=== PATIENT | female | born 1945 | race Caucasian/White ===

== ENCOUNTER 2019-01-05 17:05 | Inpatient (IN) | payer MEDICARE, OTHER ==
--- NOTE | 2019-01-05 18:41 | PDOC ---
History of Present Illness - General Chief Complaint: Edema Stated Complaint: SOB,LEG PAIN Time Seen by Provider: 01/05/19 17:25 History Source: Patient Exam Limitations: No Limitations - History of Present Illness Initial Comments: 01/05/19 18:57 Pt is a 73yo F with PMH of Leukemia s/p chemotherapy 2y ago, CAD s/p stent, DM, HTN, HLD presenting to ED with complaints of rash and redness to lower extremities associated with swelling. Pt noticed the rash 3-4 days ago and states it has been getting progressively worse. She states that she feels pain in the legs all around and the rashes feel slightly itchy. Denies fevers, chills , recent illnesses, recent antibiotic use, recent travel, sick contacts, cough, congestion, weight loss, night sweats, chest pain, palpitations, sob, abdominal pain, n/v/d, bloody stools, hematuria, epistaxis, headache, changes in vision. PMD: Nikkie Perdue PMH: see hpi PSH: see hpi Meds: see med rec Allergies: nkda Past History - Past Medical History Allergies/Adverse Reactions: Allergies Allergy/AdvReac Type Severity Reaction Status Date / Time No Known Allergies Allergy Verified 01/05/19 17:15 Home Medications: Ambulatory Orders Nebivolol [Bystolic -] 5 mg PO DAILY 05/19/15 Ramipril [Altace] 5 mg PO DAILY 05/19/15 Aspirin [ASA -] 81 mg PO DAILY 07/04/15 Atorvastatin Ca [Lipitor -] 40 mg PO HS 07/04/15 Canagliflozin/Metformin HCl [Invokamet 150-500 mg Tablet] 1 each PO DAILY Clopidogrel Bisulfate [Plavix -] 75 mg PO DAILY 07/04/15 Cardiac Disorders: Yes (episodes of chest pain for a couple seconds) Diabetes: Yes HTN: Yes Hypercholesterolemia: Yes (stopped takeing her chol meds) - Surgical History Cardiac Surgery: Yes (card stents) - Suicide/Smoking/Psychosocial Hx Smoking History: Unknown if ever smoked Have you smoked in the past 12 months: Yes Number of Cigarettes Smoked Daily: 1 'Breaking Loose' booklet given: 05/19/15 Hx Alcohol Use: No Drug/Substance Use Hx: No Substance Use Type: None Hx Substance Use Treatment: No Review of Systems - Review of Systems Constitutional: Yes: Weight Stable. No: Chills, Fever, Malaise, Night Sweats, Weakness, Unintentional Wgt. Loss HEENTM: No: Eye Pain, Blurred Vision, Tearing, Nose Bleeding, Difficulty Swallowing Respiratory: No: Cough, Shortness of Breath, Hemoptysis Cardiac (ROS): No: Chest Pain, Lightheadedness, Palpitations, Syncope ABD/GI: No: Constipated, Diarrhea, Nausea, Rectal Bleeding, Vomiting, Abdominal cramping, Tarry Stools : No: Burning, Dysuria, Hematuria Musculoskeletal: No: Back Pain, Joint Pain, Neck Pain Integumentary: Yes: See HPI, Erythema, Lesions, Pruritus, Rash Neurological: No: Numbness, Paresthesia, Tingling, Tremors *Physical Exam - Vital Signs Last Vital Signs Temp Pulse Resp BP Pulse Ox 98 F 85 17 146/68 100 01/05/19 17:13 01/05/19 17:13 01/05/19 17:13 01/05/19 17:13 01/05/19 17:13 - Physical Exam General Appearance: Yes: Appropriately Dressed, Obese. No: Apparent Distress HEENT: positive: EOMI, RAINER, Lesions (petechiae on roof of mouth). negative: Thrush Neck: positive: Trachea midline, Supple. negative: Lymphadenopathy (R), Lymphadenopathy (L) Respiratory/Chest: positive: Lungs Clear, Normal Breath Sounds. negative: Crackles, Wheezing Cardiovascular: positive: Regular Rhythm, Regular Rate, S1, S2. negative: Edema , JVD, Murmur Vascular Pulses: Carotid (R): 2+, Carotid (L): 2+, Dorsalis-Pedis (R): 2+, Doralis-Pedis (L): 2+ Gastrointestinal/Abdominal: positive: Normal Bowel Sounds, Soft. negative: Tender Musculoskeletal: negative: CVA Tenderness, Vertebral Tenderness Extremity: positive: Normal Capillary Refill, Pedal Edema (bilaterally), Swelling (bilaterally) Integumentary: positive: Normal Color, Dry, Warm, Erythema, Petechiae (on lower extremities bilaterally), Rash (blanching area of erythma on RLE). negative: Mottled, Pale, Cold, Clammy, Diaphoresis Neurologic: positive: human resources officer II-XII NML intact, Fully Oriented, Alert, Normal Response, Motor Strength 5/5 ED Treatment Course - LABORATORY CBC & Chemistry Diagram: 01/05/19 18:20 01/05/19 18:20 - RADIOLOGY Radiology Studies Ordered: Category Date Time Status DUPLEX VASCUL US-2LEGS [US] Stat Ultrasound 01/05/19 17:57 Ordered Medical Decision Making - Medical Decision Making 01/05/19 19:10 Pt is a 73yo F with PMH of Leukemia s/p chemotherapy 2y ago, CAD s/p stent, DM, HTN, HLD presenting to ED with complaints of rash and redness to lower extremities associated with swelling. Pt noticed the rash 3-4 days ago and states it has been getting progressively worse. She states that she feels pain in the legs all around and the rashes feel slightly itchy. Denies fevers, chills , recent illnesses, recent antibiotic use, recent travel, sick contacts, cough, congestion, weight loss, night sweats, chest pain, palpitations, sob, abdominal pain, n/v/d, bloody stools, hematuria, epistaxis, headache, changes in vision. Vitals: wnl PE: petechiae over lower extremities bilaterally from the thigh down, petechie in hard/soft palate of mouth, bilateral edema below the knees, RLE erythema with blanching, slightly warm Ddx includes but not limited to TTP, ITP, cellulitis, impitigo, DVT, fluid overload (chf, renal failure) cellulitis, -labs, bcx, coags, lact -ekg, doppler study -vancomycin. labs pending. imaging pending. EKG: nsr, low voltage QRS. LAFB. no chris or depressions. Flat T in III, V2. due to comorbidities, pt will be admitted for cellulitis. Pt signed out to Dr. Ibrahim to follow up on labs and for admission. *DC/Admit/Observation/Transfer Diagnosis at time of Disposition: Petechiae Cellulitis Qualifiers: Site of cellulitis: extremity Site of cellulitis of extremity: lower extremity Laterality: right Qualified Code(s): L03.115 - Cellulitis of right lower limb - Discharge Dispostion Condition at time of disposition: Good Decision to Admit order: Yes - Referrals Referrals: Deng Perdue MD [Primary Care Provider] - - Patient Instructions - Post Discharge Activity
[2019-01-05 18:47] LABS: BASO % 0.6 % (0-2.0); EOS % 2.3 % (0-4.5); HEMATOCRIT 37.9 % (32.4-45.2); HEMOGLOBIN 12.4 GM/dL (10.7-15.3); LYMPH % 18.8 % (8-40); MCHC 32.7 g/dl (32.0-36.0); MEAN CELL VOLUME 82.5 fl (80-96); MEAN PLT VOLUME 8.2 fl (7.5-11.1); NEUT % 72.3 % (42.8-82.8); PLATELET COUNT 179 K/MM3 (134-434); RDW 15.7 % (11.6-15.6); WHITE BLOOD COUNT 5.5 K/mm3 (4.0-10.0)
[2019-01-05] MEDS ORDERED: VANCOMYCIN 1 GM in D5W (PRE-DOCKED) 1,000 MG/250 ML IVPB ONE (18:47)
--- NOTE | 2019-01-05 18:48 | PDOC ---
Documentation entered by Kristan Lopez SCRIBE, acting as scribe for Adilene Mark DO. Adilene Mark DO: This documentation has been prepared by the John white Daisy, SCRIBE, under my direction and personally reviewed by me in its entirety. I confirm that the documentation accurately reflects all work, treatment, procedures, and medical decision making performed by me. Attending Attestation - Resident Resident Name: Kayleen Carter - ED Attending Attestation I have performed the following: I have examined & evaluated the patient, The case was reviewed & discussed with the resident, I agree w/resident's findings & plan - HPI HPI: 01/05/19 18:23 The patient is a 73 YOF with a PMH of CAD, s/p stent, DM, HTN and acute lympoblastic leukemia s/p chemo who presents to the ER complaining of a rash to her bilateral lower extremity, which she noticed 3 days ago. Patient states she noticed these red patches along her skin, right worse than left leg, and began to apply an old cream she had at home for chemo blisters. Denies itchiness but states they are painful. Denies any new meds or antibiotics. Denies any bleeding from her gums or recent nose bleeds. Denies any trauma to the area. Allergies: NKDA PCP: Dr. Deng Perdue Oncologist: at [facility] - Physicial Exam PE: 01/05/19 18:28 ADULT PHYSICAL EXAM Constitutional: Awake, alert, oriented. No acute distress. Cardiovascular: Regular rate. Regular rhythm. S1, S2 regular. Distal pulses are 2+ and symmetric. Pulmonary/Chest: No evidence of respiratory distress. Clear to auscultation bilaterally No wheezing, rales or rhonchi. Abdominal: Soft and non-distended. There is no tenderness. No rebound, guarding or rigidity. No organomegaly. No palpable masses. Good bowel sounds. Musculoskeletal: No edema. Full range of motion in all extremities. No calf tenderness. Radial/pedal pulses are intact and 2+ bilaterally Skin: (+) petechiae on the soft palate and bilateral lower extremities. (+) anterior tibula cellulitis with warmth, tenderness, and some blistering that is confluent downwards. Neurological: Alert and oriented to person, place, and time. Cranial nerves II -XII are grossly intact. Psychiatric: Good eye contact. Normal interaction, affect and behavior. - Medical Decision Making 01/05/19 18:45 I, Dr. Adilene Mark, DO, attest that this document has been prepared under my direction and personally reviewed by me in its entirety. I further attest, that it accurately reflects all work, treatment, procedures and medical decision -making performed by me. 01/05/19 18:45 a/p: 73yo female with 4 days of worsening rash to LE -pt with petechial rash to b/l LE which worsen as it descends the legs and becomes more confluent -also with cellulitis to the RLE -hx of ALL, dm -no recent f/c, no recent illness or abx -will send labs, cultures, will need abx for cellulitis -will monitor and reassess 01/05/19 19:12 pt with petechiae and cellulitis will need admission plts stable Heart Score/ECG Review - ECG Intrepretation Comment:: 01/05/19 18:47 sinus at 80, low voltage, L-richardson axis, nl interval, poor r wave progression, abnl ekg
[2019-01-05 19:01] LABS: INR 0.97 (0.83-1.09); PROTHROMBIN TIME (PATIENT) 11.5 SEC (9.7-13.0)
[2019-01-05 19:03] LABS: ACTIVATED PTT 27.9 SECONDS (25.2-36.5)
[2019-01-05 19:14] LABS: ALBUMIN 3.6 g/dl (3.4-5.0); ALK PHOS 65 U/L (45-117); ANION GAP 8 MMOL/L (8-16); BILIRUBIN,TOTAL 0.5 mg/dL (0.2-1); BLOOD UREA NITROGEN 19 mg/dL (7-18); CALCIUM 9.2 mg/dL (8.5-10.1); CHLORIDE 106 mmol/L (98-107); CO2 25 mmol/L (21-32); CREATININE 1.1 mg/dL (0.55-1.3); GLUCOSE,RANDOM 138 mg/dL (74-106); POTASSIUM 4.3 mmol/L (3.5-5.1); SGOT/AST 19 U/L (15-37); SGPT/ALT 12 U/L (13-61); SODIUM 139 mmol/L (136-145); TOT PROT 7.6 g/dl (6.4-8.2)
[2019-01-05] MEDS ORDERED: VANCOMYCIN 1 GRAM (PRE-DOCKED) 1,000 MG/250 ML BAG IVPB ONE (19:32)
[2019-01-05] MEDS ORDERED: ACETAMINOPHEN 325 MG TABLET (FP) PO ONE (23:30)
[2019-01-05 23:31] VITALS: BMI 46.7
[2019-01-05] MEDS ORDERED: diphenhydrAMINE HCL 25 MG CAPSULE (FP) PO ONE (23:45)
[2019-01-06] MEDS ORDERED: ACETAMINOPHEN 325 MG TABLET (FP) PO PRN (03:02)
[2019-01-06] MEDS ORDERED: VANCOMYCIN 1,000 MG in DEXTROSE 5%-WATER - 250 ML IVPB ONE ×2 (05:15→08:00)
[2019-01-06] MEDS ORDERED: PT OWN MED DRAWER 7, Y5N ONE (05:17)
[2019-01-06] MEDS: metFORMIN HCL 500 MG TABLET (FP) PO SCH ×2 (06:37→16:11)
[2019-01-06] MEDS: INSULIN SLIDING SCALE (NOVOLOG) 1 VIAL SQ SCH ×4 (06:37→21:55)
[2019-01-06] MEDS ORDERED: INSULIN (NOVOLOG) ASPART 100 UNITS/ML 10ML VIAL ONE (06:41)
[2019-01-06 07:20] LABS: BASO % 0.7 % (0-2.0); EOS % 3.7 % (0-4.5); HEMATOCRIT 35.7 % (32.4-45.2); HEMOGLOBIN 11.6 GM/dL (10.7-15.3); LYMPH % 29.4 % (8-40); MCH 26.7 pg (25.7-33.7); MCHC 32.4 g/dl (32.0-36.0); MEAN CELL VOLUME 82.5 fl (80-96); MEAN PLT VOLUME 8.2 fl (7.5-11.1); MONO % 6.8 % (3.8-10.2); NEUT % 59.4 % (42.8-82.8); PLATELET COUNT 176 K/MM3 (134-434); RBC 4.32 M/mm3 (3.60-5.2); RDW 15.8 % (11.6-15.6); WHITE BLOOD COUNT 4.1 K/mm3 (4.0-10.0)
[2019-01-06 07:43] LABS: ALK PHOS 54 U/L (45-117); ANION GAP 6 MMOL/L (8-16); BILIRUBIN,TOTAL 0.4 mg/dL (0.2-1); BLOOD UREA NITROGEN 22 mg/dL (7-18); CALCIUM 8.5 mg/dL (8.5-10.1); CHLORIDE 108 mmol/L (98-107); CO2 27 mmol/L (21-32); CREATININE 0.9 mg/dL (0.55-1.3); GLUCOSE,RANDOM 129 mg/dL (74-106); POTASSIUM 4.1 mmol/L (3.5-5.1); SGOT/AST 12 U/L (15-37); SGPT/ALT 11 U/L (13-61); SODIUM 141 mmol/L (136-145); TOT PROT 6.5 g/dl (6.4-8.2)
[2019-01-06] MEDS ORDERED: DEXTROSE 5%-WATER - 50 ML IVPB ONE ×2 (08:36→16:37)
[2019-01-06] MEDS ORDERED: PIPERACILLIN/TAZOBACTAM 3.375 GM VIAL IVPB ONE ×2 (08:36→16:37)
[2019-01-06] MEDS: RAMIPRIL 5 MG CAPSULE (FP) PO SCH (09:09)
[2019-01-06] MEDS: HEPARIN NA (PORCINE) 5,000 UNITS/ML 1ML VIAL SQ SCH ×2 (09:09→21:47)
[2019-01-06] MEDS: CLOPIDOGREL BISULFATE 75 MG TABLET (FP) PO SCH (09:09)
[2019-01-06] MEDS: ASPIRIN 81 MG CHEWABLE TABLETS PO SCH (09:09)
[2019-01-06] MEDS: NEBIVOLOL 5 MG TABLET (FP) PO SCH (09:09)
--- NOTE | 2019-01-06 09:57 | EKG ---
Test Reason : Blood Pressure : / mmHG Vent. Rate : 080 BPM Atrial Rate : 080 BPM P-R Int : 182 ms QRS Dur : 090 ms QT Int : 394 ms P-R-T Axes : 055 -54 062 degrees QTc Int : 454 ms NORMAL SINUS RHYTHM LOW VOLTAGE QRS LEFT ANTERIOR FASCICULAR BLOCK CANNOT RULE OUT INFERIOR INFARCT (MASKED BY FASCICULAR BLOCK?) , AGE UNDETERMINED POSSIBLE ANTEROLATERAL INFARCT , AGE UNDETERMINED ABNORMAL ECG WHEN COMPARED WITH ECG OF 04-JUL-2015 09:43, T WAVE INVERSION NO LONGER EVIDENT IN ANTERIOR LEADS Confirmed by NEELAM ALEX MD ([id number]) on 01/06/2019 9:57:09 AM Referred By: Confirmed By:NEELAM ALEX MD
[2019-01-06] MEDS ORDERED: PIPERACILLIN/TAZOB 3.375 GM 3.375 GM in DEXTROSE 5%-WATER - 50 ML IVPB SCH (10:00)
--- NOTE | 2019-01-06 11:54 | CON.ID ---
Consult Consult Specialty:: infectious diseases Referred by:: Reason for Consultation:: b/l cellulitis of the leg - History of Present Illness Chief Complaint: swelling and erythema of the leg History of Present Illness: 73 YOF with a PMH of CAD, s/p stent, DM, HTN and acute lympoblastic leukemia s/ p chemo admitted with ca rash to her bilateral lower extremity, which she noticed 3 days ago. Patient states she noticed these red patches along her skin , right worse than left leg, and began to apply an old cream she had at home for chemo blisters. Denies itchiness but states they are painful. Denies any new meds or antibiotics. patient mentions that the leg started getting angrier and more red and specially painful on the right and the patient came to the hospital - History Source History Provided By: Patient Limitations to Obtaining History: No Limitations - Past Medical History Cardio/Vascular: Yes: CAD, HTN, Hyperlipdemia, [place] (s/p EES stent to LAD) Endocrine: Yes: Diabetes Mellitus - Past Surgical History Past Surgical History: Yes: Stent - Alcohol/Substance Use Hx Alcohol Use: No - Smoking History Smoking history: Unknown if ever smoked Have you smoked in the past 12 months: Yes Aproximately how many cigarettes per day: 1 - Social History Usual Living Arrangement: With Spouse ADL: Independent Occupation: retired dietary staff at [employer] History of Recent Travel: No Home Medications - Allergies Allergies/Adverse Reactions: Allergies Allergy/AdvReac Type Severity Reaction Status Date / Time No Known Allergies Allergy Verified 01/05/19 17:15 - Home Medications Home Medications: Ambulatory Orders Nebivolol [Bystolic -] 5 mg PO DAILY 05/19/15 Ramipril [Altace] 5 mg PO DAILY 05/19/15 Aspirin [ASA -] 81 mg PO DAILY 07/04/15 Atorvastatin Ca [Lipitor -] 40 mg PO HS 07/04/15 Canagliflozin/Metformin HCl [Invokamet 150-500 mg Tablet] 1 each PO DAILY Clopidogrel Bisulfate [Plavix -] 75 mg PO DAILY 07/04/15 Family Disease History - Family Disease History Family Disease History: Heart Disease: Mother, Brother Review of Systems - Review of Systems Constitutional: reports: No Symptoms Eyes: reports: No Symptoms HENT: reports: No Symptoms Neck: reports: No Symptoms Cardiovascular: reports: No Symptoms Respiratory: reports: No Symptoms Gastrointestinal: reports: No Symptoms Genitourinary: reports: No Symptoms Musculoskeletal: reports: No Symptoms Integumentary: reports: Change in Color, Erythema, Rash Neurological: reports: No Symptoms Endocrine: reports: No Symptoms Hematology/Lymphatic: reports: No Symptoms Psychiatric: reports: No Symptoms Physical Exam Vital Signs: Vital Signs Temperature 97.7 F 01/06/19 10:00 Pulse Rate 63 01/06/19 10:00 Respiratory Rate 20 01/06/19 10:00 Blood Pressure 141/66 01/06/19 10:00 O2 Sat by Pulse Oximetry (%) 94 L 01/06/19 09:00 Constitutional: Yes: Well Nourished, Calm, Mild Distress Cardiovascular: Yes: Regular Rate and Rhythm Respiratory: Yes: Regular, CTA Bilaterally Gastrointestinal: Yes: Normal Bowel Sounds, Soft Musculoskeletal: Yes: Other Extremities: Yes: Erythema, Other Integumentary: Yes: Erythema, Incision, Rash Neurological: Yes: Alert, Oriented Psychiatric: Yes: Alert, Oriented Labs: CBC, BMP 01/06/19 06:45 01/06/19 06:45 Imaging - Results Ultrasound: Report Reviewed, Image Reviewed Assessment/Plan Problem List - Problems (1) Cellulitis Code(s): L03.90 - CELLULITIS, UNSPECIFIED Qualifiers: Site of cellulitis: extremity Site of cellulitis of extremity: lower extremity Laterality: right Qualified Code(s): L03.115 - Cellulitis of right lower limb (2) Petechiae Code(s): R23.3 - SPONTANEOUS ECCHYMOSES (3) Diabetes Code(s): E11.9 - TYPE 2 DIABETES MELLITUS WITHOUT COMPLICATIONS Qualifiers: Diabetes mellitus type: type 2 (4) HTN (hypertension) Code(s): I10 - ESSENTIAL (PRIMARY) HYPERTENSION (5) Hyperlipidemia Code(s): E78.5 - HYPERLIPIDEMIA, UNSPECIFIED (6) CAD (coronary artery disease) Code(s): I25.10 - ATHSCL HEART DISEASE OF [place] CORONARY ARTERY W/O ANG PCTRS plan will start patient zosyn rest as per the team
--- NOTE | 2019-01-06 13:19 | HP ---
Admitting History and Physical - Admission History of Present Illness: Pt is a 73 y/o female with a PMH significant for CAD(s/p stent), DM, HTN and acute lympoblastic leukemia s/p chemo. Pt presents to the ER complaining of a rash to her bilateral lower extremity which she noticed 3 days ago. Patient states she noticed these red patches along her skin, right worse than left leg and began to apply an old cream she had at home for chemo blisters. Denies itchiness but states they are painful. Pt denies any fever/chills. - Past Medical History Cardiovascular: Yes: CAD, HTN, Hyperlipdemia, [place] (s/p EES stent to LAD) Heme/Onc: Yes: Other (Leukemia) Endocrine: Yes: Diabetes Mellitus - Past Surgical History Past Surgical History: Yes: Stent - Smoking History Smoking history: Unknown if ever smoked Have you smoked in the past 12 months: Yes Aproximately how many cigarettes per day: 1 - Alcohol/Substance Use Hx Alcohol Use: No - Social History ADL: Independent Occupation: retired dietary staff at [employer] History of Recent Travel: No Home Medications - Allergies Allergies/Adverse Reactions: Allergies Allergy/AdvReac Type Severity Reaction Status Date / Time No Known Allergies Allergy Verified 01/05/19 17:15 - Home Medications Home Medications: Ambulatory Orders Nebivolol [Bystolic -] 5 mg PO DAILY 05/19/15 Ramipril [Altace] 5 mg PO DAILY 05/19/15 Aspirin [ASA -] 81 mg PO DAILY 07/04/15 Atorvastatin Ca [Lipitor -] 40 mg PO HS 07/04/15 Canagliflozin/Metformin HCl [Invokamet 150-500 mg Tablet] 1 each PO DAILY Clopidogrel Bisulfate [Plavix -] 75 mg PO DAILY 07/04/15 Family Disease History - Family Disease History Family History: Unremarkable Family Disease History: Heart Disease: Mother, Brother Review of Systems - Review of Systems Constitutional: reports: No Symptoms HENT: reports: No Symptoms Neck: reports: No Symptoms Cardiovascular: reports: No Symptoms Respiratory: reports: No Symptoms Gastrointestinal: reports: No Symptoms Physical Examination Vital Signs: Vital Signs Temperature 97.7 F 01/06/19 10:00 Pulse Rate 63 01/06/19 10:00 Respiratory Rate 20 01/06/19 10:00 Blood Pressure 141/66 01/06/19 10:00 O2 Sat by Pulse Oximetry (%) 94 L 01/06/19 09:00 Constitutional: Yes: No Distress Eyes: Yes: WNL HENT: Yes: WNL Neck: Yes: WNL Cardiovascular: Yes: WNL, Regular Rate and Rhythm Respiratory: Yes: WNL, Regular, CTA Bilaterally Gastrointestinal: Yes: WNL, Normal Bowel Sounds, Soft Extremities: Yes: Other (RLE w/ erythema/chronic venousis stasis LLE w/ petechia ) Labs: CBC, BMP 01/06/19 06:45 01/06/19 06:45 Problem List - Problems (1) Cellulitis Assessment/Plan: Cont IV antibxs Follow cultures ID consult Code(s): L03.90 - CELLULITIS, UNSPECIFIED Qualifiers: Site of cellulitis: extremity Site of cellulitis of extremity: lower extremity Laterality: right Qualified Code(s): L03.115 - Cellulitis of right lower limb (2) Petechiae Code(s): R23.3 - SPONTANEOUS ECCHYMOSES (3) Diabetes Assessment/Plan: Cont sliding scale w/ coverage Cont metformin Code(s): E11.9 - TYPE 2 DIABETES MELLITUS WITHOUT COMPLICATIONS Qualifiers: Diabetes mellitus type: type 2 (4) HTN (hypertension) Assessment/Plan: BP stable Cont bystolic/ramipril Code(s): I10 - ESSENTIAL (PRIMARY) HYPERTENSION (5) Hyperlipidemia Assessment/Plan: Cont lipitor Code(s): E78.5 - HYPERLIPIDEMIA, UNSPECIFIED (6) CAD (coronary artery disease) Assessment/Plan: Cont plavix Code(s): I25.10 - ATHSCL HEART DISEASE OF [place] CORONARY ARTERY W/O ANG PCTRS
[2019-01-06] MEDS: PIPERACILLIN/TAZOB 3.375 GM 3.375 GM in DEXTROSE 5%-WATER - 50 ML IVPB SCH (17:12)
[2019-01-06] MEDS: ATORVASTATIN CA 40 MG TABLET (FP) PO SCH (21:55)
[2019-01-07] MEDS ORDERED: PIPERACILLIN/TAZOBACTAM 3.375 GM VIAL IVPB ONE ×3 (00:43→17:22)
[2019-01-07] MEDS ORDERED: DEXTROSE 5%-WATER - 50 ML IVPB ONE ×3 (00:43→17:23)
[2019-01-07] MEDS: PIPERACILLIN/TAZOB 3.375 GM 3.375 GM in DEXTROSE 5%-WATER - 50 ML IVPB SCH ×3 (01:41→17:25)
[2019-01-07] MEDS: INSULIN SLIDING SCALE (NOVOLOG) 1 VIAL SQ SCH ×4 (06:09→21:00)
[2019-01-07] MEDS: metFORMIN HCL 500 MG TABLET (FP) PO SCH ×2 (06:09→16:26)
[2019-01-07 07:56] LABS: BASO % 0.7 % (0-2.0); EOS % 3.7 % (0-4.5); HEMATOCRIT 34.9 % (32.4-45.2); HEMOGLOBIN 11.4 GM/dL (10.7-15.3); LYMPH % 25.4 % (8-40); MCH 26.9 pg (25.7-33.7); MCHC 32.8 g/dl (32.0-36.0); MEAN CELL VOLUME 82.1 fl (80-96); MEAN PLT VOLUME 8.4 fl (7.5-11.1); MONO % 8.4 % (3.8-10.2); NEUT % 61.8 % (42.8-82.8); PLATELET COUNT 163 K/MM3 (134-434); RBC 4.26 M/mm3 (3.60-5.2); RDW 16.1 % (11.6-15.6); WHITE BLOOD COUNT 3.9 K/mm3 (4.0-10.0)
[2019-01-07 08:18] LABS: ALK PHOS 52 U/L (45-117); ANION GAP 6 MMOL/L (8-16); BILIRUBIN,TOTAL 0.5 mg/dL (0.2-1); BLOOD UREA NITROGEN 19 mg/dL (7-18); CALCIUM 8.6 mg/dL (8.5-10.1); CHLORIDE 106 mmol/L (98-107); CO2 28 mmol/L (21-32); CREATININE 0.9 mg/dL (0.55-1.3); GLUCOSE,RANDOM 121 mg/dL (74-106); POTASSIUM 4.2 mmol/L (3.5-5.1); SGOT/AST 10 U/L (15-37); SGPT/ALT 11 U/L (13-61); SODIUM 140 mmol/L (136-145); TOT PROT 6.7 g/dl (6.4-8.2)
[2019-01-07] MEDS: NEBIVOLOL 5 MG TABLET (FP) PO SCH (09:21)
[2019-01-07] MEDS: ASPIRIN 81 MG CHEWABLE TABLETS PO SCH (09:21)
[2019-01-07] MEDS: CLOPIDOGREL BISULFATE 75 MG TABLET (FP) PO SCH (09:22)
[2019-01-07] MEDS: RAMIPRIL 5 MG CAPSULE (FP) PO SCH (09:22)
[2019-01-07] MEDS: HEPARIN NA (PORCINE) 5,000 UNITS/ML 1ML VIAL SQ SCH ×2 (09:22→20:59)
[2019-01-07] MEDS: ATORVASTATIN CA 40 MG TABLET (FP) PO SCH (20:59)
--- NOTE | 2019-01-07 22:10 | PN ---
Progress Note, Physician - Current Medication List Current Medications: Active Medications Acetaminophen (Tylenol -) 650 mg PO Q6H PRN PRN Reason: PAIN Aspirin (Asa -) 81 mg PO DAILY [facility] Last Admin: 01/07/19 09:21 Dose: 81 mg Atorvastatin Calcium (Lipitor -) 40 mg PO HS [facility] Last Admin: 01/07/19 20:59 Dose: 40 mg Clopidogrel Bisulfate (Plavix -) 75 mg PO DAILY [facility] Last Admin: 01/07/19 09:22 Dose: 75 mg Heparin Sodium (Porcine) (Heparin -) 5,000 unit SQ BID [facility] Last Admin: 01/07/19 20:59 Dose: Not Given Vancomycin HCl (Vancomycin 1 Gm Premix -) 1 gm in 200 mls @ 133.333 mls/hr IVPB Q12H [facility] Piperacillin Sod/Tazobactam (Sod 3.375 gm/ Dextrose) 50 mls @ 100 mls/hr IVPB Q8H-IV [facility]; Protocol Last Admin: 01/07/19 17:25 Dose: 100 mls/hr Insulin Aspart (Novolog Vial Sliding Scale -) 1 vial SQ ACHS [facility]; Protocol Last Admin: 01/07/19 21:00 Dose: Not Given Metformin HCl (Glucophage -) 500 mg PO BID@0700,1630 [facility] Last Admin: 01/07/19 16:26 Dose: 500 mg Nebivolol (Bystolic -) 5 mg PO DAILY [facility] Last Admin: 01/07/19 09:21 Dose: 5 mg Ramipril (Altace -) 5 mg PO DAILY [facility] Last Admin: 01/07/19 09:22 Dose: 5 mg - Objective Vital Signs: Vital Signs Temperature 98.8 F 01/07/19 18:00 Pulse Rate 63 01/07/19 18:00 Respiratory Rate 20 01/07/19 18:00 Blood Pressure 123/55 L 01/07/19 18:00 O2 Sat by Pulse Oximetry (%) 95 01/07/19 09:00 Labs: CBC, BMP 01/07/19 06:45 01/07/19 06:45 INR, PTT INR 0.97 (0.83-1.09) 01/05/19 18:20 Problem List - Problems (1) Cellulitis Assessment/Plan: Cont IV antibxs Follow cultures ID consult Code(s): L03.90 - CELLULITIS, UNSPECIFIED Qualifiers: Site of cellulitis: extremity Site of cellulitis of extremity: lower extremity Laterality: right Qualified Code(s): L03.115 - Cellulitis of right lower limb (2) Petechiae Code(s): R23.3 - SPONTANEOUS ECCHYMOSES (3) Diabetes Assessment/Plan: Cont sliding scale w/ coverage Cont metformin Code(s): E11.9 - TYPE 2 DIABETES MELLITUS WITHOUT COMPLICATIONS Qualifiers: Diabetes mellitus type: type 2 (4) HTN (hypertension) Assessment/Plan: BP stable Cont bystolic/ramipril Code(s): I10 - ESSENTIAL (PRIMARY) HYPERTENSION (5) Hyperlipidemia Assessment/Plan: Cont lipitor Code(s): E78.5 - HYPERLIPIDEMIA, UNSPECIFIED (6) CAD (coronary artery disease) Assessment/Plan: Cont plavix Code(s): I25.10 - ATHSCL HEART DISEASE OF [place] CORONARY ARTERY W/O ANG PCTRS
[2019-01-08] MEDS ORDERED: PIPERACILLIN/TAZOBACTAM 3.375 GM VIAL IVPB ONE ×3 (01:46→16:51)
[2019-01-08] MEDS ORDERED: DEXTROSE 5%-WATER - 50 ML IVPB ONE ×3 (01:46→16:51)
[2019-01-08] MEDS: PIPERACILLIN/TAZOB 3.375 GM 3.375 GM in DEXTROSE 5%-WATER - 50 ML IVPB SCH ×3 (02:57→17:10)
[2019-01-08] MEDS ORDERED: PT OWN MED DRAWER 7, Y5N ONE ×2 (06:02→08:45)
[2019-01-08] MEDS ORDERED: INSULIN (NOVOLOG) ASPART 100 UNITS/ML 10ML VIAL ONE ×2 (06:03→06:24)
[2019-01-08] MEDS: metFORMIN HCL 500 MG TABLET (FP) PO SCH ×3 (06:19→16:29)
[2019-01-08] MEDS: INSULIN SLIDING SCALE (NOVOLOG) 1 VIAL SQ SCH ×4 (06:19→21:48)
[2019-01-08] MEDS: CLOPIDOGREL BISULFATE 75 MG TABLET (FP) PO SCH (09:10)
[2019-01-08] MEDS: ASPIRIN 81 MG CHEWABLE TABLETS PO SCH (09:10)
[2019-01-08] MEDS: NEBIVOLOL 5 MG TABLET (FP) PO SCH (09:11)
[2019-01-08] MEDS: RAMIPRIL 5 MG CAPSULE (FP) PO SCH (09:11)
[2019-01-08] MEDS: HEPARIN NA (PORCINE) 5,000 UNITS/ML 1ML VIAL SQ SCH ×2 (09:11→21:41)
--- NOTE | 2019-01-08 09:40 | PN ---
Progress Note, Physician History of Present Illness: doing well leg improving patient feeling better - Current Medication List Current Medications: Active Medications Acetaminophen (Tylenol -) 650 mg PO Q6H PRN PRN Reason: PAIN Last Admin: 01/08/19 07:27 Dose: 650 mg Aspirin (Asa -) 81 mg PO DAILY [facility] Last Admin: 01/08/19 09:10 Dose: 81 mg Atorvastatin Calcium (Lipitor -) 40 mg PO HS [facility] Last Admin: 01/07/19 20:59 Dose: 40 mg Clopidogrel Bisulfate (Plavix -) 75 mg PO DAILY [facility] Last Admin: 01/08/19 09:10 Dose: 75 mg Heparin Sodium (Porcine) (Heparin -) 5,000 unit SQ BID [facility] Last Admin: 01/08/19 09:11 Dose: Not Given Vancomycin HCl (Vancomycin 1 Gm Premix -) 1 gm in 200 mls @ 133.333 mls/hr IVPB Q12H [facility] Piperacillin Sod/Tazobactam (Sod 3.375 gm/ Dextrose) 50 mls @ 100 mls/hr IVPB Q8H-IV [facility]; Protocol Last Admin: 01/08/19 09:10 Dose: 100 mls/hr Insulin Aspart (Novolog Vial Sliding Scale -) 1 vial SQ ACHS [facility]; Protocol Last Admin: 01/08/19 06:19 Dose: Not Given Metformin HCl (Glucophage -) 500 mg PO BID@0700,1630 [facility] Last Admin: 01/08/19 08:49 Dose: 500 mg Nebivolol (Bystolic -) 5 mg PO DAILY [facility] Last Admin: 01/08/19 09:11 Dose: 5 mg Ramipril (Altace -) 5 mg PO DAILY [facility] Last Admin: 01/08/19 09:11 Dose: 5 mg - Objective Vital Signs: Vital Signs Temperature 98.3 F 01/08/19 06:00 Pulse Rate 66 01/08/19 06:00 Respiratory Rate 18 01/08/19 06:00 Blood Pressure 138/73 01/08/19 06:00 O2 Sat by Pulse Oximetry (%) 96 01/07/19 21:00 Constitutional: Yes: No Distress, Calm Cardiovascular: Yes: S1, S2 Respiratory: Yes: Regular, CTA Bilaterally Gastrointestinal: Yes: Normal Bowel Sounds, Soft Musculoskeletal: Yes: WNL Extremities: Yes: Erythema (improving), Other Integumentary: Yes: Erythema (improved) Neurological: Yes: Alert, Oriented Labs: CBC, BMP 01/07/19 06:45 01/07/19 06:45 INR, PTT INR 0.97 (0.83-1.09) 01/05/19 18:20 Assessment/Plan Problem List - Problems (1) Cellulitis Code(s): L03.90 - CELLULITIS, UNSPECIFIED Qualifiers: Site of cellulitis: extremity Site of cellulitis of extremity: lower extremity Laterality: right Qualified Code(s): L03.115 - Cellulitis of right lower limb (2) Petechiae Code(s): R23.3 - SPONTANEOUS ECCHYMOSES (3) Diabetes Code(s): E11.9 - TYPE 2 DIABETES MELLITUS WITHOUT COMPLICATIONS Qualifiers: Diabetes mellitus type: type 2 (4) HTN (hypertension) Code(s): I10 - ESSENTIAL (PRIMARY) HYPERTENSION (5) Hyperlipidemia Code(s): E78.5 - HYPERLIPIDEMIA, UNSPECIFIED (6) CAD (coronary artery disease) Code(s): I25.10 - ATHSCL HEART DISEASE OF [place] CORONARY ARTERY W/O ANG PCTRS plan continue abx elevation of the leg rest as per the team
--- NOTE | 2019-01-08 09:41 | PN ---
Progress Note, Physician History of Present Illness: continues to improve no issues erythema resolving - Current Medication List Current Medications: Active Medications Acetaminophen (Tylenol -) 650 mg PO Q6H PRN PRN Reason: PAIN Last Admin: 01/08/19 07:27 Dose: 650 mg Aspirin (Asa -) 81 mg PO DAILY [facility] Last Admin: 01/08/19 09:10 Dose: 81 mg Atorvastatin Calcium (Lipitor -) 40 mg PO HS [facility] Last Admin: 01/07/19 20:59 Dose: 40 mg Clopidogrel Bisulfate (Plavix -) 75 mg PO DAILY [facility] Last Admin: 01/08/19 09:10 Dose: 75 mg Heparin Sodium (Porcine) (Heparin -) 5,000 unit SQ BID [facility] Last Admin: 01/08/19 09:11 Dose: Not Given Vancomycin HCl (Vancomycin 1 Gm Premix -) 1 gm in 200 mls @ 133.333 mls/hr IVPB Q12H [facility] Piperacillin Sod/Tazobactam (Sod 3.375 gm/ Dextrose) 50 mls @ 100 mls/hr IVPB Q8H-IV [facility]; Protocol Last Admin: 01/08/19 09:10 Dose: 100 mls/hr Insulin Aspart (Novolog Vial Sliding Scale -) 1 vial SQ ACHS [facility]; Protocol Last Admin: 01/08/19 06:19 Dose: Not Given Metformin HCl (Glucophage -) 500 mg PO BID@0700,1630 [facility] Last Admin: 01/08/19 08:49 Dose: 500 mg Nebivolol (Bystolic -) 5 mg PO DAILY [facility] Last Admin: 01/08/19 09:11 Dose: 5 mg Ramipril (Altace -) 5 mg PO DAILY [facility] Last Admin: 01/08/19 09:11 Dose: 5 mg - Objective Vital Signs: Vital Signs Temperature 98.3 F 01/08/19 06:00 Pulse Rate 66 01/08/19 06:00 Respiratory Rate 18 01/08/19 06:00 Blood Pressure 138/73 01/08/19 06:00 O2 Sat by Pulse Oximetry (%) 96 01/07/19 21:00 Constitutional: Yes: No Distress, Calm, Obese Cardiovascular: Yes: Regular Rate and Rhythm Respiratory: Yes: Regular, CTA Bilaterally Gastrointestinal: Yes: Normal Bowel Sounds, Soft Musculoskeletal: Yes: WNL Extremities: Yes: Other Neurological: Yes: Alert, Oriented Psychiatric: Yes: Alert, Oriented Labs: CBC, BMP 01/07/19 06:45 01/07/19 06:45 INR, PTT INR 0.97 (0.83-1.09) 01/05/19 18:20 Assessment/Plan Problem List - Problems (1) Cellulitis Code(s): L03.90 - CELLULITIS, UNSPECIFIED Qualifiers: Site of cellulitis: extremity Site of cellulitis of extremity: lower extremity Laterality: right Qualified Code(s): L03.115 - Cellulitis of right lower limb (2) Petechiae Code(s): R23.3 - SPONTANEOUS ECCHYMOSES (3) Diabetes Code(s): E11.9 - TYPE 2 DIABETES MELLITUS WITHOUT COMPLICATIONS Qualifiers: Diabetes mellitus type: type 2 (4) HTN (hypertension) Code(s): I10 - ESSENTIAL (PRIMARY) HYPERTENSION (5) Hyperlipidemia Code(s): E78.5 - HYPERLIPIDEMIA, UNSPECIFIED (6) CAD (coronary artery disease) Code(s): I25.10 - ATHSCL HEART DISEASE OF [place] CORONARY ARTERY W/O ANG PCTRS plan continue abx elevation of the leg rest as per the team will see how patient behaves with erythema tomorrow
--- NOTE | 2019-01-08 10:42 | CONSULT ---
- Consultation REQUESTING PROVIDER: CONSULT REQUEST: We have been asked to surgically evaluate this patient for leg cellulitis PCP:Natacha Cooney HISTORY OF PRESENT ILLNESS: 73yo F presented the hospital with worsening pain and redness of her legs bilaterally Lt>Rt, pt states that the changes started about 1 week ago. 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 Pt denies any history of vascular surgery or issues. Pt states that she is a former smoker quit 1 year ago, but only smoked about 1 cig/day. Pt history of DM on PO meds only. Pt admits to some non-compliance with her medications. PMHx: HTN, HLD, DM, ALL(in remission), diabetic neuropathy Home Medications Medication Instructions Recorded Nebivolol [Bystolic -] 5 mg PO DAILY 05/19/15 Ramipril [Altace] 5 mg PO DAILY 05/19/15 Aspirin [ASA -] 81 mg PO DAILY 07/04/15 Atorvastatin Ca [Lipitor -] 40 mg PO HS 07/04/15 Canagliflozin/Metformin HCl 1 each PO DAILY 07/04/15 [Invokamet 150-500 mg Tablet] Clopidogrel Bisulfate [Plavix -] 75 mg PO DAILY 07/04/15 Allergies Allergy/AdvReac Type Severity Reaction Status Date / Time No Known Allergies Allergy Verified 01/05/19 17:15 REVIEW OF SYSTEMS: CONSTITUTIONAL: Absent: fever, chills, diaphoresis, generalized weakness, malaise, loss of appetite, weight change PHYSICAL EXAM: GENERAL: Awake, alert, and fully oriented, in no acute distress. HEAD: Normal with no signs of trauma. EYES: PERRL, sclera anicteric, conjunctiva clear. NECK: Normal ROM MUSCULOSKELETAL: Normal ROM at all joints. No bony deformities or tenderness. No CVA tenderness. LOWER EXTREMITIES: warm, well-perfused. Extensive Rt leg erythema on anterior vega, +2 edema, mild tenderness with palpation of calf. LLE shows limited erythema on anterior vega +1 edema. NEUROLOGICAL: Normal speech, gait not observed. PSYCH: Cooperative. Good eye contact. Appropriate mood and affect. SKIN: Warm, dry, normal turgor, no rashes or lesions noted. Vital Signs Temperature 98.3 F 01/08/19 10:00 Pulse Rate 70 01/08/19 10:00 Respiratory Rate 20 01/08/19 10:00 Blood Pressure 139/60 01/08/19 10:00 O2 Sat by Pulse Oximetry (%) 97 01/08/19 09:00 Lab Results WBC 3.9 K/mm3 (4.0-10.0) L 01/07/19 06:45 RBC 4.26 M/mm3 (3.60-5.2) 01/07/19 06:45 Hgb 11.4 GM/dL (10.7-15.3) 01/07/19 06:45 Hct 34.9 % (32.4-45.2) 01/07/19 06:45 MCV 82.1 fl (80-96) 01/07/19 06:45 MCHC 32.8 g/dl (32.0-36.0) 01/07/19 06:45 RDW 16.1 % (11.6-15.6) H 01/07/19 06:45 Plt Count 163 K/MM3 (134-434) 01/07/19 06:45 Sodium 140 mmol/L (136-145) 01/07/19 06:45 Potassium 4.2 mmol/L (3.5-5.1) 01/07/19 06:45 Chloride 106 mmol/L (98-107) 01/07/19 06:45 Carbon Dioxide 28 mmol/L (21-32) 01/07/19 06:45 Anion Gap 6 MMOL/L (8-16) L 01/07/19 06:45 BUN 19 mg/dL (7-18) H 01/07/19 06:45 Creatinine 0.9 mg/dL (0.55-1.3) 01/07/19 06:45 Random Glucose 121 mg/dL (74-106) H 01/07/19 06:45 Calcium 8.6 mg/dL (8.5-10.1) 01/07/19 06:45 Blood Type AB POSITIVE 01/05/19 18:20 Antibody Screen Negative 01/05/19 18:20 INR 0.97 (0.83-1.09) 01/05/19 18:20 Problem List - Problems (1) Cellulitis Assessment/Plan: Plan -cellulitis appears to be improving with current treatment, no need for vascular intervention at this time. -advised pt to be compliant with medications, and importance of keeping blood sugars well controlled to prevent LE wounds. -recommend she see binding cutter, for routine foot checks which pt states that she does. Please contact vascular service if any changes. Code(s): L03.90 - CELLULITIS, UNSPECIFIED Qualifiers: Site of cellulitis: extremity Site of cellulitis of extremity: lower extremity Laterality: right Qualified Code(s): L03.115 - Cellulitis of right lower limb Visit type - Case Type Case Type: ED Admission - Emergency Emergency Visit: Yes ED Registration Date: 01/05/19 Care time: The patient presented to the Emergency Department on the above date and was hospitalized for further evaluation of their emergent condition. - New patient This patient is new to me today: Yes Date on this admission: 01/08/19 - Critical Care Critical Care patient: No
--- NOTE | 2019-01-08 11:18 | PN ---
Progress Note (short form) - Note Progress Note: covering for Dr Cooney 73yo F with PMH HTN, HLD, DM, ALL(in remission), diabetic neuropathy, presented to the hospital with worsening pain and redness of her legs bilaterally Lt>Rt, pt states that the changes started about 1 week ago. 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 Pt denies any history of vascular surgery or issues. Pt states that she is a former smoker quit 1 year ago, but only smoked about 1 cig/day. Pt history of DM on PO meds only. Pt admits to some non-compliance with her medications. patient seen and examined in Her room sitting in chair NAD Vital Signs Period Temp Pulse Resp BP Sys/Hernandez Pulse Ox Last 24 Hr 98 F-98.8 F 63-71 18-20 104-139/55-74 96-97 neck supple heart S1/S2 lungs clear bilat abd obese ext LE + edema bilat / chronic changes / hyperchromic areas / petechie CBC, BMP 01/07/19 06:45 01/07/19 06:45 Microbiology 01/05/19 20:20 Blood - Peripheral Venous Blood Culture - Preliminary NO GROWTH OBTAINED AFTER 48 HOURS, INCUBATION TO CONTINUE FOR 3 DAYS. 01/05/19 18:20 Blood - Peripheral Venous Blood Culture - Preliminary NO GROWTH OBTAINED AFTER 48 HOURS, INCUBATION TO CONTINUE FOR 3 DAYS. Active Medications Acetaminophen (Tylenol -) 650 mg PO Q6H PRN PRN Reason: PAIN Last Admin: 01/08/19 07:27 Dose: 650 mg Aspirin (Asa -) 81 mg PO DAILY [facility] Last Admin: 01/08/19 09:10 Dose: 81 mg Atorvastatin Calcium (Lipitor -) 40 mg PO HS [facility] Last Admin: 01/07/19 20:59 Dose: 40 mg Clopidogrel Bisulfate (Plavix -) 75 mg PO DAILY [facility] Last Admin: 01/08/19 09:10 Dose: 75 mg Heparin Sodium (Porcine) (Heparin -) 5,000 unit SQ BID [facility] Last Admin: 01/08/19 09:11 Dose: Not Given Vancomycin HCl (Vancomycin 1 Gm Premix -) 1 gm in 200 mls @ 133.333 mls/hr IVPB Q12H [facility] Piperacillin Sod/Tazobactam (Sod 3.375 gm/ Dextrose) 50 mls @ 100 mls/hr IVPB Q8H-IV [facility]; Protocol Last Admin: 01/08/19 09:10 Dose: 100 mls/hr Insulin Aspart (Novolog Vial Sliding Scale -) 1 vial SQ ACHS [facility]; Protocol Last Admin: 01/08/19 11:04 Dose: Not Given Metformin HCl (Glucophage -) 500 mg PO BID@0700,1630 [facility] Last Admin: 01/08/19 08:49 Dose: 500 mg Nebivolol (Bystolic -) 5 mg PO DAILY [facility] Last Admin: 01/08/19 09:11 Dose: 5 mg Ramipril (Altace -) 5 mg PO DAILY [facility] Last Admin: 01/08/19 09:11 Dose: 5 mg # cellulitis abx per ID \ clinically improved per patient # DM wit5h neuropathy A1c ada diet / improve control weight loss # HTN [facility] # PVD abstain from smoking vascular surgical opinion # ALL remission
[2019-01-08] MEDS: VANCOMYCIN 1 GM PREMIX - 1 GM/200 ML BAG IVPB SCH (15:07)
[2019-01-08] MEDS: ATORVASTATIN CA 40 MG TABLET (FP) PO SCH (21:41)
[2019-01-09] MEDS ORDERED: PIPERACILLIN/TAZOBACTAM 3.375 GM VIAL IVPB ONE ×2 (01:49→08:58)
[2019-01-09] MEDS ORDERED: DEXTROSE 5%-WATER - 50 ML IVPB ONE ×2 (01:50→08:58)
[2019-01-09] MEDS: PIPERACILLIN/TAZOB 3.375 GM 3.375 GM in DEXTROSE 5%-WATER - 50 ML IVPB SCH ×2 (02:34→09:23)
[2019-01-09] MEDS: INSULIN SLIDING SCALE (NOVOLOG) 1 VIAL SQ SCH ×2 (06:48→11:19)
[2019-01-09] MEDS: metFORMIN HCL 500 MG TABLET (FP) PO SCH ×2 (06:49→09:24)
[2019-01-09 07:14] LABS: BASO % 0.9 % (0-2.0); EOS % 3.1 % (0-4.5); HEMATOCRIT 35.2 % (32.4-45.2); HEMOGLOBIN 11.6 GM/dL (10.7-15.3); LYMPH % 25.3 % (8-40); MCH 27.2 pg (25.7-33.7); MEAN CELL VOLUME 82.2 fl (80-96); MEAN PLT VOLUME 8.6 fl (7.5-11.1); MONO % 6.6 % (3.8-10.2); NEUT % 64.1 % (42.8-82.8); PLATELET COUNT 176 K/MM3 (134-434); RBC 4.28 M/mm3 (3.60-5.2); RDW 15.9 % (11.6-15.6); WHITE BLOOD COUNT 4.6 K/mm3 (4.0-10.0)
[2019-01-09 07:46] LABS: ANION GAP 5 MMOL/L (8-16); BLOOD UREA NITROGEN 20 mg/dL (7-18); CALCIUM 9.4 mg/dL (8.5-10.1); CHLORIDE 107 mmol/L (98-107); CO2 28 mmol/L (21-32); GLUCOSE,RANDOM 122 mg/dL (74-106); POTASSIUM 4.6 mmol/L (3.5-5.1); SODIUM 140 mmol/L (136-145)
[2019-01-09] MEDS ORDERED: PT OWN MED DRAWER 7, Y5N ONE (08:58)
[2019-01-09] MEDS: CLOPIDOGREL BISULFATE 75 MG TABLET (FP) PO SCH (09:24)
[2019-01-09] MEDS: NEBIVOLOL 5 MG TABLET (FP) PO SCH (09:24)
[2019-01-09] MEDS: RAMIPRIL 5 MG CAPSULE (FP) PO SCH (09:24)
[2019-01-09] MEDS: HEPARIN NA (PORCINE) 5,000 UNITS/ML 1ML VIAL SQ SCH (09:24)
[2019-01-09] MEDS: ASPIRIN 81 MG CHEWABLE TABLETS PO SCH (09:27)
--- NOTE | 2019-01-09 10:06 | PN ---
Progress Note (short form) - Note Progress Note: covering for Dr Cooney 73yo F with PMH HTN, HLD, DM, ALL(in remission), diabetic neuropathy, presented to the hospital with worsening pain and redness of her legs bilaterally Lt>Rt, pt states that the changes started about 1 week ago. 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 Pt denies any history of vascular surgery or issues. Pt states that she is a former smoker quit 1 year ago, but only smoked about 1 cig/day. Pt history of DM on PO meds only. Pt admits to some non-compliance with her medications. patient seen and examined in Her room sitting in chair NAD evaluated by vascular -- appreciated ambulates wihtout assistance Vital Signs Period Temp Pulse Resp BP Sys/Hernandez Pulse Ox Last 24 Hr 98 F-98.8 F 63-71 18-20 104-139/55-74 96-97 neck supple heart S1/S2 lungs clear bilat abd obese ext decreased LE + edema bilat / chronic changes / hyperchromic areas / petechie CBC, BMP 01/09/19 06:30 01/09/19 06:30 CBC, BMP 01/07/19 06:45 01/07/19 06:45 Microbiology Microbiology 01/05/19 20:20 Blood - Peripheral Venous Blood Culture - Preliminary NO GROWTH OBTAINED AFTER 72 HOURS, INCUBATION TO CONTINUE FOR 2 DAYS. 01/05/19 18:20 Blood - Peripheral Venous Blood Culture - Preliminary NO GROWTH OBTAINED AFTER 72 HOURS, INCUBATION TO CONTINUE FOR 2 DAYS. Active Medications Acetaminophen (Tylenol -) 650 mg PO Q6H PRN PRN Reason: PAIN Last Admin: 01/08/19 07:27 Dose: 650 mg Aspirin (Asa -) 81 mg PO DAILY [facility] Last Admin: 01/09/19 09:27 Dose: 81 mg Atorvastatin Calcium (Lipitor -) 40 mg PO HS [facility] Last Admin: 01/08/19 21:41 Dose: 40 mg Clopidogrel Bisulfate (Plavix -) 75 mg PO DAILY [facility] Last Admin: 01/09/19 09:24 Dose: 75 mg Heparin Sodium (Porcine) (Heparin -) 5,000 unit SQ BID [facility] Last Admin: 01/09/19 09:24 Dose: 5,000 unit Piperacillin Sod/Tazobactam (Sod 3.375 gm/ Dextrose) 50 mls @ 100 mls/hr IVPB Q8H-IV [facility]; Protocol Last Admin: 01/09/19 09:23 Dose: 100 mls/hr Insulin Aspart (Novolog Vial Sliding Scale -) 1 vial SQ ACHS [facility]; Protocol Last Admin: 01/09/19 06:48 Dose: Not Given Metformin HCl (Glucophage -) 500 mg PO BID@0700,1630 [facility] Last Admin: 01/09/19 09:24 Dose: 500 mg Nebivolol (Bystolic -) 5 mg PO DAILY [facility] Last Admin: 01/09/19 09:24 Dose: 5 mg Ramipril (Altace -) 5 mg PO DAILY [facility] Last Admin: 01/09/19 09:24 Dose: 5 mg # cellulitis abx per ID -- changes to PO today clinically improved OK for d/c - with VNS at home # DM wit5h neuropathy A1c ada diet / improve control weight loss out patient follow up # HTN [facility] # PVD abstain from smoking # ALL remission
--- NOTE | 2019-01-09 10:30 | PN ---
Progress Note, Physician History of Present Illness: patient doing well legs still swollen erythema resolved - Current Medication List Current Medications: Active Medications Acetaminophen (Tylenol -) 650 mg PO Q6H PRN PRN Reason: PAIN Last Admin: 01/08/19 07:27 Dose: 650 mg Aspirin (Asa -) 81 mg PO DAILY [facility] Last Admin: 01/09/19 09:27 Dose: 81 mg Atorvastatin Calcium (Lipitor -) 40 mg PO HS [facility] Last Admin: 01/08/19 21:41 Dose: 40 mg Clopidogrel Bisulfate (Plavix -) 75 mg PO DAILY [facility] Last Admin: 01/09/19 09:24 Dose: 75 mg Heparin Sodium (Porcine) (Heparin -) 5,000 unit SQ BID [facility] Last Admin: 01/09/19 09:24 Dose: 5,000 unit Piperacillin Sod/Tazobactam (Sod 3.375 gm/ Dextrose) 50 mls @ 100 mls/hr IVPB Q8H-IV [facility]; Protocol Last Admin: 01/09/19 09:23 Dose: 100 mls/hr Insulin Aspart (Novolog Vial Sliding Scale -) 1 vial SQ ACHS [facility]; Protocol Last Admin: 01/09/19 06:48 Dose: Not Given Metformin HCl (Glucophage -) 500 mg PO BID@0700,1630 [facility] Last Admin: 01/09/19 09:24 Dose: 500 mg Nebivolol (Bystolic -) 5 mg PO DAILY [facility] Last Admin: 01/09/19 09:24 Dose: 5 mg Ramipril (Altace -) 5 mg PO DAILY [facility] Last Admin: 01/09/19 09:24 Dose: 5 mg - Objective Vital Signs: Vital Signs Temperature 97.8 F 01/09/19 06:29 Pulse Rate 59 L 01/09/19 06:29 Respiratory Rate 20 01/09/19 06:29 Blood Pressure 124/65 01/09/19 06:29 O2 Sat by Pulse Oximetry (%) 98 01/08/19 21:00 Constitutional: Yes: No Distress, Calm Cardiovascular: Yes: S1, S2 Respiratory: Yes: Regular, CTA Bilaterally Gastrointestinal: Yes: Normal Bowel Sounds, Soft Musculoskeletal: Yes: WNL Extremities: Yes: Other (swollen) Edema: LLE: 2+, RLE: 1+ Neurological: Yes: Alert, Oriented Psychiatric: Yes: Alert, Oriented Labs: CBC, BMP 01/09/19 06:30 01/09/19 06:30 INR, PTT INR 0.97 (0.83-1.09) 01/05/19 18:20 Assessment/Plan Problem List - Problems (1) Cellulitis Code(s): L03.90 - CELLULITIS, UNSPECIFIED Qualifiers: Site of cellulitis: extremity Site of cellulitis of extremity: lower extremity Laterality: right Qualified Code(s): L03.115 - Cellulitis of right lower limb (2) Petechiae Code(s): R23.3 - SPONTANEOUS ECCHYMOSES (3) Diabetes Code(s): E11.9 - TYPE 2 DIABETES MELLITUS WITHOUT COMPLICATIONS Qualifiers: Diabetes mellitus type: type 2 (4) HTN (hypertension) Code(s): I10 - ESSENTIAL (PRIMARY) HYPERTENSION (5) Hyperlipidemia Code(s): E78.5 - HYPERLIPIDEMIA, UNSPECIFIED (6) CAD (coronary artery disease) Code(s): I25.10 - ATHSCL HEART DISEASE OF [place] CORONARY ARTERY W/O ANG PCTRS plan continue abx elevation of the leg rest as per the team will switch to oral today oral abx for another 2-3 days
[2019-01-09 10:50] VITALS: BP 115/60; PULSE 78; TEMP 98.1
--- NOTE | 2019-01-09 11:13 | DS ---
Physical Examination Vital Signs: Vital Signs Temperature 98.1 F 01/09/19 10:00 Pulse Rate 78 01/09/19 10:00 Respiratory Rate 20 01/09/19 10:00 Blood Pressure 115/60 01/09/19 10:00 O2 Sat by Pulse Oximetry (%) 98 01/09/19 09:00 Findings/Remarks: 73yo F with PMH HTN, HLD, DM, ALL(in remission), diabetic neuropathy, presented to the hospital with worsening pain and redness of her legs bilaterally Lt>Rt, pt states that the changes started about 1 week ago. 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 Pt denies any history of vascular surgery or issues. Pt states that she is a former smoker quit 1 year ago, but only smoked about 1 cig/day. Pt history of DM on PO meds only. Pt admits to some non-compliance with her medications. patient seen and examined in Her room sitting in chair NAD evaluated by vascular -- appreciated ambulates without assistance 01/05/19 20:20 Blood - Peripheral Venous Blood Culture - Preliminary NO GROWTH OBTAINED AFTER 72 HOURS, INCUBATION TO CONTINUE FOR 2 DAYS. 01/05/19 18:20 Blood - Peripheral Venous Blood Culture - Preliminary NO GROWTH OBTAINED AFTER 72 HOURS, INCUBATION TO CONTINUE FOR 2 DAYS. # cellulitis abx per ID -- changes to PO today clinically improved OK for d/c - with VNS at home # DM wit5h neuropathy A1c ada diet / improve control weight loss out patient follow up # HTN continue home meds continue to [facility] # PVD abstain from smoking # ALL remission Constitutional: Yes: Well Nourished, No Distress, Calm, Obese Eyes: Yes: Conjunctiva Clear, EOM Intact HENT: Yes: Atraumatic, Normocephalic Neck: Yes: Supple, Trachea Midline Cardiovascular: Yes: Regular Rate and Rhythm Respiratory: Yes: Regular Gastrointestinal: Yes: Normal Bowel Sounds, Abdomen, Obese ...Rectal Exam: Yes: Deferred Renal/: Yes: WNL Breast(s): Yes: WNL Musculoskeletal: Yes: WNL, Muscle Weakness Extremities: Yes: WNL Edema: Yes Edema: LLE: Trace (chronic changes ), RLE: Trace (chronic changes ) Peripheral Pulses WNL: Yes Integumentary: Yes: Venous Stasis Changes (bilat LE) Neurological: Yes: Alert, Oriented, Unsteady Gait Psychiatric: Yes: Alert, Oriented Labs: CBC, BMP 01/09/19 06:30 01/09/19 06:30 Discharge Summary Reason For Visit: CELLULITIS PETECHIAE Current Active Problems Cellulitis (Acute) Petechiae (Acute) Condition: Improved - Instructions Diet, Activity, Other Instructions: call PCP office for follow up appoinmt VNS for home PT complete PO abx elevate LE when possible ABSTAIN FROM SMOKING Disposition: VNS/HOME HEALTH CARE - Home Medications Comprehensive Discharge Medication List: Ambulatory Orders Nebivolol [Bystolic -] 5 mg PO DAILY 05/19/15 Ramipril [Altace] 5 mg PO DAILY 05/19/15 Aspirin [ASA -] 81 mg PO DAILY 07/04/15 Atorvastatin Ca [Lipitor -] 40 mg PO HS 07/04/15 Canagliflozin/Metformin HCl [Invokamet 150-500 mg Tablet] 1 each PO DAILY Clopidogrel Bisulfate [Plavix -] 75 mg PO DAILY 07/04/15
[2019-01-09] MEDS ORDERED: AMOX TR/POT CLAV 875MG/125MG TABLETS (FP) PO SCH (17:30)
== END 2019-01-09 12:55 | disposition home health service (06) | DRG 603 ==
LOC: JER 17:05 → JERBED 19:06 → J7W 23:35
PROVIDERS: ADMIT Internal Medicine; ATTEND Internal Medicine
DX: L03.115 Cellulitis of right lower limb (principal); Z68.42 Body mass index [BMI] 45.0-49.9, adult; C91.01 Acute lymphoblastic leukemia, in remission; L03.116 Cellulitis of left lower limb; I25.10 Atherosclerotic heart disease of native coronary artery without angina pectoris; I10 Essential (primary) hypertension; R23.3 Spontaneous ecchymoses; E78.5 Hyperlipidemia, unspecified; I25.2 Old myocardial infarction; Z79.4 Long term (current) use of insulin; E66.9 Obesity, unspecified; E11.40 Type 2 diabetes mellitus with diabetic neuropathy, unspecified; Z91.14 Patient's other noncompliance with medication regimen; E11.51 Type 2 diabetes mellitus with diabetic peripheral angiopathy without gangrene
CPT/HCPCS: 36415; 80048; 80053; 82962; 83605; 84484; 85025; 85610; 85730; 86850; 86900; 86901; 87040; 93005; 93010; 93970-TC; 97116-GP; 97161-GP; 99283-25; J1644

== ENCOUNTER 2019-08-05 18:29 | Inpatient (IN) | payer OTHER ==
--- NOTE | 2019-08-05 18:37 | PDOC ---
Rapid Medical Evaluation Time Seen by Provider: 08/05/19 18:36 Medical Evaluation: Allergies Allergy/AdvReac Type Severity Reaction Status Date / Time No Known Allergies Allergy Verified 01/05/19 17:15 08/05/19 18:36 I have performed a brief in-person evaluation of this patient. The patient presents with a chief complaint of: general illness Pertinent physical exam findings:stable and in NAD, non-focal I have ordered the following:labs The patient will proceed to the ED for further evaluation.
[2019-08-05 19:22] LABS: VENOUS PC02 38.9 mmHg (38-52); VENOUS PH 7.39 (7.31-7.41)
[2019-08-05 19:23] LABS: VENOUS PO2 < 49 mmHg (28-48)
[2019-08-05 19:28] LABS: BASO % 0.4 % (0-2.0); EOS % 0.1 % (0-4.5); HEMATOCRIT 30.2 % (32.4-45.2); HEMOGLOBIN 9.5 GM/dL (10.7-15.3); LYMPH % 10.9 % (8-40); MCH 26.4 pg (25.7-33.7); MCHC 31.4 g/dl (32.0-36.0); MEAN CELL VOLUME 83.9 fl (80-96); MEAN PLT VOLUME 8.7 fl (7.5-11.1); MONO % 4.9 % (3.8-10.2); NEUT % 83.7 % (42.8-82.8); PLATELET COUNT 215 K/MM3 (134-434); RBC 3.59 M/mm3 (3.60-5.2); RDW 16.5 % (11.6-15.6)
[2019-08-05 19:43] LABS: INR 1.22 (0.83-1.09); PROTHROMBIN TIME (PATIENT) 14.4 SEC (9.7-13.0)
[2019-08-05 19:46] LABS: ACTIVATED PTT 30.4 SECONDS (25.2-36.5)
[2019-08-05 20:04] LABS: ALBUMIN 2.9 g/dl (3.4-5.0); BILIRUBIN,TOTAL 2.6 mg/dL (0.2-1); BLOOD UREA NITROGEN 23.5 mg/dL (7-18); CALCIUM 8.7 mg/dL (8.5-10.1); CREATININE 1.4 mg/dL (0.55-1.3); POTASSIUM 4.5 mmol/L (3.5-5.1); TOT PROT 6.7 g/dl (6.4-8.2)
--- NOTE | 2019-08-05 20:07 | PDOC ---
History of Present Illness - General Chief Complaint: Pain Stated Complaint: SENT BY DR MARSHA WISDOM Time Seen by Provider: 08/05/19 18:36 Past History - Past Medical History Allergies/Adverse Reactions: Allergies Allergy/AdvReac Type Severity Reaction Status Date / Time No Known Allergies Allergy Verified 08/05/19 18:39 Home Medications: Ambulatory Orders Nebivolol [Bystolic -] 5 mg PO DAILY 05/19/15 Ramipril [Altace] 5 mg PO DAILY 05/19/15 Atorvastatin Ca [Lipitor] 40 mg PO HS 07/04/15 Canagliflozin/Metformin HCl [Invokamet 150-500 mg Tablet] 1 each PO DAILY Acetaminophen [Tylenol .Regular Strength -] 650 mg PO Q6H PRN tablet 01/09/19 Fluocinonide 0.05% Cream [Lidex 0.05% Cream -] 1 applic TP DAILY #1 tube Anemia: Yes Asthma: No Cancer: Yes (Leukemia lymphoblastic) Cardiac Disorders: Yes (episodes of chest pain for a couple seconds) CVA: No COPD: No CHF: Yes Dementia: No Diabetes: Yes GI Disorders: No Disorders: No HTN: Yes Hypercholesterolemia: Yes (stopped takeing her chol meds) Liver Disease: No Seizures: No Thyroid Disease: No - Surgical History Abdominal Surgery: No Appendectomy: No Cardiac Surgery: Yes (card stents) Cholecystectomy: No Lung Surgery: No Orthopedic Surgery: No - Psycho Social/Smoking Cessation Hx Smoking History: Never smoked Have you smoked in the past 12 months: Yes Number of Cigarettes Smoked Daily: 1 If you are a former smoker, when did you quit?: 3 years ago 'Breaking Loose' booklet given: 05/19/15 Hx Alcohol Use: No Drug/Substance Use Hx: No Substance Use Type: None Hx Substance Use Treatment: No *Physical Exam - Vital Signs Last Vital Signs Temp Pulse Resp BP Pulse Ox 97.9 F 95 H 18 131/76 100 08/05/19 18:35 08/05/19 18:35 08/05/19 18:35 08/05/19 18:35 08/05/19 18:35 ED Treatment Course - LABORATORY CBC & Chemistry Diagram: 08/05/19 19:08 08/05/19 19:08 - ADDITIONAL ORDERS Additional order review: Laboratory Results 08/05/19 08/05/19 08/05/19 19:08 19:08 19:08 PT with INR INR PTT (Actin FS) VBG pH 7.39 POC VBG pCO2 38.9 POC VBG pO2 < 49 H VBG HCO3 22.8 L VBG O2 Sat (Rick) 47.6 L VBG Base Excess -1.5 Sodium 133 L Potassium 4.5 Chloride 101 Carbon Dioxide 24 Anion Gap 8 BUN 23.5 H Creatinine 1.4 H Est GFR (CKD-EPI)AfAm 42.79 Est GFR (CKD-EPI)NonAf 36.92 Random Glucose 248 H Lactic Acid 1.9 Calcium 8.7 Total Bilirubin 2.6 H AST 238 H ALT 117 H Alkaline Phosphatase 422 H Troponin I 0.08 H Total Protein 6.7 Albumin 2.9 L 08/05/19 19:08 PT with INR 14.40 H INR 1.22 H PTT (Actin FS) 30.4 VBG pH POC VBG pCO2 POC VBG pO2 VBG HCO3 VBG O2 Sat (Rick) VBG Base Excess Sodium Potassium Chloride Carbon Dioxide Anion Gap BUN Creatinine Est GFR (CKD-EPI)AfAm Est GFR (CKD-EPI)NonAf Random Glucose Lactic Acid Calcium Total Bilirubin AST ALT Alkaline Phosphatase Troponin I Total Protein Albumin 08/05/19 19:08 RBC 3.59 L MCV 83.9 MCHC 31.4 L RDW 16.5 H MPV 8.7 Neutrophils % 83.7 H D Lymphocytes % 10.9 D Monocytes % 4.9 Eosinophils % 0.1 D Basophils % 0.4 Medical Decision Making - Medical Decision Making 08/05/19 22:11 73yo F hx CAD (s/p stent), DM, HTN, CHF, obesity, acute lymphoblastic leukemia s /p chemo, and chronic venous stasis in BLEs told to come to hospital by PCP Dr Marsha Wisdom for uncontrollable pain, presenting with 1mo fatigue, 1wk increasing generalized weakness and anorexia, and 1 day of diaphoresis, chills, pale skin, and severe diffuse abdominal pain. Pt saw Dr. Wisdom yesterday and had CT chest and head done, but abdominal pain only started today, called Dr. Wisdom today. Hemodynamically stable, BP 106/90, afebrile, obese, mild diffuse abdominal TTP, non-acute abdomen, slight jaundice to skin, chronic venous stasis BLEs. Ddx: cholelithiasis/cystitis, pancreatitis, diverticulitis, colitis, GERD, ACS/ UT, arrythmia, CHF, pulmonary pathology (PNA) -CBC,CMP,Lipase,Coags,Trop,Mg,Phos,BNP,VBG,Lact,UA/UC,BCx,FOBT -Pain management: morphine 2 -EKG -CXR -IVF -Dr Valles spoke with Dr Cooney (admitting for Dr Wisdom) for admission -Dispo: admit 08/05/19 22:23 Labs reviewed. Concerning for EKG reviewed: Concerning for new Atrial Flutter. Rectal exam: no abnormalities. FOBT negative. 08/05/19 22:26 Pending lipase, Mg, Phos, BNP, repeat trop, repeat EKG, Dr Zuniga recs, heparin ?, RUQ US. Discharge - Follow up/Referral - Patient Discharge Instructions - Post Discharge Activity
[2019-08-05] MEDS ORDERED: SODIUM CHLORIDE 0.9% 500 ML INFUS.BAG IV ONE (20:28)
[2019-08-05] MEDS ORDERED: morphine CARPU-JECT 4 MG/1 ML DISP.SYRIN IVPUSH ONE (20:48)
[2019-08-05] MEDS ORDERED: MORPHINE SULFATE 2 MG/ML VIAL ONE (21:45)
[2019-08-05 22:57] LABS: MAGNESIUM 1.8 mg/dL (1.8-2.4); N-TERMINAL BNP 8231.4 pg/ml (5-125); PHOSPHOROUS 3.1 mg/dL (2.5-4.9)
--- NOTE | 2019-08-05 23:14 | PDOC ---
*Physical Exam - Vital Signs Last Vital Signs Temp Pulse Resp BP Pulse Ox 97.9 F 78 16 111/59 L 99 08/05/19 18:35 08/05/19 22:55 08/05/19 22:55 08/05/19 22:55 08/05/19 22:55 ED Treatment Course - LABORATORY CBC & Chemistry Diagram: 08/05/19 19:08 08/05/19 19:08 - ADDITIONAL ORDERS Additional order review: Laboratory Results 08/05/19 08/05/19 08/05/19 19:08 19:08 19:08 PT with INR INR PTT (Actin FS) VBG pH 7.39 POC VBG pCO2 38.9 POC VBG pO2 < 49 H VBG HCO3 22.8 L VBG O2 Sat (Rick) 47.6 L VBG Base Excess -1.5 Sodium 133 L Potassium 4.5 Chloride 101 Carbon Dioxide 24 Anion Gap 8 BUN 23.5 H Creatinine 1.4 H Est GFR (CKD-EPI)AfAm 42.79 Est GFR (CKD-EPI)NonAf 36.92 Random Glucose 248 H Lactic Acid 1.9 Calcium 8.7 Phosphorus 3.1 Magnesium 1.8 Total Bilirubin 2.6 H AST 238 H ALT 117 H Alkaline Phosphatase 422 H Troponin I 0.08 H B-Natriuretic Peptide 8231.4 H Total Protein 6.7 Albumin 2.9 L Lipase 255 08/05/19 19:08 PT with INR 14.40 H INR 1.22 H PTT (Actin FS) 30.4 VBG pH POC VBG pCO2 POC VBG pO2 VBG HCO3 VBG O2 Sat (Rick) VBG Base Excess Sodium Potassium Chloride Carbon Dioxide Anion Gap BUN Creatinine Est GFR (CKD-EPI)AfAm Est GFR (CKD-EPI)NonAf Random Glucose Lactic Acid Calcium Phosphorus Magnesium Total Bilirubin AST ALT Alkaline Phosphatase Troponin I B-Natriuretic Peptide Total Protein Albumin Lipase 08/05/19 19:08 RBC 3.59 L MCV 83.9 MCHC 31.4 L RDW 16.5 H MPV 8.7 Neutrophils % 83.7 H D Lymphocytes % 10.9 D Monocytes % 4.9 Eosinophils % 0.1 D Basophils % 0.4 - Medications Given in the ED: ED Medications Discontinued Medications Generic Name Dose Route Start Last Admin Trade Name Freq PRN Reason Stop Dose Admin Morphine Sulfate 2 mg 08/05/19 20:48 08/05/19 21:52 Morphine Injection - IVPUSH 08/05/19 20:49 2 mg ONCE ONE Administration Sodium Chloride 1,000 ml 08/05/19 20:28 08/05/19 21:51 Normal Saline - IV 08/05/19 20:29 1,000 ml ONCE ONE Administration Medical Decision Making - Medical Decision Making Pt signed out from Dr. Jesus Anemia, jaundice -- US found to have choledocholithiasis Elevated troponin, new onset A-flutter Stool guaic negative. Will obtain head CT and start heparin if no source of bleed. 08/05/19 23:12 CT head negative, starting heparin protocol. Pt admitted and stable. 08/06/19 00:14 Discharge - Discharge Information Problems reviewed: Yes Clinical Impression/Diagnosis: Choledocholithiasis Afib Qualifiers: Atrial fibrillation type: unspecified Qualified Code(s): I48.91 - Unspecified atrial fibrillation Condition: Stable - Admission Yes - Follow up/Referral - Patient Discharge Instructions - Post Discharge Activity
[2019-08-05] MEDS ORDERED: SODIUM CHLORIDE 1,000 ML IV SCH (23:15)
--- NOTE | 2019-08-05 23:18 | PDOC ---
Documentation entered by Elva Vergara SCRIBE, acting as scribe for Myriam Valles MD. Myriam Valles MD: This documentation has been prepared by the Jai white Sammi, SCRIBE, under my direction and personally reviewed by me in its entirety. I confirm that the documentation accurately reflects all work, treatment, procedures, and medical decision making performed by me. Attending Attestation - Resident Resident Name: Ann MarieNatacha - ED Attending Attestation I have performed the following: I have examined & evaluated the patient, The case was reviewed & discussed with the resident, I agree w/resident's findings & plan, Exceptions are as noted - HPI HPI: 08/05/19 21:02 The patient is a 73 year old female whith PMH Dm, HTN, CHF, moya cytopenia, pneumonia, presents with ~1 week of general malaise, increasing weakness, with onset of RUQ x1 day. She was evaluated by Dr. Deng Perdue and had CT scans done. - Physicial Exam PE: 08/05/19 21:12 GENERAL: Obese 73 year old female, mild discomfort HEENT: Normocephalic, atraumatic. PERRL, EOM intact. CARDIOVASCULAR: Normal S1, S2. Regular rate and rhythm. PULMONARY: Clear to auscultation bilaterally. No wheezing or crackles. ABDOMEN: +RUQ ttp Soft, non-distended. EXTREMITIES: +chronic venous stasis lower legs Normal ROM in all four extremities. No gross deformities. SKIN: Warm, dry. No rash NEUROLOGICAL: conversant, moving extremities No focal neurological deficits. - Medical Decision Making 08/05/19 23:18 Ultrasound shows a dilated common bile duct and evidence of acute cholecystitis Repeat EKG still shows A. fib/ a flutter rate controlled the patient will now get a head CT, if it is negative we will start heparin PT TO BE ADMITED TO TELE 08/06/19 00:[address] Zhang who works with Dr Bell and agrees with heparin gtt Stool Hemoccult was negative CAT scan of the head was negative for any acute intracranial pathology will start heparin
[2019-08-06] MEDS ORDERED: HEPARIN NA (PORCINE) 5,000 UNITS/ML 1ML VIAL IVPUSH PRN ×2 (00:11)
[2019-08-06] MEDS ORDERED: HEPARIN - 25,000 UNIT in SODIUM CHLORIDE 495 ML IV SCH (00:15)
[2019-08-06] MEDS ORDERED: HEPARIN NA (PORCINE) 5,000 UNITS/ML 1ML VIAL ONE (00:24)
[2019-08-06] MEDS ORDERED: HEPARIN INFUSION - 25,000 UNITS/500 ML INFUS.BAG IVPB ONE (00:25)
[2019-08-06] MEDS ORDERED: MORPHINE SULFATE 2 MG/ML VIAL IVPUSH PRN (00:51)
[2019-08-06] MEDS ORDERED: DEXTROSE 5%-0.45% SALINE 1,000 ML IV SCH (01:00)
[2019-08-06] MEDS ORDERED: MORPHINE SULFATE 2 MG/ML VIAL IVPUSH ONE ×2 (02:30→06:15)
[2019-08-06 02:50] VITALS: BMI 43.9
[2019-08-06 07:03] LABS: BASO % 0.2 % (0-2.0); HEMATOCRIT 29.2 % (32.4-45.2); HEMOGLOBIN 9.4 GM/dL (10.7-15.3); LYMPH % 7.5 % (8-40); MCH 26.8 pg (25.7-33.7); MCHC 32.1 g/dl (32.0-36.0); MEAN CELL VOLUME 83.4 fl (80-96); MEAN PLT VOLUME 9.3 fl (7.5-11.1); MONO % 2.5 % (3.8-10.2); NEUT % 89.8 % (42.8-82.8); PLATELET COUNT 167 K/MM3 (134-434); RDW 16.8 % (11.6-15.6); WHITE BLOOD COUNT 8.2 K/mm3 (4.0-10.0)
[2019-08-06 07:34] LABS: ALBUMIN 2.7 g/dl (3.4-5.0); BILIRUBIN,TOTAL 3.7 mg/dL (0.2-1); BLOOD UREA NITROGEN 26.3 mg/dL (7-18); CALCIUM 8.2 mg/dL (8.5-10.1); CREATININE 1.2 mg/dL (0.55-1.3); POTASSIUM 3.9 mmol/L (3.5-5.1); TOT PROT 6.5 g/dl (6.4-8.2)
--- NOTE | 2019-08-06 08:48 | CON.GI ---
Consult Consult Specialty:: GI Referred by:: Dr Natacha Cooney Reason for Consultation:: Abdominal pain - History of Present Illness History of Present Illness: Patient is a 73 y/o female with past medical history of CAD s/p stent, DM, HTN, CHF, Obesity, Acute Lymphoblastic Leukemia s/p chemo, and Chronic Venous Stasis. Patient states having sharp, non-radiating right sided abdominal pain with nausea which develop yesterday. She complains of weakness and poor appetite x 1 month, unknown if abnormal weight loss occurred during that time. She denies dysphagia, vomiting, rectal bleeding, melena, constipation. Abdominal US in ER showed no definite gallbladder calculus is seen allowing for partially obscurring inspissated bile/sludge, CBD dilatation with 1.2cm diameter , minimal to mild dilatation of main pancreatic duct, and diffuse hepatic steatosis. Labs show elevtaed LFTs with AST 132, ALT 120, and Alk Phos 420. Elevated Lipase 900 and amylase 91. - History Source History Provided By: Patient Limitations to Obtaining History: No Limitations - Past Medical History Cardio/Vascular: Yes: CAD, HTN, Hyperlipdemia, [place] (s/p EES stent to LAD) ...: No Endocrine: Yes: Diabetes Mellitus - Past Surgical History Past Surgical History: Yes: Stent - Alcohol/Substance Use Hx Alcohol Use: No - Smoking History Smoking history: Former smoker Have you smoked in the past 12 months: No Aproximately how many cigarettes per day: 1 If you are a former smoker, when did you quit?: 3 years ago - Social History Usual Living Arrangement: With Spouse ADL: Independent Occupation: retired dietary staff at [employer] History of Recent Travel: No Home Medications - Allergies Allergies/Adverse Reactions: Allergies Allergy/AdvReac Type Severity Reaction Status Date / Time No Known Allergies Allergy Verified 08/05/19 18:39 - Home Medications Home Medications: Ambulatory Orders Furosemide 40 mg PO ASDIR 08/05/19 Methotrexate Sodium [Methotrexate] 2.5 mg PO ASDIR 08/05/19 Metoprolol Tartrate 25 mg PO DAILY 08/05/19 Family Medical History Family Hx Cancer: Father (pancreatic) Review of Systems - Review of Systems Constitutional: reports: Loss of Appetite, Weakness Eyes: reports: No Symptoms HENT: reports: No Symptoms Neck: reports: No Symptoms Cardiovascular: reports: No Symptoms Respiratory: reports: No Symptoms Gastrointestinal: reports: Abdominal Pain, Nausea Genitourinary: reports: No Symptoms Breasts: reports: No Symptoms Reported Musculoskeletal: reports: No Symptoms Integumentary: reports: No Symptoms Neurological: reports: No Symptoms Endocrine: reports: No Symptoms Hematology/Lymphatic: reports: No Symptoms Psychiatric: reports: No Symptoms Physical Exam-GI Vital Signs: Vital Signs Temperature 99.4 F 08/06/19 05:44 Pulse Rate 77 08/06/19 05:44 Respiratory Rate 20 08/06/19 05:44 Blood Pressure 145/69 08/06/19 05:44 O2 Sat by Pulse Oximetry (%) 96 08/06/19 00:46 Constitutional: Yes: No Distress, Calm, Obese Eyes: Yes: Conjunctiva Clear HENT: Yes: Atraumatic Cardiovascular: Yes: Regular Rate and Rhythm Respiratory: Yes: Regular, CTA Bilaterally Gastrointestinal Inspection: Yes: WNL. No: Ascites, Distention, Hernia, Scars, Other ...Auscultate: Yes: Normoactive Bowel Sounds. No: Hyperactive Bowel Sounds, Hypoactive Bowel Sounds, No Bowel Sounds, Other ...Palpate: Yes: Soft, Tenderness (diffuse, greater at RUQ), Tenderness, Epigastium. No: Firm/Rigid, Guarding, Hepatomegaly, Mass, Pulsatile Mass, Splenomegaly, Tenderness, Rebound, Other ...Percussion: Yes: Other (high tympany). No: Dullness, Fluid Wave, Tympanitic Neurological: Yes: Alert, Oriented Psychiatric: Yes: Alert, Oriented Labs: CBC, BMP 08/06/19 06:23 08/06/19 06:23 INR, PTT INR 1.22 (0.83-1.09) H 08/05/19 19:08 Active Medications Generic Name Dose Route Start Last Admin Trade Name Freq PRN Reason Stop Dose Admin Furosemide 40 mg 08/06/19 10:00 Lasix Injection - IVPUSH DAILY GABY Heparin Sodium (Porcine) 1,000 unit 08/06/19 00:11 Heparin - IVPUSH PRN PRN Heparin Heparin Sodium (Porcine) 5,000 unit 08/06/19 00:11 08/06/19 00:37 Heparin - IVPUSH 5,000 unit PRN PRN Administration Heparin Sodium Chloride 1,000 mls @ 125 mls/hr 08/05/19 23:15 08/05/19 23:52 Normal Saline - IV 125 mls/hr ASDIR GABY Administration Heparin Sodium (Porcine) 25, 500 mls @ 20 mls/hr 08/06/19 00:15 08/06/19 00: 37 000 unit/ Sodium Chloride IV 1,000 unit/hr TITR GABY 20 mls/hr Administration Protocol 1,000 UNIT/HR Dextrose/Sodium Chloride 1,000 mls @ 75 mls/hr 08/06/19 01:00 08/06/19 02:50 D5-1/2ns - IV Not Given ASDIR GABY Metoprolol Tartrate 25 mg 08/06/19 10:00 Lopressor - PO DAILY GABY Morphine Sulfate 2 mg 08/06/19 00:51 Morphine Sulfate IVPUSH Q6H PRN pain Imaging - Results Ultrasound: Report Reviewed Problem List - Problems (1) Dilated cbd, acquired Assessment/Plan: >R/O bile duct stone >Actigal BID >Ceftriaxone, Flagyl Code(s): K83.8 - OTHER SPECIFIED DISEASES OF BILIARY TRACT (2) Biliary acute pancreatitis Assessment/Plan: >IV hydration >Ceftriaxone, Flagyl >monitor Lipase level Code(s): K85.10 - BILIARY ACUTE PANCREATITIS WITHOUT NECROSIS OR INFECTION (3) Poor appetite Assessment/Plan: >CA 125, CA 19-9, CEA Code(s): R63.0 - ANOREXIA
[2019-08-06] MEDS ORDERED: CEFTRIAXONE 1 GM in DEXTROSE 5%-WATER - 50 ML IVPB SCH (10:00)
[2019-08-06] MEDS ORDERED: URSODIOL 300 MG CAPSULE PO SCH (10:00)
[2019-08-06] MEDS ORDERED: FUROSEMIDE 40 MG/4 ML INJECTABLE VIAL IVPUSH SCH (10:00)
[2019-08-06] MEDS ORDERED: METOPROLOL TARTRATE 25 MG TABLET (FP) PO SCH (10:00)
--- NOTE | 2019-08-06 10:34 | EKG ---
Test Reason : Blood Pressure : / mmHG Vent. Rate : 081 BPM Atrial Rate : 085 BPM P-R Int : 000 ms QRS Dur : 088 ms QT Int : 388 ms P-R-T Axes : 000 -55 011 degrees QTc Int : 450 ms ATRIAL FIBRILLATION LOW VOLTAGE QRS LEFT ANTERIOR FASCICULAR BLOCK CANNOT RULE OUT INFERIOR INFARCT (MASKED BY FASCICULAR BLOCK?) , AGE UNDETERMINED CANNOT RULE OUT ANTERIOR INFARCT , AGE UNDETERMINED ABNORMAL ECG Confirmed by FELICE QURESHI, IVONNE ([id number]) on 08/06/2019 10:34:27 AM Referred By: Confirmed By:IVONEN VIVERSO MD
--- NOTE | 2019-08-06 10:35 | EKG ---
Test Reason : Blood Pressure : / mmHG Vent. Rate : 091 BPM Atrial Rate : 277 BPM P-R Int : 000 ms QRS Dur : 080 ms QT Int : 374 ms P-R-T Axes : 000 -61 007 degrees QTc Int : 460 ms POOR DATA QUALITY, INTERPRETATION MAY BE ADVERSELY AFFECTED ATRIAL FIBRILLATION LEFT AXIS DEVIATION ABNORMAL ECG WHEN COMPARED WITH ECG OF 05-JAN-2019 18:13, ATRIAL FIBRILLATION HAS REPLACED SINUS RHYTHM BORDERLINE CRITERIA FOR ANTERIOR INFARCT ARE NO LONGER PRESENT BORDERLINE CRITERIA FOR ANTEROLATERAL INFARCT ARE NO LONGER PRESENT NONSPECIFIC T WAVE ABNORMALITY NOW EVIDENT IN INFERIOR LEADS Confirmed by FELICE QURESHI, IVONNE ([id number]) on 08/06/2019 10:34:35 AM Referred By: Confirmed By:IVONNE VIVEROS MD
--- NOTE | 2019-08-06 11:59 | ECHO ---
Name: ERIN STACIE Exam:Adult Echocardiogram Study Date: 08/06/2019 09:19 AM Age: 73 yrs Height: 64 in Weight: 260 lb BSA: 2.2 m2 MMode/2D Measurements & Calculations IVSd: 1.2 cm Ao root diam: 3.2 cm LVIDd: 4.1 cm LA dimension: 3.1 cm LVIDs: 2.9 cm LVPWd: 1.5 cm LVPWs: 1.5 cm EDV(Teich): 75.0 ml ESV(Teich): 31.4 ml desc Ao Diam: 4.2 cm LVOT diam: 2.2 cm Doppler Measurements & Calculations MV V2 max: 177.8 cm/sec MV E max teo: 153.5 cm/sec MV max P.6 mmHg MV A max teo: 66.1 cm/sec MV V2 mean: 97.2 cm/sec MV E/A: 2.3 MV mean P.7 mmHg MV dec time: 0.17 sec MV V2 VTI: 31.8 cm Ao V2 max: 231.8 cm/sec LV V1 max P.1 mmHg Ao max P.5 mmHg LV V1 max: 113.0 cm/sec Ao V2 mean: 161.9 cm/sec Ao mean P.3 mmHg Ao V2 VTI: 38.8 cm IRENE(V,D): 1.8 cm2 TR max teo: 284.6 cm/sec PA V2 max: 124.2 cm/sec TR max P.7 mmHg PA max P.2 mmHg Med Peak E' Teo: 10.3 cm/sec Med E/e': 14.9 Lat Peak E' Teo: 9.4 cm/sec Lat E/e': 16.3 Procedure The study was technically difficult with many images being suboptimal in quality. Left Ventricle The left ventricle is not well visualized. The left ventricle is grossly normal size. The left ventri cular ejection fraction is grossly normal. Regional wall motion abnormalities cannot be excluded due to sanchez ited visualization. Right Ventricle The right ventricle is not well visualized. Atria Normal left and right atrial size and function. Mitral Valve The mitral valve is not well visualized. There is moderate mitral valve thickening. There is moderate mitral annular calcification. There is mild to moderate mitral stenosis. There is trace to mild mitral regur gitation. Tricuspid Valve The tricuspid valve is not well visualized. There is no tricuspid stenosis. There is mild tricuspid regurgitation. Right ventricular systolic pressure is normal. Aortic Valve The aortic valve is not well visualized. There is moderate aortic valve thickening. There is moderate aortic sclerosis.;. Mild valvular aortic stenosis. No aortic regurgitation is present. Pulmonic Valve The pulmonic valve is not well visualized. Great Vessels The aortic root is normal size. Pericardium/Pleura There is a moderate pericardial effusion. Interpretation Summary The study was technically difficult with many images being suboptimal in quality. The left ventricle is not well visualized. The left ventricle is grossly normal size. There is mild tricuspid regurgitation. Right ventricular systolic pressure is normal. The right ventricle is not well visualized. Regional wall motion abnormalities cannot be excluded due to limited visualization. The left ventricular ejection fraction is grossly normal. There is trace to mild mitral regurgitation. There is mild to moderate mitral stenosis. There is moderate mitral valve thickening. The aortic valve is not well visualized. There is moderate aortic valve thickening. There is moderate aortic sclerosis.; Mild valvular aortic stenosis. There is a moderate pericardial effusion. There is moderate mitral annular calcification. The mitral valve is not well visualized. MD Valdemar Sherman 08/06/2019 11:59 AM
--- NOTE | 2019-08-06 12:45 | CON.CARD ---
Consult Consult Specialty:: Cardiology Referred by:: ER/Dr. 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 She was also noted to have normal LV systolic function at that time with minimal valvular dysfunction and Evidence of Diastolic dysfunction, chronic diastolic CHF, chronic venous insufficiency, obesity, admitted with c/o abdominal pain, nausea and found to have acute cholecystitis, sepsis, KAUR. In ER EKG showed AFib with controlled HR. Also noted to have a minimally elevated troponin with a normal CK level. Troponin trended down to normal. pt was seen today. c/o continued abdominal pain, fever, chills. No chest pain or sob. no palpitations. - History Source History Provided By: Patient, Family Member Limitations to Obtaining History: No Limitations - Past Medical History Cardio/Vascular: Yes: CAD, CHF, HTN, Hyperlipdemia, [place] (s/p EES stent to LAD) ...: No Endocrine: Yes: Diabetes Mellitus - Past Surgical History Past Surgical History: Yes: Stent - Alcohol/Substance Use Hx Alcohol Use: No - Smoking History Smoking history: Former smoker Have you smoked in the past 12 months: No Aproximately how many cigarettes per day: 1 If you are a former smoker, when did you quit?: 3 years ago - Social History Usual Living Arrangement: With Spouse ADL: Independent Occupation: retired dietary staff at [employer] History of Recent Travel: No Home Medications - Allergies Allergies/Adverse Reactions: Allergies Allergy/AdvReac Type Severity Reaction Status Date / Time No Known Allergies Allergy Verified 08/05/19 18:39 - Home Medications Home Medications: Ambulatory Orders Furosemide 40 mg PO ASDIR 08/05/19 Methotrexate Sodium [Methotrexate] 2.5 mg PO ASDIR 08/05/19 Metoprolol Tartrate 25 mg PO DAILY 08/05/19 Review of Systems - Review of Systems Constitutional: reports: Chills, Diaphoresis, Fever, Loss of Appetite, Malaise. denies: No Symptoms, Lethargy, Night Sweats, Unintentional Wgt. Loss, Weakness , Other Eyes: denies: No Symptoms, Blind Spots, Blurred Vision, Double Vision, Eye Pain , Floaters, Photophobia, Recent Change in Vision, Other HENT: denies: No Symptoms, Difficult Swallowing, Ear Discharge, Ear Pain, Epistaxis, Gingival Bleeding, Hearing Loss, Mouth Swelling, Nasal Congestion, Ocular Prosthesis, Throat Pain, Toothache, Ringing in Ears, Other Neck: denies: No Symptoms, Decreased ROM, Lumps, Pain on Movement, Stiffness, Swollen Glands, Tenderness, Other Cardiovascular: denies: No Symptoms, Chest Pain, Edema, Palpitations, Shortness of Breath, Other Respiratory: denies: No Symptoms, Cough, Exercise Intolerance, Hemoptysis, Orthopnea, PND, Snoring, SOB, SOB on Exertion, Wheezing, Other Gastrointestinal: reports: Abdominal Pain, Nausea. denies: No Symptoms, Bloating, Constipation, Diarrhea, Dysphagia, Indigestion, Melena, Rectal Bleeding, Vomiting, Vomiting Blood, Other Genitourinary: denies: No Symptoms, Burning, Discharge, Dysuria, Flank Pain, Frequency, Hematuria, Incontinence, Lesions, Menses, Pain, Testicular Mass, Testicular Pain, Testicular Swelling, Urgency, Vaginal Bleeding, Other Breasts: denies: No Symptoms Reported, See HPI, Breast Implants, Discharge from Nipple, Lumps, Pain, Skin Changes, Other Musculoskeletal: denies: No Symptoms, Back Pain, Crepitus, Decreased ROM, Extremity Pain, Joint Pain, Joint Swelling, Muscle Pain, Muscle Cramps, Muscle Weakness, Other Integumentary: denies: No Symptoms, Blister, Bruising, Change in Color, Eczema, Erythema, Incision, Lesions, Lump, Pallor, Pruritis, Rash, Wound, Other Neurological: denies: No Symptoms, Change in LOC, Change in Speech, Confusion, Dizziness, Headache, Incoordination, Numbness, Parasthesia, Pre-Existing Deficit , Seizure, Syncope, Tremors, Unsteady Gait, Weakness, Other Endocrine: denies: No Symptoms, Excessive Sweating, Flushing, Increased Hunger, Increased Thirst, Intolerance to Cold, Intolerance to Heat, Unexplained Weight Gain, Unexplained Weight Loss, Other Hematology/Lymphatic: denies: No Symptoms, Easily Bruised, Excessive Bleeding, Swollen Glands, Other Psychiatric: denies: No Symptoms, Altered Sleep Pattern, Anxiety, Depression, Hallucinations, Panic, Paranoia, Suicidal, Other - Risk Factors Known Risk Factors: Yes: Hypercholesterolemia, Hypertension Vital Signs: Vital Signs Temperature 99.4 F 08/06/19 05:44 Pulse Rate 77 08/06/19 05:44 Respiratory Rate 20 08/06/19 05:44 Blood Pressure 145/69 08/06/19 05:44 O2 Sat by Pulse Oximetry (%) 96 08/06/19 00:46 Constitutional: Yes: No Distress, Calm Eyes: Yes: Conjunctiva Clear, EOM Intact HENT: Yes: Atraumatic, Normocephalic Neck: Yes: Supple, Trachea Midline Respiratory: Yes: Regular, Diminished. No: Rales, Rhonchi, SOB, Wheezes Gastrointestinal: Yes: Normal Bowel Sounds, Soft. No: Distention, Tenderness Cardiovascular: Yes: Pulse Irregular. No: Regular Rate and Rhythm, Bradycardia , Tachycardia, Gallop, Rub, Varicosities JVD: No Carotid Bruit: No PMI: Non-Displaced Heart Sounds: Yes: S1, S2. No: Split S2, S3, S4, Clicks, Gallop, Rub, Bruit Murmur: No: Systolic Murmur, Diastolic Murmur Musculoskeletal: Yes: Muscle Weakness Edema: Yes Edema: LLE: Trace, RLE: Trace Peripheral Pulses WNL: Yes Neurological: Yes: Alert, Oriented Psychiatric: Yes: Alert, Oriented - Other Data Labs, Other Data: CBC, BMP 08/06/19 06:23 08/06/19 06:23 INR, PTT INR 1.22 (0.83-1.09) H 08/05/19 19:08 Troponin, BNP 08/05/19 08/05/19 08/06/19 19:08 23:00 06:23 Troponin I 0.08 H 0.05 0.03 B-Natriuretic Peptide 8231.4 H Troponin, BNP 08/05/19 08/05/19 08/06/19 19:08 23:00 06:23 Troponin I 0.08 H 0.05 0.03 B-Natriuretic Peptide 8231.4 H ekg-AFib 84bpm. 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 She was also noted to have normal LV systolic function at that time with minimal valvular dysfunction and Evidence of Diastolic dysfunction, chronic diastolic CHF, chronic venous insufficiency, obesity, admitted with c/o abdominal pain, nausea and found to have acute cholecystitis, sepsis, KAUR. In ER EKG showed AFib with controlled HR. Also noted to have a minimally elevated troponin with a normal CK level. Troponin trended down to normal. c/o continued abdominal pain, fever, chills. No chest pain or sob. no palpitations. Afib-newly diagnosed in the setting of sepsis secondary to acute cholecystitis -HR is adequately controlled without additional AV del blockers -she was started on heparin gtt overnight -hold heparin gtt as may require surgical procedure. -cont metoprolol po, if npo can use IV lopressor as needed Elevated troponin -minimally elevated initial troponin in the setting of sepsis, KAUR -not c/w ACS -no ischemia or injury on ekg -h/o CAD with stent LAD 2014 -CK level normal, repeat troponin levels wnl -echo showed normal LV systolic function -no additional ischemic work up is indicated at this time. Pericardial effusion -moderate effusion seen on echo today -no tamponade physiology reported -BP has been stable -likely also secondary to sepsis Preop cardiovascular exam -pt with multiple risk factors -minimal troponin elevation is not c/w ACS, secondary to sepsis -newly diagnosed AFib but HR is adequately controlled -Given IV Lasix x 2 today -ECHO showed normal LVEF, no sig valvular abnl, mod pericardial effusion but no tamponade physiology -pt has an emergent/urgent indication for intervention for her cholecystitis and sepsis and thus would recommend to proceed without additional cardiac work up. This afternoon after initially being seen pt became acutely febrile, sob, hypoxic, tachycardic. Rapid response was called, she was started on bipap, given IV lasix and IV metoprolol and improved. repeat ekg shows Afib with 109bpm, no ischemic changes. Decision to be made regarding management with Surgery, GI, IR
[2019-08-06] MEDS ORDERED: cefTRIAXone SODIUM 1 GM VIAL ONE (13:07)
[2019-08-06] MEDS ORDERED: PT OWN MED DRAWER 7, Y5N ONE (13:07)
[2019-08-06] MEDS ORDERED: DEXTROSE 5%-WATER - 50 ML IVPB ONE ×2 (13:07→16:02)
[2019-08-06] MEDS ORDERED: FUROSEMIDE 40 MG/4 ML INJECTABLE VIAL IVPUSH ONE (13:40)
[2019-08-06] MEDS ORDERED: METOPROLOL TARTRATE 5 MG/5 ML VIAL IVPUSH ONE ×2 (13:40→13:52)
--- NOTE | 2019-08-06 13:44 | RAPID ---
Physical Examination Vital Signs: Rapid response was called overhead at 13:38. Rapid response team arrived at the scene to find a 73 y/o F, w/ pmh of cad, chf, admitted for acute cholecystitis, experiencing shortness of breath and desaturating at 75-80s. BiPaP was placed and pt's saturation returned to 100s and her symptoms improved. She was however febrile at 102.3F and zosyn was started and Dr. Mckeon/KIRSTY was consulted. ICU was consulted, they agreed to transfer. Temp: T102.3 BP 148/67 HR 104 SaO2 80s returned to 100 on BiPaP General: pt in acute distress- difficulty breathing Lungs: CTAB CV: tachy, but regular, no M/G/R Abd: NT, ND, BS+ A/P #SOB CXR stat EKG stat- Dr. Bell was on scene and read it- unremarkable Lasix 40 Lopressor 5mg Chaudhary cath IV tylenol Zosyn 3.375 given Labs: CBC, BMP 08/06/19 06:23 08/06/19 06:23
[2019-08-06] MEDS ORDERED: ACETAMINOPHEN 325 MG TABLET (FP) PO PRN (13:47)
[2019-08-06] MEDS ORDERED: PIPERACILLIN/TAZOB 3.375 GM 3.375 GM in DEXTROSE 5%-WATER - 50 ML IVPB ONE (13:53)
[2019-08-06] MEDS ORDERED: ACETAMINOPHEN 1000 MG/100 ML VIAL (NON FORMULARY) IVPB ONE (13:54)
--- NOTE | 2019-08-06 14:12 | CONSULT ---
Consult Consult Specialty:: Surgery Reason for Consultation:: abdominal pain - History of Present Illness Chief Complaint: abdominal pain History of Present Illness: 73 y.o. female with history of morbid obesity, HTN, CAD S/P PCI, DM, HLD referred for acute onset of RUQ pain and tenderness with US findings of acute cholecystitis and 1.2 cm dilated CBD. Patient was noted to have new onset Atrial fibrillation, elevated troponin level. While awaiting transfer to [facility], patient developed respiratory distress requiring NIPPV and diuresis with clinical improvement. Currently has mild RUQ pain. - History Source History Provided By: Patient, Family Member - Past Medical History Cardio/Vascular: Yes: CAD, HTN, Hyperlipdemia, [place] (s/p EES stent to LAD) ...: No Endocrine: Yes: Diabetes Mellitus - Past Surgical History Past Surgical History: Yes: Stent - Alcohol/Substance Use Hx Alcohol Use: No - Smoking History Smoking history: Former smoker Have you smoked in the past 12 months: No Aproximately how many cigarettes per day: 1 If you are a former smoker, when did you quit?: 3 years ago - Social History Usual Living Arrangement: With Spouse ADL: Independent Occupation: retired dietary staff at [employer] History of Recent Travel: No Home Medications - Allergies Allergies/Adverse Reactions: Allergies Allergy/AdvReac Type Severity Reaction Status Date / Time No Known Allergies Allergy Verified 08/05/19 18:39 - Home Medications Home Medications: Ambulatory Orders Furosemide 40 mg PO ASDIR 08/05/19 Methotrexate Sodium [Methotrexate] 2.5 mg PO ASDIR 08/05/19 Metoprolol Tartrate 25 mg PO DAILY 08/05/19 Physical Exam Vital Signs: Vital Signs Temperature 98.7 F 08/06/19 13:34 Pulse Rate 94 H 08/06/19 13:34 Respiratory Rate 22 H 08/06/19 13:34 Blood Pressure 133/71 08/06/19 13:34 O2 Sat by Pulse Oximetry (%) 96 08/06/19 09:00 Constitutional: Yes: Mild Distress, Obese Eyes: Yes: Sclera Icterus HENT: Yes: Normocephalic Neck: Yes: Supple Cardiovascular: Yes: Pulse Irregular Respiratory: Yes: On BiPap Gastrointestinal: Yes: Abdomen, Obese, Tenderness (MILD AT RUQ) ...Rectal Exam: Yes: Deferred Renal/: Yes: Chaudhary Present, Other (dark colored urine) Musculoskeletal: Yes: WNL, Back Pain, Joint Stiffness, Joint Swelling, Muscle Pain, Muscle Weakness, Other Labs: CBC, BMP 08/06/19 06:23 08/06/19 06:23 Imaging - Results Ultrasound: Report Reviewed, Image Reviewed Problem List - Problems (1) Acute cholecystitis Assessment/Plan: Dilated CB R/O choledocholithiasis with cholangitis, high risk for surgical intervention Patient is awaiting transfer to [facility] D/w IR for possible tube cholecystostomy, recommended CT a/p first to evaluate intrahepatic ducts prior to intervention with PTCD or cholecystostomy. Continue medical care, IVF, and ANTIBIOTICS Code(s): K81.0 - ACUTE CHOLECYSTITIS
--- NOTE | 2019-08-06 14:33 | CONSULT ---
Consultation: REQUESTING PROVIDER: CONSULT REQUEST: We have been asked to medically evaluate this patient for medical management in the ICU HISTORY OF PRESENT ILLNESS: 73 year old female with PMH significant for CAD, CHF, DM, HTN, Obesity, ALL (s/ p chemo), and chronic venous stasis. She presented to the ER on 08/05 with complaints of sharp, non-radiating right sided abdominal pain with nausea since 1 day, and weakness with poor appetite for the past 1 month, with no dysphagia, vomiting, rectal bleeding, melena, constipation. RUQ US in the ER showed GB inflammation, and she was admitted for management of acute cholecystitis. The ICU team was consulted after a rapid response was called at 1338 today. The patient had been experiencing SOB with O2 between 75-80, and was febrile with a temperature of 102.3. She was placed on BiPAPA and started on Zosyn. REVIEW OF SYSTEMS: CONSTITUTIONAL: Absent: fever, chills, diaphoresis, generalized weakness, malaise, loss of appetite, weight change HEENT: Absent: rhinorrhea, nasal congestion, throat pain, throat swelling, difficulty swallowing, mouth swelling, ear pain, eye pain, visual changes CARDIOVASCULAR: Absent: chest pain, syncope, palpitations, irregular heart rate, lightheadedness , peripheral edema RESPIRATORY: shortness of breath Absent: cough, dyspnea with exertion, orthopnea, wheezing, stridor, hemoptysis GASTROINTESTINAL: Absent: abdominal pain, abdominal distension, nausea, vomiting, diarrhea, constipation, melena, hematochezia GENITOURINARY: Absent: dysuria, frequency, urgency, hesitancy, hematuria, flank pain, genital pain MUSCULOSKELETAL: Absent: myalgia, arthralgia, joint swelling, back pain, neck pain SKIN: Absent: rash, itching, pallor HEMATOLOGIC/IMMUNOLOGIC: Absent: easy bleeding, easy bruising, lymphadenopathy, frequent infections ENDOCRINE: Absent: unexplained weight gain, unexplained weight loss, heat intolerance, cold intolerance NEUROLOGIC: Absent: headache, focal weakness or paresthesias, dizziness, unsteady gait, seizure, mental status changes, bladder or bowel incontinence PSYCHIATRIC: Absent: anxiety, depression, suicidal or homicidal ideation, hallucinations. PHYSICAL EXAMINATION Vital Signs - 24 hr Last Vital Signs Temp Pulse Resp BP Pulse Ox 98.7 F 94 H 22 H 133/71 100 08/06/19 13:34 08/06/19 13:34 08/06/19 13:34 08/06/19 13:34 08/06/19 14:20 GENERAL: AOx3 EYES: DENISA, EOMI LUNGS: On BiPAP, decreased breath sounds B/L, no crackles or wheezes HEART: Tachycardic, regular rate and rhythm ABDOMEN: Soft, nontender, not distended, normoactive bowel sounds, no guarding, no rebound, no masses. No hepatomegaly or splenomegaly. MUSCULOSKELETAL: limited range of motion due to body habitus LOWER EXTREMITIES: 2+ edema B/L NEUROLOGICAL: Motor 5/5, sensations intact PSYCHIATRIC: Cooperative, restless SKIN: Warm, dry, normal turgor, no rashes or lesions noted. CBC, BMP 08/06/19 06:23 08/06/19 06:23 ASSESSMENT/PLAN: 73 year old female with PMH significant for CAD, CHF, DM, HTN, Obesity, ALL (s/ p chemo), and chronic venous stasis. She was admitted for management of acute cholecystitis. 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, no mass or hemorrhage - AOx3 #Respiratory - Started on BiPAP after rapid response, saturation went up to 100%, may be brought down to NRB or Venti - CXR: More apical lordotic projection, no infiltrate, sharp angles - Lasix 40mg IV daily #ID - Temp 102.3, Tylenol IV administered - Ceftriaxone 1gm, Metronidazole 500mg Q8, given Zosyn after rapid response 1x - Blood, urine cx pending - ID consulted #CVS - EKG: no changes - AFib with RVR: Lopressor 5mg IVPUSH given for tachycardia - Hx of HTN: Continue home Lopressor 25mg PO #GI - RUQ US: Acute cholecystitis: distended GB with mild diffuse thickening, no calculus, CBD dilation 1.2cm, MRI/MRCP recommended, diffuse hepatic steatosis - AST/ALT downtrending 132/120, Lipase 900 - CT AP wo contrast ordered - MRI Abdomen wo contrast ordered - Will need ERCP vs Percutaneous Cholecystotomy - On Ursodiol 300mg PO BID for gallstone prevention #Heme/Onc - CEA, CA 125, 19-9 pending #Renal - Chaudhary inserted after rapid response #FEN - N/S @ 125 - D5 @ 75 - NPO #Dispo - Not an ICU candidate at this time, transfer to [facility] may be completed - Dispo: We will continue to follow the patient. Thank you for this consultative opportunity. ATTENDING PHYSICIAN STATEMENT I saw and evaluated the patient. I reviewed the resident's note and discussed the case with the resident. I agree with the resident's findings and plan as documented. SUBJECTIVE: OBJECTIVE: ASSESSMENT AND PLAN:
--- NOTE | 2019-08-06 15:04 | HP ---
Admitting History and Physical - Admission History of Present Illness: Pt is a 73 y/o female with a pmh of Leukemia, HTN, DM, HLD, smoking, CAD with NSTEMI 05/2015 found to have obstructive pLAD disease and underwent FABIAN placement. She was also noted to have normal LV systolic function at that time with minimal valvular dysfunction and Evidence of Diastolic dysfunction, chronic diastolic CHF, chronic venous insufficiency, obesity, admitted with c/o abdominal pain, nausea and found to have acute cholecystitis, sepsis, KAUR. In ER EKG showed AFib with controlled HR. Also noted to have a minimally elevated troponin with a normal CK level. Troponin trended down to normal. pt was seen today. c/o continued abdominal pain, fever, chills. No chest pain or sob. no palpitations. - Past Medical History Cardiovascular: Yes: CAD, CHF, HTN, Hyperlipdemia, [place] (s/p EES stent to LAD) ...: No Heme/Onc: Yes: Other (Leukemia) Endocrine: Yes: Diabetes Mellitus - Past Surgical History Past Surgical History: Yes: Stent - Smoking History Smoking history: Former smoker Have you smoked in the past 12 months: No Aproximately how many cigarettes per day: 1 If you are a former smoker, when did you quit?: 3 years ago - Alcohol/Substance Use Hx Alcohol Use: No - Social History ADL: Independent Occupation: retired dietary staff at [employer] History of Recent Travel: No Home Medications - Allergies Allergies/Adverse Reactions: Allergies Allergy/AdvReac Type Severity Reaction Status Date / Time No Known Allergies Allergy Verified 08/05/19 18:39 - Home Medications Home Medications: Ambulatory Orders Furosemide 40 mg PO ASDIR 08/05/19 Methotrexate Sodium [Methotrexate] 2.5 mg PO ASDIR 08/05/19 Metoprolol Tartrate 25 mg PO DAILY 08/05/19 Physical Examination Vital Signs: Vital Signs Temperature 98.7 F 08/06/19 13:34 Pulse Rate 94 H 08/06/19 13:34 Respiratory Rate 22 H 08/06/19 13:34 Blood Pressure 133/71 08/06/19 13:34 O2 Sat by Pulse Oximetry (%) 100 08/06/19 14:20 Labs: CBC, BMP 08/06/19 06:23 08/06/19 06:23
--- NOTE | 2019-08-06 15:19 | EKG ---
Test Reason : Blood Pressure : / mmHG Vent. Rate : 109 BPM Atrial Rate : 111 BPM P-R Int : 000 ms QRS Dur : 084 ms QT Int : 316 ms P-R-T Axes : 000 -65 064 degrees QTc Int : 425 ms POOR DATA QUALITY, INTERPRETATION MAY BE ADVERSELY AFFECTED ATRIAL FIBRILLATION WITH RAPID VENTRICULAR RESPONSE LEFT AXIS DEVIATION ABNORMAL ECG Confirmed by IVONNE VIVEROS MD ([id number]) on 08/06/2019 3:18:36 PM Referred By: Confirmed By:IVONNE VIVEROS MD
--- NOTE | 2019-08-06 15:19 | PN ---
Teaching Attending Note Name of Resident: Douglas Nunez ATTENDING PHYSICIAN STATEMENT I saw and evaluated the patient. I reviewed the resident's note and discussed the case with the resident. I agree with the resident's findings and plan as documented. SUBJECTIVE: Pt seen and examined. Rapid response called for hypoxia, tachypnea and rapid afib. Placed on BiPAP, given lasix with improvement. Now feeling better, saturating 92% on room air. Placed on nasal cannula 3L/min. Heart rates better controlled. OBJECTIVE: Vital Signs Period Temp Pulse Resp BP Sys/Hernandez Pulse Ox Last 24 Hr 97.9 F-99.4 F 77-95 16-22 94-148/42-90 96-100 Intake & Output 08/03/19 08/04/19 08/05/19 08/06/19 23:59 23:59 23:59 23:59 Intake Total 1015 Balance 1015 Weight 117.934 kg 116.12 kg Gen: mildly tachypneic Heart: RRR Lung: decreased breath sounds at the bases Abd: RUQ TTP, no rebound Ext: no edema CBC, BMP 08/06/19 06:23 08/06/19 06:23 Hepatic Panel Total Bilirubin 3.7 mg/dL (0.2-1) H 08/06/19 06:23 AST 132 U/L (15-37) H 08/06/19 06:23 ALT 120 U/L (13-61) H 08/06/19 06:23 Alkaline Phosphatase 420 U/L (45-117) H 08/06/19 06:23 Albumin 2.7 g/dl (3.4-5.0) L 08/06/19 06:23 Active Medications Chlorhexidine Gluconate (Hibiclens For Decolonization -) 1 applic TP HS GABY Furosemide (Lasix Injection -) 40 mg IVPUSH DAILY GABY Sodium Chloride (Normal Saline -) 1,000 mls @ 125 mls/hr IV ASDIR GABY Last Admin: 08/05/19 23:52 Dose: 125 mls/hr Dextrose/Sodium Chloride (D5-1/2ns -) 1,000 mls @ 75 mls/hr IV ASDIR GABY Last Admin: 08/06/19 02:50 Dose: Not Given Ceftriaxone Sodium 1 gm/ (Dextrose) 50 mls @ 100 mls/hr IVPB DAILY GABY; Protocol Last Admin: 08/06/19 13:12 Dose: 100 mls/hr Metronidazole (Flagyl 500mg Premixed Ivpb -) 500 mg in 100 mls @ 100 mls/hr IVPB Q8H-IV GABY Last Admin: 08/06/19 13:12 Dose: 100 mls/hr Metoprolol Tartrate (Lopressor -) 25 mg PO DAILY [facility] Last Admin: 08/06/19 13:12 Dose: 25 mg Morphine Sulfate (Morphine Sulfate) 2 mg IVPUSH Q6H PRN PRN Reason: pain Mupirocin (Bactroban Ointment (For Decolonization) -) 1 applic NS BID [facility] Stop: 08/11/19 21:59 Ursodiol (Actigal -) 300 mg PO BID [facility] Last Admin: 08/06/19 13:12 Dose: 300 mg ASSESSMENT AND PLAN: Acute Hypoxic Respiratory Failure improved Acute Cholecystitis Acute Pancreatitis Gram Negative Bacteremia Sepsis Atrial Fibrillation with RVR now improving CAD +Troponins likely Demand Ischemia Pericardial Effusion HTN DM Hyperlipidemia h/o Leukemia Anemia - will need ERCP vs cholecystostomy - continue antibiotics - f/u cultures - IVF - monitor urine output, creatinine - pt appears to have had a septic response which is now improved - pt saturating well on room air, heart rates better controlled and hemodynamically stable - can monitor on telemetry, please call if any change in clinical status
[2019-08-06] MEDS ORDERED: PIPERACILLIN/TAZOBACTAM 3.375 GM VIAL IVPB ONE (16:02)
[2019-08-06] MEDS ORDERED: DEXTROSE 5%-WATER 100 ML IVPB ONE (16:08)
[2019-08-06] MEDS ORDERED: PIPERACILLIN/TAZOBACTAM 4.5 GM VIAL IVPB ONE (16:08)
[2019-08-06] MEDS: PIPERACILLIN/TAZOB 4.5 GM 4.5 GM in DEXTROSE 5%-WATER 100 ML IVPB SCH ×2 (16:09→17:00)
--- NOTE | 2019-08-06 16:09 | PN ---
Progress Note (short form) - Note Progress Note: ID consult dictated biliary sepsis gram negative bacteremia cholycystitis r/o choledocholithiasis received rocephin and flagyl this am developed fever and SOB-tachypnea and hypoxia , tachycardia- rapid response called now stable respiratory status has improved abdominal pain has subsided d/w cardiology, PMD and GI transfer in progress for further interventions at a tertiary care center given her comorbidities switch to zosyn d/w family at bedside overall condition guarded Problem List - Problems (1) Biliary sepsis Code(s): K83.09 - OTHER CHOLANGITIS (2) Gram-negative bacteremia Code(s): R78.81 - BACTEREMIA (3) Acute cholecystitis Code(s): K81.0 - ACUTE CHOLECYSTITIS (4) Choledocholithiasis Code(s): K80.50 - CALCULUS OF BILE DUCT W/O CHOLANGITIS OR CHOLECYST W/O OBST
--- NOTE | 2019-08-06 18:06 | PN ---
Progress Note (short form) - Note Progress Note: Compared to this mornings clinical findings, the patient developed Fever, Acute respiratory failure, CHF which responded with Lasix and CPAP. This evening she is resting comfortably PE abd : ruq tenderness, no rebound A> acalculous cholecystitis suspect common bile ductstone R> spoke o their family at length. D/w Dr Camacho/Partha and Elaina . The patient will benefit with cholecystostomy since this will only entail local anesthesia. Because odf he comorbidities including CAD, mildly elevated troponins, new onset AFIB she is a poor candidate for general anesthesia. She was going to [facility] for further evaluation and management. Dr Azar aware of transfer. Problem List - Problems (1) Dilated cbd, acquired Code(s): K83.8 - OTHER SPECIFIED DISEASES OF BILIARY TRACT (2) Biliary acute pancreatitis Code(s): K85.10 - BILIARY ACUTE PANCREATITIS WITHOUT NECROSIS OR INFECTION (3) Poor appetite Code(s): R63.0 - ANOREXIA
--- NOTE | 2019-08-06 20:06 | CONS ---
INFECTIOUS DISEASE CONSULTATION DATE OF CONSULTATION: DATE OF DICTATION: 08/06/2019 REQUESTING PHYSICIAN: Natacha Cooney MD This is a 73-year-old woman, past medical history of leukemia, hypertension, hyperlipidemia, diabetes. She was admitted with abdominal pain, nausea, and found to have acute cholecystitis. She came in through the emergency room last night. This afternoon, she was noted to have acute onset of fever. She was short of breath with hypoxia. BiPAP was started. Her O2 saturation was returned to the 100s. Her symptoms removed. She apparently was in atrial fibrillation at the time. She was , and she improved. I am asked to see her for antibiotic recommendations. She received ceftriaxone and Flagyl earlier today. PAST MEDICAL HISTORY: Notable for coronary artery disease, CHF, hypertension, hyperlipidemia. She is status [facility]. She has a history of leukemia from 2014, that was treated at [facility]. She is in remission per her family. She has diabetes. SOCIAL HISTORY: She lives with her family. She stopped smoking 3 years ago. She retired dietary staff. No history of any recent travel. Last trip to [place] was 10 years ago. ALLERGIES: She has no known drug allergies. OUTPATIENT MEDICATIONS: Include metoprolol, methotrexate, and furosemide. REVIEW OF SYSTEMS: She has been feeling unwell for about a month. Her appetite has been poor. She has looked at food and really not wanted to eat it, but the abdominal pain really developed in the last 24-48 hours and is mainly right upper quadrant. Currently, she has no right upper quadrant pain. Her tachypnea has resolved as well, and her breathing is comfortable. She has no cough. She denies any chest pain at present. She has had venous stasis changes of her legs. Her last admission was to [facility] in December for cellulitis. She has no dysuria. PHYSICAL EXAMINATION: Vital Signs: Her T-max was 102.8. When I saw her, temperature was 101.7. Pulse of 107, blood pressure 143/67. Respiratory rate is 20. Saturating 94%. HEENT: She is normocephalic. Her eyes are anicteric. She is using oxygen via nasal cannula. She has no thrush. Lungs: Clear to auscultation. Heart: Regular rate and rhythm. Abdomen: Currently soft. It is nontender. She has no suprapubic or CVA tenderness. Extremities: She has venous stasis changes bilaterally. LABORATORY DATA: Her labs are notable for a white count of 8.2, hemoglobin 9.4, platelets are 167. INR is 1.2. BUN is 26 and creatinine 1.2 with a total bilirubin of 3.7, AST of 132, ALT of 120, alkaline phosphatase of 420. Her lipase is 200. Her blood cultures: One of four bottles has grown negative bacilli. She had an ultrasound of her liver, that was notable for findings suggestive of acute cholecystitis, no definite gallbladder calculus, and interval development of some common bile duct dilatation. In summary, this is a 73-year-old woman admitted with right upper quadrant pain, who has biliary sepsis, gram-negative bacteremia, cholecystitis, rule out choledocholithiasis. She has been seen by GI and Surgery, as well as Cardiology and the ICU team. She is currently resting comfortably on telemetry. She received Rocephin and Flagyl this morning, and would suggest we switch her to piperacillin/tazobactam at this time to cover her for biliary sepsis, gram-negative bacteremia. Case was discussed with Cardiology, the primary doctor, and with GI. PLANS: Transfer is already in progress for further interventions at a tertiary care center given her comorbidities. She is being transferred to [facility]. MARILU MAY M.D. [id number]
[2019-08-06] MEDS ORDERED: CHLORHEXIDINE GLUCONATE 4% CLEANSER FOR DECOLONIZATION TP SCH (22:00)
[2019-08-06] MEDS ORDERED: MUPIROCIN 2% TOPICAL OINTMENT FOR DECOLONIZATION NS SCH (22:00)
[2019-08-07 01:08] VITALS: BP 101/57; PULSE 66; TEMP 98.8
[2019-08-07 08:06] LABS: CARCINOEMBRYONIC ANTIGEN 1.2 ng/mL (0.0-4.7)
--- NOTE | 2019-08-08 13:26 | EKG ---
Test Reason : Blood Pressure : / mmHG Vent. Rate : 069 BPM Atrial Rate : 276 BPM P-R Int : 000 ms QRS Dur : 088 ms QT Int : 378 ms P-R-T Axes : 266 -45 004 degrees QTc Int : 405 ms ATRIAL FLUTTER LOW VOLTAGE QRS LEFT ANTERIOR FASCICULAR BLOCK CANNOT RULE OUT INFERIOR INFARCT (MASKED BY FASCICULAR BLOCK?) , AGE UNDETERMINED CANNOT RULE OUT ANTERIOR INFARCT , AGE UNDETERMINED ABNORMAL ECG WHEN COMPARED WITH ECG OF 05-AUG-2019 18:46, ATRIAL FLUTTER HAS REPLACED ATRIAL FIBRILLATION MINIMAL CRITERIA FOR ANTERIOR INFARCT ARE NOW PRESENT POOR DATA QUALITY, INTERPRETATION MAY BE ADVERSELY AFFECTED Confirmed by ROBERTO CARLOS CADENA MD ([id number]) on 08/08/2019 1:25:32 PM Referred By: Confirmed By:ROBERTO CARLOS CADENA MD
--- NOTE | 2019-08-08 23:35 | EKG ---
Test Reason : Blood Pressure : / mmHG Vent. Rate : 109 BPM Atrial Rate : 100 BPM P-R Int : 000 ms QRS Dur : 080 ms QT Int : 320 ms P-R-T Axes : 000 -51 036 degrees QTc Int : 430 ms POOR DATA QUALITY, INTERPRETATION MAY BE ADVERSELY AFFECTED ATRIAL FIBRILLATION PULMONARY DISEASE PATTERN LEFT ANTERIOR FASCICULAR BLOCK ABNORMAL ECG WHEN COMPARED WITH ECG OF 06-AUG-2019 13:54, CURRENT UNDETERMINED RHYTHM PRECLUDES RHYTHM COMPARISON, NEEDS REVIEW NONSPECIFIC T WAVE ABNORMALITY NO LONGER EVIDENT IN LATERAL LEADS Confirmed by MD Mckinley, Paul ([id number]) on 08/08/2019 11:35:01 PM Referred By: Savanna ORELLANA Confirmed By:Paul Sen MD
== END 2019-08-06 23:10 | disposition short-term general hospital (02) | DRG 871 ==
LOC: JER 18:29 → JERBED 20:50 → J4W 08-06 01:15
PROVIDERS: ADMIT Internal Medicine; ATTEND Internal Medicine
DX: A41.59 Other Gram-negative sepsis (principal); K85.10 Biliary acute pancreatitis without necrosis or infection; J96.01 Acute respiratory failure with hypoxia; R17 Unspecified jaundice; D61.818 Other pancytopenia; Z68.41 Body mass index [BMI] 40.0-44.9, adult; C91.01 Acute lymphoblastic leukemia, in remission; I31.3 Pericardial effusion (noninflammatory); I24.8 Other forms of acute ischemic heart disease; I50.32 Chronic diastolic (congestive) heart failure; R10.11 Right upper quadrant pain; R00.0 Tachycardia, unspecified; K80.50 Calculus of bile duct without cholangitis or cholecystitis without obstruction; K83.8 Other specified diseases of biliary tract; D64.9 Anemia, unspecified; R50.9 Fever, unspecified; I48.91 Unspecified atrial fibrillation; I25.10 Atherosclerotic heart disease of native coronary artery without angina pectoris; Z95.5 Presence of coronary angioplasty implant and graft; E66.01 Morbid (severe) obesity due to excess calories; E78.5 Hyperlipidemia, unspecified; I25.2 Old myocardial infarction; Z87.891 Personal history of nicotine dependence; R63.0 Anorexia; E11.9 Type 2 diabetes mellitus without complications; I11.0 Hypertensive heart disease with heart failure
CPT/HCPCS: 36415; 70450-TC; 71045-TC-FY; 74176-TC; 76705-TC; 80053; 82150; 82272; 82378; 82550; 82803; 82962; 83605; 83690; 83735; 83880; 84100; 84484; 85025; 85610; 85730; 86301; 86304; 87040; 87186; 93005; 93010; 93306-TC; 94660; 99285-25; J0131; J1644; J7030

== ENCOUNTER 2019-08-20 03:18 | Inpatient (IN) | payer OTHER ==
[2019-08-20] MEDS ORDERED: NITROGLYCERIN 2% OINTMENT - 1GM PACKET TD ONE ×2 (03:25→03:41)
[2019-08-20] MEDS ORDERED: FUROSEMIDE 40 MG/4 ML INJECTABLE VIAL ONE (03:33)
[2019-08-20] MEDS ORDERED: FUROSEMIDE 40 MG/4 ML INJECTABLE VIAL IVPUSH ONE (03:41)
[2019-08-20 03:55] LABS: ARTERIAL BLD GAS O2 SATURATION 99.5 % (95-98); ARTERIAL BLOOD GAS BASE EXCESS -7.9 meq/l (-2-2); ARTERIAL BLOOD GAS PCO2 34.6 mmHg (35-45); ARTERIAL BLOOD GAS PO2 260 mmHg (80-100); ARTERIAL BLOOD GAS pH 7.31 (7.35-7.45)
[2019-08-20 03:59] LABS: ALLENS TEST POSITIVE
[2019-08-20 04:12] LABS: INR 1.47 (0.83-1.09); PROTHROMBIN TIME (PATIENT) 17.4 SEC (9.7-13.0)
--- NOTE | 2019-08-20 04:14 | PDOC ---
History of Present Illness - General Chief Complaint: Respiratory Distress Stated Complaint: SOB Time Seen by Provider: 08/20/19 03:48 History Source: Patient Exam Limitations: Language Barrier - History of Present Illness Initial Comments: Nancy June is a 73yo F w a hx of CAD (s/p stent), NIDDM, HTN, Heart Failiure, obesity, acute lymphoblastic leukemia s/p chemo, and chronic venous stasis in BLEs who presents to the [facility] er BIBEMS in respiratory distress satting in the 70's on CPAP. The patient was originally somnolent when she presented to the ER and not responsive to much communication. In the ER she was immediately brought into room 10, hooked up to the monitor and had a bedside US performed which showed bilateral B-lines diffusely suggestive of significant fluid overload in her lungs with pulmonary edema. 12 lead EKG was performed and showed A-fib with rapid RVR, LAD, pulmonary disease pattern but no indications the patient was having a STEMI. She also had 3+ edema in both lower extremities. All this together most strongly supported that the patient was having a CHF exacerbation. We hastly put nitro paste on her chest, switched her to a Bi-Pap machine, obtained IV access via an US guided line bc she was a very hard stick - EMS was not able to obtain a line, administered 40 mg of lasix. Shortly after being given lasix and put on the Bi-Pap machine she started doing much better, was satting at 100%, and her tachycardia resolved. She is now lying comfortably in the bed satting at 100%. The family states that she has been becoming more and more short of breath over the past few days. They also believe she is having a kidney injury. Advanced Directives: Full Code PCP: Deng Perdue PSH: Stent Social Hx: Former smoker, denies current toxic habits, Independent in her ADL Allergies: NKA, NKDA Past History - Past Medical History Allergies/Adverse Reactions: Allergies Allergy/AdvReac Type Severity Reaction Status Date / Time No Known Allergies Allergy Verified 08/20/19 03:35 Home Medications: Ambulatory Orders Metoprolol Tartrate 25 mg PO DAILY 08/05/19 Apixaban [Eliquis -] 2.5 mg PO BID 08/20/19 Ciprofloxacin [Cipro (Restricted To Id)] 500 mg PO ASDIR 08/20/19 Metronidazole 500 mg PO ASDIR 08/20/19 Sodium Bicarbonate - 1,300 mg PO TID 08/20/19 Anemia: Yes Asthma: No Cancer: Yes (Leukemia lymphoblastic) Cardiac Disorders: Yes (episodes of chest pain for a couple seconds) CVA: No COPD: No CHF: Yes Dementia: No Diabetes: Yes GI Disorders: No Disorders: No HTN: Yes Hypercholesterolemia: Yes (stopped takeing her chol meds) Liver Disease: No Seizures: No Thyroid Disease: No - Surgical History Abdominal Surgery: No Appendectomy: No Cardiac Surgery: Yes (card stents) Cholecystectomy: No Lung Surgery: No Orthopedic Surgery: No - Psycho Social/Smoking Cessation Hx Smoking History: Never smoked Have you smoked in the past 12 months: No Number of Cigarettes Smoked Daily: 1 If you are a former smoker, when did you quit?: 3 years ago 'Breaking Loose' booklet given: 05/19/15 Hx Alcohol Use: No Drug/Substance Use Hx: No Substance Use Type: None Hx Substance Use Treatment: No Review of Systems - Review of Systems Able to Perform ROS?: No (Patient obtunded) *Physical Exam - Vital Signs Last Vital Signs Temp Pulse Resp BP Pulse Ox 128 H 35 H 117/71 100 08/20/19 03:18 08/20/19 03:18 08/20/19 03:18 08/20/19 03:55 - Physical Exam General Appearance: Yes: Nourished, Appropriately Dressed, Severe Distress, Obese HEENT: positive: Normal ENT Inspection Neck: positive: Trachea midline, Supple. negative: Decreased range of motion Respiratory/Chest: positive: Respiratory Distress, Accessory Muscle Use, Labored Respiration, Rapid RR, Decreased Breath Sounds, Crackles, Rales (b/l diffusely), Dullness. negative: Chest Tender, Lungs Clear, Normal Breath Sounds , Rhonchi, Stridor, Wheezing Cardiovascular: positive: JVD, Tachycardia, Diastolic Murmur, Systolic Murmur, Gallop/S4, Irregularly Irregular Vascular Pulses: Dorsalis-Pedis (R): 1+, Doralis-Pedis (L): 1+ Gastrointestinal/Abdominal: positive: Soft, Protuberent. negative: Tender Rectal Exam: positive: deferred Lymphatic: negative: Adenopathy Musculoskeletal: positive: Normal Inspection, Decreased Range of Motion. negative: CVA Tenderness, Vertebral Tenderness Extremity: positive: Normal Capillary Refill, Normal Inspection, Normal Range of Motion, Pedal Edema, Swelling. negative: Calf Tenderness Integumentary: positive: Normal Color, Dry, Mottled, Cold, Clammy Neurologic: positive: Respond to painful stimul, Responsive, Confused, Disoriented Procedures - Bedside Ultrasound Bedside Ultrasound: Lung Other: IV Remarks: Lung US: B-lines diffusely suggestive of pulmonary edema IV: access obtained in left AC with US guidance Heart Score/ECG Review - ECG Intrepretation Rhythm: Irregularly Irregular - Estancia Estancia: Left Estancia Deviation - P and MA Prominent R with upright T in V1 (true posterior LA): No - QRS Poor R Wave Progression: Yes Q Wave Present: Yes - ST and T Non Specific ST-T Wave changes: No ST Depression Suggest: Ischemia Flattened T Waves: Yes Prolonged Q-T Interval: No - ECG Impressions Normal ECG: No Non-specific ST Elevation: No Ischemic Changes: Yes Comment:: A-fib w RVR, LAD, Pulm disease patternm, septal infarct and inferior infarct of undetermined age Abnormal ECG ED Treatment Course - LABORATORY CBC & Chemistry Diagram: 08/20/19 03:30 08/20/19 03:39 - ADDITIONAL ORDERS Additional order review: Laboratory Results 08/20/19 08/20/19 08/20/19 03:45 03:30 03:30 PT with INR 17.40 H INR 1.47 H PTT (Actin FS) Anticoagulation Therapy No Result Required. Puncture Site Right radial ABG pH 7.31 L ABG pCO2 at Pt Temp 34.6 L ABG pO2 at Pt Temp 260 H ABG HCO3 17.0 L ABG O2 Sat (Measured) 99.5 H ABG O2 Content 14.4 ABG Base Excess -7.9 L Reid Test Positive Carboxyhemoglobin 1.0 Methemoglobin < 1.0 O2 Delivery Device Bipap Oxygen Flow Rate 100% Vent Mode S/t Vent Rate 12 Mechanical Rate No Result Required. PEEP 5.0 Pressure Support Vent 14 Creatine Kinase Troponin I B-Natriuretic Peptide 15636.0 H 08/20/19 08/20/19 03:30 03:30 PT with INR INR PTT (Actin FS) 30.9 Anticoagulation Therapy Puncture Site ABG pH ABG pCO2 at Pt Temp ABG pO2 at Pt Temp ABG HCO3 ABG O2 Sat (Measured) ABG O2 Content ABG Base Excess Reid Test Carboxyhemoglobin Methemoglobin O2 Delivery Device Oxygen Flow Rate Vent Mode Vent Rate Mechanical Rate PEEP Pressure Support Vent Creatine Kinase 18 L Troponin I 0.02 B-Natriuretic Peptide - Medications Given in the ED: ED Medications Discontinued Medications Generic Name Dose Route Start Last Admin Trade Name Shashiq PRN Reason Stop Dose Admin Furosemide 40 mg 08/20/19 03:41 08/20/19 03:49 Lasix Injection - IVPUSH 08/20/19 03:42 40 mg ONCE ONE Administration Nitroglycerin 1 inch 08/20/19 03:41 08/20/19 03:49 Nitro-Bid 2% Paste - TD 08/20/19 03:42 1 inch ONCE ONE Administration Medical Decision Making - Critical Care Time Total Critical Care Time (minutes): 60 Critical Care Statement: The care of this patient involved high complexity decision making to prevent further life threatening deterioration of the patient 's condition and/or to evaluate & treat vital organ system(s) failure or risk of failure. - Medical Decision Making Nancy June is a 73yo F w a hx of CAD (s/p stent), NIDDM, HTN, Heart Failiure, obesity, acute lymphoblastic leukemia s/p chemo, and chronic venous stasis in BLEs who presents to the [facility] er BIBEMS in respiratory distress satting in the 70's on CPAP. Vital Signs Temp Pulse Resp BP Pulse Ox 92 H 22 H 119/67 100 08/20/19 04:24 08/20/19 03:45 08/20/19 03:45 08/20/19 04:24 MDM: Patient presents in severe respiratory distress having an acute heart failure exacerbationm needing immediate Bi-Pap, Nitro and lasix. Unsure at this time exactly what set off her heart failure exacerbation. DDx IBNLT: Heart failure, renal failure, Pulmonary edema, ACS/LA, Arrythmia, Sepsis Plan: Labs, Urine, CXR, EKG, Bi-Pap, monitor respiratory status - Admit Telemetry vs ICU - Will obtain an ICU consult - ICU consult rejects admission to ICU Labs: Elevated BUN + renal failure, leukocytosis, metabolic acidosis. Re-assessment: Patient is doing much better and lying comfortably in bed with a Bi-pap. She is breathing more comfortably and her vital signs are now WNL. - Spoke with Dr. Cooney who accepts the patient for admission to the hospital Disposition: Telemetry Discharge - Discharge Information Problems reviewed: Yes Clinical Impression/Diagnosis: Severe congestive heart failure Respiratory failure Qualifiers: Chronicity: acute on chronic Respiratory failure complication: hypoxia Qualified Code(s): J96.21 - Acute and chronic respiratory failure with hypoxia Renal failure Qualifiers: Renal failure chronicity: unspecified chronicity Qualified Code(s): N19 - Unspecified kidney failure Condition: Guarded - Admission Yes - Follow up/Referral - Patient Discharge Instructions - Post Discharge Activity
[2019-08-20 04:16] LABS: ALBUMIN 2.5 g/dl (3.4-5.0); BILIRUBIN,TOTAL 0.9 mg/dL (0.2-1); BLOOD UREA NITROGEN 34.1 mg/dL (7-18); CALCIUM 8.5 mg/dL (8.5-10.1); CREATININE 3.2 mg/dL (0.55-1.3); POTASSIUM 3.8 mmol/L (3.5-5.1)
[2019-08-20 04:17] LABS: VENOUS PC02 57.4 mmHg (38-52)
[2019-08-20 04:18] LABS: VENOUS PO2 < 49 mmHg (28-48)
[2019-08-20 04:19] LABS: VENOUS PH 7.16 (7.31-7.41)
[2019-08-20 04:39] LABS: BASO % 0.5 % (0-2.0); EOS % 0.8 % (0-4.5); HEMATOCRIT 27.4 % (32.4-45.2); HEMOGLOBIN 8.6 GM/dL (10.7-15.3); LYMPH % 21.1 % (8-40); MCH 26.3 pg (25.7-33.7); MCHC 31.3 g/dl (32.0-36.0); MEAN PLT VOLUME 9.8 fl (7.5-11.1); MONO % 3.1 % (3.8-10.2); NEUT % 74.5 % (42.8-82.8); PLATELET COUNT 528 K/MM3 (134-434); RBC 3.26 M/mm3 (3.60-5.2); RDW 18.4 % (11.6-15.6); WHITE BLOOD COUNT 18.4 K/mm3 (4.0-10.0)
[2019-08-20 05:32] LABS: EPI CELLS 14.9 /HPF (0-5/HPF); HYALINE CASTS 55 /lpf (0-8); URINE APPEARANCE CLOUDY; URINE BACTERIA 4.3 /hpf (NEGATIVE); URINE BILIRUBIN NEGATIVE (NEGATIVE); URINE COLOR YELLOW; URINE GLUCOSE (UA) NEGATIVE (NEGATIVE); URINE KETONE NEGATIVE (NEGATIVE); URINE LEUK ESTERASE TRACE (NEGATIVE); URINE NITRITE NEGATIVE (NEGATIVE); URINE PROTEIN 1+ (NEGATIVE); URINE RBC 131 /hpf (0-4); URINE UROBILINOGEN 0.2 mg/dL (0.2-1.0); URINE WBC 9 /hpf (0-5)
--- NOTE | 2019-08-20 06:38 | CONSULT ---
Consultation: REQUESTING PROVIDER: CONSULT REQUEST: We have been asked to medically evaluate this patient for medical management in the ICU. HISTORY OF PRESENT ILLNESS: 73 year old female with PMH significant for CAD, CHF, Afib, DM, HTN, Obesity, ALL (s/p chemo), and chronic venous stasis. She presented to the ER on 08/20 with complaints of worsening SOB since recent discharge from [facility]. Patient endorses associated chest discomfort and poor renal function. States that she does not have a CPAP machine at home. Of note, went to [facility] for a cholecystectomy, they removed the stones but course was complicated by acute renal failure and cholecystectomy was differed until recovery of renal function. endorses diffuse abd pain, more-so on right side, significantly improving breathing with treatment. Patient currently denies dizziness, LH, numbness / tingling in extremities. ED course: arrived satting in 70s, stuporous. Placed on BiPAP, given 40 lasix, with significant clinical improvement. O2 Sat 96% off BiPAP at time of my interview. The ICU team was consulted for acute renal failure. REVIEW OF SYSTEMS: As above PHYSICAL EXAMINATION Vital Signs - 24 hr 08/20/19 08/20/19 08/20/19 03:18 03:45 03:55 Temperature 100.5 F H Pulse Rate 128 H Pulse Rate [ 92 H Apical] Respiratory 35 H 22 H Rate Blood Pressure 117/71 Blood Pressure 119/67 [Right Arm] O2 Sat by Pulse 84 L 100 100 Oximetry (%) 08/20/19 08/20/19 08/20/19 04:24 04:32 04:54 Temperature Pulse Rate 92 H Pulse Rate [ Apical] Respiratory Rate Blood Pressure Blood Pressure [Right Arm] O2 Sat by Pulse 100 100 100 Oximetry (%) 08/20/19 04:59 Temperature Pulse Rate Pulse Rate [ 88 Apical] Respiratory Rate Blood Pressure Blood Pressure 118/62 [Right Arm] O2 Sat by Pulse 100 Oximetry (%) A&Ox3, mild distress 2/2 pain Dry MM, normal morphologies, trachea midline Nl s1 s2, no murmurs appreciated Diffuse crackles, good air movement, no accessory muscle use, full sentences Obese, R-sided tenderness Chronic venous stasis changes Laboratory Results - last 24 hr 08/20/19 08/20/19 08/20/19 03:30 03:30 03:30 WBC 18.4 H RBC 3.26 L Hgb 8.6 L Hct 27.4 L MCV 84.0 MCH 26.3 MCHC 31.3 L RDW 18.4 H Plt Count 528 H D MPV 9.8 Absolute Neuts (auto) 13.7 H Neutrophils % 74.5 Lymphocytes % 21.1 D Monocytes % 3.1 L Eosinophils % 0.8 D Basophils % 0.5 Nucleated RBC % 0 PT with INR INR PTT (Actin FS) 30.9 Anticoagulation Therapy Puncture Site ABG pH ABG pCO2 at Pt Temp ABG pO2 at Pt Temp ABG HCO3 ABG O2 Sat (Measured) ABG O2 Content ABG Base Excess Reid Test VBG pH POC VBG pCO2 POC VBG pO2 VBG HCO3 VBG O2 Sat (Rick) VBG Base Excess Carboxyhemoglobin Methemoglobin O2 Delivery Device Oxygen Flow Rate Vent Mode Vent Rate Mechanical Rate PEEP Pressure Support Vent Sodium Potassium Chloride Carbon Dioxide Anion Gap BUN Creatinine Est GFR (CKD-EPI)AfAm Est GFR (CKD-EPI)NonAf Random Glucose Lactic Acid Calcium Total Bilirubin AST ALT Alkaline Phosphatase Creatine Kinase 18 L Troponin I 0.02 B-Natriuretic Peptide Total Protein Albumin Urine Color Urine Appearance Urine pH Ur Specific [place] Urine Protein Urine Glucose (UA) Urine Ketones Urine Blood Urine Nitrite Urine Bilirubin Urine Urobilinogen Ur Leukocyte Esterase Urine WBC (Auto) Urine RBC (Auto) Urine Casts (Auto) U Epithel Cells (Auto) Urine Bacteria (Auto) 08/20/19 08/20/19 08/20/19 03:30 03:30 03:39 WBC RBC Hgb Hct MCV MCH MCHC RDW Plt Count MPV Absolute Neuts (auto) Neutrophils % Lymphocytes % Monocytes % Eosinophils % Basophils % Nucleated RBC % PT with INR 17.40 H INR 1.47 H PTT (Actin FS) Anticoagulation Therapy Puncture Site ABG pH ABG pCO2 at Pt Temp ABG pO2 at Pt Temp ABG HCO3 ABG O2 Sat (Measured) ABG O2 Content ABG Base Excess Reid Test VBG pH POC VBG pCO2 POC VBG pO2 VBG HCO3 VBG O2 Sat (Rick) VBG Base Excess Carboxyhemoglobin Methemoglobin O2 Delivery Device Oxygen Flow Rate Vent Mode Vent Rate Mechanical Rate PEEP Pressure Support Vent Sodium 138 Potassium 3.8 Chloride 105 Carbon Dioxide 21 Anion Gap 12 BUN 34.1 H Creatinine 3.2 H Est GFR (CKD-EPI)AfAm 15.75 Est GFR (CKD-EPI)NonAf 13.59 Random Glucose 220 H Lactic Acid Calcium 8.5 Total Bilirubin 0.9 D AST 13 L ALT 13 Alkaline Phosphatase 139 H Creatine Kinase Troponin I B-Natriuretic Peptide 90754.0 H Total Protein 7.0 Albumin 2.5 L Urine Color Urine Appearance Urine pH Ur Specific [place] Urine Protein Urine Glucose (UA) Urine Ketones Urine Blood Urine Nitrite Urine Bilirubin Urine Urobilinogen Ur Leukocyte Esterase Urine WBC (Auto) Urine RBC (Auto) Urine Casts (Auto) U Epithel Cells (Auto) Urine Bacteria (Auto) 08/20/19 08/20/19 08/20/19 03:45 03:55 03:55 WBC RBC Hgb Hct MCV MCH MCHC RDW Plt Count MPV Absolute Neuts (auto) Neutrophils % Lymphocytes % Monocytes % Eosinophils % Basophils % Nucleated RBC % PT with INR INR PTT (Actin FS) Anticoagulation Therapy No Result Required. Puncture Site Right radial ABG pH 7.31 L ABG pCO2 at Pt Temp 34.6 L ABG pO2 at Pt Temp 260 H ABG HCO3 17.0 L ABG O2 Sat (Measured) 99.5 H ABG O2 Content 14.4 ABG Base Excess -7.9 L Reid Test Positive VBG pH 7.16 L* POC VBG pCO2 57.4 H POC VBG pO2 < 49 H VBG HCO3 19.6 L VBG O2 Sat (Rick) 50.2 L VBG Base Excess -8.5 L Carboxyhemoglobin 1.0 Methemoglobin < 1.0 O2 Delivery Device Bipap Oxygen Flow Rate 100% Vent Mode S/t Vent Rate 12 Mechanical Rate No Result Required. PEEP 5.0 Pressure Support Vent 14 Sodium Potassium Chloride Carbon Dioxide Anion Gap BUN Creatinine Est GFR (CKD-EPI)AfAm Est GFR (CKD-EPI)NonAf Random Glucose Lactic Acid 4.1 H* Calcium Total Bilirubin AST ALT Alkaline Phosphatase Creatine Kinase Troponin I B-Natriuretic Peptide Total Protein Albumin Urine Color Urine Appearance Urine pH Ur Specific [place] Urine Protein Urine Glucose (UA) Urine Ketones Urine Blood Urine Nitrite Urine Bilirubin Urine Urobilinogen Ur Leukocyte Esterase Urine WBC (Auto) Urine RBC (Auto) Urine Casts (Auto) U Epithel Cells (Auto) Urine Bacteria (Auto) 08/20/19 05:15 WBC RBC Hgb Hct MCV MCH MCHC RDW Plt Count MPV Absolute Neuts (auto) Neutrophils % Lymphocytes % Monocytes % Eosinophils % Basophils % Nucleated RBC % PT with INR INR PTT (Actin FS) Anticoagulation Therapy Puncture Site ABG pH ABG pCO2 at Pt Temp ABG pO2 at Pt Temp ABG HCO3 ABG O2 Sat (Measured) ABG O2 Content ABG Base Excess Reid Test VBG pH POC VBG pCO2 POC VBG pO2 VBG HCO3 VBG O2 Sat (Rick) VBG Base Excess Carboxyhemoglobin Methemoglobin O2 Delivery Device Oxygen Flow Rate Vent Mode Vent Rate Mechanical Rate PEEP Pressure Support Vent Sodium Potassium Chloride Carbon Dioxide Anion Gap BUN Creatinine Est GFR (CKD-EPI)AfAm Est GFR (CKD-EPI)NonAf Random Glucose Lactic Acid Calcium Total Bilirubin AST ALT Alkaline Phosphatase Creatine Kinase Troponin I B-Natriuretic Peptide Total Protein Albumin Urine Color Yellow Urine Appearance Cloudy Urine pH 5.0 Ur Specific [place] 1.006 L Urine Protein 1+ H Urine Glucose (UA) Negative Urine Ketones Negative Urine Blood 3+ H Urine Nitrite Negative Urine Bilirubin Negative Urine Urobilinogen 0.2 Ur Leukocyte Esterase Trace Urine WBC (Auto) 9 Urine RBC (Auto) 131 Urine Casts (Auto) 55 U Epithel Cells (Auto) 14.9 Urine Bacteria (Auto) 4.3 ASSESSMENT/PLAN: 73 year old female with PMH significant for CAD, CHF, Afib, DM, HTN, Obesity, ALL (s/p chemo), and chronic venous stasis. She presented to the ER on 08/20 with complaints of worsening SOB since recent discharge from [facility]. #CHF #Afib #CAD #DM #HTN #Obesity #ALL (s/p chemo) #Chronic venous stasis #Renal failure (?acute vs subacute) #Cholelithiasis #Pericardial effusion (noted 08/06 ECHO) -IV diuresis -Strict I&O, daily weights -Monitor renal output, Cr -UA with 3+ blood, consult nephrology -Consult cardiology -Consider ECHO vs JOSE (08/06) to re-evaluate effusion -Contintue rate control -Continue AC, eloquis BID -Continue empiric ABX -F/u BCx -F/u repeat lactic acid until under 2 -Supplemental O2 PRN -Maintain O2 >92% -Tele monitoring -Appreciate renal consult to evaluate for HD Dispo: Not a candidate for ICU admission at this time. Please re-consult if intubation or pressors required. Would suggest transfer to bariatric facility if advanced procedures become necessary. Thank you for this consultative opportunity. Visit type - Emergency Visit Emergency Visit: Yes ED Registration Date: 08/20/19 Care time: The patient presented to the Emergency Department on the above date and was hospitalized for further evaluation of their emergent condition. - New Patient This patient is new to me today: Yes Date on this admission: 08/20/19 - Critical Care Critical Care patient: Yes Total Critical Care Time (in minutes): 36 Critical Care Statement: The care of this patient involved high complexity decision making to prevent further life threatening deterioration of the patient 's condition and/or to evaluate & treat vital organ system(s) failure or risk of failure. ATTENDING PHYSICIAN STATEMENT I saw and evaluated the patient. I reviewed the resident's note and discussed the case with the resident. I agree with the resident's findings and plan as documented. SUBJECTIVE: OBJECTIVE: ASSESSMENT AND PLAN:
--- NOTE | 2019-08-20 09:44 | EKG ---
Test Reason : Blood Pressure : / mmHG Vent. Rate : 119 BPM Atrial Rate : 119 BPM P-R Int : 000 ms QRS Dur : 076 ms QT Int : 282 ms P-R-T Axes : 000 -48 021 degrees QTc Int : 396 ms ATRIAL FIBRILLATION WITH RAPID VENTRICULAR RESPONSE LEFT AXIS DEVIATION PULMONARY DISEASE PATTERN SEPTAL INFARCT , AGE UNDETERMINED INFERIOR INFARCT , AGE UNDETERMINED ABNORMAL ECG WHEN COMPARED WITH ECG OF 06-AUG-2019 14:32, INFERIOR INFARCT IS NOW PRESENT NONSPECIFIC T WAVE ABNORMALITY NOW EVIDENT IN LATERAL LEADS Confirmed by FELICE QURESHI, IVONNE ([id number]) on 08/20/2019 9:43:56 AM Referred By: Confirmed By:IVONNE VIVEROS MD
--- NOTE | 2019-08-20 11:52 | CONSULT ---
Consultation: REQUESTING PROVIDER: Dr. Cooney CONSULT SERVICE: Nephrology HISTORY OF PRESENT ILLNESS: Patient is a 73 year old female with history of ALL (s/p chemotherapy) coronary artery disease, NSTEMI (s/p drug eluting stent), congestive heart failure, Afib (on Eliquis), hypertension, diabetes mellitus, venous stasis presents with complaint of shortness of breath. Upon presentatin, patient was hypoxic to 70s, and initiated on BiLevel ventilation with Lasix 40mg IV administered. Patient was recently admitted with biliary sepsis, transferred to [facility] where she was treated conservatively with antibiotics. Patient admits that she was taking her Lasix, however unsure of the dose as she did not receive all of her discharge medications. In ED patient was found to be septic (WBC 18.4, febrile to 100.5F), Lactic acid 4.1, with urinalysis significant for 3+ blood, and ? concerning for UTI. Nephrology was consulted for acute kidney injury. REVIEW OF SYSTEMS: As per HPI PHYSICAL EXAMINATION Vital Signs - 24 hr 08/20/19 08/20/19 08/20/19 03:18 03:45 03:55 Temperature 100.5 F H Pulse Rate 128 H Pulse Rate [ 92 H Apical] Pulse Rate [ Right Radial] Respiratory 35 H 22 H Rate Blood Pressure 117/71 Blood Pressure 119/67 [Right Arm] O2 Sat by Pulse 84 L 100 100 Oximetry (%) 08/20/19 08/20/19 08/20/19 04:24 04:32 04:54 Temperature Pulse Rate 92 H Pulse Rate [ Apical] Pulse Rate [ Right Radial] Respiratory Rate Blood Pressure Blood Pressure [Right Arm] O2 Sat by Pulse 100 100 100 Oximetry (%) 08/20/19 08/20/19 08/20/19 04:59 06:49 07:12 Temperature Pulse Rate Pulse Rate [ 88 85 Apical] Pulse Rate [ 81 Right Radial] Respiratory 20 20 Rate Blood Pressure Blood Pressure 118/62 123/79 118/76 [Right Arm] O2 Sat by Pulse 100 96 99 Oximetry (%) 08/20/19 08/20/19 07:31 10:00 Temperature 98 F Pulse Rate 76 76 Pulse Rate [ Apical] Pulse Rate [ Right Radial] Respiratory 20 22 H Rate Blood Pressure 115/82 121/82 Blood Pressure [Right Arm] O2 Sat by Pulse 100 Oximetry (%) GENERAL: Patient is awake, alert, and fully oriented, in no acute distress. HEAD: NC/ AT. PERRL, EOMI. Moist mucous membranes. LUNGS: Good inspiratory effort, faint crackles auscultated bilaterally. No accessory muscle use. HEART: Regular rate and rhythm, normal S1 and S2 without murmur, rub or gallop. ABDOMEN: Obese abdomen. Soft, nontender, not distended. Normoactive bowel sounds. EXTREMITIES: 2+ pulses, warm, well-perfused. 2+ peripheral edema bilaterally. NEUROLOGICAL: Cranial nerves II-XII intact. Normal speech. No gross focal deficits. SKIN: Warm, dry. Venous stasis change noted left > right. Laboratory Results - last 24 hr 08/20/19 08/20/19 08/20/19 03:30 03:30 03:30 WBC 18.4 H RBC 3.26 L Hgb 8.6 L Hct 27.4 L MCV 84.0 MCH 26.3 MCHC 31.3 L RDW 18.4 H Plt Count 528 H D MPV 9.8 Absolute Neuts (auto) 13.7 H Neutrophils % 74.5 Lymphocytes % 21.1 D Monocytes % 3.1 L Eosinophils % 0.8 D Basophils % 0.5 Nucleated RBC % 0 PT with INR INR PTT (Actin FS) 30.9 Anticoagulation Therapy Puncture Site ABG pH ABG pCO2 at Pt Temp ABG pO2 at Pt Temp ABG HCO3 ABG O2 Sat (Measured) ABG O2 Content ABG Base Excess Reid Test VBG pH POC VBG pCO2 POC VBG pO2 VBG HCO3 VBG O2 Sat (Rick) VBG Base Excess Carboxyhemoglobin Methemoglobin O2 Delivery Device Oxygen Flow Rate Vent Mode Vent Rate Mechanical Rate PEEP Pressure Support Vent Sodium Potassium Chloride Carbon Dioxide Anion Gap BUN Creatinine Est GFR (CKD-EPI)AfAm Est GFR (CKD-EPI)NonAf Random Glucose Lactic Acid Calcium Total Bilirubin AST ALT Alkaline Phosphatase Creatine Kinase 18 L Troponin I 0.02 B-Natriuretic Peptide Total Protein Albumin Urine Color Urine Appearance Urine pH Ur Specific Page Urine Protein Urine Glucose (UA) Urine Ketones Urine Blood Urine Nitrite Urine Bilirubin Urine Urobilinogen Ur Leukocyte Esterase Urine WBC (Auto) Urine RBC (Auto) Urine Casts (Auto) U Pathogenic Cast Auto U Epithel Cells (Auto) U Sm Round Cell (Auto) Urine Bacteria (Auto) 1208/20/19 08/20/19 03:30 03:30 03:39 WBC RBC Hgb Hct MCV MCH MCHC RDW Plt Count MPV Absolute Neuts (auto) Neutrophils % Lymphocytes % Monocytes % Eosinophils % Basophils % Nucleated RBC % PT with INR 17.40 H INR 1.47 H PTT (Actin FS) Anticoagulation Therapy Puncture Site ABG pH ABG pCO2 at Pt Temp ABG pO2 at Pt Temp ABG HCO3 ABG O2 Sat (Measured) ABG O2 Content ABG Base Excess Reid Test VBG pH POC VBG pCO2 POC VBG pO2 VBG HCO3 VBG O2 Sat (Rick) VBG Base Excess Carboxyhemoglobin Methemoglobin O2 Delivery Device Oxygen Flow Rate Vent Mode Vent Rate Mechanical Rate PEEP Pressure Support Vent Sodium 138 Potassium 3.8 Chloride 105 Carbon Dioxide 21 Anion Gap 12 BUN 34.1 H Creatinine 3.2 H Est GFR (CKD-EPI)AfAm 15.75 Est GFR (CKD-EPI)NonAf 13.59 Random Glucose 220 H Lactic Acid Calcium 8.5 Total Bilirubin 0.9 D AST 13 L ALT 13 Alkaline Phosphatase 139 H Creatine Kinase Troponin I B-Natriuretic Peptide 89546.0 H Total Protein 7.0 Albumin 2.5 L Urine Color Urine Appearance Urine pH Ur Specific Page Urine Protein Urine Glucose (UA) Urine Ketones Urine Blood Urine Nitrite Urine Bilirubin Urine Urobilinogen Ur Leukocyte Esterase Urine WBC (Auto) Urine RBC (Auto) Urine Casts (Auto) U Pathogenic Cast Auto U Epithel Cells (Auto) U Sm Round Cell (Auto) Urine Bacteria (Auto) 08/20/19 08/20/19 08/20/19 03:45 03:55 03:55 WBC RBC Hgb Hct MCV MCH MCHC RDW Plt Count MPV Absolute Neuts (auto) Neutrophils % Lymphocytes % Monocytes % Eosinophils % Basophils % Nucleated RBC % PT with INR INR PTT (Actin FS) Anticoagulation Therapy No Result Required. Puncture Site Right radial ABG pH 7.31 L ABG pCO2 at Pt Temp 34.6 L ABG pO2 at Pt Temp 260 H ABG HCO3 17.0 L ABG O2 Sat (Measured) 99.5 H ABG O2 Content 14.4 ABG Base Excess -7.9 L Reid Test Positive VBG pH 7.16 L* POC VBG pCO2 57.4 H POC VBG pO2 < 49 H VBG HCO3 19.6 L VBG O2 Sat (Rick) 50.2 L VBG Base Excess -8.5 L Carboxyhemoglobin 1.0 Methemoglobin < 1.0 O2 Delivery Device Bipap Oxygen Flow Rate 100% Vent Mode S/t Vent Rate 12 Mechanical Rate No Result Required. PEEP 5.0 Pressure Support Vent 14 Sodium Potassium Chloride Carbon Dioxide Anion Gap BUN Creatinine Est GFR (CKD-EPI)AfAm Est GFR (CKD-EPI)NonAf Random Glucose Lactic Acid 4.1 H* Calcium Total Bilirubin AST ALT Alkaline Phosphatase Creatine Kinase Troponin I B-Natriuretic Peptide Total Protein Albumin Urine Color Urine Appearance Urine pH Ur Specific Page Urine Protein Urine Glucose (UA) Urine Ketones Urine Blood Urine Nitrite Urine Bilirubin Urine Urobilinogen Ur Leukocyte Esterase Urine WBC (Auto) Urine RBC (Auto) Urine Casts (Auto) U Pathogenic Cast Auto U Epithel Cells (Auto) U Sm Round Cell (Auto) Urine Bacteria (Auto) 08/20/19 08/20/19 05:15 09:15 WBC RBC Hgb Hct MCV MCH MCHC RDW Plt Count MPV Absolute Neuts (auto) Neutrophils % Lymphocytes % Monocytes % Eosinophils % Basophils % Nucleated RBC % PT with INR INR PTT (Actin FS) Anticoagulation Therapy Puncture Site ABG pH ABG pCO2 at Pt Temp ABG pO2 at Pt Temp ABG HCO3 ABG O2 Sat (Measured) ABG O2 Content ABG Base Excess Reid Test VBG pH POC VBG pCO2 POC VBG pO2 VBG HCO3 VBG O2 Sat (Rick) VBG Base Excess Carboxyhemoglobin Methemoglobin O2 Delivery Device Oxygen Flow Rate Vent Mode Vent Rate Mechanical Rate PEEP Pressure Support Vent Sodium Potassium Chloride Carbon Dioxide Anion Gap BUN Creatinine Est GFR (CKD-EPI)AfAm Est GFR (CKD-EPI)NonAf Random Glucose Lactic Acid 1.4 Calcium Total Bilirubin AST ALT Alkaline Phosphatase Creatine Kinase Troponin I B-Natriuretic Peptide Total Protein Albumin Urine Color Yellow Urine Appearance Cloudy Urine pH 5.0 Ur Specific Page 1.006 L Urine Protein 1+ H Urine Glucose (UA) Negative Urine Ketones Negative Urine Blood 3+ H Urine Nitrite Negative Urine Bilirubin Negative Urine Urobilinogen 0.2 Ur Leukocyte Esterase Trace Urine WBC (Auto) 9 Urine RBC (Auto) 131 Urine Casts (Auto) 55 U Pathogenic Cast Auto None seen U Epithel Cells (Auto) 14.9 U Sm Round Cell (Auto) None seen Urine Bacteria (Auto) 4.3 ASSESSMENT/PLAN: Patient is a 73 year old female with history of ALL (s/p chemotherapy) coronary artery disease, NSTEMI (s/p drug eluting stent), congestive heart failure, Afib (on Eliquis), hypertension, diabetes mellitus, venous stasis, presents with complaint of shortness of breath. Acute kidney injury -BUN 34.1/ Cr 3.2 (baseline Cr. approx 1.2) -KEL may be in setting of sepsis; currently on Levofloxacin, Flagyl. ID recommendations appreciated. -Obtain renal/ bladder ultrasound -Follow urine electrolytes, urine creatinine -Avoid nephrotoxic medications. CHF exacerbation -Shortness of breath likely secondary to CHF exacerbation. CXR with cognestive changes, and BNP elevated to 26,293. -Significant improvement with Lasix 40mg IV. Continue diuresis for now, monitor renal function, and intake/ outputs closely. Disposition: We will continue to follow the patient. Thank you for this consultative opportunity. Visit type - Emergency Visit Emergency Visit: Yes ED Registration Date: 08/20/19 Care time: The patient presented to the Emergency Department on the above date and was hospitalized for further evaluation of their emergent condition. - New Patient This patient is new to me today: Yes Date on this admission: 08/20/19 - Critical Care Critical Care patient: No ATTENDING PHYSICIAN STATEMENT I saw and evaluated the patient. I reviewed the resident's note and discussed the case with the resident. I agree with the resident's findings and plan as documented. SUBJECTIVE: OBJECTIVE: ASSESSMENT AND PLAN:
[2019-08-20] MEDS ORDERED: METOPROLOL TARTRATE 25 MG TABLET (FP) PO SCH (12:30)
--- NOTE | 2019-08-20 12:53 | PN ---
Teaching Attending Note Name of Resident: Dewayne Ibrahim (Nephrology) ATTENDING PHYSICIAN STATEMENT I saw and evaluated the patient. I reviewed the resident's note and discussed the case with the resident. I agree with the resident's findings and plan as documented. Renal Pt is a 73 year old female with pmhx of ALL, KEL, CAD, CHF a-fib, DM, HTN and venous stasis who presents to the ER with increased shortness of breath. She was found to be hypoxic. She was recently transferred to [facility] for biliary sepsis. She developed renal failure with a stumper feller of [place] 5 which had been improving. She says when she was discharged her meds were sent to [place]. She has not taken all of her medications. She was also found to have lactic acidosis. pmhx dm htn chf sepsis ALL a-fib nkda social hx negative fam hx non contrib ros dyspnea Current Medications Generic Name Dose Route Start Last Admin Trade Name Freq PRN Reason Stop Dose Admin Apixaban 2.5 mg 08/20/19 12:30 Eliquis - PO BID GABY Furosemide 40 mg 08/21/19 10:00 Lasix Injection - IVPUSH DAILY GABY Ciprofloxacin/Dextrose 400 mg in 200 mls @ 200 mls/hr 08/20/19 12:45 Cipro 400 Mg Premix Ivpb (Restricted To Id) IVPB BID GABY Metronidazole 500 mg in 100 mls @ 100 mls/hr 08/20/19 12:45 Flagyl 500mg Premixed Ivpb - IVPB Q8H-IV GABY Metoprolol Tartrate 25 mg 08/20/19 12:30 Lopressor - PO DAILY GABY Sodium Bicarbonate 1,300 mg 08/20/19 14:00 Sodium Bicarbonate - PO TID [facility] Last Vital Signs Temp Pulse Resp BP Pulse Ox 98 F 76 22 H 121/82 100 08/20/19 07:31 08/20/19 10:00 08/20/19 10:00 08/20/19 10:00 08/20/19 07:31 Laboratory Tests 08/20/19 08/20/19 08/20/19 03:30 03:30 03:39 WBC 18.4 H Hgb 8.6 L Plt Count 528 H D Sodium 138 Potassium 3.8 Chloride 105 Carbon Dioxide 21 Anion Gap 12 BUN 34.1 H Creatinine 3.2 H Lactic Acid B-Natriuretic Peptide 09617.0 H Urine Protein Urine Blood 08/20/19 08/20/19 08/20/19 03:55 05:15 09:15 WBC Hgb Plt Count Sodium Potassium Chloride Carbon Dioxide Anion Gap BUN Creatinine Lactic Acid 4.1 H* 1.4 B-Natriuretic Peptide Urine Protein 1+ H Urine Blood 3+ H cardio s1s2 pulm base crackles GI soft, obese ext plus 2 edema neuro awake and alert skin venous stasis Impression 1. KEL 2. CHF 3. hx sepsis from biliary source 4. cad 5. ALL 6. CAD 7. a-fib 8. lactic acidosis Plan - lactic acid is improved - renal failure presumed to be from atn and is improving - pt responded to lasix - cont to monitor renal function - repeat labs in am - renal ultrasound reviewed - called and discussed with daughter
[2019-08-20] MEDS ORDERED: METOPROLOL TARTRATE 25 MG TABLET (FP) ONE (13:03)
[2019-08-20] MEDS ORDERED: CIPROFLOXACIN 400 MG/D5W 400 MG/200 ML IVPB IVPB SCH (13:15)
[2019-08-20] MEDS: APIXABAN 2.5 MG TABLET PO SCH ×2 (13:30→21:59)
[2019-08-20] MEDS: SODIUM BICARBONATE 650 MG TABLET PO SCH ×2 (13:30→21:59)
--- NOTE | 2019-08-20 15:28 | CON.CARD ---
Consult Consult Specialty:: Cardiology Reason for Consultation:: Afib/CHF - History of Present Illness History of Present Illness: 73 F known to our practice. She has history of HfPEF, chronic Lext swelling, CAD with LAD PCI 2014. She was recently admitted with cholangitis and gram negative bacteremia complicated by KEL and new onset Afib. She was transferred to [facility] and had ERCP with sphyncterotomy and removal of GB stones. Her KEL improved and at time of DC 08/15 BUN/Cr was 47/4.4. Eitiology of KEL was felt to be due to ATN. NSR was restored spontaneously as well and she was discharged on Metoprolol 12.5mg BID and Eliquis in addition to NaHCo3 and Amlodipine. She developed sudden SOB last night. In ER initially, severe hypoxemia and rapid Afib was noted. she improved on BiPAP and after getting IV lasix resulting in about 400cc UO. Currently comfortable. On Telem HR 80s - History Source History Provided By: Patient, Family Member, Medical Record - Past Medical History Cardio/Vascular: Yes: CAD, CHF, HTN, Hyperlipdemia, [place] (s/p EES stent to LAD) Endocrine: Yes: Diabetes Mellitus - Past Surgical History Past Surgical History: Yes: Stent - Alcohol/Substance Use Hx Alcohol Use: No - Smoking History Smoking history: Never smoked Have you smoked in the past 12 months: No Aproximately how many cigarettes per day: 1 If you are a former smoker, when did you quit?: 3 years ago - Social History Usual Living Arrangement: With Spouse ADL: Independent Occupation: retired dietary staff at [employer] History of Recent Travel: No Home Medications - Allergies Allergies/Adverse Reactions: Allergies Allergy/AdvReac Type Severity Reaction Status Date / Time No Known Allergies Allergy Verified 08/20/19 03:35 - Home Medications Home Medications: Ambulatory Orders Metoprolol Tartrate 25 mg PO DAILY 08/05/19 Apixaban [Eliquis -] 2.5 mg PO BID 08/20/19 Ciprofloxacin [Cipro (Restricted To Id)] 500 mg PO ASDIR 08/20/19 Metronidazole 500 mg PO ASDIR 08/20/19 Sodium Bicarbonate - 1,300 mg PO TID 08/20/19 Review of Systems - Review of Systems Constitutional: denies: Chills, Diaphoresis, Fever, Lethargy, Night Sweats Eyes: reports: No Symptoms HENT: reports: No Symptoms Neck: reports: No Symptoms Cardiovascular: reports: Edema, Palpitations, Shortness of Breath. denies: Chest Pain Respiratory: reports: Exercise Intolerance, Orthopnea, SOB, SOB on Exertion. denies: Hemoptysis Gastrointestinal: reports: No Symptoms Genitourinary: reports: No Symptoms Vital Signs: Vital Signs Temperature 98.6 F 08/20/19 14:58 Pulse Rate 79 08/20/19 14:58 Respiratory Rate 24 H 08/20/19 14:58 Blood Pressure 104/87 08/20/19 14:58 O2 Sat by Pulse Oximetry (%) 99 08/20/19 14:58 Constitutional: Yes: Well Nourished, No Distress, Calm Eyes: Yes: Conjunctiva Clear, EOM Intact HENT: Yes: Atraumatic, Normocephalic Neck: Yes: Supple, Trachea Midline Respiratory: Yes: Regular, Rales Gastrointestinal: Yes: Normal Bowel Sounds, Soft Cardiovascular: Yes: Pulse Irregular JVD: Yes Carotid Bruit: No Heart Sounds: Yes: S1, S2 Murmur: No: Systolic Murmur, Diastolic Murmur Edema: Yes Edema: LLE: 2+, RLE: 2+ - Other Data Labs, Other Data: CBC, BMP 08/20/19 03:30 08/20/19 03:39 INR, PTT INR 1.47 (0.83-1.09) H 08/20/19 03:30 Troponin, BNP 08/20/19 08/20/19 03:30 03:30 Troponin I 0.02 B-Natriuretic Peptide 71025.0 H Troponin, BNP 08/20/19 08/20/19 03:30 03:30 Troponin I 0.02 B-Natriuretic Peptide 29000.0 H Imaging - Results Chest X-ray: Report Reviewed Problem List - Problems (1) Renal failure Code(s): N19 - UNSPECIFIED KIDNEY FAILURE Qualifiers: Renal failure chronicity: unspecified chronicity Qualified Code(s): N19 - Unspecified kidney failure (2) Respiratory failure Code(s): J96.90 - RESPIRATORY FAILURE, UNSP, UNSP W HYPOXIA OR HYPERCAPNIA Qualifiers: Chronicity: acute on chronic Respiratory failure complication: hypoxia Qualified Code(s): J96.21 - Acute and chronic respiratory failure with hypoxia (3) Severe congestive heart failure Code(s): I50.9 - HEART FAILURE, UNSPECIFIED (4) Afib Code(s): I48.91 - UNSPECIFIED ATRIAL FIBRILLATION Qualifiers: Atrial fibrillation type: unspecified Qualified Code(s): I48.91 - Unspecified atrial fibrillation Assessment/Plan HfPEF, chronic Lext swelling, CAD with LAD PCI 2014. She was recently admitted with cholangitis and gram negative bacteremia complicated by KEL and new onset Afib. She was transferred to [facility] and had ERCP with sphyncterotomy and removal of GB stones. Her KEL improved and at time of DC 08/15 BUN/Cr was 47/ 4.4. Eitiology of KEL was felt to be due to ATN. NSR was restored spontaneously as well and she was discharged on Metoprolol 12.5mg BID and Eliquis in addition to NaHCo3 and Amlodipine. She developed sudden SOB last night. In ER initially, severe hypoxemia and rapid Afib was noted. she improved on BiPAP and after getting IV lasix resulting in about 400cc UO. Currently comfortable. On Telem HR 80s Pt likely had recurrence of Afib with rapid heart rate causing her heart failure. 1. Afib: Rates are better controlled currently. Change Metoprolol 25mg BID. Continue with Eliquis. RO infection. Monitor on telemetry. 2. CHF: due to HfpEF. A recent echocaridogram showed normal biventricualr function. She responded well to diuretic therapy and BiPAP but still volume overloaded. Continue IV diuretics and keep net negative UO. Would keep ingram to measure I/O 3. CAD: Stable CAD without ischemic ECG changes during rapid Afib. TP level is negative so far. Had recent echo. No need to repeat.
--- NOTE | 2019-08-20 16:28 | PN ---
Progress Note (short form) - Note Progress Note: ID consult dictated imp/reccd 73 yo female recently transferred from [facility] to [facility] with cholycystitis and suspected choledocholithiasis she had enterobacter bacteremia family reports she had ercp there and stones were removed, no stent, she developed renal failure she was discharged home on cipro and flagyl on 08/15 which she has been taking daily no fevers, has some chronic RUQ discomfort she is supposed to see a surgeon next week no diarrhea, no vomiting at home she developed worsening SOB last night and was brought to ed-found to be in chf and in rapid afib noted to have elevated lactic acid and WBC treated for congestive heart failure with improvement of her symptoms leukocytosis- ?secondary to stress of chf, ?cholycystitis agree with cultures would switch to renal dose of zosyn at this time reimage gallbladder with sonogram kel- presumed atn- renal f/u f/u labs in am Problem List - Problems (1) Leukocytosis Code(s): D72.829 - ELEVATED WHITE BLOOD CELL COUNT, UNSPECIFIED (2) KEL (acute kidney injury) Code(s): N17.9 - ACUTE KIDNEY FAILURE, UNSPECIFIED (3) CHF (congestive heart failure) Code(s): I50.9 - HEART FAILURE, UNSPECIFIED Qualifiers: Qualified Code(s): I50.33 - Acute on chronic diastolic (congestive) heart failure
--- NOTE | 2019-08-20 16:58 | ECHO ---
Name: ERINSTACIE Exam:Adult Echocardiogram Study Date: 08/20/2019 12:54 PM Age: 73 yrs Reason For Study: CHF Height: 64 in Weight: 300 lb BSA: 2.3 m2 MMode/2D Measurements & Calculations IVSd: 1.0 cm Ao root diam: 2.7 cm LVIDd: 4.9 cm LA dimension: 3.6 cm LVIDs: 3.4 cm LVPWd: 1.0 cm EDV(Teich): 115.4 ml LVOT diam: 2.0 cm ESV(Teich): 47.9 ml LAV (MOD-bp): 83.0 ml Doppler Measurements & Calculations MV E max teo: 150.3 cm/sec Ao V2 max: 240.3 cm/sec MV A max teo: 84.5 cm/sec Ao max P.2 mmHg MV E/A: 1.8 Ao V2 mean: 140.5 cm/sec MV dec time: 0.26 sec Ao mean P.8 mmHg Ao V2 VTI: 37.1 cm IRENE(I,D): 1.0 cm2 AI P1/2t: 496.2 msec IRENE(V,D): 1.1 cm2 AI max teo: 416.7 cm/sec LV V1 max P.9 mmHg AI max P.5 mmHg LV V1 mean P.4 mmHg AI dec slope: 246.0 cm/sec2 LV V1 max: 84.4 cm/sec LV V1 mean: 53.2 cm/sec LV V1 VTI: 12.5 cm MR max teo: 451.0 cm/sec SV(LVOT): 37.6 ml MR max P.6 mmHg TR max teo: 310.8 cm/sec PA V2 max: 82.8 cm/sec TR max P.7 mmHg PA max P.7 mmHg PI end-d teo: 156.1 cm/sec Med Peak E' Teo: 4.6 cm/sec Med E/e': 32.6 Lat Peak E' Teo: 6.1 cm/sec Lat E/e': 24.5 Procedure A two-dimensional transthoracic echocardiogram with color flow and Doppler was performed. The study w as technically difficult with many images being suboptimal in quality. Left Ventricle The left ventricle is not well visualized. The left ventricle is grossly normal size. Left ventricula r systolic function is mild to moderately reduced. Regional wall motion abnormalities cannot be exclude d due to limited visualization. There is apical akinesis. There is apical anterior wall severe hypokinesis. Th ere is apical lateral wall severe hypokinesis. There is apical inferior wall hypokinesis. There is apical se ptal wall hypokinesis. The left ventricular apex is not well visualized. Right Ventricle The right ventricle is not well visualized. Atria Normal left and right atrial size and function. Mitral Valve There is moderate mitral valve thickening. There is moderate mitral annular calcification. There is n o mitral valve stenosis. There is mild mitral regurgitation. Tricuspid Valve The tricuspid valve is not well visualized. There is no tricuspid stenosis. There is mild tricuspid regurgitation. Right ventricular systolic pressure is elevated at 40-50mmHg. Aortic Valve The aortic valve is not well visualized. Hemodynamically significant valvular aortic stenosis cannot be excluded. Mild to moderate aortic regurgitation. Pulmonic Valve The pulmonic valve is not well visualized. There is no pulmonic valvular stenosis. Mild pulmonic valv ular regurgitation. Great Vessels The aortic root is normal size. Pericardium/Pleura There is no pericardial effusion. Interpretation Summary The left ventricle is not well visualized. The left ventricle is grossly normal size. The study was technically difficult with many images being suboptimal in quality. There is mild tricuspid regurgitation. Right ventricular systolic pressure is elevated at 40-50mmHg. Mild pulmonic valvular regurgitation. There is moderate mitral valve thickening. There is moderate mitral annular calcification. Mild to moderate aortic regurgitation. Hemodynamically significant valvular aortic stenosis cannot be excluded. Left ventricular systolic function is mild to moderately reduced. Regional wall motion abnormalities cannot be excluded due to limited visualization. There is apical akinesis. There is apical anterior wall severe hypokinesis. There is apical lateral wall severe hypokinesis. There is apical inferior wall hypokinesis. There is apical septal wall hypokinesis. The left ventricular apex is not well visualized. MD Valdemar Sherman 08/20/2019 04:58 PM
[2019-08-20] MEDS ORDERED: DEXTROSE 5%-WATER - 50 ML IVPB ONE (17:21)
[2019-08-20] MEDS ORDERED: PIPERACILLIN/TAZOBACTAM 2.25 GM VIAL IVPB ONE (17:21)
--- NOTE | 2019-08-20 18:08 | CONS ---
DATE OF CONSULTATION: 08/20/2019 HISTORY OF PRESENT ILLNESS: The patient is a 73-year-old woman I saw on August 06 when she was admitted with right upper quadrant pain. She had cholangitis and abnormal LFTs. She had rapid atrial fibrillation and was transferred to [facility] for further care. She had an enterobacter bacteremia with a relatively sensitive enterobacter. The rest of her history is from her daughter and from the cardiology consult. After her admission to [facility], she apparently underwent an ERCP with sphincterotomy and removal of stones. She developed an acute kidney injury. At the time of discharge, her BUN and creatinine were 47 and 4.4. She was discharged home the day after Thanksgiving on Cipro and Flagyl. The etiology of her KEL, per the cardiology consult, was felt to be ATN. The family is not aware. She was discharged on Cipro and Flagyl, which she states she has taken since then until her admission here this morning. She has been extremely fatigued at home. She has had a poor appetite. She reports that she has chronic right upper quadrant discomfort. She developed acute shortness of breath last night and was noted in the ER to be severely hypoxemic. She was also noted to be in rapid atrial fibrillation. She was treated with IV Lasix as well as BiPAP with improvement in her symptoms. She is currently comfortable on a nasal cannula and is alert and conversant. PAST MEDICAL HISTORY: Notable for coronary artery disease, CHF, hypertension, hyperlipidemia. She is status post AK. She has a stent to her LAD. She has diabetes. She has a history of leukemia. In 2014, she had ALL. SOCIAL HISTORY: She lives with her family. She stopped smoking three years ago. She used to work on the [employer] staff. No history of recent travel. Her last trip to [place] was ten years ago. ALLERGIES: No known drug allergies. HOME MEDICATIONS: Her current antibiotics as an outpatient have been Cipro and Flagyl, which she has been taking since August 15. REVIEW OF SYSTEMS: She denies diarrhea, vomiting or cough. She reports her breathing has improved. PHYSICAL EXAMINATION: General: She is resting comfortably. She is awake and alert. Vital Signs: Temperature 98.6, pulse 79, blood pressure 104/87, respiratory rate 24, saturating 99% on 2.5 liters. HEENT: Normocephalic. Her eyes are anicteric. She has no thrush. Neck: Supple. Lungs: There are crackles at the bases. Heart: Regular rate and rhythm. Abdomen: Soft. She has some mild right upper quadrant discomfort to deep palpation. She has no suprapubic pain. Extremities: Without edema. STUDIES: Her renal ultrasound shows no evidence of hydronephrosis. A chest x-ray is consistent with congestion. LABORATORY DATA: Notable for a white count of 18,000, hemoglobin 8.6, platelets of 528. On her chemistries, BUN is 34, creatinine is 3.2. Lactic acid was 4.1 on admission; on repeat, it is 1.4. Blood cultures have been sent. SUMMARY: In summary, this is a 73-year-old woman who presented with acute heart failure. She has improved with treatment. She has leukocytosis which may well be secondary to the stress of her CHF or possibly to the cholecystitis. 1. Would agree with cultures. Would switch to renal dose of Zosyn at this time. 2. Re-image her gallbladder with a sonogram. 3. Acute kidney injury, apparently presumed acute tubular necrosis. The renal sonogram is negative and nephrology is following. 4. History of atrial fibrillation. Coronary artery disease management per cardiology. 5. Further recommendations to follow. I spoke with her daughter at the bedside. MARILU MAY M.D. [id number]
[2019-08-20] MEDS: PIPERACILLIN/TAZOB 2.25 GM 2.25 GM in DEXTROSE 5%-WATER - 50 ML IVPB SCH (18:14)
--- NOTE | 2019-08-20 19:17 | HP ---
Admitting History and Physical - Past Medical History Cardiovascular: Yes: CAD, CHF, HTN, Hyperlipdemia, [place] (s/p EES stent to LAD) Heme/Onc: Yes: Other (Leukemia) Endocrine: Yes: Diabetes Mellitus - Past Surgical History Past Surgical History: Yes: Stent - Smoking History Smoking history: Never smoked Have you smoked in the past 12 months: No Aproximately how many cigarettes per day: 1 If you are a former smoker, when did you quit?: 3 years ago - Alcohol/Substance Use Hx Alcohol Use: No - Social History ADL: Independent Occupation: retired dietary staff at [employer] History of Recent Travel: No Home Medications - Allergies Allergies/Adverse Reactions: Allergies Allergy/AdvReac Type Severity Reaction Status Date / Time No Known Allergies Allergy Verified 08/20/19 03:35 - Home Medications Home Medications: Ambulatory Orders Metoprolol Tartrate 25 mg PO DAILY 08/05/19 Apixaban [Eliquis -] 2.5 mg PO BID 08/20/19 Ciprofloxacin [Cipro (Restricted To Id)] 500 mg PO ASDIR 08/20/19 Metronidazole 500 mg PO ASDIR 08/20/19 Sodium Bicarbonate - 1,300 mg PO TID 08/20/19 Physical Examination Vital Signs: Vital Signs Temperature 98.6 F 08/20/19 14:58 Pulse Rate 79 08/20/19 14:58 Respiratory Rate 24 H 08/20/19 14:58 Blood Pressure 104/87 08/20/19 14:58 O2 Sat by Pulse Oximetry (%) 99 08/20/19 14:58 Labs: CBC, BMP 08/20/19 03:30 08/20/19 03:39
[2019-08-20] MEDS: METOPROLOL TARTRATE 25 MG TABLET (FP) PO SCH (21:59)
[2019-08-21] MEDS ORDERED: PIPERACILLIN/TAZOBACTAM 2.25 GM VIAL IVPB ONE ×3 (01:31→18:21)
[2019-08-21] MEDS ORDERED: DEXTROSE 5%-WATER - 50 ML IVPB ONE ×3 (01:32→18:21)
[2019-08-21] MEDS: PIPERACILLIN/TAZOB 2.25 GM 2.25 GM in DEXTROSE 5%-WATER - 50 ML IVPB SCH ×3 (02:25→18:26)
[2019-08-21] MEDS ORDERED: ACETAMINOPHEN 325 MG TABLET (FP) PO PRN (03:58)
[2019-08-21] MEDS ORDERED: FUROSEMIDE 40 MG/4 ML INJECTABLE VIAL ONE (05:44)
[2019-08-21] MEDS ORDERED: FUROSEMIDE 40 MG/4 ML INJECTABLE VIAL IVPUSH ONE (05:45)
--- NOTE | 2019-08-21 06:06 | RAPID ---
Physical Examination Vital Signs: Vital Signs Temperature 97.6 F 08/21/19 02:00 Pulse Rate 82 08/21/19 02:00 Respiratory Rate 20 08/21/19 02:00 Blood Pressure 124/81 08/21/19 02:00 O2 Sat by Pulse Oximetry (%) 94 L 08/20/19 20:00 Labs: CBC, BMP 08/20/19 03:30 08/20/19 03:39 Rapid Response - Rapid Response Assessment: Rapid response called at 05:06 Pt found sitting up in bed in acute respiratory distress, pale, diaphoretic on 4 L NC. Initial VS: 170/105, 126, SaO2 unobtainable, 30 (RR) PE: Cardio: RRR, Nl S1, s2, tachycardic Pulmonary- decreased BS b/l, Diffuse crackles b/l worse at bases Extremities: 2+ pitting edema Orders: Lasix 80 mg IV, BIPAP at 14/6 40% flow rate, abg cbc/cmp cxr, ekg, cardiac profile, lactic acid Pt stable after treatment, no longer SOB. Primary team made aware.
[2019-08-21 06:13] LABS: BASO % 1.4 % (0-2.0); EOS % 0.3 % (0-4.5); HEMATOCRIT 26.1 % (32.4-45.2); HEMOGLOBIN 8.2 GM/dL (10.7-15.3); LYMPH % 19.2 % (8-40); MCH 25.8 pg (25.7-33.7); MCHC 31.4 g/dl (32.0-36.0); MEAN CELL VOLUME 82.1 fl (80-96); MEAN PLT VOLUME 9.5 fl (7.5-11.1); MONO % 4.3 % (3.8-10.2); NEUT % 74.8 % (42.8-82.8); PLATELET COUNT 444 K/MM3 (134-434); RBC 3.18 M/mm3 (3.60-5.2); RDW 18.6 % (11.6-15.6); WHITE BLOOD COUNT 15.1 K/mm3 (4.0-10.0)
[2019-08-21 06:23] LABS: ARTERIAL BLOOD GAS pH 7.38 (7.35-7.45)
[2019-08-21 06:24] LABS: ALLENS TEST POSITIVE; ARTERIAL BLD GAS O2 SATURATION 97.2 % (95-98); ARTERIAL BLOOD GAS BASE EXCESS -7.7 meq/l (-2-2); ARTERIAL BLOOD GAS PCO2 27.6 mmHg (35-45); ARTERIAL BLOOD GAS PO2 105 mmHg (80-100)
[2019-08-21 06:45] LABS: ALBUMIN 2.4 g/dl (3.4-5.0); BILIRUBIN,TOTAL 1.1 mg/dL (0.2-1); BLOOD UREA NITROGEN 37.5 mg/dL (7-18); CALCIUM 8.3 mg/dL (8.5-10.1); CREATININE 3.3 mg/dL (0.55-1.3); POTASSIUM 4.4 mmol/L (3.5-5.1); TOT PROT 6.8 g/dl (6.4-8.2)
[2019-08-21] MEDS: SODIUM BICARBONATE 650 MG TABLET PO SCH ×3 (07:01→22:38)
--- NOTE | 2019-08-21 07:53 | PN ---
Progress Note (short form) - Note Progress Note: "Rapid response called at 05:06 Pt found sitting up in bed in acute respiratory distress, pale, diaphoretic on 4 L NC. Initial VS: 170/105, 126, SaO2 unobtainable, 30 (RR) PE: Cardio: RRR, Nl S1, s2, tachycardic Pulmonary- decreased BS b/l, Diffuse crackles b/l worse at bases Extremities: 2+ pitting edema Orders: Lasix 80 mg IV, BIPAP at 14/6 40% flow rate, abg cbc/cmp cxr, ekg, cardiac profile, lactic acid Pt stable after treatment, no longer SOB. Primary team made aware. " Above Rapid response noted. ICU called to reassess Pt. for possible sepsis and shortness of breath. Pt. states that the shortness of breath that she felt this morning was the same that brought her into the hospital. She states that she now feels better on the BiPAP. Pt. states that she did not use BiPAP last night nor does she use it at home. Pt. states the the pain in her legs is chronic. Pt. endorses that her abdominal pain is not worse than yesterday. PE: Pt. in no acute distress on BiPAP 40% FIO2 Irregular rate and rhythm, S1 and S2 appreciated, difficult to assess given body habitus Decreased breath sounds, mild crackles in the bases of lungs RUQ abdominal tenderness, stable as compared to yesterday 3+ lower extremity edema, calf tenderness to palpation A/P: CXR Appreciated Echo noted: severely reduced LV function with multiple area of akinesis of the LV Troponins down-trending ABG on BiPaP: pH-7.38; pCO2:27.6; pO2:105 would suggest BiPAP at night for this Pt. Shortness of breath is likely from component of ENOC that is exacerbated by decreased cardiac function. Pt.'s prompt response to BiPaP first on 08/20/19 and then on 08/21/19 suggests that she would benefit from a Pulmonology consult and evaluation. Would recommend Pulmonology consult on discharge Will place Pt. on etCO2 Pt. accepted to the unit per Dr. Godwin.
[2019-08-21] MEDS ORDERED: FUROSEMIDE 40 MG/4 ML INJECTABLE VIAL IVPUSH SCH (10:00)
--- NOTE | 2019-08-21 10:44 | EKG ---
Test Reason : Blood Pressure : / mmHG Vent. Rate : 085 BPM Atrial Rate : 087 BPM P-R Int : 000 ms QRS Dur : 076 ms QT Int : 416 ms P-R-T Axes : 000 -19 177 degrees QTc Int : 495 ms POOR DATA QUALITY, INTERPRETATION MAY BE ADVERSELY AFFECTED ATRIAL FIBRILLATION LOW VOLTAGE QRS SEPTAL INFARCT (CITED ON OR BEFORE 20-AUG-2019) POSSIBLE LATERAL INFARCT , AGE UNDETERMINED T WAVE ABNORMALITY, CONSIDER INFERIOR ISCHEMIA T WAVE ABNORMALITY, CONSIDER ANTERIOR ISCHEMIA ABNORMAL ECG WHEN COMPARED WITH ECG OF 20-AUG-2019 03:22, BORDERLINE CRITERIA FOR LATERAL INFARCT ARE NOW PRESENT SERIAL CHANGES OF EVOLVING SEPTAL INFARCT PRESENT Confirmed by DANIEL MICHELE MD ([id number]) on 08/21/2019 10:44:00 AM Referred By: Confirmed By:DANIEL MICHELE MD
[2019-08-21] MEDS: METOPROLOL TARTRATE 25 MG TABLET (FP) PO SCH ×2 (10:57→22:38)
--- NOTE | 2019-08-21 11:27 | PN ---
Teaching Attending Note Name of Resident: Luis Mckeon ATTENDING PHYSICIAN STATEMENT I saw and evaluated the patient. I reviewed the resident's note and discussed the case with the resident. I agree with the resident's findings and plan as documented. SUBJECTIVE: Patient seen and examined in the ICU. Events noted. Rapid response called for severe respiratory distress and AMS requiring NIPPV support. Now seen in the ICU. Family at the bedside. More awake and responsive. CXR: Bilateral Pulmonary Vascular congestion Intake & Output 08/18/19 08/19/19 08/20/19 08/21/19 23:59 23:59 23:59 23:59 Intake Total 470 Output Total 760 1100 Balance -290 -1100 Weight 300 lb 264 lb 12.403 oz Last Vital Signs Temp Pulse Resp BP Pulse Ox 98.1 F 73 25 H 146/80 100 08/21/19 10:00 08/21/19 10:00 08/21/19 10:00 08/21/19 10:00 08/21/19 10:00 Active Medications Acetaminophen (Tylenol -) 650 mg PO Q6H PRN PRN Reason: PAIN LEVEL 1-5 Apixaban (Eliquis -) 2.5 mg PO BID [facility] Last Admin: 08/20/19 21:59 Dose: 2.5 mg Furosemide (Lasix Injection -) 40 mg IVPUSH DAILY [facility] Last Admin: 08/21/19 10:56 Dose: Not Given Piperacillin Sod/Tazobactam (Sod 2.25 gm/ Dextrose) 50 mls @ 100 mls/hr IVPB Q8H-IV GABY; Protocol Last Admin: 08/21/19 10:56 Dose: 100 mls/hr Metoprolol Tartrate (Lopressor -) 25 mg PO BID [facility] Last Admin: 08/21/19 10:57 Dose: 25 mg Sodium Bicarbonate (Sodium Bicarbonate -) 1,300 mg PO TID [facility] Last Admin: 08/21/19 07:01 Dose: Not Given Constitutional: Yes: Tachypenic on NIPPV support, Lethargic but arousable Eyes: Yes: Conjunctiva Clear, EOM Intact HENT: Yes: Atraumatic, Normocephalic Neck: Yes: Supple, Trachea Midline Respiratory: Yes: NIPPV, Bilateral Rales & Rhonchi Gastrointestinal: Yes: Normal Bowel Sounds, Soft Cardiovascular: Yes: Pulse Irregular JVD: Yes Carotid Bruit: No Heart Sounds: Yes: S1, S2 Murmur: No: Systolic Murmur, Diastolic Murmur Edema: Yes: LLE: 2+, RLE: 2+ Laboratory Results - last 24 hr 08/20/19 08/20/19 08/20/19 03:30 03:30 03:30 WBC 18.4 H RBC 3.26 L Hgb 8.6 L Hct 27.4 L MCV 84.0 MCH 26.3 MCHC 31.3 L RDW 18.4 H Plt Count 528 H D MPV 9.8 Absolute Neuts (auto) 13.7 H Neutrophils % 74.5 Lymphocytes % 21.1 D Monocytes % 3.1 L Eosinophils % 0.8 D Basophils % 0.5 Nucleated RBC % 0 PT with INR INR PTT (Actin FS) 30.9 Anticoagulation Therapy Puncture Site ABG pH ABG pCO2 at Pt Temp ABG pO2 at Pt Temp ABG HCO3 ABG O2 Sat (Measured) ABG O2 Content ABG Base Excess Reid Test VBG pH POC VBG pCO2 POC VBG pO2 VBG HCO3 VBG O2 Sat (Rick) VBG Base Excess Carboxyhemoglobin Methemoglobin O2 Delivery Device Oxygen Flow Rate Vent Mode Vent Rate Mechanical Rate PEEP Pressure Support Vent Sodium Potassium Chloride Carbon Dioxide Anion Gap BUN Creatinine Est GFR (CKD-EPI)AfAm Est GFR (CKD-EPI)NonAf Random Glucose Lactic Acid Calcium Total Bilirubin AST ALT Alkaline Phosphatase Creatine Kinase 18 L Troponin I 0.02 B-Natriuretic Peptide Total Protein Albumin Urine Color Urine Appearance Urine pH Ur Specific [place] Urine Protein Urine Glucose (UA) Urine Ketones Urine Blood Urine Nitrite Urine Bilirubin Urine Urobilinogen Ur Leukocyte Esterase Urine WBC (Auto) Urine RBC (Auto) Urine Casts (Auto) U Epithel Cells (Auto) Urine Bacteria (Auto) 08/20/19 08/20/19 08/20/19 03:30 03:30 03:39 WBC RBC Hgb Hct MCV MCH MCHC RDW Plt Count MPV Absolute Neuts (auto) Neutrophils % Lymphocytes % Monocytes % Eosinophils % Basophils % Nucleated RBC % PT with INR 17.40 H INR 1.47 H PTT (Actin FS) Anticoagulation Therapy Puncture Site ABG pH ABG pCO2 at Pt Temp ABG pO2 at Pt Temp ABG HCO3 ABG O2 Sat (Measured) ABG O2 Content ABG Base Excess Reid Test VBG pH POC VBG pCO2 POC VBG pO2 VBG HCO3 VBG O2 Sat (Rick) VBG Base Excess Carboxyhemoglobin Methemoglobin O2 Delivery Device Oxygen Flow Rate Vent Mode Vent Rate Mechanical Rate PEEP Pressure Support Vent Sodium 138 Potassium 3.8 Chloride 105 Carbon Dioxide 21 Anion Gap 12 BUN 34.1 H Creatinine 3.2 H Est GFR (CKD-EPI)AfAm 15.75 Est GFR (CKD-EPI)NonAf 13.59 Random Glucose 220 H Lactic Acid Calcium 8.5 Total Bilirubin 0.9 D AST 13 L ALT 13 Alkaline Phosphatase 139 H Creatine Kinase Troponin I B-Natriuretic Peptide 88424.0 H Total Protein 7.0 Albumin 2.5 L Urine Color Urine Appearance Urine pH Ur Specific [place] Urine Protein Urine Glucose (UA) Urine Ketones Urine Blood Urine Nitrite Urine Bilirubin Urine Urobilinogen Ur Leukocyte Esterase Urine WBC (Auto) Urine RBC (Auto) Urine Casts (Auto) U Epithel Cells (Auto) Urine Bacteria (Auto) 08/20/19 08/20/19 08/20/19 03:45 03:55 03:55 WBC RBC Hgb Hct MCV MCH MCHC RDW Plt Count MPV Absolute Neuts (auto) Neutrophils % Lymphocytes % Monocytes % Eosinophils % Basophils % Nucleated RBC % PT with INR INR PTT (Actin FS) Anticoagulation Therapy No Result Required. Puncture Site Right radial ABG pH 7.31 L ABG pCO2 at Pt Temp 34.6 L ABG pO2 at Pt Temp 260 H ABG HCO3 17.0 L ABG O2 Sat (Measured) 99.5 H ABG O2 Content 14.4 ABG Base Excess -7.9 L Reid Test Positive VBG pH 7.16 L* POC VBG pCO2 57.4 H POC VBG pO2 < 49 H VBG HCO3 19.6 L VBG O2 Sat (Rick) 50.2 L VBG Base Excess -8.5 L Carboxyhemoglobin 1.0 Methemoglobin < 1.0 O2 Delivery Device Bipap Oxygen Flow Rate 100% Vent Mode S/t Vent Rate 12 Mechanical Rate No Result Required. PEEP 5.0 Pressure Support Vent 14 Sodium Potassium Chloride Carbon Dioxide Anion Gap BUN Creatinine Est GFR (CKD-EPI)AfAm Est GFR (CKD-EPI)NonAf Random Glucose Lactic Acid 4.1 H* Calcium Total Bilirubin AST ALT Alkaline Phosphatase Creatine Kinase Troponin I B-Natriuretic Peptide Total Protein Albumin Urine Color Urine Appearance Urine pH Ur Specific [place] Urine Protein Urine Glucose (UA) Urine Ketones Urine Blood Urine Nitrite Urine Bilirubin Urine Urobilinogen Ur Leukocyte Esterase Urine WBC (Auto) Urine RBC (Auto) Urine Casts (Auto) U Epithel Cells (Auto) Urine Bacteria (Auto) 08/20/19 05:15 WBC RBC Hgb Hct MCV MCH MCHC RDW Plt Count MPV Absolute Neuts (auto) Neutrophils % Lymphocytes % Monocytes % Eosinophils % Basophils % Nucleated RBC % PT with INR INR PTT (Actin FS) Anticoagulation Therapy Puncture Site ABG pH ABG pCO2 at Pt Temp ABG pO2 at Pt Temp ABG HCO3 ABG O2 Sat (Measured) ABG O2 Content ABG Base Excess Reid Test VBG pH POC VBG pCO2 POC VBG pO2 VBG HCO3 VBG O2 Sat (Rick) VBG Base Excess Carboxyhemoglobin Methemoglobin O2 Delivery Device Oxygen Flow Rate Vent Mode Vent Rate Mechanical Rate PEEP Pressure Support Vent Sodium Potassium Chloride Carbon Dioxide Anion Gap BUN Creatinine Est GFR (CKD-EPI)AfAm Est GFR (CKD-EPI)NonAf Random Glucose Lactic Acid Calcium Total Bilirubin AST ALT Alkaline Phosphatase Creatine Kinase Troponin I B-Natriuretic Peptide Total Protein Albumin Urine Color Yellow Urine Appearance Cloudy Urine pH 5.0 Ur Specific [place] 1.006 L Urine Protein 1+ H Urine Glucose (UA) Negative Urine Ketones Negative Urine Blood 3+ H Urine Nitrite Negative Urine Bilirubin Negative Urine Urobilinogen 0.2 Ur Leukocyte Esterase Trace Urine WBC (Auto) 9 Urine RBC (Auto) 131 Urine Casts (Auto) 55 U Epithel Cells (Auto) 14.9 Urine Bacteria (Auto) 4.3 ASSESSMENT/PLAN: Acute Hypercapneic and Hypoxic Respiratory Failure, Currently responding to NIPPV support CHF Afib CAD DM HTN Obesity ALL (s/p chemo) Chronic venous stasis Renal failure (?acute vs subacute) Cholelithiasis R/O Sepsis Lactic Acidosis (?) Due to increased WOB Pericardial effusion (noted 08/06 ECHO) OSAS / RO OHS IV diuresis NIPPV support, D/W family: willing for Endotracheal intubation if required Strict I&O, daily weights Monitor renal output, Cr Rate control Continue AC, Eliquis BID ABX per ID Follow up cultures Check RUQ US Follow Lactic Acid -F/u repeat lactic acid until under 2 Requires continued ICU monitoring for tenuous respiratory status Dr Godwin Critical care time spent in reviewing chart, evaluating patient and formulating plan - 36 minutes.
[2019-08-21] MEDS: APIXABAN 2.5 MG TABLET PO SCH ×2 (11:40→22:38)
--- NOTE | 2019-08-21 14:00 | PN ---
Progress Note, Physician Chief Complaint: Cardiology FU Events noted. dyspnea and tachycardia earlier. Improved after treatment. Received Lasix 80mg qith reasonable diuretic effect. Less SOB now. HR 80s. History of Present Illness: 73 F known to our practice. She has history of HfPEF, chronic Lext swelling, CAD with LAD PCI 2014. She was recently admitted with cholangitis and gram negative bacteremia complicated by KEL and new onset Afib. She was transferred to [facility] and had ERCP with sphyncterotomy and removal of GB stones. Her KEL improved and at time of DC 08/15 BUN/Cr was 47/4.4. Eitiology of KEL was felt to be due to ATN. NSR was restored spontaneously as well and she was discharged on Metoprolol 12.5mg BID and Eliquis in addition to NaHCo3 and Amlodipine. She developed sudden SOB last night. In ER initially, severe hypoxemia and rapid Afib was noted. she improved on BiPAP - Current Medication List Current Medications: Active Medications Acetaminophen (Tylenol -) 650 mg PO Q6H PRN PRN Reason: PAIN LEVEL 1-5 Furosemide (Lasix Injection -) 80 mg IVPUSH BIDLASIX GABY Piperacillin Sod/Tazobactam (Sod 2.25 gm/ Dextrose) 50 mls @ 100 mls/hr IVPB Q8H-IV G[facility]; Protocol Last Admin: 08/21/19 10:56 Dose: 100 mls/hr Metoprolol Tartrate (Lopressor -) 25 mg PO BID [facility] Last Admin: 08/21/19 10:57 Dose: 25 mg Sodium Bicarbonate (Sodium Bicarbonate -) 1,300 mg PO TID [facility] Last Admin: 08/21/19 07:01 Dose: Not Given - Objective Vital Signs: Vital Signs Temperature 98.1 F 08/21/19 10:00 Pulse Rate 74 08/21/19 12:00 Respiratory Rate 18 08/21/19 12:00 Blood Pressure 124/80 08/21/19 12:00 O2 Sat by Pulse Oximetry (%) 100 08/21/19 10:00 Constitutional: Yes: Well Nourished, Mild Distress Eyes: Yes: Conjunctiva Clear, EOM Intact HENT: Yes: Atraumatic, Normocephalic Neck: Yes: Supple, Trachea Midline Cardiovascular: Yes: Pulse Irregular, JVD, S1, S2 Respiratory: Yes: Rales, SOB Gastrointestinal: Yes: Normal Bowel Sounds Edema: Yes Edema: LLE: 1+, RLE: 1+ Labs: CBC, BMP 08/21/19 05:50 08/21/19 05:50 INR, PTT INR 1.47 (0.83-1.09) H 08/20/19 03:30 - ....Imaging Chest X-ray: Report Reviewed Cat Scan: Report Reviewed EKG: Image Reviewed (Afib no st t changes.) Problem List - Problems (1) Renal failure Code(s): N19 - UNSPECIFIED KIDNEY FAILURE Qualifiers: Renal failure chronicity: unspecified chronicity Qualified Code(s): N19 - Unspecified kidney failure (2) Respiratory failure Code(s): J96.90 - RESPIRATORY FAILURE, UNSP, UNSP W HYPOXIA OR HYPERCAPNIA Qualifiers: Chronicity: acute on chronic Respiratory failure complication: hypoxia Qualified Code(s): J96.21 - Acute and chronic respiratory failure with hypoxia (3) Severe congestive heart failure Code(s): I50.9 - HEART FAILURE, UNSPECIFIED (4) Afib Code(s): I48.91 - UNSPECIFIED ATRIAL FIBRILLATION Qualifiers: Atrial fibrillation type: unspecified Qualified Code(s): I48.91 - Unspecified atrial fibrillation Assessment/Plan HfPEF, chronic Lext swelling, CAD with LAD PCI 2014. She was recently admitted with cholangitis and gram negative bacteremia complicated by KEL and new onset Afib. She was transferred to [facility] and had ERCP with sphyncterotomy and removal of GB stones. Her KEL improved and at time of DC 08/15 BUN/Cr was 47/ 4.4. Eitiology of KEL was felt to be due to ATN. NSR was restored spontaneously as well and she was discharged on Metoprolol 12.5mg BID and Eliquis in addition to NaHCo3 and Amlodipine. She is admitted with SOB, hypoxemia and rapid Afib. Currently comfortable. On Telem HR 80s 1. Afib: Metoprolol 25mg BID. Continue with Eliquis. RO infection. Monitor on telemetry. 2. CHF: Raise lasix 80mg IV bid. due to HfpEF. A recent echocaridogram showed normal biventricualr function. small pericardial effusion on CT scan. keep net negative UO. Would keep ingram to measure I/O 3. CAD: Stable CAD without ischemic ECG changes during rapid Afib. TP level marginally elevated in setting of respiratory distress and demand ischemia. Had recent echo.
--- NOTE | 2019-08-21 14:08 | CON.GI ---
Consult Consult Specialty:: GI - History of Present Illness History of Present Illness: Petient seen in the ICU. Discussed with her son CHARI and Dr Amauri 73 y/o F with PMH of CHF was admitted with SOB and ruq pain. Her lactic acid was elevataed. This morning her abdominal pain improved. CT with no contest to r /o complicated acute cholecystitis was negative. [id number] ate 50 percent of her lunch She under went ERCp with removal of stones in [facility] 2 weeks ago. She could undergo cholecystectomy because of CHF and renal inefficiency. - Past Medical History Cardio/Vascular: Yes: CAD, CHF, HTN, Hyperlipdemia, [place] (s/p EES stent to LAD) ...: No Endocrine: Yes: Diabetes Mellitus - Past Surgical History Past Surgical History: Yes: Stent - Alcohol/Substance Use Hx Alcohol Use: No - Smoking History Smoking history: Never smoked Have you smoked in the past 12 months: No Aproximately how many cigarettes per day: 1 If you are a former smoker, when did you quit?: 3 years ago - Social History Usual Living Arrangement: With Spouse ADL: Independent Occupation: retired dietary staff at [employer] History of Recent Travel: No Home Medications - Allergies Allergies/Adverse Reactions: Allergies Allergy/AdvReac Type Severity Reaction Status Date / Time No Known Allergies Allergy Verified 08/20/19 03:35 - Home Medications Home Medications: Ambulatory Orders Metoprolol Tartrate 25 mg PO DAILY 08/05/19 Apixaban [Eliquis -] 2.5 mg PO BID 08/20/19 Ciprofloxacin [Cipro (Restricted To Id)] 500 mg PO ASDIR 08/20/19 Metronidazole 500 mg PO ASDIR 08/20/19 Sodium Bicarbonate - 1,300 mg PO TID 08/20/19 Physical Exam-GI Vital Signs: Vital Signs Temperature 98.1 F 08/21/19 10:00 Pulse Rate 74 08/21/19 12:00 Respiratory Rate 18 08/21/19 12:00 Blood Pressure 124/80 08/21/19 12:00 O2 Sat by Pulse Oximetry (%) 100 08/21/19 10:00 Constitutional: Yes: Obese Eyes: Yes: Conjunctiva Clear HENT: Yes: Atraumatic Neck: Yes: Supple Cardiovascular: Yes: Regular Rate and Rhythm Respiratory: Yes: CTA Bilaterally ...Palpate: Yes: Pulsatile Mass, Soft, Tenderness (--ruq mild). No: Firm/Rigid , Guarding, Hepatomegaly, Mass, Splenomegaly Labs: CBC, BMP 08/21/19 05:50 08/21/19 05:50 INR, PTT INR 1.47 (0.83-1.09) H 08/20/19 03:30 Hepatic Panel Total Bilirubin 1.1 mg/dL (0.2-1) H 08/21/19 05:50 AST 422 U/L (15-37) H 08/21/19 05:50 ALT 95 U/L (13-61) H 08/21/19 05:50 Alkaline Phosphatase 132 U/L (45-117) H 08/21/19 05:50 Albumin 2.4 g/dl (3.4-5.0) L 08/21/19 05:50 Problem List - Problems (1) Biliary colic Assessment/Plan: no ctascan evidencof of cholecystitis abdomijal pain could be secondary to biliary colic and intestinal agina R> keep well hydrated,suspent renal function and abdominal pain improves once heart failure improves Code(s): K80.50 - CALCULUS OF BILE DUCT W/O CHOLANGITIS OR CHOLECYST W/O OBST
--- NOTE | 2019-08-21 14:14 | PN ---
Progress Note, Physician History of Present Illness: Pt seen and examined at bedside. She became short of breath and was transferred to ICU. - Current Medication List Current Medications: Active Medications Acetaminophen (Tylenol -) 650 mg PO Q6H PRN PRN Reason: PAIN LEVEL 1-5 Apixaban (Eliquis -) 2.5 mg PO BID GABY Furosemide (Lasix Injection -) 80 mg IVPUSH BIDLASIX GABY Piperacillin Sod/Tazobactam (Sod 2.25 gm/ Dextrose) 50 mls @ 100 mls/hr IVPB Q8H-IV GABY; Protocol Last Admin: 08/21/19 10:56 Dose: 100 mls/hr Metoprolol Tartrate (Lopressor -) 25 mg PO BID GABY Last Admin: 08/21/19 10:57 Dose: 25 mg Sodium Bicarbonate (Sodium Bicarbonate -) 1,300 mg PO TID GABY Last Admin: 08/21/19 07:01 Dose: Not Given - Objective Vital Signs: Vital Signs Temperature 98.1 F 08/21/19 10:00 Pulse Rate 74 08/21/19 12:00 Respiratory Rate 18 08/21/19 12:00 Blood Pressure 124/80 08/21/19 12:00 O2 Sat by Pulse Oximetry (%) 100 08/21/19 10:00 Constitutional: Yes: Calm Eyes: Yes: Conjunctiva Clear HENT: Yes: Atraumatic Neck: Yes: Supple Cardiovascular: Yes: S1, S2 Respiratory: Yes: On Nasal O2 Gastrointestinal: Yes: Soft, Abdomen, Obese Genitourinary: Yes: Chaudhary Present Musculoskeletal: Yes: WNL Edema: Yes Edema: LLE: 3+, RLE: 3+ Neurological: Yes: Oriented Psychiatric: Yes: Oriented Labs: CBC, BMP 08/21/19 05:50 08/21/19 05:50 INR, PTT INR 1.47 (0.83-1.09) H 08/20/19 03:30 - ....Imaging Chest X-ray: Report Reviewed Assessment/Plan Current Medications Generic Name Dose Route Start Last Admin Trade Name Freq PRN Reason Stop Dose Admin Acetaminophen 650 mg 08/21/19 03:58 Tylenol - PO Q6H PRN PAIN LEVEL 1-5 Apixaban 2.5 mg 08/21/19 22:00 Eliquis - PO BID GABY Furosemide 80 mg 08/21/19 14:00 Lasix Injection - IVPUSH BIDLASIX GABY Piperacillin Sod/Tazobactam 50 mls @ 100 mls/hr 08/20/19 18:00 08/21/19 10:56 Sod 2.25 gm/ Dextrose IVPB 100 mls/hr Q8H-IV GABY Administration Protocol Metoprolol Tartrate 25 mg 08/20/19 22:00 08/21/19 10:57 Lopressor - PO 25 mg BID GABY Administration Sodium Bicarbonate 1,300 mg 08/20/19 14:00 08/21/19 07:01 Sodium Bicarbonate - PO Not Given TID GABY Impression 1. KEL 2. CHF 3. hx sepsis from biliary source 4. cad 5. ALL 6. CAD 7. a-fib 8. lactic acidosis Plan - increase lasix to 80 mg bid - monitor renal function - monitor in ICU - cont high flow and monitor pulse ox - keep net negative - discussed with ICU team - discussed with family
[2019-08-21] MEDS: FUROSEMIDE 40 MG/4 ML INJECTABLE VIAL IVPUSH SCH (14:34)
--- NOTE | 2019-08-21 18:30 | PN ---
Progress Note (short form) - Note Progress Note: developed worsening sob again requiring transfer to ICU recieived diuresis with improvement ct scan shows chest congestion with less gallbladder distention she is afebrile and alert Vital Signs Period Temp Pulse Resp BP Sys/Hernandez Pulse Ox Last 24 Hr 97.6 F-99.3 F 73-88 18-25 124-146/72-81 94-100 cor-rrr lungs decreased bs at the bases abd soft, mile ruq discomfort ext venous stasis with edema CBC, BMP 08/21/19 05:50 08/21/19 05:50 Microbiology 08/20/19 03:55 Blood - Peripheral Venous Blood Culture - Preliminary NO GROWTH OBTAINED AFTER 24 HOURS, INCUBATION TO CONTINUE FOR 4 DAYS. 08/20/19 03:55 Blood - Peripheral Venous Blood Culture - Preliminary NO GROWTH OBTAINED AFTER 24 HOURS, INCUBATION TO CONTINUE FOR 4 DAYS. a/p recurrent chf doug leukocytosis continue zosyn abnl lfts- d/w dr morrison- felt to be due to acute chf ct scan with chest congestion, less gallbladder distention recent biliary stent for choledocholithiasis continue antiibotics trend lfts treat CHF gi/cardiology/renal f/u ongoing
--- NOTE | 2019-08-21 18:57 | CONSULT ---
Consult Consult Specialty:: Surgery Reason for Consultation:: sepsis - History of Present Illness Chief Complaint: SOB History of Present Illness: Pt is a 73 year old female with pmhx of ALL, KEL, CAD, CHF a-fib, DM, HTN and venous stasis who presents to the ER with increased shortness of breath. She was found to be hypoxic. She was recently transferred to [facility] for biliary sepsis. Underwent ERCP at [facility] for choledocholithiasis with cholangitis. Cholecystectomy deferred due to CHF and adrenal insufficiency. 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 She was also found to have lactic acidosis. pmhx dm htn chf sepsis ALL a-fib - History Source History Provided By: Patient, Family Member - Past Medical History Cardio/Vascular: Yes: CAD, CHF, HTN, Hyperlipdemia, OR (s/p EES stent to LAD) Hepatobiliary: Yes: Cholelithiasis, Cholecystitis, Choledocholithiasis Renal/: Yes: Renal Inusuff ...: No Endocrine: Yes: Diabetes Mellitus - Past Surgical History Past Surgical History: Yes: Stent Additional Surgical History: ERCP - Alcohol/Substance Use Hx Alcohol Use: No - Smoking History Smoking history: Never smoked Have you smoked in the past 12 months: No Aproximately how many cigarettes per day: 1 If you are a former smoker, when did you quit?: 3 years ago - Social History Usual Living Arrangement: With Spouse ADL: Independent Occupation: retired dietary staff at [employer] History of Recent Travel: No Home Medications - Allergies Allergies/Adverse Reactions: Allergies Allergy/AdvReac Type Severity Reaction Status Date / Time No Known Allergies Allergy Verified 08/20/19 03:35 - Home Medications Home Medications: Ambulatory Orders Metoprolol Tartrate 25 mg PO DAILY 08/05/19 Apixaban [Eliquis -] 2.5 mg PO BID 08/20/19 Ciprofloxacin [Cipro (Restricted To Id)] 500 mg PO ASDIR 08/20/19 Metronidazole 500 mg PO ASDIR 08/20/19 Sodium Bicarbonate - 1,300 mg PO TID 08/20/19 Review of Systems - Review of Systems Cardiovascular: reports: Shortness of Breath Respiratory: reports: SOB Gastrointestinal: reports: Abdominal Pain Genitourinary: reports: No Symptoms Physical Exam Vital Signs: Vital Signs Temperature 98.0 F 08/21/19 14:00 Pulse Rate 75 08/21/19 14:00 Respiratory Rate 18 08/21/19 14:00 Blood Pressure 132/72 08/21/19 14:00 O2 Sat by Pulse Oximetry (%) 100 08/21/19 10:00 Constitutional: Yes: Mild Distress, Obese Eyes: Yes: Conjunctiva Clear HENT: Yes: Normocephalic Gastrointestinal: Yes: Abdomen, Obese, Tenderness (mild at RUQ) Labs: CBC, BMP 08/21/19 05:50 08/21/19 05:50 Imaging - Results Cat Scan: Report Reviewed, Image Reviewed Problem List - Problems (1) Biliary colic Assessment/Plan: Resolving cholecystitis confirmed by CT scan Defer cholecystostomy tube placement at this time continue IV abx Code(s): K80.50 - CALCULUS OF BILE DUCT W/O CHOLANGITIS OR CHOLECYST W/O OBST
--- NOTE | 2019-08-21 23:24 | PN ---
Progress Note, Physician - Current Medication List Current Medications: Active Medications Acetaminophen (Tylenol -) 650 mg PO Q6H PRN PRN Reason: PAIN LEVEL 1-5 Last Admin: 08/21/19 22:39 Dose: 650 mg Apixaban (Eliquis -) 2.5 mg PO BID [facility] Last Admin: 08/21/19 22:38 Dose: 2.5 mg Furosemide (Lasix Injection -) 80 mg IVPUSH BIDLASIX [facility] Last Admin: 08/21/19 14:34 Dose: 80 mg Piperacillin Sod/Tazobactam (Sod 2.25 gm/ Dextrose) 50 mls @ 100 mls/hr IVPB Q8H-IV GABY; Protocol Last Admin: 08/21/19 18:26 Dose: 100 mls/hr Metoprolol Tartrate (Lopressor -) 25 mg PO BID [facility] Last Admin: 08/21/19 22:38 Dose: 25 mg Sodium Bicarbonate (Sodium Bicarbonate -) 1,300 mg PO TID [facility] Last Admin: 08/21/19 22:38 Dose: 1,300 mg - Objective Vital Signs: Vital Signs Temperature 98.2 F 08/21/19 18:00 Pulse Rate 76 08/21/19 20:18 Respiratory Rate 18 08/21/19 20:17 Blood Pressure 131/86 08/21/19 20:18 O2 Sat by Pulse Oximetry (%) 100 08/21/19 10:00 Labs: CBC, BMP 08/21/19 05:50 08/21/19 05:50 INR, PTT INR 1.47 (0.83-1.09) H 08/20/19 03:30
[2019-08-22] MEDS ORDERED: PIPERACILLIN/TAZOBACTAM 2.25 GM VIAL IVPB ONE ×3 (00:55→19:30)
[2019-08-22] MEDS ORDERED: DEXTROSE 5%-WATER - 50 ML IVPB ONE ×3 (00:55→19:30)
[2019-08-22] MEDS: PIPERACILLIN/TAZOB 2.25 GM 2.25 GM in DEXTROSE 5%-WATER - 50 ML IVPB SCH ×3 (01:46→19:34)
[2019-08-22] MEDS: FUROSEMIDE 40 MG/4 ML INJECTABLE VIAL IVPUSH SCH ×4 (06:53→22:23)
[2019-08-22] MEDS: SODIUM BICARBONATE 650 MG TABLET PO SCH (06:54)
[2019-08-22 07:02] LABS: BASO % 0.7 % (0-2.0); EOS % 1.1 % (0-4.5); HEMATOCRIT 27.1 % (32.4-45.2); HEMOGLOBIN 8.7 GM/dL (10.7-15.3); LYMPH % 9.2 % (8-40); MCH 26.4 pg (25.7-33.7); MCHC 32.1 g/dl (32.0-36.0); MEAN CELL VOLUME 82.3 fl (80-96); MEAN PLT VOLUME 9.4 fl (7.5-11.1); MONO % 4.4 % (3.8-10.2); NEUT % 84.6 % (42.8-82.8); PLATELET COUNT 312 K/MM3 (134-434); RBC 3.29 M/mm3 (3.60-5.2); RDW 18.8 % (11.6-15.6); WHITE BLOOD COUNT 8.4 K/mm3 (4.0-10.0)
[2019-08-22 07:28] LABS: ALBUMIN 2.2 g/dl (3.4-5.0); BLOOD UREA NITROGEN 42.7 mg/dL (7-18); CALCIUM 8.6 mg/dL (8.5-10.1); CREATININE 3.4 mg/dL (0.55-1.3); MAGNESIUM 1.8 mg/dL (1.8-2.4); PHOSPHOROUS 4.6 mg/dL (2.5-4.9); POTASSIUM 3.9 mmol/L (3.5-5.1); TOT PROT 6.4 g/dl (6.4-8.2)
[2019-08-22] MEDS: METOPROLOL TARTRATE 25 MG TABLET (FP) PO SCH ×2 (09:20→21:43)
[2019-08-22] MEDS: APIXABAN 2.5 MG TABLET PO SCH ×2 (09:20→21:43)
--- NOTE | 2019-08-22 10:25 | PN ---
Teaching Attending Note Name of Resident: Luis Mckeon ATTENDING PHYSICIAN STATEMENT I saw and evaluated the patient. I reviewed the resident's note and discussed the case with the resident. I agree with the resident's findings and plan as documented. SUBJECTIVE: Patient seen and examined in the ICU. Increasing WOB. HFOT increased to 50L. Reports worsening SOB but no CP. CXR: Worsening bilateral Pulmonary Vascular congestion Intake & Output 08/19/19 08/20/19 08/21/19 08/22/19 23:59 23:59 23:59 23:59 Intake Total 470 740 290 Output Total 760 2000 1800 Balance -290 -1260 -1510 Weight 300 lb 264 lb 12.403 oz Last Vital Signs Temp Pulse Resp BP Pulse Ox 98.4 F 78 24 H 141/75 100 08/22/19 04:00 08/22/19 08:00 08/22/19 08:00 08/22/19 08:00 08/21/19 10:00 Active Medications Acetaminophen (Tylenol -) 650 mg PO Q6H PRN PRN Reason: PAIN LEVEL 1-5 Last Admin: 08/21/19 22:39 Dose: 650 mg Apixaban (Eliquis -) 2.5 mg PO BID GABY Last Admin: 08/22/19 09:20 Dose: 2.5 mg Furosemide (Lasix Injection -) 80 mg IVPUSH BIDLASIX GABY Last Admin: 08/22/19 06:53 Dose: 80 mg Piperacillin Sod/Tazobactam (Sod 2.25 gm/ Dextrose) 50 mls @ 100 mls/hr IVPB Q8H-IV GABY; Protocol Last Admin: 08/22/19 09:20 Dose: 100 mls/hr Metoprolol Tartrate (Lopressor -) 25 mg PO BID GABY Last Admin: 08/22/19 09:20 Dose: 25 mg Constitutional: Yes: Tachypenic on HFOT support, awake and alert Eyes: Yes: Conjunctiva Clear, EOM Intact HENT: Yes: Atraumatic, Normocephalic Neck: Yes: Supple, Trachea Midline Respiratory: Yes: HFOT, Bilateral Rales & Rhonchi Gastrointestinal: Yes: Normal Bowel Sounds, Soft Cardiovascular: Yes: Pulse Irregular JVD: Yes Carotid Bruit: No Heart Sounds: Yes: S1, S2 Murmur: No: Systolic Murmur, Diastolic Murmur Edema: Yes: LLE: 2+, RLE: 2+ Laboratory Results - last 24 hr 08/21/19 08/21/19 08/21/19 11:52 15:14 17:16 WBC RBC Hgb Hct MCV MCH MCHC RDW Plt Count MPV Absolute Neuts (auto) Neutrophils % Lymphocytes % Monocytes % Eosinophils % Basophils % Nucleated RBC % Sodium Potassium Chloride Carbon Dioxide Anion Gap BUN Creatinine Est GFR (CKD-EPI)AfAm Est GFR (CKD-EPI)NonAf POC Glucometer 175 Random Glucose Lactic Acid 2.8 H* Calcium Phosphorus Magnesium Total Bilirubin AST ALT Alkaline Phosphatase Creatine Kinase 48 Troponin I 0.10 H Total Protein Albumin 08/21/19 08/22/19 08/22/19 22:49 05:50 06:20 WBC 8.4 RBC 3.29 L Hgb 8.7 L Hct 27.1 L MCV 82.3 MCH 26.4 MCHC 32.1 RDW 18.8 H Plt Count 312 D MPV 9.4 Absolute Neuts (auto) 7.1 Neutrophils % 84.6 H Lymphocytes % 9.2 D Monocytes % 4.4 Eosinophils % 1.1 D Basophils % 0.7 Nucleated RBC % 0 Sodium Potassium Chloride Carbon Dioxide Anion Gap BUN Creatinine Est GFR (CKD-EPI)AfAm Est GFR (CKD-EPI)NonAf POC Glucometer 150 165 Random Glucose Lactic Acid Calcium Phosphorus Magnesium Total Bilirubin AST ALT Alkaline Phosphatase Creatine Kinase Troponin I Total Protein Albumin 08/22/19 06:20 WBC RBC Hgb Hct MCV MCH MCHC RDW Plt Count MPV Absolute Neuts (auto) Neutrophils % Lymphocytes % Monocytes % Eosinophils % Basophils % Nucleated RBC % Sodium 141 Potassium 3.9 Chloride 106 Carbon Dioxide 24 Anion Gap 11 BUN 42.7 H Creatinine 3.4 H Est GFR (CKD-EPI)AfAm 14.64 Est GFR (CKD-EPI)NonAf 12.63 POC Glucometer Random Glucose 183 H Lactic Acid Calcium 8.6 Phosphorus 4.6 Magnesium 1.8 Total Bilirubin 1.0 AST 194 H ALT 95 H Alkaline Phosphatase 120 H Creatine Kinase Troponin I Total Protein 6.4 Albumin 2.2 L ASSESSMENT/PLAN: Acute Hypercapneic and Hypoxic Respiratory Failure CHF Afib CAD DM HTN Obesity ALL (s/p chemo) Chronic venous stasis Renal failure (?acute vs subacute) Cholelithiasis R/O Sepsis Lactic Acidosis (?) Due to increased WOB Pericardial effusion (noted 08/06 ECHO) OSAS / RO OHS IV diuresis HFOT (support increased) with NIPPV support as needed, D/W family: willing for Endotracheal intubation if required Strict I&O, daily weights Monitor renal output, Cr Rate control Continue AC, Eliquis BID ABX per ID Follow up cultures Check RUQ US Follow Lactic Acid -F/u repeat lactic acid until under 2 Requires continued ICU monitoring for tenuous respiratory status Dr Godwin Critical care time spent in reviewing chart, evaluating patient and formulating plan - 36 minutes.
--- NOTE | 2019-08-22 11:42 | PN ---
Physical Exam: SUBJECTIVE: Patient seen and examined this AM. No acute overnight events. Patient reports unchanged SOB. Denies CP, nausea, vomiting, fevers, chills. Continues RUQ pain. On Zosyn, High-Flow NC (increased to 50L Flow), 80MG Lasix BID. Reports moderately improved appetite. OBJECTIVE: Vital Signs Period Temp Pulse Resp BP Sys/Hernandez Pulse Ox Last 24 Hr 98.0 F-98.4 F 69-79 18-28 119-141/70-86 GENERAL: The patient is awake, alert, and fully oriented, in no acute distress, on High-Flow 50%. HEENT: Normal with no signs of trauma, extraocular movements intact, no ptosis, nares patent, moist mucous membranes trachea midline. LUNGS: Breath sounds equal, diminished bilaterally, no wheezes or crackles appreciated, no accessory muscle use. HEART: Irregular rhythm, nl S1/S2 without murmur, rub or gallop. ABDOMEN: Soft, nontender - including RUQ, nondistended, normoactive bowel sounds , no guarding, no rebound. EXTREMITIES: 2+ pulses, warm, well-perfused, 3+ pitting edema, edematous shins tender to palpation. NEUROLOGICAL: Cranial nerves II through XII grossly intact. Normal speech, gait not observed. PSYCH: Normal mood, normal affect. SKIN: Warm, dry, normal turgor, no rashes or lesions noted Laboratory Results - last 24 hr 08/21/19 08/21/19 08/21/19 11:52 15:14 17:16 WBC RBC Hgb Hct MCV MCH MCHC RDW Plt Count MPV Absolute Neuts (auto) Neutrophils % Lymphocytes % Monocytes % Eosinophils % Basophils % Nucleated RBC % Sodium Potassium Chloride Carbon Dioxide Anion Gap BUN Creatinine Est GFR (CKD-EPI)AfAm Est GFR (CKD-EPI)NonAf POC Glucometer 175 Random Glucose Lactic Acid 2.8 H* Calcium Phosphorus Magnesium Total Bilirubin AST ALT Alkaline Phosphatase Creatine Kinase 48 Troponin I 0.10 H Total Protein Albumin 08/21/19 08/22/19 08/22/19 22:49 05:50 06:20 WBC 8.4 RBC 3.29 L Hgb 8.7 L Hct 27.1 L MCV 82.3 MCH 26.4 MCHC 32.1 RDW 18.8 H Plt Count 312 D MPV 9.4 Absolute Neuts (auto) 7.1 Neutrophils % 84.6 H Lymphocytes % 9.2 D Monocytes % 4.4 Eosinophils % 1.1 D Basophils % 0.7 Nucleated RBC % 0 Sodium Potassium Chloride Carbon Dioxide Anion Gap BUN Creatinine Est GFR (CKD-EPI)AfAm Est GFR (CKD-EPI)NonAf POC Glucometer 150 165 Random Glucose Lactic Acid Calcium Phosphorus Magnesium Total Bilirubin AST ALT Alkaline Phosphatase Creatine Kinase Troponin I Total Protein Albumin 08/22/19 06:20 WBC RBC Hgb Hct MCV MCH MCHC RDW Plt Count MPV Absolute Neuts (auto) Neutrophils % Lymphocytes % Monocytes % Eosinophils % Basophils % Nucleated RBC % Sodium 141 Potassium 3.9 Chloride 106 Carbon Dioxide 24 Anion Gap 11 BUN 42.7 H Creatinine 3.4 H Est GFR (CKD-EPI)AfAm 14.64 Est GFR (CKD-EPI)NonAf 12.63 POC Glucometer Random Glucose 183 H Lactic Acid Calcium 8.6 Phosphorus 4.6 Magnesium 1.8 Total Bilirubin 1.0 AST 194 H ALT 95 H Alkaline Phosphatase 120 H Creatine Kinase Troponin I Total Protein 6.4 Albumin 2.2 L Active Medications Generic Name Dose Route Start Last Admin Trade Name Freq PRN Reason Stop Dose Admin Acetaminophen 650 mg 08/21/19 03:58 08/21/19 22:39 Tylenol - PO 650 mg Q6H PRN Administration PAIN LEVEL 1-5 Apixaban 2.5 mg 08/21/19 22:00 08/22/19 09:20 Eliquis - PO 2.5 mg BID GABY Administration Furosemide 80 mg 08/21/19 14:00 08/22/19 06:53 Lasix Injection - IVPUSH 80 mg BIDLASIX GABY Administration Piperacillin Sod/Tazobactam 50 mls @ 100 mls/hr 08/20/19 18:00 08/22/19 09:20 Sod 2.25 gm/ Dextrose IVPB 100 mls/hr Q8H-IV GABY Administration Protocol Metoprolol Tartrate 25 mg 08/20/19 22:00 08/22/19 09:20 Lopressor - PO 25 mg BID GABY Administration ASSESSMENT/PLAN: 73 year old female with PMH significant for CAD, CHF, Afib, DM, HTN, Obesity, ALL (s/p chemo), and chronic venous stasis. She presented to the ER on 08/20 with complaints of worsening SOB since recent discharge from [facility]. S/p rapid on 08/21, transfer to ICU for tenuous respiratory status. Continuing aggressive diuresis. #Neuro - Pain control PRN #CV - Monitor vitals - Continue 80mg Lasix BID diuresis - Continued rate control, metoprolol - Appreciate cardiology recs - Consider ECHO vs JOSE (08/06) to re-evaluate prior effusion - Continue AC, eloquis BID #Pulm - Continue high flow, increased to 50L Flow this AM - Maintain SPO2 >92% #Renal - Monitor I&Os, UOP, Cr - Daily weights - Trend lytes, replete as necessary - UA with 3+ blood - Appreciate nephrology recs #ID - ABX per ID - Continue Zosyn - Monitor vitals, fever, leukocytosis - F/u BCx #GI - Advance diet as tolerated #PPX - OOB as tolerated - PT consulted - Home AC #Dispo: - Continued ICU monitoring #Code: Family willing for Endotracheal intubation if required Visit type - Emergency Visit Emergency Visit: Yes ED Registration Date: 08/20/19 Care time: The patient presented to the Emergency Department on the above date and was hospitalized for further evaluation of their emergent condition. - New Patient This patient is new to me today: No - Critical Care Critical Care patient: Yes Total Critical Care Time (in minutes): 36 Critical Care Statement: The care of this patient involved high complexity decision making to prevent further life threatening deterioration of the patient 's condition and/or to evaluate & treat vital organ system(s) failure or risk of failure. ATTENDING PHYSICIAN STATEMENT I saw and evaluated the patient. I reviewed the resident's note and discussed the case with the resident. I agree with the resident's findings and plan as documented. SUBJECTIVE: OBJECTIVE: ASSESSMENT AND PLAN:
--- NOTE | 2019-08-22 12:26 | PN ---
Progress Note (short form) - Note Progress Note: c/o body aches, wants to sit in chair diuresing well no fevers overnight Vital Signs Period Temp Pulse Resp BP Sys/Hernandez Pulse Ox Last 24 Hr 98.0 F-98.4 F 69-79 18-28 119-141/70-86 cor-rrr lungs decreased bs at bases abd soft,mild ruq discomfort to palpation ext venous stasis with edema CBC, BMP 08/22/19 06:20 08/22/19 06:20 Microbiology 08/20/19 03:55 Blood - Peripheral Venous Blood Culture - Preliminary NO GROWTH OBTAINED AFTER 48 HOURS, INCUBATION TO CONTINUE FOR 3 DAYS. 08/20/19 03:55 Blood - Peripheral Venous Blood Culture - Preliminary NO GROWTH OBTAINED AFTER 48 HOURS, INCUBATION TO CONTINUE FOR 3 DAYS. a/p recurrent chf-improving with diuresis doug leukocytosis improved-resolving cholycystitis abnl lfts- improving recent biliary stent for choledocholithiasis continue zosyn Laboratory Tests 08/20/19 08/21/19 08/22/19 03:39 05:50 06:20 Total Bilirubin 0.9 D 1.1 H 1.0 AST 13 L 422 H 194 H ALT 13 95 H 95 H Alkaline Phosphatase 139 H 132 H 120 H
[2019-08-22] MEDS ORDERED: METOLAZONE 2.5 MG TABLET (FP) PO ONE ×2 (14:20→21:30)
--- NOTE | 2019-08-22 14:20 | PN ---
Progress Note, Physician History of Present Illness: Pt seen and examined at bedside. She still complains of shortness of breath. She remains in the ICU on high flow oxygen. - Current Medication List Current Medications: Active Medications Acetaminophen (Tylenol -) 650 mg PO Q6H PRN PRN Reason: PAIN LEVEL 1-5 Last Admin: 08/21/19 22:39 Dose: 650 mg Apixaban (Eliquis -) 2.5 mg PO BID [facility] Last Admin: 08/22/19 09:20 Dose: 2.5 mg Furosemide (Lasix Injection -) 80 mg IVPUSH BIDLASIX [facility] Last Admin: 08/22/19 06:53 Dose: 80 mg Piperacillin Sod/Tazobactam (Sod 2.25 gm/ Dextrose) 50 mls @ 100 mls/hr IVPB Q8H-IV GABY; Protocol Last Admin: 08/22/19 09:20 Dose: 100 mls/hr Metoprolol Tartrate (Lopressor -) 25 mg PO BID [facility] Last Admin: 08/22/19 09:20 Dose: 25 mg - Objective Vital Signs: Vital Signs Temperature 98.4 F 08/22/19 04:00 Pulse Rate 78 08/22/19 08:00 Respiratory Rate 24 H 08/22/19 08:00 Blood Pressure 141/75 08/22/19 08:00 O2 Sat by Pulse Oximetry (%) 100 08/21/19 10:00 Constitutional: Yes: Calm Eyes: Yes: Conjunctiva Clear HENT: Yes: Atraumatic Neck: Yes: Supple Cardiovascular: Yes: S1, S2 Respiratory: Yes: On Nasal O2 Gastrointestinal: Yes: Soft, Abdomen, Obese Genitourinary: Yes: Chaudhary Present Musculoskeletal: Yes: Muscle Weakness Edema: Yes Edema: LLE: 3+, RLE: 3+ Neurological: Yes: Oriented Psychiatric: Yes: Oriented Labs: CBC, BMP 08/22/19 06:20 08/22/19 06:20 INR, PTT INR 1.47 (0.83-1.09) H 08/20/19 03:30 - ....Imaging Chest X-ray: Report Reviewed Assessment/Plan Current Medications Generic Name Dose Route Start Last Admin Trade Name Freq PRN Reason Stop Dose Admin Acetaminophen 650 mg 08/21/19 03:58 08/21/19 22:39 Tylenol - PO 650 mg Q6H PRN Administration PAIN LEVEL 1-5 Apixaban 2.5 mg 08/21/19 22:00 08/22/19 09:20 Eliquis - PO 2.5 mg BID GABY Administration Furosemide 80 mg 08/21/19 14:00 08/22/19 06:53 Lasix Injection - IVPUSH 80 mg BIDLASIX [facility] Administration Piperacillin Sod/Tazobactam 50 mls @ 100 mls/hr 08/20/19 18:00 08/22/19 09:20 Sod 2.25 gm/ Dextrose IVPB 100 mls/hr Q8H-IV GABY Administration Protocol Metoprolol Tartrate 25 mg 08/20/19 22:00 08/22/19 09:20 Lopressor - PO 25 mg BID GABY Administration Impression 1. KEL 2. CHF 3. hx sepsis from biliary source 4. cad 5. ALL 6. CAD 7. a-fib 8. lactic acidosis Plan - chest x-ray is worse - discussed with ICU - increase diuretics - repeat labs in am - monitor lytes - add metolazone - keep net negative - discussed with family
[2019-08-22] MEDS ORDERED: PT OWN MED DRAWER 7, Y5N ONE ×3 (15:19→21:39)
--- NOTE | 2019-08-22 15:27 | PN ---
Progress Note, Physician Chief Complaint: Cardiology FU On high flow O2 but comfortable. Telem Afib HR 70s UO 2L History of Present Illness: 73 F known to our practice. She has history of HfPEF, chronic Lext swelling, CAD with LAD PCI 2014. She was recently admitted with cholangitis and gram negative bacteremia complicated by KEL and new onset Afib. She was transferred to [facility] and had ERCP with sphyncterotomy and removal of GB stones. Her KEL improved and at time of DC 08/15 BUN/Cr was 47/4.4. Eitiology of KEL was felt to be due to ATN. NSR was restored spontaneously as well and she was discharged on Metoprolol 12.5mg BID and Eliquis in addition to NaHCo3 and Amlodipine. She developed sudden SOB last night. In ER initially, severe hypoxemia and rapid Afib was noted. she improved on BiPAP - Current Medication List Current Medications: Active Medications Acetaminophen (Tylenol -) 650 mg PO Q6H PRN PRN Reason: PAIN LEVEL 1-5 Last Admin: 08/21/19 22:39 Dose: 650 mg Apixaban (Eliquis -) 2.5 mg PO BID [facility] Last Admin: 08/22/19 09:20 Dose: 2.5 mg Furosemide (Lasix Injection -) 80 mg IVPUSH TID [facility] Piperacillin Sod/Tazobactam (Sod 2.25 gm/ Dextrose) 50 mls @ 100 mls/hr IVPB Q8H-IV GABY; Protocol Last Admin: 08/22/19 09:20 Dose: 100 mls/hr Metoprolol Tartrate (Lopressor -) 25 mg PO BID [facility] Last Admin: 08/22/19 09:20 Dose: 25 mg - Objective Vital Signs: Vital Signs Temperature 98.4 F 08/22/19 04:00 Pulse Rate 78 08/22/19 08:00 Respiratory Rate 24 H 08/22/19 08:00 Blood Pressure 141/75 08/22/19 08:00 O2 Sat by Pulse Oximetry (%) 100 08/21/19 10:00 Constitutional: Yes: Well Nourished, No Distress Eyes: Yes: Conjunctiva Clear HENT: Yes: Atraumatic, Normocephalic Neck: Yes: Supple, Trachea Midline Cardiovascular: Yes: Pulse Irregular Respiratory: Yes: Regular, Rales Gastrointestinal: Yes: Normal Bowel Sounds, Soft Edema: Yes Edema: LLE: 1+, RLE: 1+ Labs: CBC, BMP 08/22/19 06:20 08/22/19 06:20 INR, PTT INR 1.47 (0.83-1.09) H 08/20/19 03:30 Problem List - Problems (1) Renal failure Code(s): N19 - UNSPECIFIED KIDNEY FAILURE Qualifiers: Renal failure chronicity: unspecified chronicity Qualified Code(s): N19 - Unspecified kidney failure (2) Respiratory failure Code(s): J96.90 - RESPIRATORY FAILURE, UNSP, UNSP W HYPOXIA OR HYPERCAPNIA Qualifiers: Chronicity: acute on chronic Respiratory failure complication: hypoxia Qualified Code(s): J96.21 - Acute and chronic respiratory failure with hypoxia (3) Severe congestive heart failure Code(s): I50.9 - HEART FAILURE, UNSPECIFIED (4) Afib Code(s): I48.91 - UNSPECIFIED ATRIAL FIBRILLATION Qualifiers: Atrial fibrillation type: unspecified Qualified Code(s): I48.91 - Unspecified atrial fibrillation Assessment/Plan HfPEF, chronic Lext swelling, CAD with LAD PCI 2014. She was recently admitted with cholangitis and gram negative bacteremia complicated by KEL and new onset Afib. She was transferred to [facility] and had ERCP with sphyncterotomy and removal of GB stones. Her KEL improved and at time of DC 08/15 BUN/Cr was 47/ 4.4. Eitiology of KEL was felt to be due to ATN. NSR was restored spontaneously as well and she was discharged on Metoprolol 12.5mg BID and Eliquis in addition to NaHCo3 and Amlodipine. She is admitted with SOB, hypoxemia and rapid Afib. 1. Afib: Metoprolol 25mg BID. Continue with Eliquis. HR controlled. 2. CHF: 2 L UO with improved congestive findings on Exam. lasix 80mg IV bid. Add Metolazone due to HfpEF. A recent echocaridogram showed normal biventricualr function. small pericardial effusion on CT scan. keep net negative UO. Would keep ingram to measure I/O 3. CAD: Stable CAD without ischemic ECG changes during rapid Afib. TP level marginally elevated in setting of respiratory distress and demand ischemia. Had recent echo.
[2019-08-22] MEDS ORDERED: FUROSEMIDE 40 MG/4 ML INJECTABLE VIAL IVPUSH SCH (22:00)
--- NOTE | 2019-08-22 22:22 | PN ---
Progress Note, Physician - Current Medication List Current Medications: Active Medications Acetaminophen (Tylenol -) 650 mg PO Q6H PRN PRN Reason: PAIN LEVEL 1-5 Last Admin: 08/21/19 22:39 Dose: 650 mg Apixaban (Eliquis -) 2.5 mg PO BID [facility] Last Admin: 08/22/19 21:43 Dose: 2.5 mg Furosemide (Lasix Injection -) 80 mg IVPUSH TID [facility] Last Admin: 08/22/19 17:33 Dose: Not Given Piperacillin Sod/Tazobactam (Sod 2.25 gm/ Dextrose) 50 mls @ 100 mls/hr IVPB Q8H-IV GABY; Protocol Last Admin: 08/22/19 19:34 Dose: 100 mls/hr Metoprolol Tartrate (Lopressor -) 25 mg PO BID [facility] Last Admin: 08/22/19 21:43 Dose: 25 mg - Objective Vital Signs: Vital Signs Temperature 98.6 F 08/22/19 10:00 Pulse Rate 76 08/22/19 16:00 Respiratory Rate 24 H 08/22/19 16:00 Blood Pressure 107/71 08/22/19 16:00 O2 Sat by Pulse Oximetry (%) 100 08/21/19 10:00 Labs: CBC, BMP 08/22/19 06:20 08/22/19 06:20 INR, PTT INR 1.47 (0.83-1.09) H 08/20/19 03:30
[2019-08-23] MEDS ORDERED: PIPERACILLIN/TAZOBACTAM 2.25 GM VIAL IVPB ONE ×3 (02:23→18:07)
[2019-08-23] MEDS ORDERED: DEXTROSE 5%-WATER - 50 ML IVPB ONE ×2 (02:23→09:57)
[2019-08-23] MEDS: PIPERACILLIN/TAZOB 2.25 GM 2.25 GM in DEXTROSE 5%-WATER - 50 ML IVPB SCH ×3 (02:31→18:26)
[2019-08-23] MEDS: FUROSEMIDE 40 MG/4 ML INJECTABLE VIAL IVPUSH SCH ×3 (06:14→21:12)
[2019-08-23 07:36] LABS: BASO % 0.9 % (0-2.0); EOS % 1.3 % (0-4.5); LYMPH % 11.7 % (8-40); MCH 26.3 pg (25.7-33.7); MCHC 32.2 g/dl (32.0-36.0); MEAN CELL VOLUME 81.6 fl (80-96); MEAN PLT VOLUME 9.2 fl (7.5-11.1); MONO % 4.5 % (3.8-10.2); NEUT % 81.6 % (42.8-82.8); PLATELET COUNT 294 K/MM3 (134-434); RBC 3.43 M/mm3 (3.60-5.2); RDW 18.6 % (11.6-15.6); WHITE BLOOD COUNT 7.7 K/mm3 (4.0-10.0)
--- NOTE | 2019-08-23 08:16 | PN ---
Physical Exam: SUBJECTIVE: Patient seen and examined. No acute events overnight. Offers no complaints. Says she is feeling overall better than before. Says she is breathing more comfortably. Started on metolazone with good urine output. doing well on HF: 50L, 35% OBJECTIVE: Vital Signs Period Temp Pulse Resp BP Sys/Hernandez Pulse Ox Last 24 Hr 97.3 F-98.6 F 72-81 19-36 97-157/58-91 100 GENERAL: a/o x 3, sleeping comfortably HEENT: oropharynx clear LUNGS: rales b/l. decreased breath sounds HEART: Irregular rhythm, nl S1/S2 without murmur, rub or gallop. ABDOMEN: obese, soft, nt, nd EXTREMITIES: 2+ pulses, 3+ pitting edema NEUROLOGICAL: Cranial nerves II through XII grossly intact Laboratory Results - last 24 hr 08/22/19 08/23/19 08/23/19 14:45 06:44 06:44 WBC 7.7 RBC 3.43 L Hgb 9.0 L Hct 28.0 L MCV 81.6 MCH 26.3 MCHC 32.2 RDW 18.6 H Plt Count 294 MPV 9.2 Absolute Neuts (auto) 6.3 Neutrophils % 81.6 Lymphocytes % 11.7 D Monocytes % 4.5 Eosinophils % 1.3 Basophils % 0.9 Nucleated RBC % 0 Lactic Acid 1.0 Creatine Kinase 32 Troponin I 0.03 Active Medications Generic Name Dose Route Start Last Admin Trade Name Freq PRN Reason Stop Dose Admin Acetaminophen 650 mg 08/21/19 03:58 08/21/19 22:39 Tylenol - PO 650 mg Q6H PRN Administration PAIN LEVEL 1-5 Apixaban 2.5 mg 08/21/19 22:00 08/22/19 21:43 Eliquis - PO 2.5 mg BID GABY Administration Furosemide 80 mg 08/22/19 15:30 08/23/19 06:14 Lasix Injection - IVPUSH 80 mg TID G[facility]Y Administration Piperacillin Sod/Tazobactam 50 mls @ 100 mls/hr 08/20/19 18:00 08/23/19 02:31 Sod 2.25 gm/ Dextrose IVPB 100 mls/hr Q8H-IV GABY Administration Protocol Metoprolol Tartrate 25 mg 08/20/19 22:00 08/22/19 21:43 Lopressor - PO 25 mg BID G[facility]Y Administration ASSESSMENT/PLAN: #Acute Hypercapneic and Hypoxic Respiratory Failure #CHF exacerbation #Afib #CAD #DM #HTN #Obesity #ALL (s/p chemo) #Chronic venous stasis #Renal failure #Cholelithiasis #R/O Sepsis #Lactic Acidosis #Pericardial effusion (noted 08/06 ECHO) #OSAS / RO OHS -Given metolazone yesterday. -Give another dose today. -replete K -follow urine output. -cxr this am unchanged from yesterday -on HFNC: Change to 40L, 35% -Strict I&O, daily weights -monitor cr -rate control -AC with eliquis -Iv abx per ID -bcx negative after 72 hours -trend lactic acid -RUQ US pending. Visit type - Emergency Visit Emergency Visit: Yes ED Registration Date: 08/20/19 Care time: The patient presented to the Emergency Department on the above date and was hospitalized for further evaluation of their emergent condition. - New Patient This patient is new to me today: Yes Date on this admission: 08/23/19 - Critical Care Critical Care patient: Yes Total Critical Care Time (in minutes): 40 Critical Care Statement: The care of this patient involved high complexity decision making to prevent further life threatening deterioration of the patient 's condition and/or to evaluate & treat vital organ system(s) failure or risk of failure. ATTENDING PHYSICIAN STATEMENT I saw and evaluated the patient. I reviewed the resident's note and discussed the case with the resident. I agree with the resident's findings and plan as documented. SUBJECTIVE: OBJECTIVE: ASSESSMENT AND PLAN:
[2019-08-23 08:34] LABS: ALBUMIN 2.3 g/dl (3.4-5.0); BILIRUBIN,TOTAL 0.9 mg/dL (0.2-1); CALCIUM 8.2 mg/dL (8.5-10.1); CREATININE 3.5 mg/dL (0.55-1.3); MAGNESIUM 1.7 mg/dL (1.8-2.4); PHOSPHOROUS 4.5 mg/dL (2.5-4.9); POTASSIUM 3.3 mmol/L (3.5-5.1); TOT PROT 6.5 g/dl (6.4-8.2)
--- NOTE | 2019-08-23 09:13 | PN ---
Progress Note (short form) - Note Progress Note: RENAL Pt is awake and alert denies complaints Last Vital Signs Temp Pulse Resp BP Pulse Ox 98.2 F 76 24 H 145/90 100 08/23/19 04:00 08/23/19 06:00 08/23/19 06:00 08/23/19 06:00 08/23/19 04:08 lungs clear cvs s1s2 rr abd soft, not tender ext +3 edema neuro a+ox3 CBC, BMP 08/23/19 06:44 08/23/19 06:44 Current Medications Generic Name Dose Route Start Last Admin Trade Name Freq PRN Reason Stop Dose Admin Acetaminophen 650 mg 08/21/19 03:58 08/21/19 22:39 Tylenol - PO 650 mg Q6H PRN Administration PAIN LEVEL 1-5 Apixaban 2.5 mg 08/21/19 22:00 08/22/19 21:43 Eliquis - PO 2.5 mg BID GABY Administration Furosemide 80 mg 08/22/19 15:30 08/23/19 06:14 Lasix Injection - IVPUSH 80 mg TID [facility]Y Administration Piperacillin Sod/Tazobactam 50 mls @ 100 mls/hr 08/20/19 18:00 08/23/19 02:31 Sod 2.25 gm/ Dextrose IVPB 100 mls/hr Q8H-IV GABY Administration Protocol Metoprolol Tartrate 25 mg 08/20/19 22:00 08/22/19 21:43 Lopressor - PO 25 mg BID G[facility]Y Administration Impression 1. KEL 2. CHF 3. hx sepsis from biliary source 4. cad 5. ALL 6. CAD 7. a-fib 8. lactic acidosis Plan -continue diuretics -give prn metolazone daily if not in negative balance may need hd if not responding MV
--- NOTE | 2019-08-23 09:20 | PN ---
Teaching Attending Note Name of Resident: Malvin Ryder ATTENDING PHYSICIAN STATEMENT I saw and evaluated the patient. I reviewed the resident's note and discussed the case with the resident. I agree with the resident's findings and plan as documented. SUBJECTIVE: Patient seen and examined in the ICU. Breathing appears slightly better today. Reports less SOB. No CP. No acute events overnight. CXR: no gross change in bilateral Pulmonary Vascular congestion Intake & Output 08/20/19 08/21/19 08/22/19 08/23/19 23:59 23:59 23:59 23:59 Intake Total 470 740 290 150 Output Total 760 2000 3100 1200 Balance -290 -1260 -2810 -1050 Weight 300 lb 264 lb 12.403 oz Last Vital Signs Temp Pulse Resp BP Pulse Ox 98.2 F 76 24 H 145/90 100 08/23/19 04:00 08/23/19 06:00 08/23/19 06:00 08/23/19 06:00 08/23/19 04:08 Active Medications Acetaminophen (Tylenol -) 650 mg PO Q6H PRN PRN Reason: PAIN LEVEL 1-5 Last Admin: 08/21/19 22:39 Dose: 650 mg Apixaban (Eliquis -) 2.5 mg PO BID [facility] Last Admin: 08/22/19 21:43 Dose: 2.5 mg Furosemide (Lasix Injection -) 80 mg IVPUSH TID [facility] Last Admin: 08/23/19 06:14 Dose: 80 mg Piperacillin Sod/Tazobactam (Sod 2.25 gm/ Dextrose) 50 mls @ 100 mls/hr IVPB Q8H-IV GABY; Protocol Last Admin: 08/23/19 02:31 Dose: 100 mls/hr Metoprolol Tartrate (Lopressor -) 25 mg PO BID [facility] Last Admin: 08/22/19 21:43 Dose: 25 mg Constitutional: Yes: Less tachypenic on HFOT support, awake and alert Eyes: Yes: Conjunctiva Clear, EOM Intact HENT: Yes: Atraumatic, Normocephalic Neck: Yes: Supple, Trachea Midline Respiratory: Yes: HFOT, Bilateral Rales & Rhonchi Gastrointestinal: Yes: Normal Bowel Sounds, Soft Cardiovascular: Yes: Pulse Irregular JVD: Yes Carotid Bruit: No Heart Sounds: Yes: S1, S2 Murmur: No: Systolic Murmur, Diastolic Murmur Edema: Yes: LLE: 2+, RLE: 2+ Laboratory Results - last 24 hr 08/22/19 08/23/19 08/23/19 14:45 06:44 06:44 WBC 7.7 RBC 3.43 L Hgb 9.0 L Hct 28.0 L MCV 81.6 MCH 26.3 MCHC 32.2 RDW 18.6 H Plt Count 294 MPV 9.2 Absolute Neuts (auto) 6.3 Neutrophils % 81.6 Lymphocytes % 11.7 D Monocytes % 4.5 Eosinophils % 1.3 Basophils % 0.9 Nucleated RBC % 0 Sodium 138 Potassium 3.3 L Chloride 102 Carbon Dioxide 24 Anion Gap 12 BUN 48.0 H Creatinine 3.5 H Est GFR (CKD-EPI)AfAm 14.13 Est GFR (CKD-EPI)NonAf 12.19 Random Glucose 179 H Lactic Acid Calcium 8.2 L Phosphorus 4.5 Magnesium 1.7 L Total Bilirubin 0.9 AST 99 H ALT 71 H Alkaline Phosphatase 107 Creatine Kinase 32 Troponin I 0.03 Total Protein 6.5 Albumin 2.3 L 08/23/19 06:44 WBC RBC Hgb Hct MCV MCH MCHC RDW Plt Count MPV Absolute Neuts (auto) Neutrophils % Lymphocytes % Monocytes % Eosinophils % Basophils % Nucleated RBC % Sodium Potassium Chloride Carbon Dioxide Anion Gap BUN Creatinine Est GFR (CKD-EPI)AfAm Est GFR (CKD-EPI)NonAf Random Glucose Lactic Acid 1.0 Calcium Phosphorus Magnesium Total Bilirubin AST ALT Alkaline Phosphatase Creatine Kinase Troponin I Total Protein Albumin ASSESSMENT/PLAN: Acute Hypercapneic and Hypoxic Respiratory Failure CHF Afib CAD DM HTN Obesity ALL (s/p chemo) Chronic venous stasis Renal failure (?acute vs subacute) Cholelithiasis R/O Sepsis Lactic Acidosis (?) Due to increased WOB Pericardial effusion (noted 08/06 ECHO) OSAS / RO OHS IV diuresis Decrease HFOT, D/W family: willing for Endotracheal intubation if required Strict I&O, daily weights Monitor urine output Rate control Continue AC, Eliquis BID ABX per ID Follow up cultures Continued ICU monitoring for tenuous respiratory status Dr Godwin
[2019-08-23] MEDS ORDERED: METOLAZONE 5 MG TABLET PO ONE (09:55)
[2019-08-23] MEDS ORDERED: POTASSIUM CHLORIDE TABS 20 MEQ TABLET.ER (FP) PO ONE (09:56)
[2019-08-23] MEDS: APIXABAN 2.5 MG TABLET PO SCH ×2 (09:59→21:12)
[2019-08-23] MEDS: METOPROLOL TARTRATE 25 MG TABLET (FP) PO SCH ×2 (09:59→21:12)
[2019-08-23] MEDS ORDERED: PT OWN MED DRAWER 7, Y5N ONE (10:01)
--- NOTE | 2019-08-23 11:01 | PN ---
Progress Note, Physician History of Present Illness: AWAKE, ALERT OOB IN CHAIR TOLERATED SOLID DIET AFEBRILE WBC IMPROVED WNL BC (-) IMAGING NOTED - Current Medication List Current Medications: Active Medications Acetaminophen (Tylenol -) 650 mg PO Q6H PRN PRN Reason: PAIN LEVEL 1-5 Last Admin: 08/21/19 22:39 Dose: 650 mg Apixaban (Eliquis -) 2.5 mg PO BID [facility] Last Admin: 08/23/19 09:59 Dose: 2.5 mg Furosemide (Lasix Injection -) 80 mg IVPUSH TID [facility] Last Admin: 08/23/19 06:14 Dose: 80 mg Piperacillin Sod/Tazobactam (Sod 2.25 gm/ Dextrose) 50 mls @ 100 mls/hr IVPB Q8H-IV GABY; Protocol Last Admin: 08/23/19 09:59 Dose: 100 mls/hr Metoprolol Tartrate (Lopressor -) 25 mg PO BID [facility] Last Admin: 08/23/19 09:59 Dose: 25 mg - Objective Vital Signs: Vital Signs Temperature 98.2 F 08/23/19 04:00 Pulse Rate 76 08/23/19 06:00 Respiratory Rate 24 H 08/23/19 06:00 Blood Pressure 145/90 08/23/19 06:00 O2 Sat by Pulse Oximetry (%) 98 08/23/19 09:00 Constitutional: Yes: No Distress, Obese Cardiovascular: Yes: Regular Rate and Rhythm, S1, S2 Respiratory: Yes: CTA Bilaterally Gastrointestinal: Yes: Normal Bowel Sounds, Soft, Abdomen, Obese. No: Tenderness Edema: Yes Labs: CBC, BMP 08/23/19 06:44 08/23/19 06:44 INR, PTT INR 1.47 (0.83-1.09) H 08/20/19 03:30 Assessment/Plan FEVER/ LEUKOCYTOSIS IMPROVED BILIARY TRACT DISEASE CHF CKD CONTINUE EMPIRIC ZOSYN, ADJUSTED FOR CKD
--- NOTE | 2019-08-23 16:00 | PN ---
Progress Note, Physician Chief Complaint: Clinically Improving History of Present Illness: This is a 73 F known to our practice. She has history of HfPEF, chronic Lext swelling, CAD with LAD PCI 2014. She was recently admitted with cholangitis and gram negative bacteremia complicated by KEL and new onset Afib. She was transferred to [facility] and had ERCP with sphyncterotomy and removal of GB stones. Her KEL improved and at time of DC 08/15 BUN/Cr was 47/4.4. Eitiology of KEL was felt to be due to ATN. NSR was restored spontaneously as well and she was discharged on Metoprolol 12.5mg BID and Eliquis in addition to NaHCo3 and Amlodipine. She developed sudden SOB last night. In ER initially, severe hypoxemia and rapid Afib was noted. she improved on BiPAP - Current Medication List Current Medications: Active Medications Acetaminophen (Tylenol -) 650 mg PO Q6H PRN PRN Reason: PAIN LEVEL 1-5 Last Admin: 08/21/19 22:39 Dose: 650 mg Apixaban (Eliquis -) 2.5 mg PO BID [facility] Last Admin: 08/23/19 09:59 Dose: 2.5 mg Furosemide (Lasix Injection -) 80 mg IVPUSH TID [facility] Last Admin: 08/23/19 14:30 Dose: 80 mg Piperacillin Sod/Tazobactam (Sod 2.25 gm/ Dextrose) 50 mls @ 100 mls/hr IVPB Q8H-IV G[facility]Y; Protocol Last Admin: 08/23/19 09:59 Dose: 100 mls/hr Metoprolol Tartrate (Lopressor -) 25 mg PO BID [facility] Last Admin: 08/23/19 09:59 Dose: 25 mg - Objective Vital Signs: Vital Signs Temperature 97.8 F 08/23/19 10:00 Pulse Rate 106 H 08/23/19 12:00 Respiratory Rate 20 08/23/19 12:00 Blood Pressure 117/61 08/23/19 12:00 O2 Sat by Pulse Oximetry (%) 98 08/23/19 09:00 Constitutional: Yes: No Distress HENT: Yes: WNL Neck: Yes: WNL Cardiovascular: Yes: Pulse Irregular (S1S2,) Respiratory: Yes: Dullness (Bibasilar) Edema: Yes Edema: LLE: 1+, RLE: 1+ Neurological: Yes: Alert, Oriented Labs: CBC, BMP 08/23/19 06:44 08/23/19 06:44 INR, PTT INR 1.47 (0.83-1.09) H 08/20/19 03:30 Assessment/Plan 73 F known to our practice. She has history of HfPEF, chronic Lext swelling, CAD with LAD PCI 2014. She was recently admitted with cholangitis and gram negative bacteremia complicated by KEL and new onset Afib. She was transferred to [facility] and had ERCP with sphyncterotomy and removal of GB stones. Her KEL improved and at time of DC 08/15 BUN/Cr was 47/4.4. Eitiology of KEL was felt to be due to ATN. NSR was restored spontaneously as well and she was discharged on Metoprolol 12.5mg BID and Eliquis in addition to NaHCo3 and Amlodipine. She developed sudden SOB last night. In ER initially, severe hypoxemia and rapid Afib was noted. she improved on BiPAP She is admitted with SOB, hypoxemia and rapid Afib. CHF Acute on chronic combined CHF Continue Lasix 80 mg IVSS TID Follow I's/O's/Wt's/Lytes AFIB Contiue AC with apixaban 2.5 mg PO BID Rate control with Metoprolol Tartrate (Lopressor -) 25 mg PO BID CAD TP level marginally elevated in setting of respiratory distress and demand ischemia.
[2019-08-23] MEDS ORDERED: DEXTROSE 5%-WATER - 100 ML IVPB ONE (18:07)
--- NOTE | 2019-08-23 20:48 | PN ---
Progress Note, Physician - Current Medication List Current Medications: Active Medications Acetaminophen (Tylenol -) 650 mg PO Q6H PRN PRN Reason: PAIN LEVEL 1-5 Last Admin: 08/21/19 22:39 Dose: 650 mg Apixaban (Eliquis -) 2.5 mg PO BID [facility] Last Admin: 08/23/19 09:59 Dose: 2.5 mg Furosemide (Lasix Injection -) 80 mg IVPUSH TID [facility] Last Admin: 08/23/19 14:30 Dose: 80 mg Piperacillin Sod/Tazobactam (Sod 2.25 gm/ Dextrose) 50 mls @ 100 mls/hr IVPB Q8H-IV G[facility]Y; Protocol Last Admin: 08/23/19 18:26 Dose: 100 mls/hr Metoprolol Tartrate (Lopressor -) 25 mg PO BID [facility] Last Admin: 08/23/19 09:59 Dose: 25 mg - Objective Vital Signs: Vital Signs Temperature 97.8 F 08/23/19 10:00 Pulse Rate 78 08/23/19 16:00 Respiratory Rate 21 H 08/23/19 16:00 Blood Pressure 124/111 H 08/23/19 16:00 O2 Sat by Pulse Oximetry (%) 95 08/23/19 20:12 Labs: CBC, BMP 08/23/19 06:44 08/23/19 06:44 INR, PTT INR 1.47 (0.83-1.09) H 08/20/19 03:30
[2019-08-24] MEDS: PIPERACILLIN/TAZOB 2.25 GM 2.25 GM in DEXTROSE 5%-WATER - 50 ML IVPB SCH ×3 (02:30→17:44)
[2019-08-24] MEDS ORDERED: DEXTROSE 5%-WATER - 50 ML IVPB ONE ×2 (06:03→15:49)
[2019-08-24] MEDS ORDERED: PIPERACILLIN/TAZOBACTAM 2.25 GM VIAL IVPB ONE ×2 (06:03→15:49)
[2019-08-24] MEDS: FUROSEMIDE 40 MG/4 ML INJECTABLE VIAL IVPUSH SCH ×3 (06:08→21:42)
[2019-08-24 07:19] LABS: BASO % 1.2 % (0-2.0); HEMATOCRIT 26.9 % (32.4-45.2); HEMOGLOBIN 8.7 GM/dL (10.7-15.3); LYMPH % 25.7 % (8-40); MCH 26.4 pg (25.7-33.7); MCHC 32.5 g/dl (32.0-36.0); MEAN CELL VOLUME 81.2 fl (80-96); MEAN PLT VOLUME 9.2 fl (7.5-11.1); MONO % 5.6 % (3.8-10.2); NEUT % 62.5 % (42.8-82.8); PLATELET COUNT 283 K/MM3 (134-434); RBC 3.31 M/mm3 (3.60-5.2); RDW 18.5 % (11.6-15.6); WHITE BLOOD COUNT 5.1 K/mm3 (4.0-10.0)
[2019-08-24 07:48] LABS: ALBUMIN 2.2 g/dl (3.4-5.0); BILIRUBIN,TOTAL 0.8 mg/dL (0.2-1); BLOOD UREA NITROGEN 50.3 mg/dL (7-18); CALCIUM 8.4 mg/dL (8.5-10.1); CREATININE 3.5 mg/dL (0.55-1.3); MAGNESIUM 1.6 mg/dL (1.8-2.4); PHOSPHOROUS 5.2 mg/dL (2.5-4.9); POTASSIUM 3.8 mmol/L (3.5-5.1); TOT PROT 6.3 g/dl (6.4-8.2)
--- NOTE | 2019-08-24 08:10 | PN ---
Physical Exam: SUBJECTIVE: Patient seen and examined - no acute events overnight; patient reports she continues to feel better and is breathing more comfortably. OBJECTIVE: Metolazone continues to produce urine. HF: 40L, 38%. Vital Signs Period Temp Pulse Resp BP Sys/Hernandez Pulse Ox Last 24 Hr 97.6 F-97.8 F 68-106 17-24 105-133/60-111 95-98 GENERAL: The patient is awake, alert, and fully oriented, in no acute distress. HEAD: Normal with no signs of trauma. EYES: PERRL, extraocular movements intact, sclera anicteric, conjunctiva clear. No ptosis. ENT: Ears normal, nares patent, oropharynx clear without exudates, moist mucous membranes. NECK: Trachea midline, full range of motion, supple. LUNGS: Breath sounds equal, clear to auscultation bilaterally, no wheezes, no crackles, no accessory muscle use. HEART: Regular rate and rhythm, S1, S2 without murmur, rub or gallop. ABDOMEN: Soft, nontender, nondistended, normoactive bowel sounds, no guarding, no rebound, no hepatosplenomegaly, no masses. EXTREMITIES: 2+ pulses, warm, well-perfused, no edema. NEUROLOGICAL: Cranial nerves II through XII grossly intact. Normal speech, gait not observed. PSYCH: Normal mood, normal affect. SKIN: Warm, dry, normal turgor, no rashes or lesions noted Laboratory Results - last 24 hr 08/23/19 08/23/19 08/24/19 06:44 17:17 06:28 Sodium 138 138 Potassium 3.3 L 3.8 Chloride 102 100 Carbon Dioxide 24 29 Anion Gap 12 9 BUN 48.0 H 50.3 H Creatinine 3.5 H 3.5 H Est GFR (CKD-EPI)AfAm 14.13 14.13 Est GFR (CKD-EPI)NonAf 12.19 12.19 POC Glucometer 186 Random Glucose 179 H 177 H Calcium 8.2 L 8.4 L Phosphorus 4.5 5.2 H Magnesium 1.7 L 1.6 L Total Bilirubin 0.9 0.8 AST 99 H 66 H ALT 71 H 58 Alkaline Phosphatase 107 99 Total Protein 6.5 6.3 L Albumin 2.3 L 2.2 L Active Medications Generic Name Dose Route Start Last Admin Trade Name Freq PRN Reason Stop Dose Admin Acetaminophen 650 mg 08/21/19 03:58 08/21/19 22:39 Tylenol - PO 650 mg Q6H PRN Administration PAIN LEVEL 1-5 Apixaban 2.5 mg 08/21/19 22:00 08/23/19 21:12 Eliquis - PO 2.5 mg BID [facility] Administration Furosemide 80 mg 08/22/19 15:30 08/24/19 06:08 Lasix Injection - IVPUSH 80 mg TID [facility] Administration Piperacillin Sod/Tazobactam 50 mls @ 100 mls/hr 08/20/19 18:00 08/24/19 02:30 Sod 2.25 gm/ Dextrose IVPB 100 mls/hr Q8H-IV [facility]Y Administration Protocol Metoprolol Tartrate 25 mg 08/20/19 22:00 08/23/19 21:12 Lopressor - PO 25 mg BID [facility] Administration ASSESSMENT/PLAN: #Acute Hypercapneic and Hypoxic Respiratory Failure #CHF exacerbation #Afib #CAD #DM #HTN #Obesity #ALL (s/p chemo) #Chronic venous stasis #Renal failure #Cholelithiasis #R/O Sepsis #Lactic Acidosis #Pericardial effusion (noted 08/06 ECHO) #OSAS / RO OHS -Metolazone x2 days; will continue -follow urine output. -on HFNC: continue to wean -Strict I&O, daily weights -monitor cr -rate control -AC with eliquis -Iv abx per ID -trend lactic acid -RUQ US negative for acute cholecystitis Visit type - Emergency Visit Emergency Visit: Yes ED Registration Date: 08/20/19 Care time: The patient presented to the Emergency Department on the above date and was hospitalized for further evaluation of their emergent condition. - New Patient This patient is new to me today: No - Critical Care Critical Care patient: Yes Total Critical Care Time (in minutes): 38 Critical Care Statement: The care of this patient involved high complexity decision making to prevent further life threatening deterioration of the patient 's condition and/or to evaluate & treat vital organ system(s) failure or risk of failure. ATTENDING PHYSICIAN STATEMENT I saw and evaluated the patient. I reviewed the resident's note and discussed the case with the resident. I agree with the resident's findings and plan as documented. SUBJECTIVE: OBJECTIVE: ASSESSMENT AND PLAN:
[2019-08-24] MEDS: METOPROLOL TARTRATE 25 MG TABLET (FP) PO SCH ×2 (09:11→21:42)
[2019-08-24] MEDS: APIXABAN 2.5 MG TABLET PO SCH ×2 (09:11→21:42)
--- NOTE | 2019-08-24 09:28 | PN ---
Teaching Attending Note Name of Resident: Aristides Clark ATTENDING PHYSICIAN STATEMENT I saw and evaluated the patient. I reviewed the resident's note and discussed the case with the resident. I agree with the resident's findings and plan as documented. SUBJECTIVE: Patient seen and examined in the ICU. Breathing is much improved. Reports less SOB. No CP. Currently off HFOT. No acute events overnight. Intake & Output 08/21/19 08/22/19 08/23/19 08/24/19 23:59 23:59 23:59 23:59 Intake Total 740 290 360 50 Output Total 2000 3100 2500 3000 Balance -2181 -8540 -2140 -2950 Weight 264 lb 12.403 oz 264 lb 255 lb 1.6 oz Last Vital Signs Temp Pulse Resp BP Pulse Ox 97.6 F 82 22 H 127/83 92 L 08/23/19 22:00 08/24/19 08:57 08/24/19 04:00 08/24/19 04:00 08/24/19 08:57 Active Medications Acetaminophen (Tylenol -) 650 mg PO Q6H PRN PRN Reason: PAIN LEVEL 1-5 Last Admin: 08/21/19 22:39 Dose: 650 mg Apixaban (Eliquis -) 2.5 mg PO BID [facility] Last Admin: 08/24/19 09:11 Dose: 2.5 mg Furosemide (Lasix Injection -) 80 mg IVPUSH TID [facility] Last Admin: 08/24/19 06:08 Dose: 80 mg Piperacillin Sod/Tazobactam (Sod 2.25 gm/ Dextrose) 50 mls @ 100 mls/hr IVPB Q8H-IV GABY; Protocol Last Admin: 08/24/19 09:17 Dose: 100 mls/hr Metoprolol Tartrate (Lopressor -) 25 mg PO BID [facility] Last Admin: 08/24/19 09:11 Dose: 25 mg Constitutional: Yes: Awake and alert, NAD Eyes: Yes: Conjunctiva Clear, EOM Intact HENT: Yes: Atraumatic, Normocephalic Neck: Yes: Supple, Trachea Midline Respiratory: Yes: Decreasing bilateral Rales & Rhonchi Gastrointestinal: Yes: Normal Bowel Sounds, Soft Cardiovascular: Yes: Pulse Irregular JVD: Yes Carotid Bruit: No Heart Sounds: Yes: S1, S2 Murmur: No: Systolic Murmur, Diastolic Murmur Edema: Yes: LLE: 2+, RLE: 2+ Laboratory Results - last 24 hr 08/23/19 08/24/19 08/24/19 17:17 06:28 06:28 WBC 5.1 RBC 3.31 L Hgb 8.7 L Hct 26.9 L MCV 81.2 MCH 26.4 MCHC 32.5 RDW 18.5 H Plt Count 283 MPV 9.2 Absolute Neuts (auto) 3.2 Neutrophils % 62.5 D Lymphocytes % 25.7 D Monocytes % 5.6 Eosinophils % 5.0 H D Basophils % 1.2 Nucleated RBC % 0 Sodium 138 Potassium 3.8 Chloride 100 Carbon Dioxide 29 Anion Gap 9 BUN 50.3 H Creatinine 3.5 H Est GFR (CKD-EPI)AfAm 14.13 Est GFR (CKD-EPI)NonAf 12.19 POC Glucometer 186 Random Glucose 177 H Calcium 8.4 L Phosphorus 5.2 H Magnesium 1.6 L Total Bilirubin 0.8 AST 66 H ALT 58 Alkaline Phosphatase 99 Total Protein 6.3 L Albumin 2.2 L ASSESSMENT/PLAN: Acute Hypercapneic and Hypoxic Respiratory Failure CHF Afib CAD DM HTN Obesity ALL (s/p chemo) Chronic venous stasis Renal failure (?acute vs subacute) Cholelithiasis R/O Sepsis Lactic Acidosis (?) Due to increased WOB Pericardial effusion (noted 08/06 ECHO) OSAS / RO OHS Continue IV diuresis Wean HFOT to NC O2 Strict I&O, daily weights Monitor urine output Rate control Continue AC, Eliquis BID ABX per ID Cardiac Telemetry monitoring Dr Godwin
--- NOTE | 2019-08-24 09:46 | PN ---
Progress Note (short form) - Note Progress Note: RENAL Pt is awake and alert denies complaints Last Vital Signs Temp Pulse Resp BP Pulse Ox 97.6 F 82 22 H 127/83 92 L 08/23/19 22:00 08/24/19 08:57 08/24/19 04:00 08/24/19 04:00 08/24/19 08:57 sat in my presence was 98 % lungs clear cvs s1s2 rr abd soft, not tender ext +3 edema neuro a+ox3 CBC, BMP 08/24/19 06:28 08/24/19 06:28 Current Medications Generic Name Dose Route Start Last Admin Trade Name Freq PRN Reason Stop Dose Admin Acetaminophen 650 mg 08/21/19 03:58 08/21/19 22:39 Tylenol - PO 650 mg Q6H PRN Administration PAIN LEVEL 1-5 Apixaban 2.5 mg 08/21/19 22:00 08/24/19 09:11 Eliquis - PO 2.5 mg BID GABY Administration Furosemide 80 mg 08/22/19 15:30 08/24/19 06:08 Lasix Injection - IVPUSH 80 mg TID GABY Administration Piperacillin Sod/Tazobactam 50 mls @ 100 mls/hr 08/20/19 18:00 08/24/19 09:17 Sod 2.25 gm/ Dextrose IVPB 100 mls/hr Q8H-IV GABY Administration Protocol Metoprolol Tartrate 25 mg 08/20/19 22:00 08/24/19 09:11 Lopressor - PO 25 mg BID GABY Administration Impression 1. KEL- renal function has stabilized 2. CHF 3. hx sepsis from biliary source 4. cad 5. ALL 6. CAD 7. a-fib 8. lactic acidosis 9. pt previously had a positive nina- speckled and nucleolar Plan -continue diuretics -give prn metolazone daily if not in negative balance -may need hd if not responding -rheum eval -obtain urine protein and creat -complements given high nina, anti ds dna MV
[2019-08-24] MEDS ORDERED: MAGNESIUM SULF 50% (8.12 MEQ/2 ML-1 GM VIAL) IVPB ONE (10:27)
--- NOTE | 2019-08-24 11:23 | PN ---
Progress Note, Physician History of Present Illness: AWAKE, ALERT OOB IN CHAIR TOLERATED SOLID DIET AFEBRILE WBC IMPROVED WNL BC (-) IMAGING NOTED - Current Medication List Current Medications: Active Medications Acetaminophen (Tylenol -) 650 mg PO Q6H PRN PRN Reason: PAIN LEVEL 1-5 Last Admin: 08/21/19 22:39 Dose: 650 mg Apixaban (Eliquis -) 2.5 mg PO BID [facility] Last Admin: 08/24/19 09:11 Dose: 2.5 mg Furosemide (Lasix Injection -) 80 mg IVPUSH TID [facility] Last Admin: 08/24/19 06:08 Dose: 80 mg Piperacillin Sod/Tazobactam (Sod 2.25 gm/ Dextrose) 50 mls @ 100 mls/hr IVPB Q8H-IV GABY; Protocol Last Admin: 08/24/19 09:17 Dose: 100 mls/hr Lidocaine (Lidoderm Patch -) 1 patch TP DAILY [facility] Metoprolol Tartrate (Lopressor -) 25 mg PO BID [facility] Last Admin: 08/24/19 09:11 Dose: 25 mg Miscellaneous (Lidoderm Patch Removal) 1 each MC DAILY@2200 [facility] - Objective Vital Signs: Vital Signs Temperature 97.6 F 08/23/19 22:00 Pulse Rate 83 08/24/19 10:00 Respiratory Rate 26 H 08/24/19 10:00 Blood Pressure 136/54 L 08/24/19 10:00 O2 Sat by Pulse Oximetry (%) 92 L 08/24/19 09:00 Constitutional: Yes: No Distress, Obese Eyes: Yes: Conjunctiva Clear Cardiovascular: Yes: Regular Rate and Rhythm, S1, S2 Respiratory: Yes: CTA Bilaterally Gastrointestinal: Yes: Normal Bowel Sounds, Soft, Abdomen, Obese. No: Tenderness Edema: Yes Labs: CBC, BMP 08/24/19 06:28 08/24/19 06:28 INR, PTT INR 1.47 (0.83-1.09) H 08/20/19 03:30 Assessment/Plan FEVER/ LEUKOCYTOSIS IMPROVED BILIARY TRACT DISEASE CHF CKD CONTINUE EMPIRIC ZOSYN, ADJUSTED FOR CKD DISCUSSED WITH FAMILY AT BEDSIDE
[2019-08-24] MEDS: LIDOCAINE 5% TOPICAL PATCH TP SCH (11:25)
--- NOTE | 2019-08-24 15:26 | PN ---
Progress Note, Physician Chief Complaint: Clinically Improving History of Present Illness: This is a 73 F known to our practice. She has history of HfPEF, chronic Lext swelling, CAD with LAD PCI 2014. She was recently admitted with cholangitis and gram negative bacteremia complicated by KEL and new onset Afib. She was transferred to [facility] and had ERCP with sphyncterotomy and removal of GB stones. Her KEL improved and at time of DC 08/15 BUN/Cr was 47/4.4. Eitiology of KEL was felt to be due to ATN. NSR was restored spontaneously as well and she was discharged on Metoprolol 12.5mg BID and Eliquis in addition to NaHCo3 and Amlodipine. She developed sudden SOB last night. In ER initially, severe hypoxemia and rapid Afib was noted. she improved on BiPAP 08/24/19 Successfully diuressing - Current Medication List Current Medications: Active Medications Acetaminophen (Tylenol -) 650 mg PO Q6H PRN PRN Reason: PAIN LEVEL 1-5 Last Admin: 08/21/19 22:39 Dose: 650 mg Apixaban (Eliquis -) 2.5 mg PO BID [facility] Last Admin: 08/24/19 09:11 Dose: 2.5 mg Furosemide (Lasix Injection -) 80 mg IVPUSH TID [facility] Last Admin: 08/24/19 06:08 Dose: 80 mg Piperacillin Sod/Tazobactam (Sod 2.25 gm/ Dextrose) 50 mls @ 100 mls/hr IVPB Q8H-IV GABY; Protocol Last Admin: 08/24/19 09:17 Dose: 100 mls/hr Lidocaine (Lidoderm Patch -) 1 patch TP DAILY [facility] Last Admin: 08/24/19 11:25 Dose: 1 patch Metoprolol Tartrate (Lopressor -) 25 mg PO BID [facility] Last Admin: 08/24/19 09:11 Dose: 25 mg Miscellaneous (Lidoderm Patch Removal) 1 each MC DAILY@2200 [facility] - Objective Vital Signs: Vital Signs Temperature 98.0 F 08/24/19 10:00 Pulse Rate 70 08/24/19 12:00 Respiratory Rate 13 08/24/19 12:00 Blood Pressure 111/53 L 08/24/19 12:00 O2 Sat by Pulse Oximetry (%) 92 L 08/24/19 09:00 Constitutional: Yes: No Distress Eyes: Yes: WNL HENT: Yes: WNL Neck: Yes: WNL Cardiovascular: Yes: Regular Rate and Rhythm Respiratory: Yes: Dullness (Bibasilar) Gastrointestinal: Yes: Soft Edema: LLE: 1+, RLE: 1+ Neurological: Yes: Alert, Oriented Labs: CBC, BMP 08/24/19 06:28 08/24/19 06:28 INR, PTT INR 1.47 (0.83-1.09) H 08/20/19 03:30 Assessment/Plan 73 F known to our practice. She has history of HfPEF, chronic Lext swelling, CAD with LAD PCI 2014. She was recently admitted with cholangitis and gram negative bacteremia complicated by KEL and new onset Afib. She was transferred to [facility] and had ERCP with sphyncterotomy and removal of GB stones. Her KEL improved and at time of DC 08/15 BUN/Cr was 47/4.4. Eitiology of KEL was felt to be due to ATN. NSR was restored spontaneously as well and she was discharged on Metoprolol 12.5mg BID and Eliquis in addition to NaHCo3 and Amlodipine. She developed sudden SOB last night. In ER initially, severe hypoxemia and rapid Afib was noted. she improved on BiPAP She is admitted with SOB, hypoxemia and rapid Afib. CHF Acute on chronic combined CHF Continue Lasix 80 mg IVSS TID Follow I's/O's/Wt's/Lytes AFIB Contiue AC with apixaban 2.5 mg PO BID Rate control with Metoprolol Tartrate (Lopressor -) 25 mg PO BID CAD TP level marginally elevated in setting of respiratory distress and demand ischemia. HCT 28% -> 26.9% Continue to monitor, l would check stool guaiac.
--- NOTE | 2019-08-24 18:38 | PN ---
Progress Note, Physician History of Present Illness: This was entered in error - Current Medication List Current Medications: Active Medications Acetaminophen (Tylenol -) 650 mg PO Q6H PRN PRN Reason: PAIN LEVEL 1-5 Last Admin: 08/21/19 22:39 Dose: 650 mg Apixaban (Eliquis -) 2.5 mg PO BID [facility] Last Admin: 08/24/19 09:11 Dose: 2.5 mg Furosemide (Lasix Injection -) 80 mg IVPUSH TID [facility] Last Admin: 08/24/19 15:57 Dose: 80 mg Piperacillin Sod/Tazobactam (Sod 2.25 gm/ Dextrose) 50 mls @ 100 mls/hr IVPB Q8H-IV GABY; Protocol Last Admin: 08/24/19 17:44 Dose: 100 mls/hr Lidocaine (Lidoderm Patch -) 1 patch TP DAILY [facility] Last Admin: 08/24/19 11:25 Dose: 1 patch Metoprolol Tartrate (Lopressor -) 25 mg PO BID [facility] Last Admin: 08/24/19 09:11 Dose: 25 mg Miscellaneous (Lidoderm Patch Removal) 1 each MC DAILY@2200 [facility] - Objective Vital Signs: Vital Signs Temperature 98.0 F 08/24/19 10:00 Pulse Rate 73 08/24/19 16:00 Respiratory Rate 16 08/24/19 16:00 Blood Pressure 102/83 08/24/19 16:00 O2 Sat by Pulse Oximetry (%) 92 L 08/24/19 09:00 Labs: CBC, BMP 08/24/19 06:28 08/24/19 06:28 INR, PTT INR 1.47 (0.83-1.09) H 08/20/19 03:30
--- NOTE | 2019-08-24 19:07 | CONSULT ---
Consult - text type - Consultation Consultation Note: 73 F with history of HfPEF, chronic Lext swelling, CAD with LAD PCI 2014. She was recently admitted with cholangitis and gram negative bacteremia complicated by KEL and new onset Afib. She was transferred to [facility] and had ERCP with sphincterotomy and removal of GB stones. Her KEL improved and at time of DC BUN/Cr was 47/4.4. - History Source History Provided By: Patient, Family Member, Medical Record - Past Medical History Cardio/Vascular: Yes: CAD, CHF, HTN, Hyperlipdemia, CA (s/p EES stent to LAD) Endocrine: Yes: Diabetes Mellitus - Past Surgical History Past Surgical History: Yes: Stent - Smoking History Smoking history: Never smoked - Social History Usual Living Arrangement: With Spouse ADL: Independent Occupation: retired dietary staff at [employer] - Allergies Allergies/Adverse Reactions: Allergies Allergy/AdvReac Type Severity Reaction Status Date / Time No Known Allergies Allergy Verified 08/20/19 03:35 - Home Medications Home Medications: Ambulatory Orders Metoprolol Tartrate 25 mg PO DAILY 08/05/19 Apixaban [Eliquis -] 2.5 mg PO BID 08/20/19 Ciprofloxacin [Cipro (Restricted To Id)] 500 mg PO ASDIR 08/20/19 Metronidazole 500 mg PO ASDIR 08/20/19 Sodium Bicarbonate - 1,300 mg PO TID 08/20/19 Current Medications Generic Name Dose Route Start Last Admin Trade Name Freq PRN Reason Stop Dose Admin Acetaminophen 650 mg 08/21/19 03:58 08/21/19 22:39 Tylenol - PO 650 mg Q6H PRN Administration PAIN LEVEL 1-5 Apixaban 2.5 mg 08/21/19 22:00 08/24/19 09:11 Eliquis - PO 2.5 mg BID GABY Administration Furosemide 80 mg 08/22/19 15:30 08/24/19 15:57 Lasix Injection - IVPUSH 80 mg TID GABY Administration Piperacillin Sod/Tazobactam 50 mls @ 100 mls/hr 08/20/19 18:00 08/24/19 17:44 Sod 2.25 gm/ Dextrose IVPB 100 mls/hr Q8H-IV GABY Administration Protocol Lidocaine 1 patch 08/24/19 10:30 08/24/19 11:25 Lidoderm Patch - TP 1 patch DAILY GABY Administration Metoprolol Tartrate 25 mg 08/20/19 22:00 08/24/19 09:11 Lopressor - PO 25 mg BID GABY Administration Miscellaneous 1 each 08/24/19 22:00 Lidoderm Patch Removal MC DAILY@2200 GABY Vital Signs: Last Vital Signs Temp Pulse Resp BP Pulse Ox 98.5 F 79 24 H 110/44 L 92 L 08/24/19 18:00 08/24/19 18:00 08/24/19 18:00 08/24/19 18:00 08/24/19 09:00 Cor: RSR, No murmurs, No gallops Lungs: Clear to P&A Abd: Soft, Normal bowel sounds, No organomegaly Ext:No significant edema Skin: No rashes, Integument intact A/P is a 73 y/o female with PMHx of CAD, CHF,HTN, HLD, DM2and APL 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 She follows-up with Dr. Nevin Neil at [facility] and is in clinical surveillance. More recently, she had complained of joint pains, increased swelling and rash in her LE. Labs performed at an outside facility had shown polyclonal gammopaty , elevated KAREN and RF. 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 She was recently admitted to [facility] with cholangitis and is s/p ERCP with stone/ sludge removal on 08/08/19. she is currently being treated for afib/CHF/KEL Cr 3.5 today On eliquis/lasix Anemia of chronic disease WBC/platelets are normal Reconsulting Dr. Mccoy regarding leukocytoclastic vasculitis noted on recent skin biopsy f/u rheumatology recommendations
[2019-08-24] MEDS: LIDOCAINE PATCH REMOVAL MC SCH (21:42)
--- NOTE | 2019-08-24 23:22 | PN ---
Progress Note, Physician History of Present Illness: Pt sitting up in chair Pt states her appetite is better - Current Medication List Current Medications: Active Medications Acetaminophen (Tylenol -) 650 mg PO Q6H PRN PRN Reason: PAIN LEVEL 1-5 Last Admin: 08/21/19 22:39 Dose: 650 mg Apixaban (Eliquis -) 2.5 mg PO BID [facility] Last Admin: 08/24/19 21:42 Dose: 2.5 mg Furosemide (Lasix Injection -) 80 mg IVPUSH TID [facility] Last Admin: 08/24/19 21:42 Dose: 80 mg Piperacillin Sod/Tazobactam (Sod 2.25 gm/ Dextrose) 50 mls @ 100 mls/hr IVPB Q8H-IV GABY; Protocol Last Admin: 08/24/19 17:44 Dose: 100 mls/hr Lidocaine (Lidoderm Patch -) 1 patch TP DAILY [facility] Last Admin: 08/24/19 11:25 Dose: 1 patch Metoprolol Tartrate (Lopressor -) 25 mg PO BID [facility] Last Admin: 08/24/19 21:42 Dose: 25 mg Miscellaneous (Lidoderm Patch Removal) 1 each MC DAILY@2200 [facility] Last Admin: 08/24/19 21:42 Dose: 1 each - Objective Vital Signs: Vital Signs Temperature 98.5 F 08/24/19 18:00 Pulse Rate 79 08/24/19 18:00 Respiratory Rate 24 H 08/24/19 21:00 Blood Pressure 110/44 L 08/24/19 18:00 O2 Sat by Pulse Oximetry (%) 98 08/24/19 21:00 Constitutional: Yes: Well Nourished Neck: Yes: WNL, Supple Cardiovascular: Yes: Tachycardia Respiratory: Yes: Diminished Gastrointestinal: Yes: WNL, Normal Bowel Sounds, Soft, Abdomen, Obese Edema: LLE: 1+, RLE: 1+ Labs: CBC, BMP 08/24/19 06:28 08/24/19 06:28 INR, PTT INR 1.47 (0.83-1.09) H 08/20/19 03:30 Problem List - Problems (1) Leukocytosis Assessment/Plan: Lactic acidosis Cont IV zosyn BC remain negative WBC now normal As per ID Code(s): D72.829 - ELEVATED WHITE BLOOD CELL COUNT, UNSPECIFIED (2) Acute on chronic combined systolic (congestive) and diastolic (congestive) heart failure Assessment/Plan: Cont IV lasix TID Metolazone prn Monitor electrolytes/renal function Code(s): I50.43 - ACUTE ON CHRONIC COMBINED SYSTOLIC AND DIASTOLIC HRT FAIL (3) Renal failure Assessment/Plan: Acute on chronic renal failure As per renal Slight increase in creatinine Code(s): N19 - UNSPECIFIED KIDNEY FAILURE Qualifiers: Renal failure chronicity: unspecified chronicity Qualified Code(s): N19 - Unspecified kidney failure (4) Respiratory failure Assessment/Plan: Improving Due to acute CHF Code(s): J96.90 - RESPIRATORY FAILURE, UNSP, UNSP W HYPOXIA OR HYPERCAPNIA Qualifiers: Chronicity: acute on chronic Respiratory failure complication: hypoxia Qualified Code(s): J96.21 - Acute and chronic respiratory failure with hypoxia (5) Afib Assessment/Plan: Heart rate controlled Cont eliquis Code(s): I48.91 - UNSPECIFIED ATRIAL FIBRILLATION Qualifiers: Atrial fibrillation type: unspecified Qualified Code(s): I48.91 - Unspecified atrial fibrillation (6) CAD (coronary artery disease) Code(s): I25.10 - ATHSCL HEART DISEASE OF [place] CORONARY ARTERY W/O ANG PCTRS (7) Diabetes Assessment/Plan: Check HgA1c Code(s): E11.9 - TYPE 2 DIABETES MELLITUS WITHOUT COMPLICATIONS Qualifiers: Diabetes mellitus type: type 2 (8) HTN (hypertension) Assessment/Plan: BP stable Code(s): I10 - ESSENTIAL (PRIMARY) HYPERTENSION (9) Hyperlipidemia Code(s): E78.5 - HYPERLIPIDEMIA, UNSPECIFIED (10) Anemia Assessment/Plan: Multifactorial Code(s): D64.9 - ANEMIA, UNSPECIFIED (11) APL (acute promyelocytic leukemia) Assessment/Plan: Onco consult noted Pt being evaluated by rheum also (H/O recent skin bx wc showed leukocytoclastic vasculitis
--- NOTE | 2019-08-24 23:33 | CONSULT ---
Consult Consult Specialty:: Rheumatology - History of Present Illness History of Present Illness: 73 year old female with history of acute promyelocytic leukemia (s/p chemotherapy) coronary artery disease, NSTEMI (s/p drug eluting stent), congestive heart failure, Afib (on Eliquis), hypertension, diabetes mellitus, venous stasis admitted with shortness of breath. Rule out cryoglobulinemia. The patient was recently admitted (08/05/19) with cholangitis and gram negative bacteremia complicated by KEL and new onset Afib. She was transferred to [facility] and had ERCP with sphincterotomy and removal of gallbladder stones.. On Admission she had probable sepsis (leukocytosis and lactic acid 4.1). Creatinine on 07/17/19: 0.96, on 08/05/19: 1.4, on 08/20/19: 3.2 and on 08/24/19: 3.5. Urinalysis with blood 3+ and protein 1+. I saw the patient in my office once on 07/17/19. She had a 6-month history of non pruritic erythematous papules in thighs and legs distal to the knees. On the patient had a skin biopsy by Dr. Byrd that was reported with leukocytoclastic vasculitis. 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 She had a 3 month history of acrocyanosis with no triphasic Raynaud's phenomenon, She denied oral ulcers, dry eyes, dry mouth , shortness of breath, chest pain or fever. Work-up from 02/19/19 revealed negative serology for hepatitis A, B and C. Laboratory work-up from 07/17/19 revealed a creatinine of 0.96, urinalysis with no blood or protein. KAREN was 1:640 with nucleolar pattern. Rheumatoid factor was 465. CCP, anti-DNAds, ANCA, myeloperoxidase, and proteinase-3 were all negative. Complement was decreased (C3: 81 and C4: <3). A faint IgG kappa band was present against a dense polyclonal background. A developing plasma cell disease could not be excluded. Free kappa was 82.5 (N<19.4) and free lambda 31.2 (N<26.3). [place]/Lambda ratio 2.86. I spoke with the patient oncologist on 08/01/19 suggesting probable relapse of the leukemia, however she ruled out this possibility based on PCR for leukemia detection done every 3 months. - History Source History Provided By: Patient, Medical Record - Past Medical History Cardio/Vascular: Yes: CAD, CHF, HTN, Hyperlipdemia, [place] (s/p EES stent to LAD) Hepatobiliary: Yes: Cholelithiasis, Cholecystitis, Choledocholithiasis Renal/: Yes: Renal Inusuff ...: No Endocrine: Yes: Diabetes Mellitus - Past Surgical History Past Surgical History: Yes: Stent Additional Surgical History: ERCP - Alcohol/Substance Use Hx Alcohol Use: No - Smoking History Smoking history: Never smoked Have you smoked in the past 12 months: No Aproximately how many cigarettes per day: 1 If you are a former smoker, when did you quit?: 3 years ago - Social History Usual Living Arrangement: With Spouse ADL: Independent Occupation: retired dietary staff at [employer] History of Recent Travel: No Home Medications - Allergies Allergies/Adverse Reactions: Allergies Allergy/AdvReac Type Severity Reaction Status Date / Time No Known Allergies Allergy Verified 08/20/19 03:35 - Home Medications Home Medications: Ambulatory Orders Metoprolol Tartrate 25 mg PO DAILY 08/05/19 Apixaban [Eliquis -] 2.5 mg PO BID 08/20/19 Ciprofloxacin [Cipro (Restricted To Id)] 500 mg PO ASDIR 08/20/19 Metronidazole 500 mg PO ASDIR 08/20/19 Sodium Bicarbonate - 1,300 mg PO TID 08/20/19 Review of Systems - Review of Systems Constitutional: reports: Malaise Eyes: reports: No Symptoms HENT: reports: No Symptoms Neck: reports: No Symptoms Cardiovascular: reports: Shortness of Breath Respiratory: reports: SOB Gastrointestinal: reports: No Symptoms Musculoskeletal: reports: Other (No active joints) Physical Exam Vital Signs: Vital Signs Temperature 98.5 F 08/24/19 18:00 Pulse Rate 79 08/24/19 18:00 Respiratory Rate 24 H 08/24/19 21:00 Blood Pressure 110/44 L 08/24/19 18:00 O2 Sat by Pulse Oximetry (%) 98 08/24/19 21:00 Constitutional: Yes: Mild Distress Eyes: Yes: WNL HENT: Yes: WNL Neck: Yes: WNL Cardiovascular: Yes: WNL Respiratory: Yes: WNL Musculoskeletal: Yes: Other (No active joints) Integumentary: Yes: Other (Skin rash related to leukocytoclastic vasculitis resolved.) Labs: CBC, BMP 08/24/19 06:28 08/24/19 06:28 Problem List - Problems (1) Leukocytoclastic vasculitis Assessment/Plan: Recent history of leukocytoclastic vasculitis, now resolved. 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 This problem is not related to the medical problems on this admission, sepsis and shortness of breath and probably it is also not related to progression in kidney disease. Plan: I will request complement and M spike. Continue same medications. Code(s): M31.0 - HYPERSENSITIVITY ANGIITIS
[2019-08-25] MEDS ORDERED: PIPERACILLIN/TAZOBACTAM 2.25 GM VIAL IVPB ONE ×3 (03:12→16:03)
[2019-08-25] MEDS ORDERED: DEXTROSE 5%-WATER - 50 ML IVPB ONE ×3 (03:13→16:03)
[2019-08-25] MEDS: PIPERACILLIN/TAZOB 2.25 GM 2.25 GM in DEXTROSE 5%-WATER - 50 ML IVPB SCH ×3 (03:21→17:04)
[2019-08-25] MEDS: FUROSEMIDE 40 MG/4 ML INJECTABLE VIAL IVPUSH SCH ×2 (06:37→13:48)
[2019-08-25] MEDS ORDERED: METOLAZONE 2.5 MG TABLET (FP) PO ONE ×2 (09:13→13:30)
[2019-08-25 10:14] LABS: BASO % 0.4 % (0-2.0); HEMOGLOBIN 9.7 GM/dL (10.7-15.3); LYMPH % 15.8 % (8-40); MCH 26.4 pg (25.7-33.7); MCHC 32.3 g/dl (32.0-36.0); MEAN CELL VOLUME 81.9 fl (80-96); MEAN PLT VOLUME 9.3 fl (7.5-11.1); NEUT % 77.8 % (42.8-82.8); PLATELET COUNT 290 K/MM3 (134-434); RBC 3.66 M/mm3 (3.60-5.2); RDW 18.9 % (11.6-15.6); WHITE BLOOD COUNT 6.4 K/mm3 (4.0-10.0)
[2019-08-25] MEDS ORDERED: PT OWN MED DRAWER 7, Y5N ONE (10:21)
[2019-08-25] MEDS: APIXABAN 2.5 MG TABLET PO SCH ×2 (10:23→21:17)
[2019-08-25] MEDS: METOPROLOL TARTRATE 25 MG TABLET (FP) PO SCH ×2 (10:23→21:17)
[2019-08-25] MEDS: LIDOCAINE 5% TOPICAL PATCH TP SCH (10:24)
[2019-08-25 10:43] LABS: ALBUMIN 2.5 g/dl (3.4-5.0); CALCIUM 8.9 mg/dL (8.5-10.1); CREATININE 3.3 mg/dL (0.55-1.3); MAGNESIUM 1.9 mg/dL (1.8-2.4); PHOSPHOROUS 5.2 mg/dL (2.5-4.9); POTASSIUM 3.5 mmol/L (3.5-5.1); TOT PROT 7.1 g/dl (6.4-8.2)
--- NOTE | 2019-08-25 11:41 | PN ---
Teaching Attending Note Name of Resident: Nancy Wetzel ATTENDING PHYSICIAN STATEMENT I saw and evaluated the patient. I reviewed the resident's note and discussed the case with the resident. I agree with the resident's findings and plan as documented. SUBJECTIVE: Pt seen and examined in the ICU. Breathing improving. No chest pain. No fevers or chills. OBJECTIVE: Vital Signs Period Temp Pulse Resp BP Sys/Hernandez Pulse Ox Last 24 Hr 98.0 F-98.7 F 68-92 13-25 102-137/44-83 96-98 Intake & Output 08/22/19 08/23/19 08/24/19 08/25/19 23:59 23:59 23:59 23:59 Intake Total 290 360 530 50 Output Total 3100 2690 6100 2500 Balance -8018 -2141 -5507 -4950 Weight 119.748 kg 115.711 kg 113.58 kg Gen: NAD at rest Heart: RRR Lung: decreased breath sounds at the bases Abd: soft, nontender Ext: + edema CBC, BMP 08/25/19 09:44 08/25/19 09:44 Active Medications Acetaminophen (Tylenol -) 650 mg PO Q6H PRN PRN Reason: PAIN LEVEL 1-5 Last Admin: 08/21/19 22:39 Dose: 650 mg Apixaban (Eliquis -) 2.5 mg PO BID [facility] Last Admin: 08/25/19 10:23 Dose: 2.5 mg Furosemide (Lasix Injection -) 80 mg IVPUSH TID [facility] Last Admin: 08/25/19 06:37 Dose: 80 mg Piperacillin Sod/Tazobactam (Sod 2.25 gm/ Dextrose) 50 mls @ 100 mls/hr IVPB Q8H-IV GABY; Protocol Last Admin: 08/25/19 10:24 Dose: 100 mls/hr Lidocaine (Lidoderm Patch -) 1 patch TP DAILY [facility] Last Admin: 08/25/19 10:24 Dose: 1 patch Metolazone (Zaroxolyn -) 2.5 mg PO ONCE ONE Stop: 08/25/19 13:31 Metoprolol Tartrate (Lopressor -) 25 mg PO BID [facility] Last Admin: 08/25/19 10:23 Dose: 25 mg Miscellaneous (Lidoderm Patch Removal) 1 each MC DAILY@2200 [facility] Last Admin: 08/24/19 21:42 Dose: 1 each ASSESSMENT AND PLAN: Acute Hypercapneic and Hypoxic Respiratory Failure Acute on Chronic Diastolic Heart Failure Acute Kidney Injury Lactic Acidosis Atrial Fibrillation CAD Pericardial Effusion HTN DM ALL Cholelithiasis Anemia ENOC - continue lasix, zaroxolyn - monitor urine output, creatinine - O2 to keep SpO2 >90% - daily weights - rate control - continue anticoagulation - antibiotics per ID
--- NOTE | 2019-08-25 11:49 | PN ---
Physical Exam: SUBJECTIVE: Patient seen and examined. States her breathing feels better. Denies chest pain. Complains of mild RUQ abd pain. Reviewed imaging done during this admission of abd, gallbladder seen without stones, only mild diffuse gallbladder wall thickening without signs of dilation of biliary ducts. No acute events overnight. Sitting in chair because she feels that she breaths better when sitting down in the chair vs. lying in bed. OBJECTIVE: Vital Signs Period Temp Pulse Resp BP Sys/Hernandez Pulse Ox Last 24 Hr 98.0 F-98.7 F 68-92 13-25 102-137/44-83 96-98 GENERAL: The patient is awake, alert, and fully oriented, in no acute distress. HEAD: Normal with no signs of trauma. EYES: EOMI, no scleral icterus ENT: moist mucous membranes NECK: Trachea midline, full range of motion, supple. LUNGS: Breath sounds equal, clear to auscultation bilaterally, no wheezes, no crackles, no accessory muscle use. HEART: Regular rate and rhythm, S1, S2 without murmur, rub or gallop. ABDOMEN: Soft, nondistended, normoactive bowel sounds. Mild tenderness to palpation over RUQ. Negative murphys sign EXTREMITIES: 2+ pulses, warm, well-perfused. 2+ non pitting edema of bilateral lower extremities. NEUROLOGICAL: Normal speech, gait not observed. PSYCH: appropriate mood and affect SKIN: Warm, dry Laboratory Results - last 24 hr 08/24/19 08/24/19 08/24/19 11:00 17:12 21:42 WBC RBC Hgb Hct MCV MCH MCHC RDW Plt Count MPV Absolute Neuts (auto) Neutrophils % Lymphocytes % Monocytes % Eosinophils % Basophils % Nucleated RBC % Sodium Potassium Chloride Carbon Dioxide Anion Gap BUN Creatinine Est GFR (CKD-EPI)AfAm Est GFR (CKD-EPI)NonAf POC Glucometer 169 197 Random Glucose Hemoglobin A1c % Calcium Phosphorus Magnesium Total Bilirubin AST ALT Alkaline Phosphatase Total Protein Albumin U Random Total Protein 19.4 H Urine Creatinine 32.0 Protein/Creatinin Ratio 0.6 08/25/19 08/25/19 08/25/19 09:44 09:44 09:44 WBC 6.4 RBC 3.66 Hgb 9.7 L Hct 30.0 L MCV 81.9 MCH 26.4 MCHC 32.3 RDW 18.9 H Plt Count 290 MPV 9.3 Absolute Neuts (auto) 5.0 Neutrophils % 77.8 D Lymphocytes % 15.8 D Monocytes % 3.0 L Eosinophils % 3.0 Basophils % 0.4 Nucleated RBC % 0 Sodium 138 Potassium 3.5 Chloride 95 L Carbon Dioxide 32 Anion Gap 11 BUN 60.0 H Creatinine 3.3 H Est GFR (CKD-EPI)AfAm 15.18 Est GFR (CKD-EPI)NonAf 13.09 POC Glucometer Random Glucose 176 H Hemoglobin A1c % 6.4 H Calcium 8.9 Phosphorus 5.2 H Magnesium 1.9 Total Bilirubin 1.0 AST 47 H ALT 47 Alkaline Phosphatase 102 Total Protein 7.1 Albumin 2.5 L U Random Total Protein Urine Creatinine Protein/Creatinin Ratio Active Medications Generic Name Dose Route Start Last Admin Trade Name Freq PRN Reason Stop Dose Admin Acetaminophen 650 mg 08/21/19 03:58 08/21/19 22:39 Tylenol - PO 650 mg Q6H PRN Administration PAIN LEVEL 1-5 Apixaban 2.5 mg 08/21/19 22:00 08/25/19 10:23 Eliquis - PO 2.5 mg BID GABY Administration Furosemide 80 mg 08/22/19 15:30 08/25/19 06:37 Lasix Injection - IVPUSH 80 mg TID GABY Administration Piperacillin Sod/Tazobactam 50 mls @ 100 mls/hr 08/20/19 18:00 08/25/19 10:24 Sod 2.25 gm/ Dextrose IVPB 100 mls/hr Q8H-IV GABY Administration Protocol Lidocaine 1 patch 08/24/19 10:30 08/25/19 10:24 Lidoderm Patch - TP 1 patch DAILY GABY Administration Metolazone 2.5 mg 08/25/19 13:30 Zaroxolyn - PO 08/25/19 13:31 ONCE ONE Metoprolol Tartrate 25 mg 08/20/19 22:00 08/25/19 10:23 Lopressor - PO 25 mg BID GABY Administration Miscellaneous 1 each 08/24/19 22:00 08/24/19 21:42 Lidoderm Patch Removal MC 1 each DAILY@2200 GABY Administration ASSESSMENT/PLAN: 73 year old female with PMH significant for CAD, CHF, Afib, DM, HTN, Obesity, ALL (s/p chemo), and chronic venous stasis. She presented to the ER on 08/20 with complaints of worsening SOB since recent discharge from [facility]. S/p rapid on 08/21, transfer to ICU for tenuous respiratory status. Continuing aggressive diuresis. #Neuro - Pain control PRN #CV - Monitor vitals - Continue 80mg Lasix TID diuresis - Continued rate control, metoprolol - Appreciate cardiology recs - Consider ECHO vs JOSE (08/06) to re-evaluate prior effusion - Continue AC, Eliquis BID #Pulm - Weaned off of high flow oxygen therapy, now satting 100% on nasal canula - Maintain SPO2 >92% #Renal - Monitor I&Os, UOP, Cr. Keep net negative - Daily weights - Trend lytes, replete as necessary - Appreciate nephrology recs - Metalozone given for diuresis in conjunction with Lasix #HemeOnc - Per Dr. Mccoy, pt was seen 07/17/2019 and had KAREN of 1:640 with nucleolar pattern, RF465. CCP, anti-DNAds, ANCA, myeloperoxidase, and proteinase-3 were all negative. Complement was decreased. [place]:Lambda ratio of 2.68 with [place] IgG spike on polyclonal background. There was concern for relapse of Leukemia. However, pt had APL in 2014, which was treated and is in remission with confirmatory PCR q 3 months with out pt oncologist Dr. Neil. - Out pt oncologist performs PCR q 3 months. #ID - ABX per ID - Continue Zosyn day 5 - Monitor vitals, fever, leukocytosis - Blood cultures without growth #GI - Renal diet #PPX - OOB as tolerated - PT consulted - Eliquis #Dispo - Continued ICU monitoring - Family willing for Endotracheal intubation if required Visit type - Emergency Visit Emergency Visit: Yes ED Registration Date: 08/20/19 Care time: The patient presented to the Emergency Department on the above date and was hospitalized for further evaluation of their emergent condition. - New Patient This patient is new to me today: Yes Date on this admission: 08/25/19 - Critical Care Critical Care patient: Yes Total Critical Care Time (in minutes): 36 Critical Care Statement: The care of this patient involved high complexity decision making to prevent further life threatening deterioration of the patient 's condition and/or to evaluate & treat vital organ system(s) failure or risk of failure. ATTENDING PHYSICIAN STATEMENT I saw and evaluated the patient. I reviewed the resident's note and discussed the case with the resident. I agree with the resident's findings and plan as documented. SUBJECTIVE: OBJECTIVE: ASSESSMENT AND PLAN:
--- NOTE | 2019-08-25 11:57 | PN ---
Progress Note (short form) - Note Progress Note: no sob still some intermittent RUQ discomfort oob in chair Vital Signs Period Temp Pulse Resp BP Sys/Hernandez Pulse Ox Last 24 Hr 98.0 F-98.7 F 68-92 13-25 102-137/44-83 96-98 cor-rrr lungs decrased bs at bases abd soft,mld ruq discomfort to palpation ext +edema CBC, BMP 08/25/19 09:44 08/25/19 09:44 Microbiology 08/20/19 03:55 Blood - Peripheral Venous Blood Culture - Final NO GROWTH AFTER 5 DAYS INCUBATION 08/20/19 03:55 Blood - Peripheral Venous Blood Culture - Final NO GROWTH AFTER 5 DAYS INCUBATION a/p recurrent chf-improving with diuresis- per renal doug-improving with diuresis leukocytosis improved-resolving cholycystitis- day #5 zosyn- will d/w surgery duration of antiibotics abnl lfts- improving recent biliary stent for choledocholithiasis continue zosyn day #5
[2019-08-25] MEDS ORDERED: POTASSIUM CHLORIDE TABS 20 MEQ TABLET.ER (FP) PO ONE (13:25)
--- NOTE | 2019-08-25 13:25 | PN ---
Progress Note, Physician History of Present Illness: Pt seen and examined at bedside. She is awake and alert. She feels that her breathing is improved. She is on room air. - Current Medication List Current Medications: Active Medications Acetaminophen (Tylenol -) 650 mg PO Q6H PRN PRN Reason: PAIN LEVEL 1-5 Last Admin: 08/21/19 22:39 Dose: 650 mg Apixaban (Eliquis -) 2.5 mg PO BID [facility] Last Admin: 08/25/19 10:23 Dose: 2.5 mg Furosemide (Lasix Injection -) 80 mg IVPUSH TID [facility] Last Admin: 08/25/19 06:37 Dose: 80 mg Piperacillin Sod/Tazobactam (Sod 2.25 gm/ Dextrose) 50 mls @ 100 mls/hr IVPB Q8H-IV GABY; Protocol Last Admin: 08/25/19 10:24 Dose: 100 mls/hr Lidocaine (Lidoderm Patch -) 1 patch TP DAILY [facility] Last Admin: 08/25/19 10:24 Dose: 1 patch Metolazone (Zaroxolyn -) 2.5 mg PO ONCE ONE Stop: 08/25/19 13:31 Last Admin: 08/25/19 13:15 Dose: 2.5 mg Metoprolol Tartrate (Lopressor -) 25 mg PO BID [facility] Last Admin: 08/25/19 10:23 Dose: 25 mg Miscellaneous (Lidoderm Patch Removal) 1 each MC DAILY@2200 [facility] Last Admin: 08/24/19 21:42 Dose: 1 each - Objective Vital Signs: Vital Signs Temperature 98.0 F 08/25/19 10:00 Pulse Rate 72 08/25/19 12:00 Respiratory Rate 22 H 08/25/19 12:00 Blood Pressure 111/62 08/25/19 12:00 O2 Sat by Pulse Oximetry (%) 98 08/25/19 11:22 Constitutional: Yes: Calm Eyes: Yes: Conjunctiva Clear HENT: Yes: Atraumatic Neck: Yes: Supple Cardiovascular: Yes: S1, S2 Respiratory: Yes: CTA Bilaterally Gastrointestinal: Yes: Soft, Abdomen, Obese Genitourinary: Yes: WNL Musculoskeletal: Yes: WNL Edema: Yes Edema: LLE: 2+, RLE: 2+ Neurological: Yes: Oriented Psychiatric: Yes: Oriented Labs: CBC, BMP 08/25/19 09:44 08/25/19 09:44 INR, PTT INR 1.47 (0.83-1.09) H 08/20/19 03:30 Assessment/Plan Current Medications Generic Name Dose Route Start Last Admin Trade Name Freq PRN Reason Stop Dose Admin Acetaminophen 650 mg 08/21/19 03:58 08/21/19 22:39 Tylenol - PO 650 mg Q6H PRN Administration PAIN LEVEL 1-5 Apixaban 2.5 mg 08/21/19 22:00 08/25/19 10:23 Eliquis - PO 2.5 mg BID GABY Administration Furosemide 80 mg 08/22/19 15:30 08/25/19 06:37 Lasix Injection - IVPUSH 80 mg TID GABY Administration Piperacillin Sod/Tazobactam 50 mls @ 100 mls/hr 08/20/19 18:00 08/25/19 10:24 Sod 2.25 gm/ Dextrose IVPB 100 mls/hr Q8H-IV GABY Administration Protocol Lidocaine 1 patch 08/24/19 10:30 08/25/19 10:24 Lidoderm Patch - TP 1 patch DAILY GABY Administration Metolazone 2.5 mg 08/25/19 13:30 08/25/19 13:15 Zaroxolyn - PO 08/25/19 13:31 2.5 mg ONCE ONE Administration Metoprolol Tartrate 25 mg 08/20/19 22:00 08/25/19 10:23 Lopressor - PO 25 mg BID GABY Administration Miscellaneous 1 each 08/24/19 22:00 08/24/19 21:42 Lidoderm Patch Removal MC 1 each DAILY@2200 GABY Administration Impression 1. KEL 2. CHF 3. hx sepsis from biliary source 4. cad 5. ALL 6. CAD 7. a-fib 8. lactic acidosis 9. hx of leukocytoclastic vasculitis Plan - renal function improving - replace potassium - cont lasix - follow up rhuem - follow repeat serologies - keep net negative - discussed fluid intake with pt and family - follow up chest xray
--- NOTE | 2019-08-25 14:00 | PN ---
Physical Exam: SUBJECTIVE: Patient seen and examined at bedside. No complaints at this time. OBJECTIVE: Vital Signs Period Temp Pulse Resp BP Sys/Hernandez Pulse Ox Last 24 Hr 98.0 F-98.7 F 68-92 16-25 102-137/44-83 96-98 Gen: AAOx3, NAD HEENT: NCAT, EOMI Neck: supple, trachea central, no thyromegally noted Cardio: extrasystoles, normal s1s2, no mrg noted Pulm: bibasilar rales Breast: refused Abd: normal bs, soft, nontender, nondistended Ext: gross edema b/l, stasis changes Laboratory Results - last 24 hr 08/24/19 08/24/19 08/24/19 10:44 17:12 21:42 WBC RBC Hgb Hct MCV MCH MCHC RDW Plt Count MPV Absolute Neuts (auto) Neutrophils % Lymphocytes % Monocytes % Eosinophils % Basophils % Nucleated RBC % Sodium Potassium Chloride Carbon Dioxide Anion Gap BUN Creatinine Est GFR (CKD-EPI)AfAm Est GFR (CKD-EPI)NonAf POC Glucometer 169 197 Random Glucose Hemoglobin A1c % Calcium Phosphorus Magnesium Total Bilirubin AST ALT Alkaline Phosphatase Total Protein Albumin Hep C Ab Diagnostic <0.1 08/25/19 08/25/19 08/25/19 09:44 09:44 09:44 WBC 6.4 RBC 3.66 Hgb 9.7 L Hct 30.0 L MCV 81.9 MCH 26.4 MCHC 32.3 RDW 18.9 H Plt Count 290 MPV 9.3 Absolute Neuts (auto) 5.0 Neutrophils % 77.8 D Lymphocytes % 15.8 D Monocytes % 3.0 L Eosinophils % 3.0 Basophils % 0.4 Nucleated RBC % 0 Sodium 138 Potassium 3.5 Chloride 95 L Carbon Dioxide 32 Anion Gap 11 BUN 60.0 H Creatinine 3.3 H Est GFR (CKD-EPI)AfAm 15.18 Est GFR (CKD-EPI)NonAf 13.09 POC Glucometer Random Glucose 176 H Hemoglobin A1c % 6.4 H Calcium 8.9 Phosphorus 5.2 H Magnesium 1.9 Total Bilirubin 1.0 AST 47 H ALT 47 Alkaline Phosphatase 102 Total Protein 7.1 Albumin 2.5 L Hep C Ab Diagnostic Active Medications Generic Name Dose Route Start Last Admin Trade Name Freq PRN Reason Stop Dose Admin Acetaminophen 650 mg 08/21/19 03:58 08/21/19 22:39 Tylenol - PO 650 mg Q6H PRN Administration PAIN LEVEL 1-5 Apixaban 2.5 mg 08/21/19 22:00 08/25/19 10:23 Eliquis - PO 2.5 mg BID GABY Administration Furosemide 80 mg 08/22/19 15:30 08/25/19 06:37 Lasix Injection - IVPUSH 80 mg TID GABY Administration Piperacillin Sod/Tazobactam 50 mls @ 100 mls/hr 08/20/19 18:00 08/25/19 10:24 Sod 2.25 gm/ Dextrose IVPB 100 mls/hr Q8H-IV GABY Administration Protocol Lidocaine 1 patch 08/24/19 10:30 08/25/19 10:24 Lidoderm Patch - TP 1 patch DAILY G[facility]Y Administration Metoprolol Tartrate 25 mg 08/20/19 22:00 08/25/19 10:23 Lopressor - PO 25 mg BID GABY Administration Miscellaneous 1 each 08/24/19 22:00 08/24/19 21:42 Lidoderm Patch Removal MC 1 each DAILY@2200 G[facility]Y Administration ASSESSMENT/PLAN: Pt is a 73 y/o F with PMH HFpEF, LE swelling, CAD s/p PCI in 2014, APL in 2014 ( treated and in remission with confirmatory PCR q 3 months with out pt oncologist Dr. Neil), HTN, DM 2 who presented to hospital with respiratory distress. She was admitted for CHF exacerbation. Heme/Onc was called because of RA/KAREN+ WITH CRF/ARF. Of note, pt was recently admitted to this facility (08/05/2019) with cholangitis and gram neg bacteremia complicated by new Afib and KEL. She was transferred to [facility] at that time and had sphincterotomy and gall stone removal. 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 Byrd, 02/04/2019) -Pos RF and KAREN -pt follows with Rheumatology, Dr. Mccoy -per Dr. Mccoy, pt was seen 07/17/2019 and had KAREN of 1:640 with nucleolar pattern, RF465. CCP, anti-DNAds, ANCA, myeloperoxidase, and proteinase-3 were all negative. Complement was decreased. [place]:Lambda ratio of 2.68 with [place] IgG spike on polyclonal background. There was concern for relapse of Leukemia. However, pt had APL in 2014, which was treated and is in remission with confirmatory PCR q 3 months with out pt oncologist Dr. Neil. APL -pt in remission -out pt oncologist performs PCR q 3 months. Anemia -normocytic normochromic -likely chronic disease/inflammation Visit type - Emergency Visit Emergency Visit: No - New Patient This patient is new to me today: Yes Date on this admission: 08/25/19 - Critical Care Critical Care patient: Yes Total Critical Care Time (in minutes): 30 Critical Care Statement: The care of this patient involved high complexity decision making to prevent further life threatening deterioration of the patient 's condition and/or to evaluate & treat vital organ system(s) failure or risk of failure. ATTENDING PHYSICIAN STATEMENT I saw and evaluated the patient. I reviewed the resident's note and discussed the case with the resident. I agree with the resident's findings and plan as documented. SUBJECTIVE: OBJECTIVE: ASSESSMENT AND PLAN:
--- NOTE | 2019-08-25 14:31 | PN ---
Progress Note, Physician Chief Complaint: Breathing improved Tele: afib with VR's 70s History of Present Illness: 73 F known to our practice. She has history of HfPEF, chronic Lext swelling, CAD with LAD PCI 2014. She was recently admitted with cholangitis and gram negative bacteremia complicated by KEL and new onset Afib. She was transferred to [facility] and had ERCP with sphyncterotomy and removal of GB stones. Her KEL improved and at time of DC 08/15 BUN/Cr was 47/4.4. Eitiology of KEL was felt to be due to ATN. NSR was restored spontaneously as well and she was discharged on Metoprolol 12.5mg BID and Eliquis in addition to NaHCo3 and Amlodipine. She developed sudden SOB last night. In ER initially, severe hypoxemia and rapid Afib was noted. she improved on BiPAP She is admitted with SOB, hypoxemia and rapid Afib. - Current Medication List Current Medications: Active Medications Acetaminophen (Tylenol -) 650 mg PO Q6H PRN PRN Reason: PAIN LEVEL 1-5 Last Admin: 08/21/19 22:39 Dose: 650 mg Apixaban (Eliquis -) 2.5 mg PO BID [facility] Last Admin: 08/25/19 10:23 Dose: 2.5 mg Furosemide (Lasix Injection -) 80 mg IVPUSH TID [facility] Last Admin: 08/25/19 13:48 Dose: 80 mg Piperacillin Sod/Tazobactam (Sod 2.25 gm/ Dextrose) 50 mls @ 100 mls/hr IVPB Q8H-IV GABY; Protocol Last Admin: 08/25/19 10:24 Dose: 100 mls/hr Lidocaine (Lidoderm Patch -) 1 patch TP DAILY [facility] Last Admin: 08/25/19 10:24 Dose: 1 patch Metoprolol Tartrate (Lopressor -) 25 mg PO BID [facility] Last Admin: 08/25/19 10:23 Dose: 25 mg Miscellaneous (Lidoderm Patch Removal) 1 each MC DAILY@2200 [facility] Last Admin: 08/24/19 21:42 Dose: 1 each - Objective Vital Signs: Vital Signs Temperature 98.2 F 08/25/19 14:00 Pulse Rate 72 08/25/19 14:00 Respiratory Rate 23 H 08/25/19 14:00 Blood Pressure 89/55 L 08/25/19 14:00 O2 Sat by Pulse Oximetry (%) 98 08/25/19 11:22 Constitutional: Yes: No Distress Neck: Yes: Supple Cardiovascular: Yes: Pulse Irregular, S1, S2 Respiratory: Yes: Diminished (bibasilar rales) Gastrointestinal: Yes: Soft Edema: LLE: 2+, RLE: 2+ Labs: CBC, BMP 08/25/19 09:44 08/25/19 09:44 INR, PTT INR 1.47 (0.83-1.09) H 08/20/19 03:30 Assessment/Plan 73 F known to our practice. She has history of HfPEF, chronic Lext swelling, CAD with LAD PCI 2014. She was recently admitted with cholangitis and gram negative bacteremia complicated by KEL and new onset Afib. She was transferred to [facility] and had ERCP with sphyncterotomy and removal of GB stones. Her KEL improved and at time of DC 08/15 BUN/Cr was 47/4.4. Eitiology of KEL was felt to be due to ATN. NSR was restored spontaneously as well and she was discharged on Metoprolol 12.5mg BID and Eliquis in addition to NaHCo3 and Amlodipine. She developed sudden SOB last night. In ER initially, severe hypoxemia and rapid Afib was noted. she improved on BiPAP She is admitted with SOB, hypoxemia and rapid Afib. CHF Acute on chronic combined CHF Continue Lasix 80 mg IV but would change to BID dosing. Follow I's/O's/Wt's/Lytes AFIB Contiue AC with apixaban 2.5 mg PO BID Rate control with Metoprolol Tartrate 25 mg PO BID CAD TP level marginally elevated in setting of respiratory distress and demand ischemia.
--- NOTE | 2019-08-25 17:12 | CONSULT ---
Consult Consult Specialty:: Podiatry Reason for Consultation:: Mycotic left big toe. Xerosis b/l feet. PVD - Past Medical History Cardio/Vascular: Yes: CAD, CHF, HTN, Hyperlipdemia, DC (s/p EES stent to LAD) Hepatobiliary: Yes: Cholelithiasis, Cholecystitis, Choledocholithiasis Renal/: Yes: Renal Inusuff ...: No Endocrine: Yes: Diabetes Mellitus - Past Surgical History Past Surgical History: Yes: Stent Additional Surgical History: ERCP - Alcohol/Substance Use Hx Alcohol Use: No - Smoking History Smoking history: Never smoked Have you smoked in the past 12 months: No Aproximately how many cigarettes per day: 1 If you are a former smoker, when did you quit?: 3 years ago - Social History Usual Living Arrangement: With Spouse ADL: Independent Occupation: retired dietary staff at [employer] History of Recent Travel: No Home Medications - Allergies Allergies/Adverse Reactions: Allergies Allergy/AdvReac Type Severity Reaction Status Date / Time No Known Allergies Allergy Verified 08/20/19 03:35 - Home Medications Home Medications: Ambulatory Orders Metoprolol Tartrate 25 mg PO DAILY 08/05/19 Apixaban [Eliquis -] 2.5 mg PO BID 08/20/19 Ciprofloxacin [Cipro (Restricted To Id)] 500 mg PO ASDIR 08/20/19 Metronidazole 500 mg PO ASDIR 08/20/19 Sodium Bicarbonate - 1,300 mg PO TID 08/20/19 Physical Exam Vital Signs: Vital Signs Temperature 97.3 F L 08/25/19 16:38 Pulse Rate 69 08/25/19 16:00 Respiratory Rate 18 08/25/19 16:00 Blood Pressure 109/52 L 08/25/19 16:00 O2 Sat by Pulse Oximetry (%) 98 08/25/19 11:22 Extremities: Yes: Other (+weakly palpable pulses b/l, +onychomycosis left hallux , +xerosis b/l feet) Labs: CBC, BMP 08/25/19 09:44 08/25/19 09:44 Assessment/Plan pvd dm onychomycosis xerosis Vascular consult. Ammonium lactate b/l feet. Foot care q 8 weeks. Recommend diabetic shoes. daughter present throughout. Will debride nails.
[2019-08-25] MEDS: LIDOCAINE PATCH REMOVAL MC SCH (21:17)
--- NOTE | 2019-08-25 22:07 | PN ---
Progress Note, Physician History of Present Illness: No new complaints - Current Medication List Current Medications: Active Medications Acetaminophen (Tylenol -) 650 mg PO Q6H PRN PRN Reason: PAIN LEVEL 1-5 Last Admin: 08/21/19 22:39 Dose: 650 mg Apixaban (Eliquis -) 2.5 mg PO BID REPLACED BY [facility] Last Admin: 08/25/19 21:17 Dose: 2.5 mg Furosemide (Lasix Injection -) 80 mg IVPUSH BID@0600,1400 REPLACED BY [facility] Piperacillin Sod/Tazobactam (Sod 2.25 gm/ Dextrose) 50 mls @ 100 mls/hr IVPB Q8H-IV GABY; Protocol Last Admin: 08/25/19 17:04 Dose: 100 mls/hr Lidocaine (Lidoderm Patch -) 1 patch TP DAILY REPLACED BY [facility] Last Admin: 08/25/19 10:24 Dose: 1 patch Metoprolol Tartrate (Lopressor -) 25 mg PO BID REPLACED BY [facility] Last Admin: 08/25/19 21:17 Dose: 25 mg Miscellaneous (Lidoderm Patch Removal) 1 each MC DAILY@2200 REPLACED BY [facility] Last Admin: 08/25/19 21:17 Dose: 1 each - Objective Vital Signs: Vital Signs Temperature 97.3 F L 08/25/19 16:38 Pulse Rate 74 08/25/19 20:00 Respiratory Rate 18 08/25/19 20:16 Blood Pressure 101/65 08/25/19 20:00 O2 Sat by Pulse Oximetry (%) 98 08/25/19 20:16 Neck: Yes: WNL, Supple Cardiovascular: Yes: WNL, Regular Rate and Rhythm Respiratory: Yes: Rales Gastrointestinal: Yes: WNL, Normal Bowel Sounds, Soft, Abdomen, Obese Extremities: Yes: Other (chronic venous stasis b/l) Edema: LLE: 1+, RLE: 1+ Labs: CBC, BMP 08/25/19 09:44 08/25/19 09:44 INR, PTT INR 1.47 (0.83-1.09) H 08/20/19 03:30 Problem List - Problems (1) Acute on chronic combined systolic (congestive) and diastolic (congestive) heart failure Assessment/Plan: Cont IV lasix TID Metolazone prn Monitor electrolytes/renal function Code(s): I50.43 - ACUTE ON CHRONIC COMBINED SYSTOLIC AND DIASTOLIC HRT FAIL (2) APL (acute promyelocytic leukemia) Assessment/Plan: Onco consult noted Pt being evaluated by rheum also (H/O recent skin bx wc showed leukocytoclastic vasculitis (3) Anemia Assessment/Plan: Multifactorial Code(s): D64.9 - ANEMIA, UNSPECIFIED (4) Leukocytosis Assessment/Plan: Lactic acidosis Cont IV zosyn BC remain negative WBC now normal As per ID Code(s): D72.829 - ELEVATED WHITE BLOOD CELL COUNT, UNSPECIFIED (5) Renal failure Assessment/Plan: Acute on chronic renal failure As per renal Slight increase in creatinine Code(s): N19 - UNSPECIFIED KIDNEY FAILURE Qualifiers: Renal failure chronicity: unspecified chronicity Qualified Code(s): N19 - Unspecified kidney failure (6) Afib Assessment/Plan: Heart rate controlled Cont eliquis Code(s): I48.91 - UNSPECIFIED ATRIAL FIBRILLATION Qualifiers: Atrial fibrillation type: unspecified Qualified Code(s): I48.91 - Unspecified atrial fibrillation (7) HTN (hypertension) Assessment/Plan: BP stable Code(s): I10 - ESSENTIAL (PRIMARY) HYPERTENSION (8) Hyperlipidemia Code(s): E78.5 - HYPERLIPIDEMIA, UNSPECIFIED (9) Respiratory failure Assessment/Plan: Improving Due to acute CHF Code(s): J96.90 - RESPIRATORY FAILURE, UNSP, UNSP W HYPOXIA OR HYPERCAPNIA Qualifiers: Chronicity: acute on chronic Respiratory failure complication: hypoxia Qualified Code(s): J96.21 - Acute and chronic respiratory failure with hypoxia (10) Diabetes Assessment/Plan: HgA1c is 6.4 Code(s): E11.9 - TYPE 2 DIABETES MELLITUS WITHOUT COMPLICATIONS Qualifiers: Diabetes mellitus type: type 2
[2019-08-26] MEDS ORDERED: DEXTROSE 5%-WATER - 50 ML IVPB ONE ×3 (01:00→16:45)
[2019-08-26] MEDS ORDERED: PIPERACILLIN/TAZOBACTAM 2.25 GM VIAL IVPB ONE ×3 (01:00→16:45)
[2019-08-26] MEDS: PIPERACILLIN/TAZOB 2.25 GM 2.25 GM in DEXTROSE 5%-WATER - 50 ML IVPB SCH ×3 (01:06→17:00)
[2019-08-26] MEDS: FUROSEMIDE 40 MG/4 ML INJECTABLE VIAL IVPUSH SCH ×2 (05:54→13:40)
[2019-08-26 06:31] LABS: HEMATOCRIT 29.3 % (32.4-45.2); HEMOGLOBIN 9.3 GM/dL (10.7-15.3); MCH 25.9 pg (25.7-33.7); MCHC 31.8 g/dl (32.0-36.0); MEAN CELL VOLUME 81.3 fl (80-96); MEAN PLT VOLUME 9.1 fl (7.5-11.1); PLATELET COUNT 247 K/MM3 (134-434); RDW 18.8 % (11.6-15.6); WHITE BLOOD COUNT 5.5 K/mm3 (4.0-10.0)
[2019-08-26 06:44] LABS: ALBUMIN 2.4 g/dl (3.4-5.0); BILIRUBIN,TOTAL 0.9 mg/dL (0.2-1); BLOOD UREA NITROGEN 62.8 mg/dL (7-18); CALCIUM 8.7 mg/dL (8.5-10.1); CREATININE 3.3 mg/dL (0.55-1.3); MAGNESIUM 1.8 mg/dL (1.8-2.4); POTASSIUM 3.8 mmol/L (3.5-5.1); TOT PROT 6.8 g/dl (6.4-8.2)
--- NOTE | 2019-08-26 07:14 | PN ---
Physical Exam: SUBJECTIVE: Patient seen and examined. Lying comfortably in bed. States her breathing feels better today compared to yesterday. Cleared by Dr. Mckee, PCP for transfer to [facility]. No acute events overnight. OBJECTIVE: Vital Signs Period Temp Pulse Resp BP Sys/Hernandez Pulse Ox Last 24 Hr 97.3 F-98.7 F 68-92 16-24 89-134/52-80 97-98 GENERAL: The patient is awake, alert, and fully oriented, in no acute distress. HEAD: Normal with no signs of trauma. EYES: EOMI, no ptosis ENT: MMM NECK: Trachea midline, supple LUNGS: diminished breath sounds bilaterally, clear to auscultation bilaterally, no wheezes, no crackles, no accessory muscle use HEART: RRR, no murmur noted ABDOMEN: mild RUQ tenderness to palpation, soft, non distended EXTREMITIES: 2+ pulses, warm, well-perfused. Improving edema of bilaterally legs , still with 2+ non pitting edema NEUROLOGICAL: Normal speech, gait not observed. PSYCH: appropriate mood and affect SKIN: Warm, dry Laboratory Results - last 24 hr 08/24/19 08/25/19 08/25/19 10:44 09:44 09:44 WBC 6.4 RBC 3.66 Hgb 9.7 L Hct 30.0 L MCV 81.9 MCH 26.4 MCHC 32.3 RDW 18.9 H Plt Count 290 MPV 9.3 Absolute Neuts (auto) 5.0 Neutrophils % 77.8 D Lymphocytes % 15.8 D Monocytes % 3.0 L Eosinophils % 3.0 Basophils % 0.4 Nucleated RBC % 0 Sodium 138 Potassium 3.5 Chloride 95 L Carbon Dioxide 32 Anion Gap 11 BUN 60.0 H Creatinine 3.3 H Est GFR (CKD-EPI)AfAm 15.18 Est GFR (CKD-EPI)NonAf 13.09 POC Glucometer Random Glucose 176 H Hemoglobin A1c % Calcium 8.9 Phosphorus 5.2 H Magnesium 1.9 Total Bilirubin 1.0 AST 47 H ALT 47 Alkaline Phosphatase 102 Total Protein 7.1 Albumin 2.5 L Hep C Ab Diagnostic <0.1 08/25/19 08/25/19 08/26/19 09:44 21:16 05:45 WBC 5.5 RBC 3.60 Hgb 9.3 L Hct 29.3 L MCV 81.3 MCH 25.9 MCHC 31.8 L RDW 18.8 H Plt Count 247 MPV 9.1 Absolute Neuts (auto) Neutrophils % Lymphocytes % Monocytes % Eosinophils % Basophils % Nucleated RBC % Sodium Potassium Chloride Carbon Dioxide Anion Gap BUN Creatinine Est GFR (CKD-EPI)AfAm Est GFR (CKD-EPI)NonAf POC Glucometer 210 Random Glucose Hemoglobin A1c % 6.4 H Calcium Phosphorus Magnesium Total Bilirubin AST ALT Alkaline Phosphatase Total Protein Albumin Hep C Ab Diagnostic 08/26/19 05:45 WBC RBC Hgb Hct MCV MCH MCHC RDW Plt Count MPV Absolute Neuts (auto) Neutrophils % Lymphocytes % Monocytes % Eosinophils % Basophils % Nucleated RBC % Sodium 138 Potassium 3.8 Chloride 96 L Carbon Dioxide 33 H Anion Gap 10 BUN 62.8 H Creatinine 3.3 H Est GFR (CKD-EPI)AfAm 15.18 Est GFR (CKD-EPI)NonAf 13.09 POC Glucometer Random Glucose 169 H Hemoglobin A1c % Calcium 8.7 Phosphorus 5.0 H Magnesium 1.8 Total Bilirubin 0.9 AST 33 ALT 37 Alkaline Phosphatase 99 Total Protein 6.8 Albumin 2.4 L Hep C Ab Diagnostic Active Medications Generic Name Dose Route Start Last Admin Trade Name Freq PRN Reason Stop Dose Admin Acetaminophen 650 mg 08/21/19 03:58 08/21/19 22:39 Tylenol - PO 650 mg Q6H PRN Administration PAIN LEVEL 1-5 Apixaban 2.5 mg 08/21/19 22:00 08/25/19 21:17 Eliquis - PO 2.5 mg BID GABY Administration Furosemide 80 mg 08/26/19 06:00 08/26/19 05:54 Lasix Injection - IVPUSH 80 mg BID@0600,1400 GABY Administration Piperacillin Sod/Tazobactam 50 mls @ 100 mls/hr 08/20/19 18:00 08/26/19 01:06 Sod 2.25 gm/ Dextrose IVPB 100 mls/hr Q8H-IV GABY Administration Protocol Lidocaine 1 patch 08/24/19 10:30 08/25/19 10:24 Lidoderm Patch - TP 1 patch DAILY GABY Administration Metoprolol Tartrate 25 mg 08/20/19 22:00 08/25/19 21:17 Lopressor - PO 25 mg BID GABY Administration Miscellaneous 1 each 08/24/19 22:00 08/25/19 21:17 Lidoderm Patch Removal MC 1 each DAILY@2200 GABY Administration ASSESSMENT/PLAN: 73 year old female with PMH significant for CAD, CHF, Afib, DM, HTN, Obesity, ALL (s/p chemo), and chronic venous stasis. She presented to the ER on 08/20 with complaints of worsening SOB since recent discharge from [facility]. S/p rapid on 08/21, transfer to ICU for tenuous respiratory status. Continuing aggressive diuresis. #Neuro - Pain control PRN #CV - Monitor vitals - Continue 80mg Lasix TID diuresis - Continued rate control, metoprolol - Appreciate cardiology recs - Consider ECHO vs JOSE (08/06) to re-evaluate prior effusion - Continue AC, Eliquis BID #Pulm - Weaned off of high flow oxygen therapy, maintaining high O2 saturation on nasal canula - Maintain SPO2 >92% #Renal - Monitor I&Os, UOP, Cr. Keep net negative - Daily weights - Trend lytes, replete as necessary - Appreciate nephrology recs - Metalozone given for diuresis in conjunction with Lasix #HemeOnc - Per Dr. Mccoy, pt was seen 07/17/2019 and had KAREN of 1:640 with nucleolar pattern, RF465. CCP, anti-DNAds, ANCA, myeloperoxidase, and proteinase-3 were all negative. Complement was decreased. [place]:Lambda ratio of 2.68 with [place] IgG spike on polyclonal background. There was concern for relapse of Leukemia. However, pt had APL in 2014, which was treated and is in remission with confirmatory PCR q 3 months with out pt oncologist Dr. Neil. - Outpatient oncologist performs PCR q3 months. #ID - ABX per ID - Continue Zosyn day 6 - Monitor vitals, fever, leukocytosis - Blood cultures without growth #GI - Renal diet #PPX - OOB as tolerated - PT consulted - Eliquis #Dispo - Stable for transfer to tele - Family willing for Endotracheal intubation if required Visit type - Emergency Visit Emergency Visit: Yes ED Registration Date: 08/20/19 Care time: The patient presented to the Emergency Department on the above date and was hospitalized for further evaluation of their emergent condition. - New Patient This patient is new to me today: No - Critical Care Critical Care patient: Yes Total Critical Care Time (in minutes): 36 Critical Care Statement: The care of this patient involved high complexity decision making to prevent further life threatening deterioration of the patient 's condition and/or to evaluate & treat vital organ system(s) failure or risk of failure. ATTENDING PHYSICIAN STATEMENT I saw and evaluated the patient. I reviewed the resident's note and discussed the case with the resident. I agree with the resident's findings and plan as documented. SUBJECTIVE: OBJECTIVE: ASSESSMENT AND PLAN:
[2019-08-26] MEDS: METOPROLOL TARTRATE 25 MG TABLET (FP) PO SCH ×2 (09:31→21:19)
[2019-08-26] MEDS: LIDOCAINE 5% TOPICAL PATCH TP SCH (09:31)
[2019-08-26] MEDS: APIXABAN 2.5 MG TABLET PO SCH ×2 (09:31→21:19)
--- NOTE | 2019-08-26 10:16 | PN ---
Progress Note, Physician History of Present Illness: pt seen and examined today in nad. sitting in chair. states she is feeling much better. sob improving. states she slept well last night. - Current Medication List Current Medications: Active Medications Acetaminophen (Tylenol -) 650 mg PO Q6H PRN PRN Reason: PAIN LEVEL 1-5 Last Admin: 08/21/19 22:39 Dose: 650 mg Apixaban (Eliquis -) 2.5 mg PO BID [facility] Last Admin: 08/26/19 09:31 Dose: 2.5 mg Furosemide (Lasix Injection -) 80 mg IVPUSH BID@0600,1400 [facility] Last Admin: 08/26/19 05:54 Dose: 80 mg Piperacillin Sod/Tazobactam (Sod 2.25 gm/ Dextrose) 50 mls @ 100 mls/hr IVPB Q8H-IV GABY; Protocol Last Admin: 08/26/19 09:31 Dose: 100 mls/hr Lidocaine (Lidoderm Patch -) 1 patch TP DAILY [facility] Last Admin: 08/26/19 09:31 Dose: 1 patch Metoprolol Tartrate (Lopressor -) 25 mg PO BID [facility] Last Admin: 08/26/19 09:31 Dose: 25 mg Miscellaneous (Lidoderm Patch Removal) 1 each MC DAILY@2200 [facility] Last Admin: 08/25/19 21:17 Dose: 1 each - Objective Vital Signs: Vital Signs Temperature 98.4 F 08/26/19 06:00 Pulse Rate 75 08/26/19 08:00 Respiratory Rate 18 08/26/19 08:00 Blood Pressure 114/60 08/26/19 08:00 O2 Sat by Pulse Oximetry (%) 96 08/26/19 08:02 Constitutional: Yes: No Distress, Calm Eyes: Yes: Conjunctiva Clear, EOM Intact HENT: Yes: Atraumatic, Normocephalic Neck: Yes: Supple, Trachea Midline Cardiovascular: Yes: Regular Rate and Rhythm, S1, S2. No: Bradycardia, Tachycardia, Pulse Irregular, Bruit, JVD, Gallop, Murmur, Rub, S3, S4, Varicosities Respiratory: Yes: Regular, On Nasal O2, Rales. No: Rhonchi, SOB, Wheezes Gastrointestinal: Yes: Normal Bowel Sounds, Soft. No: Distention, Tenderness ...Rectal Exam: Yes: WNL Genitourinary: Yes: WNL Breast(s): Yes: WNL Musculoskeletal: Yes: WNL Edema: Yes Edema: LLE: 1+, RLE: 1+ Peripheral Pulses WNL: Yes Neurological: Yes: Alert, Oriented Psychiatric: Yes: Alert, Oriented Labs: CBC, BMP 08/26/19 05:45 08/26/19 05:45 INR, PTT INR 1.47 (0.83-1.09) H 08/20/19 03:30 - ....Imaging Chest X-ray: Report Reviewed, Image Reviewed EKG: Report Reviewed, Image Reviewed Other: Report Reviewed, Image Reviewed (tele-pafib, HR adequately controlled) Assessment/Plan 73 F known to our practice. She has history of HfPEF, chronic Lext swelling, CAD with LAD PCI 2014. She was recently admitted with cholangitis and gram negative bacteremia complicated by KEL and new onset Afib. She was transferred to [facility] and had ERCP with sphyncterotomy and removal of GB stones. Her KEL improved and at time of DC 08/15 BUN/Cr was 47/4.4. Eitiology of KEL was felt to be due to ATN. NSR was restored spontaneously as well and she was discharged on Metoprolol 12.5mg BID and Eliquis in addition to NaHCo3 and Amlodipine. She developed sudden SOB last night. In ER initially, severe hypoxemia and rapid Afib was noted. she improved on BiPAP She is admitted with SOB, hypoxemia and rapid Afib. CHF-Acute on chronic combined CHF -Volume status improving each day. -I/Os net neg and weight down -Continue Lasix 80 mg IV BID -Cont to follow I's/O's/Wt's/Lytes -replete K to 4 and Mg to 2 AFIB-pafib, HR adequately controlled -Contiue AC with apixaban 2.5 mg PO BID -cont Rate control with Metoprolol Tartrate 25 mg PO BID CAD -TP level minimally elevated with normal CK level in setting of respiratory distress c/w demand ischemia not ACS. -cont medical management
--- NOTE | 2019-08-26 10:58 | PN ---
Teaching Attending Note Name of Resident: Nancy Wetzel ATTENDING PHYSICIAN STATEMENT I saw and evaluated the patient. I reviewed the resident's note and discussed the case with the resident. I agree with the resident's findings and plan as documented. SUBJECTIVE: Pt seen and examined in the ICU. Breathing continues to improve. No chest pain. No fevers or chills. OBJECTIVE: Vital Signs Period Temp Pulse Resp BP Sys/Hernandez Pulse Ox Last 24 Hr 97.3 F-98.7 F 68-102 16-24 89-129/52-77 96-98 Intake & Output 08/23/19 08/24/19 08/25/19 08/26/19 23:59 23:59 23:59 23:59 Intake Total 360 530 900 74 Output Total 2500 6100 5200 1400 Balance -9155 -1439 -4304 -1326 Weight 119.748 kg 115.711 kg 113.58 kg 113.398 kg Gen: NAD at rest Heart: RRR Lung: decreased breath sounds at the bases Abd: soft, nontender Ext: + edema CBC, BMP 08/26/19 05:45 08/26/19 05:45 Active Medications Acetaminophen (Tylenol -) 650 mg PO Q6H PRN PRN Reason: PAIN LEVEL 1-5 Last Admin: 08/21/19 22:39 Dose: 650 mg Apixaban (Eliquis -) 2.5 mg PO BID [facility] Last Admin: 08/26/19 09:31 Dose: 2.5 mg Furosemide (Lasix Injection -) 80 mg IVPUSH BID@0600,1400 [facility] Last Admin: 08/26/19 05:54 Dose: 80 mg Piperacillin Sod/Tazobactam (Sod 2.25 gm/ Dextrose) 50 mls @ 100 mls/hr IVPB Q8H-IV GABY; Protocol Last Admin: 08/26/19 09:31 Dose: 100 mls/hr Lidocaine (Lidoderm Patch -) 1 patch TP DAILY [facility] Last Admin: 08/26/19 09:31 Dose: 1 patch Metolazone (Zaroxolyn -) 2.5 mg PO ONCE ONE Stop: 08/26/19 13:31 Metoprolol Tartrate (Lopressor -) 25 mg PO BID [facility] Last Admin: 08/26/19 09:31 Dose: 25 mg Miscellaneous (Lidoderm Patch Removal) 1 each MC DAILY@2200 [facility] Last Admin: 08/25/19 21:17 Dose: 1 each ASSESSMENT AND PLAN: Acute Hypercapneic and Hypoxic Respiratory Failure improving Acute on Chronic Diastolic Heart Failure Acute Kidney Injury Lactic Acidosis Atrial Fibrillation CAD Pericardial Effusion HTN DM ALL Cholelithiasis Anemia ENOC - continue lasix, zaroxolyn - monitor urine output, creatinine - O2 to keep SpO2 >90% - daily weights - rate control - continue anticoagulation - antibiotics per ID - can monitor on telemetry
[2019-08-26] MEDS ORDERED: PT OWN MED DRAWER 7, Y5N ONE ×2 (12:08→13:14)
[2019-08-26] MEDS ORDERED: AMMONIUM LACTATE 12% LOTION 225 GM BOTTLE TP PRN (12:32)
[2019-08-26] MEDS ORDERED: METOLAZONE 2.5 MG TABLET (FP) PO ONE (13:30)
--- NOTE | 2019-08-26 15:28 | PN ---
Progress Note, Physician History of Present Illness: Pt seen and examined at bedside. She is awake and alert. She is out of bed to chair. She feels that her breathing is improved. - Current Medication List Current Medications: Active Medications Acetaminophen (Tylenol -) 650 mg PO Q6H PRN PRN Reason: PAIN LEVEL 1-5 Last Admin: 08/21/19 22:39 Dose: 650 mg Apixaban (Eliquis -) 2.5 mg PO BID [facility] Last Admin: 08/26/19 09:31 Dose: 2.5 mg Furosemide (Lasix Injection -) 80 mg IVPUSH BID@0600,1400 [facility] Last Admin: 08/26/19 13:40 Dose: 80 mg Piperacillin Sod/Tazobactam (Sod 2.25 gm/ Dextrose) 50 mls @ 100 mls/hr IVPB Q8H-IV GABY; Protocol Last Admin: 08/26/19 09:31 Dose: 100 mls/hr Lactic Acid (Lac-Hydrin 12) 1 applic TP DAILY PRN PRN Reason: xerosis Lidocaine (Lidoderm Patch -) 1 patch TP DAILY [facility] Last Admin: 08/26/19 09:31 Dose: 1 patch Metoprolol Tartrate (Lopressor -) 25 mg PO BID [facility] Last Admin: 08/26/19 09:31 Dose: 25 mg Miscellaneous (Lidoderm Patch Removal) 1 each MC DAILY@2200 [facility] Last Admin: 08/25/19 21:17 Dose: 1 each - Objective Vital Signs: Vital Signs Temperature 97.9 F 08/26/19 14:18 Pulse Rate 76 08/26/19 14:05 Respiratory Rate 18 08/26/19 14:05 Blood Pressure 96/61 08/26/19 14:05 O2 Sat by Pulse Oximetry (%) 96 08/26/19 08:02 Constitutional: Yes: Calm Eyes: Yes: Conjunctiva Clear HENT: Yes: Atraumatic Cardiovascular: Yes: S1, S2 Respiratory: Yes: CTA Bilaterally, On Nasal O2 Gastrointestinal: Yes: Soft Genitourinary: Yes: WNL Musculoskeletal: Yes: WNL Edema: Yes Edema: LLE: 2+, RLE: 2+ Neurological: Yes: Oriented Psychiatric: Yes: Oriented Labs: CBC, BMP 08/26/19 05:45 08/26/19 05:45 INR, PTT INR 1.47 (0.83-1.09) H 08/20/19 03:30 - ....Imaging Chest X-ray: Image Reviewed Assessment/Plan Current Medications Generic Name Dose Route Start Last Admin Trade Name Charisma PRN Reason Stop Dose Admin Acetaminophen 650 mg 08/21/19 03:58 08/21/19 22:39 Tylenol - PO 650 mg Q6H PRN Administration PAIN LEVEL 1-5 Apixaban 2.5 mg 08/21/19 22:00 08/26/19 09:31 Eliquis - PO 2.5 mg BID GABY Administration Furosemide 80 mg 08/26/19 06:00 08/26/19 13:40 Lasix Injection - IVPUSH 80 mg BID@0600,1400 G[facility]Y Administration Piperacillin Sod/Tazobactam 50 mls @ 100 mls/hr 08/20/19 18:00 08/26/19 09:31 Sod 2.25 gm/ Dextrose IVPB 100 mls/hr Q8H-IV GABY Administration Protocol Lactic Acid 1 applic 08/26/19 12:32 Lac-Hydrin 12 TP DAILY PRN xerosis Lidocaine 1 patch 08/24/19 10:30 08/26/19 09:31 Lidoderm Patch - TP 1 patch DAILY G[facility]Y Administration Metoprolol Tartrate 25 mg 08/20/19 22:00 08/26/19 09:31 Lopressor - PO 25 mg BID GABY Administration Miscellaneous 1 each 08/24/19 22:00 08/25/19 21:17 Lidoderm Patch Removal MC 1 each DAILY@2200 GABY Administration Impression 1. KEL 2. CHF 3. hx sepsis from biliary source 4. cad 5. ALL 6. CAD 7. a-fib 8. lactic acidosis 9. hx of leukocytoclastic vasculitis Plan - cont lasix, discussed with cardio, agree with lasix 80 iv bid - repeat labs in am - follow serologies - am cxr - she remains overloaded - restrict fluid and ice intake
[2019-08-26 19:07] LABS: HEP B CORE AB, TOT Negative (Negative)
[2019-08-26] MEDS: LIDOCAINE PATCH REMOVAL MC SCH (21:15)
--- NOTE | 2019-08-26 23:41 | PN ---
Progress Note, Physician History of Present Illness: Pt is off BIPAP - Current Medication List Current Medications: Active Medications Acetaminophen (Tylenol -) 650 mg PO Q6H PRN PRN Reason: PAIN LEVEL 1-5 Last Admin: 08/21/19 22:39 Dose: 650 mg Apixaban (Eliquis -) 2.5 mg PO BID [facility] Last Admin: 08/26/19 21:19 Dose: 2.5 mg Furosemide (Lasix Injection -) 80 mg IVPUSH BID@0600,1400 [facility] Last Admin: 08/26/19 13:40 Dose: 80 mg Piperacillin Sod/Tazobactam (Sod 2.25 gm/ Dextrose) 50 mls @ 100 mls/hr IVPB Q8H-IV GABY; Protocol Last Admin: 08/26/19 17:00 Dose: 100 mls/hr Insulin Aspart (Novolog Vial Sliding Scale -) 1 vial SQ BIDAC [facility]; Protocol Lactic Acid (Lac-Hydrin 12) 1 applic TP DAILY PRN PRN Reason: xerosis Last Admin: 08/26/19 20:03 Dose: 1 applic Lidocaine (Lidoderm Patch -) 1 patch TP DAILY [facility] Last Admin: 08/26/19 09:31 Dose: 1 patch Metoprolol Tartrate (Lopressor -) 25 mg PO BID [facility] Last Admin: 08/26/19 21:19 Dose: 25 mg Miscellaneous (Lidoderm Patch Removal) 1 each MC DAILY@2200 [facility] Last Admin: 08/26/19 21:15 Dose: 1 each - Objective Vital Signs: Vital Signs Temperature 97.9 F 08/26/19 14:18 Pulse Rate 82 08/26/19 16:00 Respiratory Rate 18 08/26/19 16:00 Blood Pressure 109/52 L 08/26/19 16:00 O2 Sat by Pulse Oximetry (%) 96 08/26/19 21:00 Constitutional: Yes: Obese Neck: Yes: WNL, Supple Cardiovascular: Yes: Pulse Irregular Respiratory: Yes: Diminished Gastrointestinal: Yes: WNL, Normal Bowel Sounds, Soft, Abdomen, Obese Edema: LLE: 1+, RLE: 1+ Labs: CBC, BMP 08/26/19 05:45 08/26/19 05:45 INR, PTT INR 1.47 (0.83-1.09) H 08/20/19 03:30 Problem List - Problems (1) Acute on chronic combined systolic (congestive) and diastolic (congestive) heart failure Assessment/Plan: Pt to be transferred to tele Probable change to po lasix as per cardio Cont IV lasix TID Metolazone prn Monitor electrolytes/renal function Code(s): I50.43 - ACUTE ON CHRONIC COMBINED SYSTOLIC AND DIASTOLIC HRT FAIL (2) APL (acute promyelocytic leukemia) Assessment/Plan: As per onco (H/O recent skin bx wc showed leukocytoclastic vasculitis (3) Anemia Assessment/Plan: Multifactorial Code(s): D64.9 - ANEMIA, UNSPECIFIED (4) Leukocytosis Assessment/Plan: Lactic acidosis resolved Cont IV zosyn BC remain negative Code(s): D72.829 - ELEVATED WHITE BLOOD CELL COUNT, UNSPECIFIED (5) Renal failure Assessment/Plan: Acute on chronic renal failure As per renal Code(s): N19 - UNSPECIFIED KIDNEY FAILURE Qualifiers: Renal failure chronicity: unspecified chronicity Qualified Code(s): N19 - Unspecified kidney failure (6) Afib Assessment/Plan: Heart rate controlled Cont eliquis Code(s): I48.91 - UNSPECIFIED ATRIAL FIBRILLATION Qualifiers: Atrial fibrillation type: unspecified Qualified Code(s): I48.91 - Unspecified atrial fibrillation (7) HTN (hypertension) Assessment/Plan: BP stable Code(s): I10 - ESSENTIAL (PRIMARY) HYPERTENSION (8) Hyperlipidemia Code(s): E78.5 - HYPERLIPIDEMIA, UNSPECIFIED (9) Respiratory failure Assessment/Plan: Resolved Code(s): J96.90 - RESPIRATORY FAILURE, UNSP, UNSP W HYPOXIA OR HYPERCAPNIA Qualifiers: Chronicity: acute on chronic Respiratory failure complication: hypoxia Qualified Code(s): J96.21 - Acute and chronic respiratory failure with hypoxia (10) Diabetes Assessment/Plan: HgA1c is 6.4 Code(s): E11.9 - TYPE 2 DIABETES MELLITUS WITHOUT COMPLICATIONS Qualifiers: Diabetes mellitus type: type 2
[2019-08-26] MEDS ORDERED: INSULIN (NOVOLOG) ASPART 100 UNITS/ML 10ML VIAL SQ ONE (23:42)
[2019-08-27] MEDS ORDERED: PIPERACILLIN/TAZOBACTAM 2.25 GM VIAL IVPB ONE ×2 (01:04→08:49)
[2019-08-27] MEDS ORDERED: DEXTROSE 5%-WATER - 50 ML IVPB ONE ×2 (01:05→08:49)
[2019-08-27] MEDS: PIPERACILLIN/TAZOB 2.25 GM 2.25 GM in DEXTROSE 5%-WATER - 50 ML IVPB SCH ×2 (01:27→09:11)
[2019-08-27] MEDS: FUROSEMIDE 40 MG/4 ML INJECTABLE VIAL IVPUSH SCH ×2 (05:30→17:07)
[2019-08-27] MEDS: INSULIN SLIDING SCALE (NOVOLOG) 1 VIAL SQ SCH ×2 (06:59→16:28)
[2019-08-27 07:44] LABS: HEMOGLOBIN 9.9 GM/dL (10.7-15.3); MCH 26.5 pg (25.7-33.7); MCHC 32.9 g/dl (32.0-36.0); MEAN CELL VOLUME 80.5 fl (80-96); PLATELET COUNT 226 K/MM3 (134-434); RBC 3.73 M/mm3 (3.60-5.2); RDW 18.5 % (11.6-15.6); WHITE BLOOD COUNT 6.7 K/mm3 (4.0-10.0)
[2019-08-27 08:19] LABS: ALBUMIN 2.6 g/dl (3.4-5.0); BILIRUBIN,TOTAL 0.9 mg/dL (0.2-1); BLOOD UREA NITROGEN 69.4 mg/dL (7-18); CALCIUM 8.5 mg/dL (8.5-10.1); CREATININE 3.2 mg/dL (0.55-1.3); MAGNESIUM 1.6 mg/dL (1.8-2.4); PHOSPHOROUS 5.2 mg/dL (2.5-4.9); POTASSIUM 3.3 mmol/L (3.5-5.1)
[2019-08-27] MEDS ORDERED: POTASSIUM CHLORIDE TABS 20 MEQ TABLET.ER (FP) PO ONE (08:22)
[2019-08-27] MEDS: APIXABAN 2.5 MG TABLET PO SCH ×2 (09:10→21:13)
[2019-08-27] MEDS: LIDOCAINE 5% TOPICAL PATCH TP SCH (09:10)
[2019-08-27] MEDS: METOPROLOL TARTRATE 25 MG TABLET (FP) PO SCH ×2 (09:10→21:13)
--- NOTE | 2019-08-27 09:15 | PN ---
Progress Note (short form) - Note Progress Note: OOB in chair no sob still some intermittent RUQ discomfort eating breakfast Vital Signs Period Temp Pulse Resp BP Sys/Hernandez Pulse Ox Last 24 Hr 97.8 F-98.0 F 71-102 18-23 96-124/51-77 96-96 cor-rrr lungs decreased bs at bases abd soft,nt ext +edema CBC, BMP 08/27/19 07:01 08/27/19 07:01 Microbiology 08/20/19 03:55 Blood - Peripheral Venous Blood Culture - Final NO GROWTH AFTER 5 DAYS INCUBATION 08/20/19 03:55 Blood - Peripheral Venous Blood Culture - Final NO GROWTH AFTER 5 DAYS INCUBATION a/p recurrent chf-improving with diuresis- l doug-improving with diuresis leukocytosis resolved- day #7 zosyn- abnl lfts- resolved recent biliary stent for choledocholithiasis has been on 7 days iv zosyn, was on cipro/flagyl at home after d/c from [facility] would be reasonable to d/c antibiotics at this time and observe d/w Dr Camacho he is agreeable to this plan will d/c Dr Grimm as well-he is agreeable to d/c antibiotics as well Please call back if needed
--- NOTE | 2019-08-27 11:13 | CONSULT ---
- Consultation REQUESTING PROVIDER: Vascular Surgery - Brandin Crouch CONSULT REQUEST: We have been asked to evaluate this patients LE vascular status PCP: Natacha Cooney HPI: Called to rosi 73 yo female with PMHx as noted below. Admitted to ICU with multiple medical problems. Recently admitted to [facility] 08/05/19 with cholangitis, G- bacteremia. Patient was transferred to [facility] where she had an ERCP w/ sphincterotomy and Gallstone extraction. Dr. Camacho (General Surgery) consult from 08/21/19 reviewed. Patient has h/o venous stasis (bilat LE). This morning, found patient sitting in chair at bedside. Resting comfortably without complaint. States her LE have looked like this for quite sometime. However, her now c/o cold toes. During her last hospital visit (mentioned above) diagnosed with new onset afib w/ RVR. Denies n/v/f/c, CP, SOB or DEMPSEY. PMHx: Acute Promyelotic Leukemia (s/p Chemo) CAD NSTEMI CHF HTN HLD DC (s/p EES stent to LAD) Cholelithiasis/Cholecystitis/Choledocholithiasis Renal Inusuff Diabetes Mellitus (w/ neuropathy) Venous Stasis Afib KEL PSHx: ERCP/stent Drug Eluting Stent Home Meds Metoprolol Tartrate 25 mg PO DAILY 08/05/19 Apixaban [Eliquis -] 2.5 mg PO BID 08/20/19 Ciprofloxacin [Cipro (Restricted To Id)] 500 mg PO ASDIR 08/20/19 Metronidazole 500 mg PO ASDIR 08/20/19 Sodium Bicarbonate - 1,300 mg PO TID 08/20/19 Allergies: NKDA ROS: CONSTITUTIONAL: Absent: diaphoresis, generalized weakness, malaise, loss of appetite, weight change CARDIOVASCULAR: Absent: syncope, irregular heart rate, lightheadedness, peripheral edema RESPIRATORY: Absent: cough, wheezing, stridor, hemoptysis GASTROINTESTINAL:Absent: abdominal pain, abdominal distension, constipation, melena, hematochezia GENITOURINARY: Absent: frequency, urgency, hesitancy, hematuria, flank pain MUSCULOSKELETAL: Absent: myalgia, arthralgia, joint swelling, back pain, neck pain SKIN: Absent: rash, itching, pallor HEMATOLOGIC/IMMUNOLOGIC: Absent: easy bleeding, easy bruising, lymphadenopathy NEUROLOGIC: Absent: headache, focal weakness, paresthesias, dizziness, unsteady gait, seizure, mental status changes, PSYCHIATRIC: Absent: anxiety, depression, suicidal or homicidal ideation, hallucinations. PE: GENERAL: Awake, alert, and fully oriented, in no acute distress. HEAD: Normal with no signs of trauma. EYES: PERRL, sclera anicteric, conjunctiva clear. NECK: Normal ROM, supple without lymphadenopathy, JVD, or masses. LUNGS: HEART: afib rate controlled ABDOMEN: Soft, nontender, not distended, normoactive bowel sounds, no guarding, no rebound, no masses. No organomegaly. MUSCULOSKELETAL: Normal ROM at all joints. No bony deformities or tenderness. No CVA tenderness. UE: 2+ pulses, warm, well-perfused. No cyanosis. Cap refill <2 seconds. No peripheral edema. LE: 1+ Peripheral edema bilat. Chronic venous stasis changes. Forefoot --> toes cyanotic bilat. Cool to touch. No palpable pulses however only able to doppler DPs bilat. NEUROLOGICAL: Normal speech, gait not observed. PSYCH: Cooperative. Good eye contact. Appropriate mood and affect. Last Vital Signs Temp Pulse Resp BP Pulse Ox 97.9 F 75 22 H 105/67 96 08/27/19 04:00 08/27/19 06:00 08/27/19 06:00 08/27/19 06:00 08/27/19 04:12 CBC, BMP 08/27/19 07:01 08/27/19 07:01 INR, PTT INR 1.47 (0.83-1.09) H 08/20/19 03:30 Problem List - Problems (1) Venous stasis of lower extremity Assessment/Plan: Patient admitted with multiple medical problems. Has LE +1 edema, Cyantoic forefoot --> toes. Ischemic rest pain vs. peripheral neuropathy Unable to perform CTA w/ LE runoff as her BUN/Cr elevated (chronic). f/u LE Arterial Duplex (URGENT) DVT PPX Will cont to follow. Above discussed with Dr. Crouch and agrees. Code(s): I87.8 - OTHER SPECIFIED DISORDERS OF VEINS (2) Afib Code(s): I48.91 - UNSPECIFIED ATRIAL FIBRILLATION Qualifiers: Atrial fibrillation type: unspecified Qualified Code(s): I48.91 - Unspecified atrial fibrillation (3) Renal failure Code(s): N19 - UNSPECIFIED KIDNEY FAILURE Qualifiers: Renal failure chronicity: unspecified chronicity Qualified Code(s): N19 - Unspecified kidney failure (4) CAD (coronary artery disease) Code(s): I25.10 - ATHSCL HEART DISEASE OF [place] CORONARY ARTERY W/O ANG PCTRS (5) CHF (congestive heart failure) Code(s): I50.9 - HEART FAILURE, UNSPECIFIED Qualifiers: Qualified Code(s): I50.33 - Acute on chronic diastolic (congestive) heart failure (6) Diabetes Code(s): E11.9 - TYPE 2 DIABETES MELLITUS WITHOUT COMPLICATIONS Qualifiers: Diabetes mellitus type: type 2 (7) HTN (hypertension) Code(s): I10 - ESSENTIAL (PRIMARY) HYPERTENSION (8) Hyperlipidemia Code(s): E78.5 - HYPERLIPIDEMIA, UNSPECIFIED Visit type - Case Type Case Type: ED Admission - Emergency Emergency Visit: Yes ED Registration Date: 08/20/19 Care time: The patient presented to the Emergency Department on the above date and was hospitalized for further evaluation of their emergent condition. - New patient This patient is new to me today: Yes Date on this admission: 08/27/19
--- NOTE | 2019-08-27 11:36 | PN ---
Teaching Attending Note Name of Resident: Gilbert Nguyen ATTENDING PHYSICIAN STATEMENT I saw and evaluated the patient. I reviewed the resident's note and discussed the case with the resident. I agree with the resident's findings and plan as documented. SUBJECTIVE: Pt seen and examined in the ICU. Breathing continues to improve. Diuresing well. Borderline hypotensive this AM. OBJECTIVE: Vital Signs Period Temp Pulse Resp BP Sys/Hernandez Pulse Ox Last 24 Hr 97.8 F-97.9 F 71-82 18-23 96-115/51-77 96-96 Intake & Output 08/24/19 08/25/19 08/26/19 08/27/19 23:59 23:59 23:59 23:59 Intake Total 530 900 574 150 Output Total 6100 5200 4000 800 Balance -5570 -4300 -3426 -650 Weight 115.711 kg 113.58 kg 113.398 kg 113.4 kg Gen: NAD in chair Heart: RRR Lung: decreased bretah sounds at the bases Abd: soft, nontender Ext: + edema CBC, BMP 08/27/19 07:01 08/27/19 07:01 Active Medications Acetaminophen (Tylenol -) 650 mg PO Q6H PRN PRN Reason: PAIN LEVEL 1-5 Last Admin: 08/21/19 22:39 Dose: 650 mg Apixaban (Eliquis -) 2.5 mg PO BID [facility] Last Admin: 08/27/19 09:10 Dose: 2.5 mg Furosemide (Lasix Injection -) 80 mg IVPUSH BID@0600,1400 [facility] Last Admin: 08/27/19 05:30 Dose: 80 mg Insulin Aspart (Novolog Vial Sliding Scale -) 1 vial SQ BIDAC [facility]; Protocol Last Admin: 08/27/19 06:59 Dose: Not Given Lactic Acid (Lac-Hydrin 12) 1 applic TP DAILY PRN PRN Reason: xerosis Last Admin: 08/26/19 20:03 Dose: 1 applic Lidocaine (Lidoderm Patch -) 1 patch TP DAILY [facility] Last Admin: 08/27/19 09:10 Dose: 1 patch Metoprolol Tartrate (Lopressor -) 25 mg PO BID [facility] Last Admin: 08/27/19 09:10 Dose: 25 mg Miscellaneous (Lidoderm Patch Removal) 1 each MC DAILY@2200 [facility] Last Admin: 08/26/19 21:15 Dose: 1 each ASSESSMENT AND PLAN: Acute Hypercapneic and Hypoxic Respiratory Failure improving Acute on Chronic Diastolic Heart Failure Acute Kidney Injury Lactic Acidosis resolved Atrial Fibrillation CAD Pericardial Effusion HTN DM ALL Cholelithiasis Anemia ENOC - continue lasix, zaroxolyn if BP tolerates - monitor urine output, creatinine - O2 to keep SpO2 >90% - daily weights - rate control - continue anticoagulation - completed antibiotics - can monitor on telemetry
--- NOTE | 2019-08-27 13:55 | PN ---
Physical Exam: SUBJECTIVE: Patient seen and examined on AM rounds. No acute overnight events. Patient reports continued improvement in her breathing. No complaints at the present time. Now on 2L NC. Completed ABX series. OBJECTIVE: Vital Signs Period Temp Pulse Resp BP Sys/Hernandez Pulse Ox Last 24 Hr 97.8 F-97.9 F 71-82 18-23 96-115/51-77 96-96 GENERAL: The patient is awake, alert, and fully oriented, in no acute distress. HEAD: Normal with no signs of trauma. EYES: EOMI, no ptosis ENT: MMM NECK: Trachea midline, supple LUNGS: diminished breath sounds bilaterally, clear to auscultation bilaterally, no wheezes, no crackles, no accessory muscle use HEART: RRR, no murmur noted ABDOMEN: mild RUQ tenderness to palpation, soft, non distended EXTREMITIES: 2+ pulses, warm, well-perfused. Improving edema of bilaterally legs , still with 2+ non pitting edema NEUROLOGICAL: Normal speech, gait not observed. PSYCH: appropriate mood and affect SKIN: Warm, dry Laboratory Results - last 24 hr 08/25/19 08/25/19 08/26/19 09:44 09:44 20:30 WBC RBC Hgb Hct MCV MCH MCHC RDW Plt Count MPV Sodium Potassium Chloride Carbon Dioxide Anion Gap BUN Creatinine Est GFR (CKD-EPI)AfAm Est GFR (CKD-EPI)NonAf POC Glucometer 256 Random Glucose Calcium Phosphorus Magnesium Total Bilirubin AST ALT Alkaline Phosphatase Total Protein Albumin KAREN Screen Positive H KAREN Homogeneous Pattern TNP KAREN Nucleolar Pattern TNP KAREN Spindle Adriano Pattern TNP KAREN Midbody Pattern TNP KAREN Centriole Pattern TNP KAREN Nuclear Dot Pattern TNP KAREN PCNA Pattern TNP KAREN Nuclear Membr Pat TNP KAREN Speckled Pattern 1:1280 H KAREN Centromere Pattern TNP Hep Bs Antigen Negative Hep Bs Antibody Non reactive Hep B Core Total Ab Negative Hep B Core IgM Ab Negative Hepatitis Be Antibody Negative Hepatitis Be Antigen Negative 08/26/19 08/27/19 08/27/19 23:18 06:55 07:01 WBC 6.7 RBC 3.73 Hgb 9.9 L Hct 30.0 L MCV 80.5 MCH 26.5 MCHC 32.9 RDW 18.5 H Plt Count 226 MPV 9.0 Sodium Potassium Chloride Carbon Dioxide Anion Gap BUN Creatinine Est GFR (CKD-EPI)AfAm Est GFR (CKD-EPI)NonAf POC Glucometer 241 152 Random Glucose Calcium Phosphorus Magnesium Total Bilirubin AST ALT Alkaline Phosphatase Total Protein Albumin KAREN Screen KAREN Homogeneous Pattern KAREN Nucleolar Pattern KAREN Spindle Adriano Pattern KAREN Midbody Pattern KAREN Centriole Pattern KAREN Nuclear Dot Pattern KAREN PCNA Pattern KAREN Nuclear Membr Pat KAREN Speckled Pattern KAREN Centromere Pattern Hep Bs Antigen Hep Bs Antibody Hep B Core Total Ab Hep B Core IgM Ab Hepatitis Be Antibody Hepatitis Be Antigen 08/27/19 07:01 WBC RBC Hgb Hct MCV MCH MCHC RDW Plt Count MPV Sodium 136 Potassium 3.3 L Chloride 93 L Carbon Dioxide 33 H Anion Gap 9 BUN 69.4 H Creatinine 3.2 H Est GFR (CKD-EPI)AfAm 15.75 Est GFR (CKD-EPI)NonAf 13.59 POC Glucometer Random Glucose 158 H Calcium 8.5 Phosphorus 5.2 H Magnesium 1.6 L Total Bilirubin 0.9 AST 23 ALT 29 Alkaline Phosphatase 101 Total Protein 7.0 Albumin 2.6 L KAREN Screen KAREN Homogeneous Pattern KAREN Nucleolar Pattern KAREN Spindle Adriano Pattern KAREN Midbody Pattern KAREN Centriole Pattern KAREN Nuclear Dot Pattern KAREN PCNA Pattern KAREN Nuclear Membr Pat KAREN Speckled Pattern KAREN Centromere Pattern Hep Bs Antigen Hep Bs Antibody Hep B Core Total Ab Hep B Core IgM Ab Hepatitis Be Antibody Hepatitis Be Antigen Active Medications Generic Name Dose Route Start Last Admin Trade Name Freq PRN Reason Stop Dose Admin Acetaminophen 650 mg 08/21/19 03:58 08/21/19 22:39 Tylenol - PO 650 mg Q6H PRN Administration PAIN LEVEL 1-5 Apixaban 2.5 mg 08/21/19 22:00 08/27/19 09:10 Eliquis - PO 2.5 mg BID GABY Administration Furosemide 80 mg 08/26/19 06:00 08/27/19 05:30 Lasix Injection - IVPUSH 80 mg BID@0600,1400 G[facility] Administration Insulin Aspart 1 vial 08/27/19 07:00 08/27/19 06:59 Novolog Vial Sliding Scale - SQ Not Given BIDAC [facility] Protocol Lactic Acid 1 applic 08/26/19 12:32 08/26/19 20:03 Lac-Hydrin 12 TP 1 applic DAILY PRN Administration xerosis Lidocaine 1 patch 08/24/19 10:30 08/27/19 09:10 Lidoderm Patch - TP 1 patch DAILY [facility] Administration Metoprolol Tartrate 25 mg 08/20/19 22:00 08/27/19 09:10 Lopressor - PO 25 mg BID [facility] Administration Miscellaneous 1 each 08/24/19 22:00 08/26/19 21:15 Lidoderm Patch Removal MC 1 each DAILY@2200 GABY Administration ASSESSMENT/PLAN: 73 year old female with PMH significant for CAD, CHF, Afib, DM, HTN, Obesity, ALL (s/p chemo), and chronic venous stasis. She presented to the ER on 08/20 with complaints of worsening SOB since recent discharge from [facility]. S/p rapid on 08/21, transfer to ICU for tenuous respiratory status. Continuing aggressive diuresis. #Neuro - Pain control PRN #CV - Monitor vitals - Continue 80mg Lasix TID diuresis - Continued rate control, metoprolol - Appreciate cardiology recs - Consider ECHO vs JOSE (08/06) to re-evaluate prior effusion - Continue AC, Eliquis BID #Pulm - Weaned off of high flow oxygen therapy, maintaining high O2 saturation on nasal canula - Maintain SPO2 >92% #Renal - Monitor I&Os, UOP, Cr. Keep net negative. - Daily weights - Trend lytes, replete as necessary - Appreciate nephrology recs - Metalozone given for diuresis in conjunction with Lasixl, plan for 30min before PM dose if pressures stable #HemeOnc - Per Dr. Mccoy, pt was seen 07/17/2019 and had KAREN of 1:640 with nucleolar pattern, RF465. CCP, anti-DNAds, ANCA, myeloperoxidase, and proteinase-3 were all negative. Complement was decreased. [place]:Lambda ratio of 2.68 with [place] IgG spike on polyclonal background. There was concern for relapse of Leukemia. However, pt had APL in 2014, which was treated and is in remission with confirmatory PCR q 3 months with out pt oncologist Dr. Neil. - Outpatient oncologist performs PCR q3 months. #ID - ABX per ID - Stopping Zosyn - Monitor vitals, fever, leukocytosis - Blood cultures without growth #GI - Renal diet #Endo - ISS, BGM #PPX - OOB as tolerated - PT consulted - Eliquis #Dispo - Stable for transfer to tele - Family willing for Endotracheal intubation if required Visit type - Emergency Visit Emergency Visit: Yes ED Registration Date: 08/20/19 Care time: The patient presented to the Emergency Department on the above date and was hospitalized for further evaluation of their emergent condition. - New Patient This patient is new to me today: No - Critical Care Critical Care patient: Yes Total Critical Care Time (in minutes): 36 Critical Care Statement: The care of this patient involved high complexity decision making to prevent further life threatening deterioration of the patient 's condition and/or to evaluate & treat vital organ system(s) failure or risk of failure. ATTENDING PHYSICIAN STATEMENT I saw and evaluated the patient. I reviewed the resident's note and discussed the case with the resident. I agree with the resident's findings and plan as documented. SUBJECTIVE: OBJECTIVE: ASSESSMENT AND PLAN:
--- NOTE | 2019-08-27 14:06 | PN ---
Progress Note, Physician History of Present Illness: Pt seen and examined at bedside. She is awake and alert. She feels that her breathing is improving. - Current Medication List Current Medications: Active Medications Acetaminophen (Tylenol -) 650 mg PO Q6H PRN PRN Reason: PAIN LEVEL 1-5 Last Admin: 08/21/19 22:39 Dose: 650 mg Apixaban (Eliquis -) 2.5 mg PO BID [facility] Last Admin: 08/27/19 09:10 Dose: 2.5 mg Furosemide (Lasix Injection -) 80 mg IVPUSH BID@0600,1400 [facility] Last Admin: 08/27/19 05:30 Dose: 80 mg Insulin Aspart (Novolog Vial Sliding Scale -) 1 vial SQ BIDAC [facility]; Protocol Last Admin: 08/27/19 06:59 Dose: Not Given Lactic Acid (Lac-Hydrin 12) 1 applic TP DAILY PRN PRN Reason: xerosis Last Admin: 08/26/19 20:03 Dose: 1 applic Lidocaine (Lidoderm Patch -) 1 patch TP DAILY [facility] Last Admin: 08/27/19 09:10 Dose: 1 patch Metoprolol Tartrate (Lopressor -) 25 mg PO BID [facility] Last Admin: 08/27/19 09:10 Dose: 25 mg Miscellaneous (Lidoderm Patch Removal) 1 each MC DAILY@2200 [facility] Last Admin: 08/26/19 21:15 Dose: 1 each - Objective Vital Signs: Vital Signs Temperature 97.9 F 08/27/19 04:00 Pulse Rate 75 08/27/19 06:00 Respiratory Rate 22 H 08/27/19 06:00 Blood Pressure 105/67 08/27/19 06:00 O2 Sat by Pulse Oximetry (%) 96 08/27/19 04:12 Constitutional: Yes: Calm Eyes: Yes: Conjunctiva Clear HENT: Yes: Atraumatic Cardiovascular: Yes: S1, S2 Respiratory: Yes: CTA Bilaterally Gastrointestinal: Yes: Soft Genitourinary: Yes: WNL Musculoskeletal: Yes: WNL Edema: Yes Edema: LLE: 2+, RLE: 2+ Neurological: Yes: Oriented Psychiatric: Yes: Oriented Labs: CBC, BMP 08/27/19 07:01 08/27/19 07:01 INR, PTT INR 1.47 (0.83-1.09) H 08/20/19 03:30 Assessment/Plan Current Medications Generic Name Dose Route Start Last Admin Trade Name Charisma PRN Reason Stop Dose Admin Acetaminophen 650 mg 08/21/19 03:58 08/21/19 22:39 Tylenol - PO 650 mg Q6H PRN Administration PAIN LEVEL 1-5 Apixaban 2.5 mg 08/21/19 22:00 08/27/19 09:10 Eliquis - PO 2.5 mg BID [facility] Administration Furosemide 80 mg 08/26/19 06:00 08/27/19 05:30 Lasix Injection - IVPUSH 80 mg BID@0600,1400 [facility] Administration Insulin Aspart 1 vial 08/27/19 07:00 08/27/19 06:59 Novolog Vial Sliding Scale - SQ Not Given BIDAC [facility] Protocol Lactic Acid 1 applic 08/26/19 12:32 08/26/19 20:03 Lac-Hydrin 12 TP 1 applic DAILY PRN Administration xerosis Lidocaine 1 patch 08/24/19 10:30 08/27/19 09:10 Lidoderm Patch - TP 1 patch DAILY [facility] Administration Metoprolol Tartrate 25 mg 08/20/19 22:00 08/27/19 09:10 Lopressor - PO 25 mg BID [facility] Administration Miscellaneous 1 each 08/24/19 22:00 08/26/19 21:15 Lidoderm Patch Removal MC 1 each DAILY@2200 G[facility]Y Administration Impression 1. KEL 2. CHF 3. hx sepsis from biliary source 4. cad 5. ALL 6. CAD 7. a-fib 8. lactic acidosis 9. hx of leukocytoclastic vasculitis Plan - cont lasix - volume status improvng - surgery follow up - follow cxr - replace potassium - restrict fluid and ice intake
[2019-08-27] MEDS ORDERED: METOLAZONE 2.5 MG TABLET (FP) PO ONE (14:39)
[2019-08-27 16:07] LABS: HEP B CORE AB, TOT Negative (Negative)
--- NOTE | 2019-08-27 16:19 | PN ---
Progress Note, Physician Chief Complaint: SOB much improved Afib with rate control on tele History of Present Illness: 73 F known to our practice. She has history of HfPEF, chronic Lext swelling, CAD with LAD PCI 2014. She was recently admitted with cholangitis and gram negative bacteremia complicated by KEL and new onset Afib. She was transferred to [facility] and had ERCP with sphyncterotomy and removal of GB stones. Her KEL improved and at time of DC 08/15 BUN/Cr was 47/4.4. Eitiology of KEL was felt to be due to ATN. NSR was restored spontaneously as well and she was discharged on Metoprolol 12.5mg BID and Eliquis in addition to NaHCo3 and Amlodipine. She developed sudden SOB last night. In ER initially, severe hypoxemia and rapid Afib was noted. she improved on BiPAP She is admitted with SOB, hypoxemia and rapid Afib. - Current Medication List Current Medications: Active Medications Acetaminophen (Tylenol -) 650 mg PO Q6H PRN PRN Reason: PAIN LEVEL 1-5 Last Admin: 08/21/19 22:39 Dose: 650 mg Apixaban (Eliquis -) 2.5 mg PO BID [facility] Last Admin: 08/27/19 09:10 Dose: 2.5 mg Furosemide (Lasix Injection -) 80 mg IVPUSH BID@0600,1400 [facility] Last Admin: 08/27/19 05:30 Dose: 80 mg Insulin Aspart (Novolog Vial Sliding Scale -) 1 vial SQ BIDAC [facility]; Protocol Last Admin: 08/27/19 06:59 Dose: Not Given Lactic Acid (Lac-Hydrin 12) 1 applic TP DAILY PRN PRN Reason: xerosis Last Admin: 08/26/19 20:03 Dose: 1 applic Lidocaine (Lidoderm Patch -) 1 patch TP DAILY [facility] Last Admin: 08/27/19 09:10 Dose: 1 patch Metoprolol Tartrate (Lopressor -) 25 mg PO BID [facility] Last Admin: 08/27/19 09:10 Dose: 25 mg Miscellaneous (Lidoderm Patch Removal) 1 each MC DAILY@2200 [facility] Last Admin: 08/26/19 21:15 Dose: 1 each - Objective Vital Signs: Vital Signs Temperature 97.4 F L 08/27/19 14:00 Pulse Rate 78 08/27/19 14:00 Respiratory Rate 22 H 08/27/19 14:00 Blood Pressure 97/58 L 08/27/19 14:00 O2 Sat by Pulse Oximetry (%) 96 08/27/19 09:00 Constitutional: Yes: No Distress Neck: Yes: Supple Cardiovascular: Yes: Pulse Irregular, S1, S2. No: JVD Respiratory: Yes: Diminished Gastrointestinal: Yes: Soft Edema: LLE: Trace, RLE: Trace Labs: CBC, BMP 08/27/19 07:01 08/27/19 07:01 INR, PTT INR 1.47 (0.83-1.09) H 08/20/19 03:30 Assessment/Plan 73 F known to our practice. She has history of HfPEF, chronic Lext swelling, CAD with LAD PCI 2014. She was recently admitted with cholangitis and gram negative bacteremia complicated by KEL and new onset Afib. She was transferred to [facility] and had ERCP with sphyncterotomy and removal of GB stones. Her KEL improved and at time of DC 08/15 BUN/Cr was 47/4.4. Eitiology of KEL was felt to be due to ATN. NSR was restored spontaneously as well and she was discharged on Metoprolol 12.5mg BID and Eliquis in addition to NaHCo3 and Amlodipine. She developed sudden SOB last night. In ER initially, severe hypoxemia and rapid Afib was noted. she improved on BiPAP She is admitted with SOB, hypoxemia and rapid Afib. CHF-Acute on chronic combined CHF -Volume status improving each day. -Change to PO furosemide 80mg BID -Cont to follow I's/O's/Wt's/Lytes -replete K to 4 and Mg to 2 AFIB-pafib, HR adequately controlled -Contiue AC with apixaban 2.5 mg PO BID -Rate control with Metoprolol Tartrate 25 mg PO BID if BP allows CAD -TP level minimally elevated with normal CK level in setting of respiratory distress c/w demand ischemia not ACS. -cont medical management
--- NOTE | 2019-08-27 16:29 | PN ---
Progress Note (short form) - Note Progress Note: Patient vastly improved and stable at this time. Discussed with PCP who agreed patient eligible for downgrade. Patient will be transferred out of ICU.
[2019-08-27 18:07] LABS: FREE KAPPA,SERUM 164.6 mg/L (3.3-19.4)
[2019-08-27] MEDS ORDERED: ACETAMINOPHEN 325 MG TABLET (FP) PO PRN (18:56)
[2019-08-27] MEDS ORDERED: LIDOCAINE PATCH REMOVAL MC SCH (18:56)
[2019-08-27] MEDS: LIDOCAINE PATCH REMOVAL MC SCH (21:13)
--- NOTE | 2019-08-27 23:23 | PN ---
Progress Note, Physician History of Present Illness: Pt being transferred to tele - Current Medication List Current Medications: Active Medications Acetaminophen (Tylenol -) 650 mg PO Q6H PRN PRN Reason: PAIN LEVEL 1-5 Apixaban (Eliquis -) 2.5 mg PO BID [facility] Last Admin: 08/27/19 21:13 Dose: 2.5 mg Furosemide (Lasix Injection -) 80 mg IVPUSH BID@0600,1400 [facility] Insulin Aspart (Novolog Vial Sliding Scale -) [facility] Protocol Last Admin: 08/27/19 16:28 Dose: 1 units Lactic Acid (Lac-Hydrin 12) 1 applic TP DAILY PRN PRN Reason: xerosis Last Admin: 08/26/19 20:03 Dose: 1 applic Lidocaine (Lidoderm Patch -) 1 patch TP DAILY [facility] Metoprolol Tartrate (Lopressor -) 25 mg PO BID [facility] Last Admin: 08/27/19 21:13 Dose: 25 mg Miscellaneous (Lidoderm Patch Removal) 1 each [facility] DAILY@2200 [facility] Last Admin: 08/27/19 21:13 Dose: 1 each - Objective Vital Signs: Vital Signs Temperature 98.6 F 08/27/19 21:00 Pulse Rate 81 08/27/19 21:00 Respiratory Rate 20 08/27/19 21:00 Blood Pressure 106/62 08/27/19 21:00 O2 Sat by Pulse Oximetry (%) 96 08/27/19 21:00 Neck: Yes: WNL, Supple Cardiovascular: Yes: Pulse Irregular Respiratory: Yes: Diminished Gastrointestinal: Yes: WNL, Normal Bowel Sounds, Soft, Abdomen, Obese Edema: LLE: 1+, RLE: 1+ Labs: CBC, BMP 08/27/19 07:01 08/27/19 07:01 INR, PTT INR 1.47 (0.83-1.09) H 08/20/19 03:30 Problem List - Problems (1) Acute on chronic combined systolic (congestive) and diastolic (congestive) heart failure Assessment/Plan: Pt to be transferred to tele Probable change to po lasix as per cardio Cont IV lasix TID Metolazone prn Monitor electrolytes/renal function Code(s): I50.43 - ACUTE ON CHRONIC COMBINED SYSTOLIC AND DIASTOLIC HRT FAIL (2) Renal failure Assessment/Plan: Acute on chronic renal failure As per renal Code(s): N19 - UNSPECIFIED KIDNEY FAILURE Qualifiers: Renal failure chronicity: unspecified chronicity Qualified Code(s): N19 - Unspecified kidney failure (3) APL (acute promyelocytic leukemia) Assessment/Plan: As per onco (H/O recent skin bx wc showed leukocytoclastic vasculitis (4) Anemia Assessment/Plan: Multifactorial Code(s): D64.9 - ANEMIA, UNSPECIFIED (5) Leukocytosis Assessment/Plan: Lactic acidosis resolved Pt is now off antibxs BC remain negative Code(s): D72.829 - ELEVATED WHITE BLOOD CELL COUNT, UNSPECIFIED (6) Afib Code(s): I48.91 - UNSPECIFIED ATRIAL FIBRILLATION Qualifiers: Atrial fibrillation type: unspecified Qualified Code(s): I48.91 - Unspecified atrial fibrillation (7) HTN (hypertension) Code(s): I10 - ESSENTIAL (PRIMARY) HYPERTENSION (8) Hyperlipidemia Code(s): E78.5 - HYPERLIPIDEMIA, UNSPECIFIED (9) Respiratory failure Code(s): J96.90 - RESPIRATORY FAILURE, UNSP, UNSP W HYPOXIA OR HYPERCAPNIA Qualifiers: Chronicity: acute on chronic Respiratory failure complication: hypoxia Qualified Code(s): J96.21 - Acute and chronic respiratory failure with hypoxia (10) Diabetes Code(s): E11.9 - TYPE 2 DIABETES MELLITUS WITHOUT COMPLICATIONS Qualifiers: Diabetes mellitus type: type 2
[2019-08-28] MEDS: INSULIN SLIDING SCALE (NOVOLOG) 1 VIAL SQ SCH ×2 (06:23→16:57)
[2019-08-28 06:34] LABS: BASO % 0.7 % (0-2.0); EOS % 3.7 % (0-4.5); HEMATOCRIT 28.4 % (32.4-45.2); HEMOGLOBIN 9.5 GM/dL (10.7-15.3); MCH 26.7 pg (25.7-33.7); MCHC 33.3 g/dl (32.0-36.0); MEAN CELL VOLUME 80.2 fl (80-96); MEAN PLT VOLUME 9.1 fl (7.5-11.1); MONO % 3.8 % (3.8-10.2); NEUT % 68.8 % (42.8-82.8); PLATELET COUNT 210 K/MM3 (134-434); RBC 3.54 M/mm3 (3.60-5.2); RDW 18.8 % (11.6-15.6); WHITE BLOOD COUNT 6.8 K/mm3 (4.0-10.0)
[2019-08-28 06:56] LABS: ALBUMIN 2.7 g/dl (3.4-5.0); BILIRUBIN,TOTAL 0.8 mg/dL (0.2-1); BLOOD UREA NITROGEN 82.4 mg/dL (7-18); CALCIUM 8.5 mg/dL (8.5-10.1); CREATININE 3.2 mg/dL (0.55-1.3); MAGNESIUM 1.6 mg/dL (1.8-2.4); PHOSPHOROUS 5.6 mg/dL (2.5-4.9); POTASSIUM 3.4 mmol/L (3.5-5.1); TOT PROT 7.1 g/dl (6.4-8.2)
[2019-08-28] MEDS: FUROSEMIDE 40 MG/4 ML INJECTABLE VIAL IVPUSH SCH ×2 (07:49→15:57)
[2019-08-28] MEDS: APIXABAN 2.5 MG TABLET PO SCH ×2 (10:04→21:08)
[2019-08-28] MEDS: METOPROLOL TARTRATE 25 MG TABLET (FP) PO SCH ×2 (10:04→21:08)
[2019-08-28] MEDS: LIDOCAINE 5% TOPICAL PATCH TP SCH (10:04)
[2019-08-28 10:07] LABS: ANTIGLOMERULAR BASEMENT MEN.AB 2 units (0-20)
--- NOTE | 2019-08-28 14:36 | PN ---
Progress Note, Physician Chief Complaint: SOB much improved Afib with rate control on tele History of Present Illness: 73 F known to our practice. She has history of HfPEF, chronic Lext swelling, CAD with LAD PCI 2014. She was recently admitted with cholangitis and gram negative bacteremia complicated by KEL and new onset Afib. She was transferred to [facility] and had ERCP with sphyncterotomy and removal of GB stones. Her KEL improved and at time of DC 08/15 BUN/Cr was 47/4.4. Eitiology of KEL was felt to be due to ATN. NSR was restored spontaneously as well and she was discharged on Metoprolol 12.5mg BID and Eliquis in addition to NaHCo3 and Amlodipine. She developed sudden SOB last night. In ER initially, severe hypoxemia and rapid Afib was noted. she improved on BiPAP She is admitted with SOB, hypoxemia and rapid Afib. - Current Medication List Current Medications: Active Medications Acetaminophen (Tylenol -) 650 mg PO Q6H PRN PRN Reason: PAIN LEVEL 1-5 Apixaban (Eliquis -) 2.5 mg PO BID [facility] Last Admin: 08/28/19 10:04 Dose: 2.5 mg Furosemide (Lasix Injection -) 80 mg IVPUSH BID@0600,1400 [facility] Last Admin: 08/28/19 07:49 Dose: Not Given Insulin Aspart (Novolog Vial Sliding Scale -) 1 vial SQ [facility]; Protocol Last Admin: 08/28/19 06:23 Dose: 1 units Lactic Acid (Lac-Hydrin 12) 1 applic TP DAILY PRN PRN Reason: xerosis Last Admin: 08/26/19 20:03 Dose: 1 applic Lidocaine (Lidoderm Patch -) 1 patch TP DAILY [facility] Last Admin: 08/28/19 10:04 Dose: 1 patch Metoprolol Tartrate (Lopressor -) 25 mg PO BID [facility] Last Admin: 08/28/19 10:04 Dose: 25 mg Miscellaneous (Lidoderm Patch Removal) 1 each [facility] DAILY@2200 [facility] Last Admin: 08/27/19 21:13 Dose: 1 each - Objective Vital Signs: Vital Signs Temperature 98.8 F 08/28/19 08:57 Pulse Rate 81 08/28/19 08:57 Respiratory Rate 18 08/28/19 08:57 Blood Pressure 91/53 L 08/28/19 08:57 O2 Sat by Pulse Oximetry (%) 98 08/28/19 00:26 Constitutional: Yes: No Distress Neck: Yes: Supple Cardiovascular: Yes: Pulse Irregular, S1, S2. No: JVD Respiratory: Yes: Other (minimal bibasilar rales) Gastrointestinal: Yes: Soft Edema: LLE: 1+, RLE: 1+ Labs: CBC, BMP 08/28/19 05:30 08/28/19 05:30 INR, PTT INR 1.47 (0.83-1.09) H 08/20/19 03:30 Assessment/Plan 73 F known to our practice. She has history of HfPEF, chronic Lext swelling, CAD with LAD PCI 2014. She was recently admitted with cholangitis and gram negative bacteremia complicated by KEL and new onset Afib. She was transferred to [facility] and had ERCP with sphyncterotomy and removal of GB stones. Her KEL improved and at time of DC 08/15 BUN/Cr was 47/4.4. Eitiology of KEL was felt to be due to ATN. NSR was restored spontaneously as well and she was discharged on Metoprolol 12.5mg BID and Eliquis in addition to NaHCo3 and Amlodipine. She developed sudden SOB last night. In ER initially, severe hypoxemia and rapid Afib was noted. she improved on BiPAP She is admitted with SOB, hypoxemia and rapid Afib. CHF-Acute on chronic combined CHF -Volume status improving each day. -Change to PO furosemide 80mg BID -Cont to follow I's/O's/Wt's/Lytes -replete K to 4 and Mg to 2 AFIB-pafib, HR adequately controlled -Contiue AC with apixaban 2.5 mg PO BID -Rate control with Metoprolol Tartrate 25 mg PO BID if BP allows. If not will have to lower to 12.5mg CAD -TP level minimally elevated with normal CK level in setting of respiratory distress c/w demand ischemia not ACS. -cont medical management
[2019-08-28] MEDS ORDERED: FUROSEMIDE 40 MG TABLET (FP) PO ONE (16:10)
--- NOTE | 2019-08-28 16:31 | PN ---
Progress Note (short form) - Note Progress Note: Pt was unable to get in bed to have nails cut. Will try tomorrow.
[2019-08-28] MEDS ORDERED: MAGNESIUM SULF 50% (8.12 MEQ/2 ML-1 GM VIAL) IVPB ONE (17:06)
[2019-08-28] MEDS ORDERED: POTASSIUM CHLORIDE TABS 20 MEQ TABLET.ER (FP) PO ONE (17:06)
--- NOTE | 2019-08-28 17:09 | PN ---
Progress Note, Physician History of Present Illness: Pt seen and examined at bedside. She is now on tele. She feels that her breathing is improved. - Current Medication List Current Medications: Active Medications Acetaminophen (Tylenol -) 650 mg PO Q6H PRN PRN Reason: PAIN LEVEL 1-5 Apixaban (Eliquis -) 2.5 mg PO BID [facility] Last Admin: 08/28/19 10:04 Dose: 2.5 mg Furosemide (Lasix -) 80 mg PO BID@0600,1400 [facility] Insulin Aspart (Novolog Vial Sliding Scale -) 1 vial SQ BIDAC [facility]; Protocol Last Admin: 08/28/19 16:57 Dose: 1 units Lactic Acid (Lac-Hydrin 12) 1 applic TP DAILY PRN PRN Reason: xerosis Last Admin: 08/26/19 20:03 Dose: 1 applic Lidocaine (Lidoderm Patch -) 1 patch TP DAILY [facility] Last Admin: 08/28/19 10:04 Dose: 1 patch Magnesium Sulfate (Magnesium Sulfate) 2 gm IVPB ONCE ONE Stop: 08/28/19 17:07 Metoprolol Tartrate (Lopressor -) 25 mg PO BID [facility] Last Admin: 08/28/19 10:04 Dose: 25 mg Miscellaneous (Lidoderm Patch Removal) 1 each MC DAILY@2200 [facility] Last Admin: 08/27/19 21:13 Dose: 1 each Potassium Chloride (K-Dur -) 40 meq PO ONCE ONE Stop: 08/28/19 17:07 - Objective Vital Signs: Vital Signs Temperature 98.6 F 08/28/19 15:34 Pulse Rate 75 08/28/19 15:34 Respiratory Rate 18 08/28/19 15:34 Blood Pressure 96/57 L 08/28/19 15:34 O2 Sat by Pulse Oximetry (%) 95 08/28/19 09:00 Constitutional: Yes: Calm Eyes: Yes: Conjunctiva Clear HENT: Yes: Atraumatic Neck: Yes: Supple Cardiovascular: Yes: S1, S2 Respiratory: Yes: CTA Bilaterally Gastrointestinal: Yes: Soft, Abdomen, Obese Musculoskeletal: Yes: WNL Edema: Yes Edema: LLE: 1+, RLE: 1+ Neurological: Yes: Oriented Psychiatric: Yes: Oriented Labs: CBC, BMP 08/28/19 05:30 08/28/19 05:30 INR, PTT INR 1.47 (0.83-1.09) H 08/20/19 03:30 Assessment/Plan Current Medications Generic Name Dose Route Start Last Admin Trade Name Freq PRN Reason Stop Dose Admin Acetaminophen 650 mg 08/27/19 18:56 Tylenol - PO Q6H PRN PAIN LEVEL 1-5 Apixaban 2.5 mg 08/27/19 22:00 08/28/19 10:04 Eliquis - PO 2.5 mg BID [facility] Administration Furosemide 80 mg 08/29/19 06:00 Lasix - PO BID@0600,1400 [facility] Insulin Aspart 1 vial 08/27/19 07:00 08/28/19 16:57 Novolog Vial Sliding Scale - SQ 1 units BIDAC [facility] Administration Protocol Lactic Acid 1 applic 08/26/19 12:32 08/26/19 20:03 Lac-Hydrin 12 TP 1 applic DAILY PRN Administration xerosis Lidocaine 1 patch 08/28/19 10:00 08/28/19 10:04 Lidoderm Patch - TP 1 patch DAILY [facility] Administration Magnesium Sulfate 2 gm 08/28/19 17:06 Magnesium Sulfate IVPB 08/28/19 17:07 ONCE ONE Metoprolol Tartrate 25 mg 08/27/19 22:00 08/28/19 10:04 Lopressor - PO 25 mg BID [facility] Administration Miscellaneous 1 each 08/27/19 22:00 08/27/19 21:13 Lidoderm Patch Removal MC 1 each DAILY@2200 [facility] Administration Potassium Chloride 40 meq 08/28/19 17:06 K-Dur - PO 08/28/19 17:07 ONCE ONE Impression 1. KEL 2. CHF 3. hx sepsis from biliary source 4. cad 5. ALL 6. CAD 7. a-fib 8. lactic acidosis 9. hx of leukocytoclastic vasculitis Plan - replace lytes - cont lasix - repeat labs in am - replace mag - restrict fluid and ice intake
[2019-08-28 18:07] LABS: ATYPICAL pANCA <1:20 titer (Neg:<1:20); C-ANCA <1:20 titer (Neg:<1:20)
[2019-08-28] MEDS: LIDOCAINE PATCH REMOVAL MC SCH (21:08)
--- NOTE | 2019-08-28 21:33 | PN ---
Progress Note, Physician History of Present Illness: No new complaints - Current Medication List Current Medications: Active Medications Acetaminophen (Tylenol -) 650 mg PO Q6H PRN PRN Reason: PAIN LEVEL 1-5 Apixaban (Eliquis -) 2.5 mg PO BID [facility] Last Admin: 08/28/19 21:08 Dose: 2.5 mg Furosemide (Lasix -) 80 mg PO BID@0600,1400 [facility] Insulin [facility]art ([facility]iding [facility] -[facility] Protocol Last Admin: 08/28/19 16:57 Dose: 1 units Lactic Acid (Lac-Hydrin 12) 1 applic TP DAILY PRN PRN Reason: xerosis Last Admin: 08/26/19 20:03 Dose: 1 applic Lidocaine (Lidoderm Patch -) 1 patch TP DAILY [facility] Last Admin: 08/28/19 10:04 Dose: 1 patch Metoprolol Tartrate (Lopressor -) 25 mg PO BID [facility] Last Admin: 08/28/19 21:08 Dose: 25 mg Miscellaneous (Lidoderm Patch Removal) 1 each MC DAILY@2200 [facility] Last Admin: 08/28/19 21:08 Dose: 1 each - Objective Vital Signs: Vital Signs Temperature 98.5 F 08/28/19 18:00 Pulse Rate 81 08/28/19 18:00 Respiratory Rate 20 08/28/19 18:00 Blood Pressure 114/69 08/28/19 18:00 O2 Sat by Pulse Oximetry (%) 95 08/28/19 09:00 Constitutional: Yes: Obese Neck: Yes: WNL, Supple Cardiovascular: Yes: WNL, Regular Rate and Rhythm Respiratory: Yes: Rales Gastrointestinal: Yes: WNL, Normal Bowel Sounds, Soft, Abdomen, Obese Edema: LLE: 2+, RLE: 2+ Labs: CBC, BMP 08/28/19 05:30 08/28/19 05:30 INR, PTT INR 1.47 (0.83-1.09) H 08/20/19 03:30 Problem List - Problems (1) Acute on chronic combined systolic (congestive) and diastolic (congestive) heart failure Assessment/Plan: Cont IV lasix TID Metolazone prn Monitor electrolytes/renal function Code(s): I50.43 - ACUTE ON CHRONIC COMBINED SYSTOLIC AND DIASTOLIC HRT FAIL (2) APL (acute promyelocytic leukemia) Assessment/Plan: As per onco (H/O recent skin bx wc showed leukocytoclastic vasculitis (3) Anemia Assessment/Plan: Multifactorial Code(s): D64.9 - ANEMIA, UNSPECIFIED (4) Leukocytosis Assessment/Plan: Lactic acidosis resolved Pt is now off antibxs BC remain negative Code(s): D72.829 - ELEVATED WHITE BLOOD CELL COUNT, UNSPECIFIED (5) Renal failure Assessment/Plan: Acute on chronic renal failure As per renal Code(s): N19 - UNSPECIFIED KIDNEY FAILURE Qualifiers: Renal failure chronicity: unspecified chronicity Qualified Code(s): N19 - Unspecified kidney failure (6) Afib Code(s): I48.91 - UNSPECIFIED ATRIAL FIBRILLATION Qualifiers: Atrial fibrillation type: unspecified Qualified Code(s): I48.91 - Unspecified atrial fibrillation (7) HTN (hypertension) Code(s): I10 - ESSENTIAL (PRIMARY) HYPERTENSION (8) Hyperlipidemia Code(s): E78.5 - HYPERLIPIDEMIA, UNSPECIFIED (9) Respiratory failure Code(s): J96.90 - RESPIRATORY FAILURE, UNSP, UNSP W HYPOXIA OR HYPERCAPNIA Qualifiers: Chronicity: acute on chronic Respiratory failure complication: hypoxia Qualified Code(s): J96.21 - Acute and chronic respiratory failure with hypoxia (10) Diabetes Code(s): E11.9 - TYPE 2 DIABETES MELLITUS WITHOUT COMPLICATIONS Qualifiers: Diabetes mellitus type: type 2
[2019-08-29] MEDS ORDERED: FUROSEMIDE 40 MG TABLET (FP) PO SCH (06:00)
[2019-08-29] MEDS: INSULIN SLIDING SCALE (NOVOLOG) 1 VIAL SQ SCH ×2 (06:16→16:13)
[2019-08-29 07:15] LABS: ALBUMIN 2.8 g/dl (3.4-5.0); BILIRUBIN,TOTAL 0.9 mg/dL (0.2-1); BLOOD UREA NITROGEN 88.4 mg/dL (7-18); CREATININE 3.3 mg/dL (0.55-1.3); MAGNESIUM 2.2 mg/dL (1.8-2.4); POTASSIUM 3.9 mmol/L (3.5-5.1); TOT PROT 7.4 g/dl (6.4-8.2)
[2019-08-29] MEDS: APIXABAN 2.5 MG TABLET PO SCH ×2 (09:12→22:12)
[2019-08-29] MEDS: METOPROLOL TARTRATE 25 MG TABLET (FP) PO SCH ×2 (09:12→22:12)
[2019-08-29] MEDS: LIDOCAINE 5% TOPICAL PATCH TP SCH (09:12)
--- NOTE | 2019-08-29 11:18 | PN ---
Progress Note (short form) - Note Progress Note: Pt was having PT when I arrived. Will try tomorrow to cut toe nails.
--- NOTE | 2019-08-29 11:18 | PN ---
Physical Exam: Heme/Onc Service SUBJECTIVE: Patient seen and examined OBJECTIVE: Vital Signs Period Temp Pulse Resp BP Sys/Hernandez Pulse Ox Last 24 Hr 98.0 F-98.8 F 75-82 18-20 96-125/52-69 99-99 Gen: AAOx3, NAD HEENT: NCAT, EOMI Neck: supple, trachea central, no thyromegally noted Cardio: rrr, normal s1s2, no mrg noted Pulm: bibasilar rales Abd: normal bs, soft, nontender, nondistended Ext: gross edema b/l, stasis changes Laboratory Results - last 24 hr 08/26/19 08/28/19 08/28/19 05:45 16:54 21:06 Sodium Potassium Chloride Carbon Dioxide Anion Gap BUN Creatinine Est GFR (CKD-EPI)AfAm Est GFR (CKD-EPI)NonAf POC Glucometer 172 229 Random Glucose Calcium Magnesium Total Bilirubin AST ALT Alkaline Phosphatase Total Protein Albumin c-ANCA <1:20 Proteinase 3 (PR3) <3.5 p-ANCA <1:20 Atypical p-ANCA <1:20 Myeloperoxidase Ab <9.0 HCV Quantitation Hcv not detected HCV RNA log copies/mL TNP 08/29/19 08/29/19 05:46 05:50 Sodium 132 L Potassium 3.9 Chloride 91 L Carbon Dioxide 30 Anion Gap 11 BUN 88.4 H Creatinine 3.3 H Est GFR (CKD-EPI)AfAm 15.18 Est GFR (CKD-EPI)NonAf 13.09 POC Glucometer 175 Random Glucose 183 H Calcium 9.0 Magnesium 2.2 Total Bilirubin 0.9 AST 17 ALT 23 Alkaline Phosphatase 99 Total Protein 7.4 Albumin 2.8 L c-ANCA Proteinase 3 (PR3) p-ANCA Atypical p-ANCA Myeloperoxidase Ab HCV Quantitation HCV RNA log copies/mL Active Medications Generic Name Dose Route Start Last Admin Trade Name Freq PRN Reason Stop Dose Admin Acetaminophen 650 mg 08/27/19 18:56 Tylenol - PO Q6H PRN PAIN LEVEL 1-5 Apixaban 2.5 mg 08/27/19 22:00 08/29/19 09:12 Eliquis - PO 2.5 mg BID [facility] Administration Furosemide 80 mg 08/29/19 06:00 08/29/19 05:52 Lasix - PO 80 mg BID@0600,1400 [facility] Administration Insulin Aspart 1 vial 08/27/19 07:00 08/29/19 06:16 Novolog Vial Sliding Scale - SQ 1 units BIDAC [facility] Administration Protocol Lactic Acid 1 applic 08/26/19 12:32 08/26/19 20:03 Lac-Hydrin 12 TP 1 applic DAILY PRN Administration xerosis Lidocaine 1 patch 08/28/19 10:00 08/29/19 09:12 Lidoderm Patch - TP 1 patch DAILY [facility] Administration Metoprolol Tartrate 25 mg 08/27/19 22:00 08/29/19 09:12 Lopressor - PO 25 mg BID [facility] Administration Miscellaneous 1 each 08/27/19 22:00 08/28/19 21:08 Lidoderm Patch Removal MC 1 each DAILY@2200 [facility] Administration ASSESSMENT/PLAN: Pt is a 73 y/o F with PMH HFpEF, LE swelling, CAD s/p PCI in 2014, APL in 2014 ( treated and in remission with confirmatory PCR q 3 months with out pt oncologist Dr. Neil), HTN, DM 2 who presented to hospital with respiratory distress. She was admitted for CHF exacerbation. Heme/Onc was called because of RA/KAREN+ WITH CRF/ARF. Of note, pt was recently admitted to this facility (08/05/2019) with cholangitis and gram neg bacteremia complicated by new Afib and KEL. She was transferred to [facility] at that time and had sphincterotomy and gall stone removal. 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 Byrd, 02/04/2019) -Pos RF and KAREN -pt follows with Rheumatology, Dr. Mccoy -per Dr. Mccoy, pt was seen 07/17/2019 and had KAREN of 1:640 with nucleolar pattern, RF465. CCP, anti-DNAds, ANCA, myeloperoxidase, and proteinase-3 were all negative. Complement was decreased. [place]:Lambda ratio of 2.68 with [place] IgG spike on polyclonal background. APL -pt in remission -out pt oncologist performs PCR q 3 months. Anemia -normocytic normochromic -likely chronic disease/inflammati ATTENDING PHYSICIAN STATEMENT I saw and evaluated the patient. I reviewed the resident's note and discussed the case with the resident. I agree with the resident's findings and plan as documented. SUBJECTIVE: OBJECTIVE: ASSESSMENT AND PLAN:
--- NOTE | 2019-08-29 11:56 | PN ---
Progress Note, Physician History of Present Illness: pulmonary alert,still c/o sob,-cp - Current Medication List Current Medications: Active Medications Acetaminophen (Tylenol -) 650 mg PO Q6H PRN PRN Reason: PAIN LEVEL 1-5 Apixaban (Eliquis -) 2.5 mg PO BID [facility] Last Admin: 08/29/19 09:12 Dose: 2.5 mg Furosemide (Lasix -) 80 mg PO BID@0600,1400 [facility] Last Admin: 08/29/19 05:52 Dose: 80 mg Insulin Aspart (Novolog Vial Sliding Scale -) 1 vial SQ BIDAC [facility]; Protocol Last Admin: 08/29/19 06:16 Dose: 1 units Lactic Acid (Lac-Hydrin 12) 1 applic TP DAILY PRN PRN Reason: xerosis Last Admin: 08/26/19 20:03 Dose: 1 applic Lidocaine (Lidoderm Patch -) 1 patch TP DAILY [facility] Last Admin: 08/29/19 09:12 Dose: 1 patch Metoprolol Tartrate (Lopressor -) 25 mg PO BID [facility] Last Admin: 08/29/19 09:12 Dose: 25 mg Miscellaneous (Lidoderm Patch Removal) 1 each MC DAILY@2200 [facility] Last Admin: 08/28/19 21:08 Dose: 1 each - Objective Vital Signs: Vital Signs Temperature 98.8 F 08/29/19 07:46 Pulse Rate 79 08/29/19 07:46 Respiratory Rate 18 08/29/19 07:46 Blood Pressure 108/52 L 08/29/19 07:46 O2 Sat by Pulse Oximetry (%) 99 08/29/19 09:00 Constitutional: Yes: Well Nourished, Calm, Obese Eyes: Yes: WNL HENT: Yes: WNL Neck: Yes: WNL Cardiovascular: Yes: Pulse Irregular, S1, S2 Respiratory: Yes: Diminished Gastrointestinal: Yes: Normal Bowel Sounds, Soft Extremities: Yes: WNL Edema: Yes Labs: CBC, BMP 08/28/19 05:30 08/29/19 05:50 INR, PTT INR 1.47 (0.83-1.09) H 08/20/19 03:30 Problem List - Problems (1) Acute on chronic combined systolic (congestive) and diastolic (congestive) heart failure Code(s): I50.43 - ACUTE ON CHRONIC COMBINED SYSTOLIC AND DIASTOLIC HRT FAIL (2) Anemia Code(s): D64.9 - ANEMIA, UNSPECIFIED (3) Renal failure Code(s): N19 - UNSPECIFIED KIDNEY FAILURE Qualifiers: Renal failure chronicity: unspecified chronicity Qualified Code(s): N19 - Unspecified kidney failure (4) Respiratory failure Code(s): J96.90 - RESPIRATORY FAILURE, UNSP, UNSP W HYPOXIA OR HYPERCAPNIA Qualifiers: Chronicity: acute on chronic Respiratory failure complication: hypoxia Qualified Code(s): J96.21 - Acute and chronic respiratory failure with hypoxia (5) Severe congestive heart failure Code(s): I50.9 - HEART FAILURE, UNSPECIFIED (6) Venous stasis of lower extremity Code(s): I87.8 - OTHER SPECIFIED DISORDERS OF VEINS (7) Afib Code(s): I48.91 - UNSPECIFIED ATRIAL FIBRILLATION Qualifiers: Atrial fibrillation type: unspecified Qualified Code(s): I48.91 - Unspecified atrial fibrillation (8) Bilateral pulmonary infiltrates on chest x-ray Code(s): R91.8 - OTHER NONSPECIFIC ABNORMAL FINDING OF LUNG FIELD (9) CAD (coronary artery disease) Code(s): I25.10 - ATHSCL HEART DISEASE OF [place] CORONARY ARTERY W/O ANG PCTRS (10) HTN (hypertension) Code(s): I10 - ESSENTIAL (PRIMARY) HYPERTENSION Assessment/Plan ASSESSMENT AND PLAN: Acute Hypercapneic and Hypoxic Respiratory Failure improving Acute on Chronic Diastolic Heart Failure Acute Kidney Injury Lactic Acidosis resolved Atrial Fibrillation CAD Pericardial Effusion HTN DM ALL Cholelithiasis Anemia ENOC - continue lasix, zaroxolyn if BP tolerates - monitor urine output, creatinine - O2 to keep SpO2 >90% - daily weights - rate control - continue anticoagulation - completed antibiotics DR GALVAN
--- NOTE | 2019-08-29 13:09 | PN ---
Progress Note, Physician History of Present Illness: Pt seen and examined at bedside. She complains of lower ext edema. - Current Medication List Current Medications: Active Medications Acetaminophen (Tylenol -) 650 mg PO Q6H PRN PRN Reason: PAIN LEVEL 1-5 Apixaban (Eliquis -) 2.5 mg PO BID [facility] Last Admin: 08/29/19 09:12 Dose: 2.5 mg Insulin Aspart (Novolog Vial Sliding Scale -) 1 vial SQ BIDAC [facility]; Protocol Last Admin: 08/29/19 06:16 Dose: 1 units Lactic Acid (Lac-Hydrin 12) 1 applic TP DAILY PRN PRN Reason: xerosis Last Admin: 08/26/19 20:03 Dose: 1 applic Lidocaine (Lidoderm Patch -) 1 patch TP DAILY [facility] Last Admin: 08/29/19 09:12 Dose: 1 patch Metoprolol Tartrate (Lopressor -) 25 mg PO BID [facility] Last Admin: 08/29/19 09:12 Dose: 25 mg Miscellaneous (Lidoderm Patch Removal) 1 each MC DAILY@2200 [facility] Last Admin: 08/28/19 21:08 Dose: 1 each - Objective Vital Signs: Vital Signs Temperature 98.8 F 08/29/19 07:46 Pulse Rate 79 08/29/19 07:46 Respiratory Rate 18 08/29/19 07:46 Blood Pressure 108/52 L 08/29/19 07:46 O2 Sat by Pulse Oximetry (%) 99 08/29/19 09:00 Constitutional: Yes: Calm Eyes: Yes: Conjunctiva Clear HENT: Yes: Atraumatic Cardiovascular: Yes: S1, S2 Respiratory: Yes: On Nasal O2 Gastrointestinal: Yes: Normal Bowel Sounds, Soft Genitourinary: Yes: WNL Edema: Yes Edema: LLE: 2+, RLE: 2+ Neurological: Yes: Oriented Psychiatric: Yes: Oriented Labs: CBC, BMP 08/28/19 05:30 08/29/19 05:50 INR, PTT INR 1.47 (0.83-1.09) H 08/20/19 03:30 Assessment/Plan Current Medications Generic Name Dose Route Start Last Admin Trade Name Freq PRN Reason Stop Dose Admin Acetaminophen 650 mg 08/27/19 18:56 Tylenol - PO Q6H PRN PAIN LEVEL 1-5 Apixaban 2.5 mg 08/27/19 22:00 08/29/19 09:12 Eliquis - PO 2.5 mg BID [facility] Administration Furosemide 80 mg 08/29/19 14:00 Lasix Injection - IVPB BID@0600,1400 [facility] Insulin Aspart 1 vial 08/27/19 07:00 08/29/19 06:16 Novolog Vial Sliding Scale - SQ 1 units BIDAC [facility] Administration Protocol Lactic Acid 1 applic 08/26/19 12:32 08/26/19 20:03 Lac-Hydrin 12 TP 1 applic DAILY PRN Administration xerosis Lidocaine 1 patch 08/28/19 10:00 08/29/19 09:12 Lidoderm Patch - TP 1 patch DAILY [facility] Administration Metoprolol Tartrate 25 mg 08/27/19 22:00 08/29/19 09:12 Lopressor - PO 25 mg BID [facility] Administration Miscellaneous 1 each 08/27/19 22:00 08/28/19 21:08 Lidoderm Patch Removal MC 1 each DAILY@2200 [facility] Administration Impression 1. KEL 2. CHF 3. hx sepsis from biliary source 4. cad 5. ALL 6. CAD 7. a-fib 8. lactic acidosis 9. hx of leukocytoclastic vasculitis Plan - change lasix to IV - get cxr - monitor lytes - restrict fluid and ice intake
--- NOTE | 2019-08-29 14:02 | PN ---
Progress Note, Physician Chief Complaint: No sob Rate controlled on tele History of Present Illness: 73 F known to our practice. She has history of HfPEF, chronic Lext swelling, CAD with LAD PCI 2014. She was recently admitted with cholangitis and gram negative bacteremia complicated by KEL and new onset Afib. She was transferred to [facility] and had ERCP with sphyncterotomy and removal of GB stones. Her KEL improved and at time of DC 08/15 BUN/Cr was 47/4.4. Eitiology of KEL was felt to be due to ATN. NSR was restored spontaneously as well and she was discharged on Metoprolol 12.5mg BID and Eliquis in addition to NaHCo3 and Amlodipine. She developed sudden SOB last night. In ER initially, severe hypoxemia and rapid Afib was noted. she improved on BiPAP She is admitted with SOB, hypoxemia and rapid Afib. - Current Medication List Current Medications: Active Medications Acetaminophen (Tylenol -) 650 mg PO Q6H PRN PRN Reason: PAIN LEVEL 1-5 Apixaban (Eliquis -) 2.5 mg PO BID [facility] Last Admin: 08/29/19 09:12 Dose: 2.5 mg Furosemide (Lasix Injection -) 80 mg IVPB BID@0600,1400 [facility] Insulin Aspart (Novolog Vial Sliding Scale -) 1 vial SQ BIDAC [facility]; Protocol Last Admin: 08/29/19 06:16 Dose: 1 units Lactic Acid (Lac-Hydrin 12) 1 applic TP DAILY PRN PRN Reason: xerosis Last Admin: 08/26/19 20:03 Dose: 1 applic Lidocaine (Lidoderm Patch -) 1 patch TP DAILY [facility] Last Admin: 08/29/19 09:12 Dose: 1 patch Metoprolol Tartrate (Lopressor -) 25 mg PO BID [facility] Last Admin: 08/29/19 09:12 Dose: 25 mg Miscellaneous (Lidoderm Patch Removal) 1 each MC DAILY@2200 [facility] Last Admin: 08/28/19 21:08 Dose: 1 each - Objective Vital Signs: Vital Signs Temperature 98.8 F 08/29/19 07:46 Pulse Rate 79 08/29/19 07:46 Respiratory Rate 18 08/29/19 07:46 Blood Pressure 108/52 L 08/29/19 07:46 O2 Sat by Pulse Oximetry (%) 99 08/29/19 09:00 Constitutional: Yes: No Distress Neck: Yes: Supple Cardiovascular: Yes: Pulse Irregular, S1, S2. No: JVD Respiratory: Yes: CTA Bilaterally Gastrointestinal: Yes: Soft Edema: Yes (chronic venous skin sosa) Edema: LLE: 1+, RLE: 1+ Labs: CBC, BMP 08/28/19 05:30 08/29/19 05:50 INR, PTT INR 1.47 (0.83-1.09) H 08/20/19 03:30 Assessment/Plan 73 F known to our practice. She has history of HfPEF, chronic Lext swelling, CAD with LAD PCI 2014. She was recently admitted with cholangitis and gram negative bacteremia complicated by KEL and new onset Afib. She was transferred to [facility] and had ERCP with sphyncterotomy and removal of GB stones. Her KEL improved and at time of DC 08/15 BUN/Cr was 47/4.4. Eitiology of KEL was felt to be due to ATN. NSR was restored spontaneously as well and she was discharged on Metoprolol 12.5mg BID and Eliquis in addition to NaHCo3 and Amlodipine. She developed sudden SOB last night. In ER initially, severe hypoxemia and rapid Afib was noted. she improved on BiPAP She is admitted with SOB, hypoxemia and rapid Afib. CHF-Acute on chronic combined CHF -Volume status improving each day. -PO furosemide 80mg BID -Cont to follow I's/O's/Wt's/Lytes -replete K to 4 and Mg to 2 AFIB-pafib, HR adequately controlled -Contiue AC with apixaban 2.5 mg PO BID -Rate control with Metoprolol Tartrate 25 mg PO BID if BP allows. If not will have to lower to 12.5mg CAD -TP level minimally elevated with normal CK level in setting of respiratory distress c/w demand ischemia not ACS. -cont medical management Will sign off at this time Please schedule a follow up with Dr. Bell as outpatient.
[2019-08-29] MEDS: FUROSEMIDE 100 MG/10 ML INJECTABLE VIAL IVPB SCH (15:05)
--- NOTE | 2019-08-29 21:50 | PN ---
Progress Note, Physician History of Present Illness: Petechial rash is still present - Current Medication List Current Medications: Active Medications Acetaminophen (Tylenol -) 650 mg PO Q6H PRN PRN Reason: PAIN LEVEL 1-5 Apixaban (Eliquis -) 2.5 mg PO BID [facility] Last Admin: 08/29/19 09:12 Dose: 2.5 mg Furosemide (Lasix Injection -) 80 mg IVPB BID@0600,1400 [facility] Last Admin: 08/29/19 15:05 Dose: 80 mg Insulin Aspart (Novolog Vial Sliding Scale -) 1 vial SQ BIDAC [facility]; Protocol Last Admin: 08/29/19 16:13 Dose: 1 units Lactic Acid (Lac-Hydrin 12) 1 applic TP DAILY PRN PRN Reason: xerosis Last Admin: 08/26/19 20:03 Dose: 1 applic Lidocaine (Lidoderm Patch -) 1 patch TP DAILY [facility] Last Admin: 08/29/19 09:12 Dose: 1 patch Metoprolol Tartrate (Lopressor -) 25 mg PO BID [facility] Last Admin: 08/29/19 09:12 Dose: 25 mg Miscellaneous (Lidoderm Patch Removal) 1 each MC DAILY@2200 [facility] Last Admin: 08/28/19 21:08 Dose: 1 each - Objective Vital Signs: Vital Signs Temperature 98.3 F 08/29/19 18:00 Pulse Rate 78 08/29/19 18:00 Respiratory Rate 20 08/29/19 18:00 Blood Pressure 101/49 L 08/29/19 18:00 O2 Sat by Pulse Oximetry (%) 99 08/29/19 09:00 Constitutional: Yes: Well Nourished, Obese Neck: Yes: WNL, Supple Cardiovascular: Yes: Pulse Irregular Respiratory: Yes: Rales Gastrointestinal: Yes: WNL, Normal Bowel Sounds, Soft, Abdomen, Obese Extremities: Yes: Other (Chronic venous stasis Petechial rash near b/l knees) Edema: LLE: 2+, RLE: 2+ Labs: CBC, BMP 08/28/19 05:30 08/29/19 05:50 INR, PTT INR 1.47 (0.83-1.09) H 08/20/19 03:30 Problem List - Problems (1) Acute on chronic combined systolic (congestive) and diastolic (congestive) heart failure Assessment/Plan: Cont IV lasix TID Metolazone prn Monitor electrolytes/renal function Code(s): I50.43 - ACUTE ON CHRONIC COMBINED SYSTOLIC AND DIASTOLIC HRT FAIL (2) APL (acute promyelocytic leukemia) Assessment/Plan: As per onco (H/O recent skin bx wc showed leukocytoclastic vasculitis (3) Anemia Assessment/Plan: Multifactorial Code(s): D64.9 - ANEMIA, UNSPECIFIED (4) Renal failure Code(s): N19 - UNSPECIFIED KIDNEY FAILURE Qualifiers: Renal failure chronicity: unspecified chronicity Qualified Code(s): N19 - Unspecified kidney failure (5) Afib Code(s): I48.91 - UNSPECIFIED ATRIAL FIBRILLATION Qualifiers: Atrial fibrillation type: unspecified Qualified Code(s): I48.91 - Unspecified atrial fibrillation (6) HTN (hypertension) Code(s): I10 - ESSENTIAL (PRIMARY) HYPERTENSION (7) Hyperlipidemia Code(s): E78.5 - HYPERLIPIDEMIA, UNSPECIFIED (8) Respiratory failure Assessment/Plan: Resolved Code(s): J96.90 - RESPIRATORY FAILURE, UNSP, UNSP W HYPOXIA OR HYPERCAPNIA Qualifiers: Chronicity: acute on chronic Respiratory failure complication: hypoxia Qualified Code(s): J96.21 - Acute and chronic respiratory failure with hypoxia (9) Diabetes Assessment/Plan: HgA1c is 6.4 Code(s): E11.9 - TYPE 2 DIABETES MELLITUS WITHOUT COMPLICATIONS Qualifiers: Diabetes mellitus type: type 2 (10) Leukocytosis Assessment/Plan: Lactic acidosis resolved Pt is now off antibxs BC remain negative Code(s): D72.829 - ELEVATED WHITE BLOOD CELL COUNT, UNSPECIFIED
[2019-08-29] MEDS: LIDOCAINE PATCH REMOVAL MC SCH (22:13)
[2019-08-30] MEDS: INSULIN SLIDING SCALE (NOVOLOG) 1 VIAL SQ SCH ×2 (06:42→16:44)
[2019-08-30] MEDS: FUROSEMIDE 100 MG/10 ML INJECTABLE VIAL IVPB SCH ×2 (06:42→15:18)
[2019-08-30 07:11] LABS: BASO % 0.5 % (0-2.0); EOS % 4.5 % (0-4.5); HEMATOCRIT 28.6 % (32.4-45.2); HEMOGLOBIN 9.3 GM/dL (10.7-15.3); LYMPH % 22.9 % (8-40); MCH 25.9 pg (25.7-33.7); MCHC 32.4 g/dl (32.0-36.0); MEAN PLT VOLUME 9.8 fl (7.5-11.1); MONO % 3.9 % (3.8-10.2); NEUT % 68.2 % (42.8-82.8); PLATELET COUNT 212 K/MM3 (134-434); RBC 3.58 M/mm3 (3.60-5.2); RDW 18.6 % (11.6-15.6); WHITE BLOOD COUNT 5.5 K/mm3 (4.0-10.0)
[2019-08-30 07:32] LABS: ALBUMIN 2.8 g/dl (3.4-5.0); BILIRUBIN,TOTAL 0.9 mg/dL (0.2-1); BLOOD UREA NITROGEN 92.6 mg/dL (7-18); CREATININE 3.2 mg/dL (0.55-1.3); POTASSIUM 3.4 mmol/L (3.5-5.1); TOT PROT 7.2 g/dl (6.4-8.2)
[2019-08-30] MEDS: LIDOCAINE 5% TOPICAL PATCH TP SCH (09:43)
[2019-08-30] MEDS: APIXABAN 2.5 MG TABLET PO SCH ×2 (09:44→21:12)
[2019-08-30] MEDS: METOPROLOL TARTRATE 25 MG TABLET (FP) PO SCH ×2 (09:44→21:12)
--- NOTE | 2019-08-30 11:46 | PN ---
Progress Note, Physician - Current Medication List Current Medications: Active Medications Acetaminophen (Tylenol -) 650 mg PO Q6H PRN PRN Reason: PAIN LEVEL 1-5 Apixaban (Eliquis -) 2.5 mg PO BID [facility] Last Admin: 08/30/19 09:44 Dose: 2.5 mg Furosemide (Lasix Injection -) 80 mg IVPB BID@0600,1400 [facility] Last Admin: 08/30/19 06:42 Dose: 80 mg Insulin Aspart (Novolog Vial Sliding Scale -) 1 vial SQ BIDAC [facility]; Protocol Last Admin: 08/30/19 06:42 Dose: 1 units Lactic Acid (Lac-Hydrin 12) 1 applic TP DAILY PRN PRN Reason: xerosis Last Admin: 08/26/19 20:03 Dose: 1 applic Lidocaine (Lidoderm Patch -) 1 patch TP DAILY [facility] Last Admin: 08/30/19 09:43 Dose: 1 patch Metoprolol Tartrate (Lopressor -) 25 mg PO BID [facility] Last Admin: 08/30/19 09:44 Dose: 25 mg Miscellaneous (Lidoderm Patch Removal) 1 each [facility] DAILY@2200 [facility] Last Admin: 08/29/19 22:13 Dose: 1 each - Objective Vital Signs: Vital Signs Temperature 97.9 F 08/30/19 09:57 Pulse Rate 74 08/30/19 09:57 Respiratory Rate 20 08/30/19 09:57 Blood Pressure 102/55 L 08/30/19 09:57 O2 Sat by Pulse Oximetry (%) 100 08/30/19 09:00 Labs: CBC, BMP 08/30/19 06:00 08/30/19 06:00 INR, PTT INR 1.47 (0.83-1.09) H 08/20/19 03:30 Problem List - Problems (1) Acute on chronic combined systolic (congestive) and diastolic (congestive) heart failure Code(s): I50.43 - ACUTE ON CHRONIC COMBINED SYSTOLIC AND DIASTOLIC HRT FAIL (2) Anemia Code(s): D64.9 - ANEMIA, UNSPECIFIED (3) Renal failure Code(s): N19 - UNSPECIFIED KIDNEY FAILURE Qualifiers: Renal failure chronicity: unspecified chronicity Qualified Code(s): N19 - Unspecified kidney failure (4) Respiratory failure Code(s): J96.90 - RESPIRATORY FAILURE, UNSP, UNSP W HYPOXIA OR HYPERCAPNIA Qualifiers: Chronicity: acute on chronic Respiratory failure complication: hypoxia Qualified Code(s): J96.21 - Acute and chronic respiratory failure with hypoxia (5) Severe congestive heart failure Code(s): I50.9 - HEART FAILURE, UNSPECIFIED (6) Venous stasis of lower extremity Code(s): I87.8 - OTHER SPECIFIED DISORDERS OF VEINS (7) Afib Code(s): I48.91 - UNSPECIFIED ATRIAL FIBRILLATION Qualifiers: Atrial fibrillation type: unspecified Qualified Code(s): I48.91 - Unspecified atrial fibrillation (8) Bilateral pulmonary infiltrates on chest x-ray Code(s): R91.8 - OTHER NONSPECIFIC ABNORMAL FINDING OF LUNG FIELD (9) CAD (coronary artery disease) Code(s): I25.10 - ATHSCL HEART DISEASE OF [place] CORONARY ARTERY W/O ANG PCTRS (10) HTN (hypertension) Code(s): I10 - ESSENTIAL (PRIMARY) HYPERTENSION Assessment/Plan ASSESSMENT AND PLAN: Acute Hypercapneic and Hypoxic Respiratory Failure improving Acute on Chronic Diastolic Heart Failure Acute Kidney Injury Lactic Acidosis resolved Atrial Fibrillation CAD Pericardial Effusion HTN DM ALL Cholelithiasis Anemia ENOC - continue lasix, zaroxolyn if BP tolerates - monitor urine output, creatinine - O2 to keep SpO2 >90% - daily weights - rate control - continue anticoagulation - completed antibiotics DR GALVAN
[2019-08-30] MEDS ORDERED: POTASSIUM CHLORIDE TABS 20 MEQ TABLET.ER (FP) PO ONE ×2 (13:15→17:00)
--- NOTE | 2019-08-30 15:51 | PN ---
Progress Note, Physician History of Present Illness: Pt seen and examined at bedside. She is awake and alert. She feels that her breathing is improving. - Current Medication List Current Medications: Active Medications Acetaminophen (Tylenol -) 650 mg PO Q6H PRN PRN Reason: PAIN LEVEL 1-5 Apixaban (Eliquis -) 2.5 mg PO BID [facility] Last Admin: 08/30/19 09:44 Dose: 2.5 mg Furosemide (Lasix Injection -) 80 mg IVPB BID@0600,1400 [facility] Last Admin: 08/30/19 15:18 Dose: 80 mg Insulin Aspart (Novolog Vial Sliding Scale -) 1 vial SQ BIDAC [facility]; Protocol Last Admin: 08/30/19 06:42 Dose: 1 units Lactic Acid (Lac-Hydrin 12) 1 applic TP DAILY PRN PRN Reason: xerosis Last Admin: 08/26/19 20:03 Dose: 1 applic Lidocaine (Lidoderm Patch -) 1 patch TP DAILY [facility] Last Admin: 08/30/19 09:43 Dose: 1 patch Metoprolol Tartrate (Lopressor -) 25 mg PO BID [facility] Last Admin: 08/30/19 09:44 Dose: 25 mg Miscellaneous (Lidoderm Patch Removal) 1 each MC DAILY@2200 [facility] Last Admin: 08/29/19 22:13 Dose: 1 each Potassium Chloride (K-Dur -) 40 meq PO ONCE ONE Stop: 08/30/19 17:01 - Objective Vital Signs: Vital Signs Temperature 97.9 F 08/30/19 09:57 Pulse Rate 74 08/30/19 09:57 Respiratory Rate 20 08/30/19 09:57 Blood Pressure 102/55 L 08/30/19 09:57 O2 Sat by Pulse Oximetry (%) 100 08/30/19 09:00 Constitutional: Yes: Calm Eyes: Yes: Conjunctiva Clear HENT: Yes: Atraumatic Neck: Yes: Supple Cardiovascular: Yes: S1, S2 Respiratory: Yes: CTA Bilaterally, On Nasal O2 Gastrointestinal: Yes: Soft, Abdomen, Obese Genitourinary: Yes: WNL Musculoskeletal: Yes: WNL Integumentary: Yes: Rash Neurological: Yes: Oriented Psychiatric: Yes: Oriented Labs: CBC, BMP 08/30/19 06:00 08/30/19 06:00 INR, PTT INR 1.47 (0.83-1.09) H 08/20/19 03:30 Assessment/Plan Current Medications Generic Name Dose Route Start Last Admin Trade Name Freq PRN Reason Stop Dose Admin Acetaminophen 650 mg 08/27/19 18:56 Tylenol - PO Q6H PRN PAIN LEVEL 1-5 Apixaban 2.5 mg 08/27/19 22:00 08/30/19 09:44 Eliquis - PO 2.5 mg BID [facility] Administration Furosemide 80 mg 08/29/19 14:00 08/30/19 15:18 Lasix Injection - IVPB 80 mg BID@0600,1400 [facility] Administration Insulin Aspart 1 vial 08/27/19 07:00 08/30/19 06:42 Novolog Vial Sliding Scale - SQ 1 units BIDAC [facility] Administration Protocol Lactic Acid 1 applic 08/26/19 12:32 08/26/19 20:03 Lac-Hydrin 12 TP 1 applic DAILY PRN Administration xerosis Lidocaine 1 patch 08/28/19 10:00 08/30/19 09:43 Lidoderm Patch - TP 1 patch DAILY [facility] Administration Metoprolol Tartrate 25 mg 08/27/19 22:00 08/30/19 09:44 Lopressor - PO 25 mg BID [facility] Administration Miscellaneous 1 each 08/27/19 22:00 08/29/19 22:13 Lidoderm Patch Removal MC 1 each DAILY@2200 [facility] Administration Potassium Chloride 40 meq 08/30/19 17:00 K-Dur - PO 08/30/19 17:01 ONCE ONE Impression 1. KEL 2. CHF 3. hx sepsis from biliary source 4. cad 5. ALL 6. CAD 7. a-fib 8. lactic acidosis 9. hx of leukocytoclastic vasculitis 10. rash Plan - cont lasix - derm eval - replace potassium - oncology follow up - restrict fluid and ice intake
--- NOTE | 2019-08-30 16:31 | PN ---
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 She was recently admitted with cholangitis and gram negative bacteremia complicated by KEL and new onset Afib. She was transferred to [facility] and had ERCP with sphincterotomy and removal of GB stones. Her KEL improved and at time of DC BUN/Cr was 47/4.4. She continues to be in the hospital due to acute hypercapnic/hypoxic respiratory failure, Acute on Chronic CHF, KEL. Primary team requesting comment on abnormal FLC - History Source History Provided By: Patient, Family Member, Medical Record - Past Medical History Cardio/Vascular: Yes: CAD, CHF, HTN, Hyperlipdemia, PR (s/p EES stent to LAD) Endocrine: Yes: Diabetes Mellitus - Past Surgical History Past Surgical History: Yes: Stent - Smoking History Smoking history: Never smoked - Social History Usual Living Arrangement: With Spouse ADL: Independent Occupation: retired dietary staff at [employer] - Allergies Allergies/Adverse Reactions: Allergies Allergy/AdvReac Type Severity Reaction Status Date / Time No Known Allergies Allergy Verified 08/20/19 03:35 Current Medications Generic Name Dose Route Start Last Admin Trade Name Freq PRN Reason Stop Dose Admin Acetaminophen 650 mg 08/27/19 18:56 Tylenol - PO Q6H PRN PAIN LEVEL 1-5 Apixaban 2.5 mg 08/27/19 22:00 08/30/19 09:44 Eliquis - PO 2.5 mg BID [facility] Administration Furosemide 80 mg 08/29/19 14:00 08/30/19 15:18 Lasix Injection - IVPB 80 mg BID@0600,1400 [facility] Administration Insulin Aspart 1 vial 08/27/19 07:00 08/30/19 06:42 Novolog Vial Sliding Scale - SQ 1 units BIDAC [facility] Administration Protocol Lactic Acid 1 applic 08/26/19 12:32 08/26/19 20:03 Lac-Hydrin 12 TP 1 applic DAILY PRN Administration xerosis Lidocaine 1 patch 08/28/19 10:00 08/30/19 09:43 Lidoderm Patch - TP 1 patch DAILY [facility] Administration Metoprolol Tartrate 25 mg 08/27/19 22:00 08/30/19 09:44 Lopressor - PO 25 mg BID [facility] Administration Miscellaneous 1 each 08/27/19 22:00 08/29/19 22:13 Lidoderm Patch Removal MC 1 each DAILY@2200 [facility] Administration Potassium Chloride 40 meq 08/30/19 17:00 K-Dur - PO 08/30/19 17:01 ONCE ONE Last Vital Signs Temp Pulse Resp BP Pulse Ox 98.5 F 76 20 102/51 L 100 08/30/19 14:00 08/30/19 14:00 08/30/19 14:00 08/30/19 14:00 08/30/19 09:00 Cor: RSR, No murmurs, No gallops Lungs: Crackles bases Abd: Soft, Normal bowel sounds, No organomegaly Ext:No significant edema Skin: No rashes, Integument intact Laboratory Last Values WBC 5.5 K/mm3 (4.0-10.0) 08/30/19 06:00 RBC 3.58 M/mm3 (3.60-5.2) L 08/30/19 06:00 Hgb 9.3 GM/dL (10.7-15.3) L 08/30/19 06:00 Hct 28.6 % (32.4-45.2) L 08/30/19 06:00 MCV 80.0 fl (80-96) 08/30/19 06:00 MCH 25.9 pg (25.7-33.7) 08/30/19 06:00 MCHC 32.4 g/dl (32.0-36.0) 08/30/19 06:00 RDW 18.6 % (11.6-15.6) H 08/30/19 06:00 Plt Count 212 K/MM3 (134-434) 08/30/19 06:00 MPV 9.8 fl (7.5-11.1) 08/30/19 06:00 Absolute Neuts (auto) 3.8 K/mm3 (1.5-8.0) 08/30/19 06:00 Neutrophils % 68.2 % (42.8-82.8) 08/30/19 06:00 Lymphocytes % 22.9 % (8-40) 08/30/19 06:00 Monocytes % 3.9 % (3.8-10.2) 08/30/19 06:00 Eosinophils % 4.5 % (0-4.5) 08/30/19 06:00 Basophils % 0.5 % (0-2.0) 08/30/19 06:00 Nucleated RBC % 0 % (0-0) 08/30/19 06:00 PT with INR 17.40 SEC (9.7-13.0) H 08/20/19 03:30 INR 1.47 (0.83-1.09) H 08/20/19 03:30 PTT (Actin FS) 30.9 SECONDS (25.2-36.5) 08/20/19 03:30 Anticoagulation Therapy No Result Required. 08/21/19 06:00 Puncture Site Right radial 08/21/19 06:00 ABG pH 7.38 (7.35-7.45) 08/21/19 06:00 ABG pCO2 at Pt Temp 27.6 mmHg (35-45) L 08/21/19 06:00 ABG pO2 at Pt Temp 105 mmHg (80-100) H 08/21/19 06:00 ABG HCO3 16.1 mmol/L (22-27) L 08/21/19 06:00 ABG O2 Sat (Measured) 97.2 % (95-98) 08/21/19 06:00 ABG O2 Content 10.4 % vol 08/21/19 06:00 ABG Base Excess -7.7 meq/l (-2-2) L 08/21/19 06:00 Reid Test Positive 08/21/19 06:00 VBG pH 7.16 (7.31-7.41) L* 08/20/19 03:55 POC VBG pCO2 57.4 mmHg (38-52) H 08/20/19 03:55 POC VBG pO2 < 49 mmHg (28-48) H 08/20/19 03:55 VBG HCO3 19.6 mmol/L (23-29) L 08/20/19 03:55 VBG O2 Sat (Rick) 50.2 % (70-80) L 08/20/19 03:55 VBG Base Excess -8.5 meq/l (-2-2) L 08/20/19 03:55 Carboxyhemoglobin 1.0 % (0-2) 08/20/19 03:45 Methemoglobin < 1.0 % (0-2) 08/20/19 03:45 O2 Delivery Device Bipap 08/21/19 06:00 Oxygen Flow Rate 40% 08/21/19 06:00 Vent Mode S/t 08/21/19 06:00 Vent Rate 12 08/21/19 06:00 Mechanical Rate No Result Required. 08/21/19 06:00 PEEP 6.0 cmH2O 08/21/19 06:00 Pressure Support Vent 12 08/21/19 06:00 Sodium 133 mmol/L (136-145) L 08/30/19 06:00 Potassium 3.4 mmol/L (3.5-5.1) L 08/30/19 06:00 Chloride 92 mmol/L (98-107) L 08/30/19 06:00 Carbon Dioxide 29 mmol/L (21-32) 08/30/19 06:00 Anion Gap 11 MMOL/L (8-16) 08/30/19 06:00 BUN 92.6 mg/dL (7-18) H 08/30/19 06:00 Creatinine 3.2 mg/dL (0.55-1.3) H 08/30/19 06:00 Est GFR (CKD-EPI)AfAm 15.75 08/30/19 06:00 Est GFR (CKD-EPI)NonAf 13.59 08/30/19 06:00 POC Glucometer 148 UNITS (80-120) 08/30/19 16:41 Random Glucose 175 mg/dL (74-106) H 08/30/19 06:00 Hemoglobin A1c % 6.4 % (4.2-6.3) H 08/25/19 09:44 Lactic Acid 1.0 mmol/L (0.4-2.0) 08/23/19 06:44 Calcium 9.0 mg/dL (8.5-10.1) 08/30/19 06:00 Phosphorus 5.6 mg/dL (2.5-4.9) H 08/28/19 05:30 Magnesium 2.2 mg/dL (1.8-2.4) 08/29/19 05:50 Total Bilirubin 0.9 mg/dL (0.2-1) 08/30/19 06:00 AST 15 U/L (15-37) 08/30/19 06:00 ALT 19 U/L (13-61) 08/30/19 06:00 Alkaline Phosphatase 89 U/L (45-117) 08/30/19 06:00 Creatine Kinase 32 U/L (26-192) 08/22/19 14:45 Troponin I 0.03 ng/ml (0.00-0.05) 08/22/19 14:45 B-Natriuretic Peptide 92521.0 pg/ml (5-125) H 08/20/19 03:30 Total Protein 7.2 g/dl (6.4-8.2) 08/30/19 06:00 Total Protein (PEP) 6.5 g/dL (6.0-8.5) 08/26/19 05:45 Albumin 2.8 g/dl (3.4-5.0) L 08/30/19 06:00 Albumin (PEP) 3.0 gm/dl (2.9-4.4) 08/26/19 05:45 Globulin 3.5 g/dL (2.2-3.9) 08/26/19 05:45 Albumin/Globulin Ratio 0.9 (0.7-1.7) 08/26/19 05:45 Beta Globulins 0.7 gm/dL (0.7-1.3) 08/26/19 05:45 Urine Color Yellow 08/20/19 05:15 Urine Appearance Cloudy 08/20/19 05:15 Urine pH 5.0 (5.0-8.0) 08/20/19 05:15 Ur Specific [place] 1.006 (1.010-1.035) L 08/20/19 05:15 Urine Protein 1+ (NEGATIVE) H 08/20/19 05:15 Urine Glucose (UA) Negative (NEGATIVE) 08/20/19 05:15 Urine Ketones Negative (NEGATIVE) 08/20/19 05:15 Urine Blood 3+ (NEGATIVE) H 08/20/19 05:15 Urine Nitrite Negative (NEGATIVE) 08/20/19 05:15 Urine Bilirubin Negative (NEGATIVE) 08/20/19 05:15 Urine Urobilinogen 0.2 mg/dL (0.2-1.0) 08/20/19 05:15 Ur Leukocyte Esterase Trace (NEGATIVE) 08/20/19 05:15 Urine WBC (Auto) 9 /hpf (0-5) 08/20/19 05:15 Urine RBC (Auto) 131 /hpf (0-4) 08/20/19 05:15 Urine Casts (Auto) 55 /lpf (0-8) 08/20/19 05:15 U Pathogenic Cast Auto None seen /lpf (NEGATIVE) 08/20/19 05:15 U Epithel Cells (Auto) 14.9 /HPF (0-5/HPF) 08/20/19 05:15 U Sm Round Cell (Auto) None seen 08/20/19 05:15 Urine Bacteria (Auto) 4.3 /hpf (NEGATIVE) 08/20/19 05:15 Ur Random Creatinine 78.0 mg/dL (30-150) 08/20/19 15:00 U Random Total Protein 19.4 mg/dL (0-11.9) H 08/24/19 11:00 Ur Random Sodium 62 MMOL/L (40-220) 08/20/19 15:00 Ur Random Potassium 27.0 MMOL/L (25-125) 08/20/19 15:00 Ur Random Chloride 75 MMOL/L (110-250) L 08/20/19 15:00 Urine Creatinine 32.0 mg/dL (30-150) 08/24/19 11:00 Protein/Creatinin Ratio 0.6 mg/dL 08/24/19 11:00 [place] M-Conrad Not observed g/dL (Not Observed) 08/26/19 05:45 Serum [place] Interpret (.) 08/25/19 19:15 IEP IgG 1578 mg/dL (700-1600) 08/25/19 19:15 IEP IgA 312 mg/dL (64-422) 08/25/19 19:15 IEP IgM 200 mg/dL (26-217) 08/25/19 19:15 KAREN Screen Positive (.) H 08/25/19 09:44 KAREN Homogeneous Pattern TNP 08/25/19 09:44 KAREN Nucleolar Pattern TNP 08/25/19 09:44 KAREN Spindle [place] Pattern TNP 08/25/19 09:44 KAREN Midbody Pattern TNP 08/25/19 09:44 KAREN Centriole Pattern TNP 08/25/19 09:44 KAREN Nuclear Dot Pattern TNP 08/25/19 09:44 KAREN PCNA Pattern TNP 08/25/19 09:44 KAREN Nuclear Membr Pat TNP 08/25/19 09:44 KAREN Speckled Pattern 1:1280 (.) H 08/25/19 09:44 KAREN Centromere Pattern TNP 08/25/19 09:44 c-ANCA <1:20 titer (Neg:<1:20) 08/26/19 05:45 Proteinase 3 (PR3) <3.5 U/mL (0.0-3.5) 08/26/19 05:45 p-ANCA <1:20 titer (Neg:<1:20) 08/26/19 05:45 Atypical p-ANCA <1:20 titer (Neg:<1:20) 08/26/19 05:45 Myeloperoxidase Ab <9.0 U/mL (0.0-9.0) 08/26/19 05:45 Double Strand DNA Ab <1 IU/mL (0-9) 08/25/19 09:44 Glomerular Base Memb Ab 2 units (0-20) 08/26/19 05:45 Free [place] LC, Quant 164.6 mg/L (3.3-19.4) H 08/26/19 05:45 Free Lambda LC, Quant 66.2 mg/L (5.7-26.3) H 08/26/19 05:45 Free [place]/Lambda Ratio 2.49 (0.26-1.65) H 08/26/19 05:45 Hep A IgM Ab Confirm Negative (Negative) 08/26/19 05:45 Hepatitis A Ab Total Positive (Negative) H 08/26/19 05:45 Hep Bs Antigen Negative (Negative) 08/26/19 05:45 Hep Bs Antibody Non reactive (.) 08/26/19 05:45 Hep B Core Total Ab Negative (Negative) 08/26/19 05:45 Hep B Core IgM Ab Negative (Negative) 08/26/19 05:45 Hepatitis Be Antibody Negative (Negative) 08/26/19 05:45 Hepatitis Be Antigen Negative (Negative) 08/26/19 05:45 Hep C Ab Diagnostic <0.1 s/co ratio (0.0-0.9) 08/24/19 10:44 HCV Quantitation Hcv not detected IU/mL (.) 08/26/19 05:45 HCV RNA log copies/mL TNP 08/26/19 05:45 A/P is a 73 y/o lady with PMHx of CAD, CHF,HTN, HLD, DM2and APL 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 She follows-up with Dr. Nevin Neil at [facility] and is in clinical surveillance. More recently, she had complained of joint pains, increased swelling and rash in her LE. Labs performed at an outside facility had shown polyclonal gammopaty, elevated KAREN and RF. 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 She was recently admitted to [facility] with cholangitis and is s/p ERCP with stone/sludge removal on 08/08/19. She is currently being treated for afib/CHF/KEL Cr 3.2 today On eliquis/lasix Anemia of chronic disease WBC/platelets are normal Abnormal FLC: This is due to kidney failure. Continue to follow with Dr. Neil
--- NOTE | 2019-08-30 18:59 | PN ---
Progress Note, Physician History of Present Illness: Petechial rash is still present - Current Medication List Current Medications: Active Medications Acetaminophen (Tylenol -) 650 mg PO Q6H PRN PRN Reason: PAIN LEVEL 1-5 Apixaban (Eliquis -) 2.5 mg PO BID [facility] Last Admin: 08/30/19 09:44 Dose: 2.5 mg Furosemide (Lasix Injection -) 80 mg IVPB BID@0600,1400 [facility] Last Admin: 08/30/19 15:18 Dose: 80 mg Insulin Aspart (Novolog Vial Sliding Scale -) 1 vial SQ BIDAC [facility]; Protocol Last Admin: 08/30/19 16:44 Dose: Not Given Lactic Acid (Lac-Hydrin 12) 1 applic TP DAILY PRN PRN Reason: xerosis Last Admin: 08/26/19 20:03 Dose: 1 applic Lidocaine (Lidoderm Patch -) 1 patch TP DAILY [facility] Last Admin: 08/30/19 09:43 Dose: 1 patch Metoprolol Tartrate (Lopressor -) 25 mg PO BID [facility] Last Admin: 08/30/19 09:44 Dose: 25 mg Miscellaneous (Lidoderm Patch Removal) 1 each MC DAILY@2200 [facility] Last Admin: 08/29/19 22:13 Dose: 1 each - Objective Vital Signs: Vital Signs Temperature 98.1 F 08/30/19 18:00 Pulse Rate 87 08/30/19 18:00 Respiratory Rate 20 08/30/19 18:00 Blood Pressure 99/51 L 08/30/19 18:00 O2 Sat by Pulse Oximetry (%) 100 08/30/19 09:00 Neck: Yes: WNL, Supple Cardiovascular: Yes: Pulse Irregular Respiratory: Yes: Rales Gastrointestinal: Yes: WNL, Normal Bowel Sounds, Soft, Abdomen, Obese Extremities: Yes: Other (chronic venoous stasis B/L petechial rash under knees) Edema: LLE: 2+, RLE: 2+ Labs: CBC, BMP 08/30/19 06:00 08/30/19 06:00 INR, PTT INR 1.47 (0.83-1.09) H 08/20/19 03:30 Problem List - Problems (1) Acute on chronic combined systolic (congestive) and diastolic (congestive) heart failure Assessment/Plan: Cont IV lasix TID Metolazone prn Monitor electrolytes/renal function Code(s): I50.43 - ACUTE ON CHRONIC COMBINED SYSTOLIC AND DIASTOLIC HRT FAIL (2) APL (acute promyelocytic leukemia) Assessment/Plan: Onco consult noted Abnormal light chains thought to be due to renal dz (H/O recent skin bx wc showed leukocytoclastic vasculitis (3) Anemia Assessment/Plan: Multifactorial Code(s): D64.9 - ANEMIA, UNSPECIFIED (4) Leukocytosis Assessment/Plan: Lactic acidosis resolved Pt is now off antibxs BC remain negative Code(s): D72.829 - ELEVATED WHITE BLOOD CELL COUNT, UNSPECIFIED (5) Renal failure Assessment/Plan: Acute on chronic renal failure As per renal Code(s): N19 - UNSPECIFIED KIDNEY FAILURE Qualifiers: Renal failure chronicity: unspecified chronicity Qualified Code(s): N19 - Unspecified kidney failure (6) Afib Assessment/Plan: Heart rate controlled Cont eliquis Code(s): I48.91 - UNSPECIFIED ATRIAL FIBRILLATION Qualifiers: Atrial fibrillation type: unspecified Qualified Code(s): I48.91 - Unspecified atrial fibrillation (7) HTN (hypertension) Assessment/Plan: BP stable Code(s): I10 - ESSENTIAL (PRIMARY) HYPERTENSION (8) Hyperlipidemia Code(s): E78.5 - HYPERLIPIDEMIA, UNSPECIFIED (9) Diabetes Assessment/Plan: HgA1c is 6.4 Code(s): E11.9 - TYPE 2 DIABETES MELLITUS WITHOUT COMPLICATIONS Qualifiers: Diabetes mellitus type: type 2 (10) Respiratory failure Assessment/Plan: Resolved Code(s): J96.90 - RESPIRATORY FAILURE, UNSP, UNSP W HYPOXIA OR HYPERCAPNIA Qualifiers: Chronicity: acute on chronic Respiratory failure complication: hypoxia Qualified Code(s): J96.21 - Acute and chronic respiratory failure with hypoxia
[2019-08-30] MEDS: LIDOCAINE PATCH REMOVAL MC SCH (21:13)
[2019-08-31] MEDS: FUROSEMIDE 100 MG/10 ML INJECTABLE VIAL IVPB SCH ×2 (06:19→14:40)
[2019-08-31] MEDS: INSULIN SLIDING SCALE (NOVOLOG) 1 VIAL SQ SCH ×2 (06:19→17:08)
[2019-08-31 07:10] LABS: ALBUMIN 2.8 g/dl (3.4-5.0); BLOOD UREA NITROGEN 99.4 mg/dL (7-18); CALCIUM 8.9 mg/dL (8.5-10.1); CREATININE 3.3 mg/dL (0.55-1.3); MAGNESIUM 2.1 mg/dL (1.8-2.4); POTASSIUM 3.5 mmol/L (3.5-5.1)
[2019-08-31 08:35] LABS: BASO % 0.7 % (0-2.0); EOS % 4.7 % (0-4.5); HEMOGLOBIN 9.1 GM/dL (10.7-15.3); LYMPH % 27.3 % (8-40); MCH 26.2 pg (25.7-33.7); MCHC 32.6 g/dl (32.0-36.0); MEAN CELL VOLUME 80.5 fl (80-96); MEAN PLT VOLUME 9.7 fl (7.5-11.1); MONO % 5.6 % (3.8-10.2); NEUT % 61.7 % (42.8-82.8); PLATELET COUNT 213 K/MM3 (134-434); RBC 3.47 M/mm3 (3.60-5.2); RDW 18.4 % (11.6-15.6); WHITE BLOOD COUNT 5.1 K/mm3 (4.0-10.0)
[2019-08-31] MEDS: APIXABAN 2.5 MG TABLET PO SCH ×2 (09:03→21:05)
[2019-08-31] MEDS: METOPROLOL TARTRATE 25 MG TABLET (FP) PO SCH ×2 (09:03→21:05)
[2019-08-31] MEDS: LIDOCAINE 5% TOPICAL PATCH TP SCH (09:07)
--- NOTE | 2019-08-31 12:15 | PN ---
Progress Note, Physician History of Present Illness: PULMONARY ALERT,COMFORTABLE,DYSPNEA IMPROVING - Current Medication List Current Medications: Active Medications Acetaminophen (Tylenol -) 650 mg PO Q6H PRN PRN Reason: PAIN LEVEL 1-5 Apixaban (Eliquis -) 2.5 mg PO BID [facility] Last Admin: 08/31/19 09:03 Dose: 2.5 mg Furosemide (Lasix Injection -) 80 mg IVPB BID@0600,1400 [facility] Last Admin: 08/31/19 06:19 Dose: 80 mg Insulin Aspart (Novolog Vial Sliding Scale -) 1 vial SQ BIDAC [facility]; Protocol Last Admin: 08/31/19 06:19 Dose: 1 units Lactic Acid (Lac-Hydrin 12) 1 applic TP DAILY PRN PRN Reason: xerosis Last Admin: 08/26/19 20:03 Dose: 1 applic Lidocaine (Lidoderm Patch -) 1 patch TP DAILY [facility] Last Admin: 08/31/19 09:07 Dose: Not Given Metoprolol Tartrate (Lopressor -) 25 mg PO BID [facility] Last Admin: 08/31/19 09:03 Dose: 25 mg Miscellaneous (Lidoderm Patch Removal) 1 each MC DAILY@2200 [facility] Last Admin: 08/30/19 21:13 Dose: 1 each - Objective Vital Signs: Vital Signs Temperature 97.8 F 08/31/19 06:00 Pulse Rate 85 08/31/19 06:00 Respiratory Rate 20 08/31/19 06:00 Blood Pressure 116/54 L 08/31/19 06:00 O2 Sat by Pulse Oximetry (%) 98 08/30/19 21:36 Constitutional: Yes: Well Nourished, Calm, Obese Eyes: Yes: WNL HENT: Yes: WNL Neck: Yes: WNL Cardiovascular: Yes: Pulse Irregular, S1, S2 Respiratory: Yes: Diminished Gastrointestinal: Yes: Normal Bowel Sounds, Soft Extremities: Yes: WNL Edema: Yes Labs: CBC, BMP 08/31/19 08:10 08/31/19 05:40 INR, PTT INR 1.47 (0.83-1.09) H 08/20/19 03:30 Problem List - Problems (1) Acute on chronic combined systolic (congestive) and diastolic (congestive) heart failure Code(s): I50.43 - ACUTE ON CHRONIC COMBINED SYSTOLIC AND DIASTOLIC HRT FAIL (2) Anemia Code(s): D64.9 - ANEMIA, UNSPECIFIED (3) Renal failure Code(s): N19 - UNSPECIFIED KIDNEY FAILURE Qualifiers: Renal failure chronicity: unspecified chronicity Qualified Code(s): N19 - Unspecified kidney failure (4) Respiratory failure Code(s): J96.90 - RESPIRATORY FAILURE, UNSP, UNSP W HYPOXIA OR HYPERCAPNIA Qualifiers: Chronicity: acute on chronic Respiratory failure complication: hypoxia Qualified Code(s): J96.21 - Acute and chronic respiratory failure with hypoxia (5) Severe congestive heart failure Code(s): I50.9 - HEART FAILURE, UNSPECIFIED (6) Venous stasis of lower extremity Code(s): I87.8 - OTHER SPECIFIED DISORDERS OF VEINS (7) Afib Code(s): I48.91 - UNSPECIFIED ATRIAL FIBRILLATION Qualifiers: Atrial fibrillation type: unspecified Qualified Code(s): I48.91 - Unspecified atrial fibrillation (8) Bilateral pulmonary infiltrates on chest x-ray Code(s): R91.8 - OTHER NONSPECIFIC ABNORMAL FINDING OF LUNG FIELD (9) CAD (coronary artery disease) Code(s): I25.10 - ATHSCL HEART DISEASE OF [place] CORONARY ARTERY W/O ANG PCTRS (10) HTN (hypertension) Code(s): I10 - ESSENTIAL (PRIMARY) HYPERTENSION Assessment/Plan ASSESSMENT AND PLAN: Acute Hypercapneic and Hypoxic Respiratory Failure improving Acute on Chronic Diastolic Heart Failure Acute Kidney Injury Lactic Acidosis resolved Atrial Fibrillation CAD Pericardial Effusion HTN DM ALL Cholelithiasis Anemia ENOC Leukocytoclastic vasculitis - lasix - monitor urine output, creatinine - O2 to keep SpO2 >90% - daily weights - rate control - anticoagulation - completed antibiotics DR GALVAN
[2019-08-31 13:14] VITALS: BMI 40.6
--- NOTE | 2019-08-31 16:54 | PN ---
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 She was recently admitted with cholangitis and gram negative bacteremia complicated by KEL and new onset Afib. She was transferred to [facility] and had ERCP with sphincterotomy and removal of GB stones. Her KEL improved and at time of DC BUN/Cr was 47/4.4. She continues to be in the hospital due to acute hypercapnic/hypoxic respiratory failure, Acute on Chronic CHF, KEL. Primary team requested comment on abnormal FLC - History Source History Provided By: Patient, Family Member, Medical Record - Past Medical History Cardio/Vascular: Yes: CAD, CHF, HTN, Hyperlipdemia, ID (s/p EES stent to LAD) Endocrine: Yes: Diabetes Mellitus - Past Surgical History Past Surgical History: Yes: Stent - Smoking History Smoking history: Never smoked - Social History Usual Living Arrangement: With Spouse ADL: Independent Occupation: retired dietary staff at [employer] - Allergies Allergies/Adverse Reactions: Allergies Allergy/AdvReac Type Severity Reaction Status Date / Time No Known Allergies Allergy Verified 08/20/19 03:35 Last Vital Signs Temp Pulse Resp BP Pulse Ox 98.3 F 76 20 91/46 L 100 08/31/19 13:48 08/31/19 13:48 08/31/19 13:48 08/31/19 13:48 08/31/19 10:00 Cor: RSR, No murmurs, No gallops Lungs: Crackles bases Abd: Soft, Normal bowel sounds, No organomegaly Ext:No significant edema Skin: No rashes, Integument intact CBC, BMP 08/31/19 08:10 08/31/19 05:40 Current Medications Generic Name Dose Route Start Last Admin Trade Name Freq PRN Reason Stop Dose Admin Acetaminophen 650 mg 08/27/19 18:56 Tylenol - PO Q6H PRN PAIN LEVEL 1-5 Apixaban 2.5 mg 08/27/19 22:00 08/31/19 09:03 Eliquis - PO 2.5 mg BID [facility] Administration Furosemide 80 mg 08/29/19 14:00 08/31/19 06:19 Lasix Injection - IVPB 80 mg BID@0600,1400 [facility] Administration Insulin Aspart 1 vial 08/27/19 07:00 08/31/19 06:19 Novolog Vial Sliding Scale - SQ 1 units BIDAC [facility] Administration Protocol Lactic Acid 1 applic 08/26/19 12:32 08/26/19 20:03 Lac-Hydrin 12 TP 1 applic DAILY PRN Administration xerosis Lidocaine 1 patch 08/28/19 10:00 08/31/19 09:07 Lidoderm Patch - TP Not Given DAILY [facility] Metoprolol Tartrate 25 mg 08/27/19 22:00 08/31/19 09:03 Lopressor - PO 25 mg BID [facility] Administration Miscellaneous 1 each 08/27/19 22:00 08/30/19 21:13 Lidoderm Patch Removal MC 1 each DAILY@2200 [facility] Administration A/P is a 73 y/o lady with PMHx of CAD, CHF,HTN, HLD, DM2and APL 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 She follows-up with Dr. Nevin Neil at [facility] and is in clinical surveillance. More recently, she had complained of joint pains, increased swelling and rash in her LE. Labs performed at an outside facility had shown polyclonal gammopaty, elevated KAREN and RF. 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 She was recently admitted to [facility] with cholangitis and is s/p ERCP with stone/sludge removal on 08/08/19. She is currently being treated for afib/CHF/KEL Cr 3.today On eliquis/lasix Anemia of chronic disease WBC/platelets are normal Abnormal FLC: This is due to kidney failure. Continue to follow with Dr. Neil
[2019-08-31] MEDS ORDERED: POTASSIUM CHLORIDE TABS 20 MEQ TABLET.ER (FP) PO ONE (18:33)
--- NOTE | 2019-08-31 18:33 | PN ---
Progress Note, Physician History of Present Illness: Pt seen and examined at bedside. She still has shortness of breath when she lays flat. - Current Medication List Current Medications: Active Medications Acetaminophen (Tylenol -) 650 mg PO Q6H PRN PRN Reason: PAIN LEVEL 1-5 Apixaban (Eliquis -) 2.5 mg PO BID [facility] Last Admin: 08/31/19 09:03 Dose: 2.5 mg Furosemide (Lasix Injection -) 80 mg IVPB BID@0600,1400 [facility] Last Admin: 08/31/19 14:40 Dose: 80 mg Insulin Aspart (Novolog Vial Sliding Scale -) 1 vial SQ BIDAC [facility]; Protocol Last Admin: 08/31/19 17:08 Dose: Not Given Lactic Acid (Lac-Hydrin 12) 1 applic TP DAILY PRN PRN Reason: xerosis Last Admin: 08/26/19 20:03 Dose: 1 applic Lidocaine (Lidoderm Patch -) 1 patch TP DAILY [facility] Last Admin: 08/31/19 09:07 Dose: Not Given Metoprolol Tartrate (Lopressor -) 25 mg PO BID [facility] Last Admin: 08/31/19 09:03 Dose: 25 mg Miscellaneous (Lidoderm Patch Removal) 1 each MC DAILY@2200 [facility] Last Admin: 08/30/19 21:13 Dose: 1 each - Objective Vital Signs: Vital Signs Temperature 98.3 F 08/31/19 13:48 Pulse Rate 78 08/31/19 17:38 Respiratory Rate 18 08/31/19 17:38 Blood Pressure 112/52 L 08/31/19 17:38 O2 Sat by Pulse Oximetry (%) 100 08/31/19 10:00 Constitutional: Yes: Calm Eyes: Yes: Conjunctiva Clear HENT: Yes: Atraumatic Neck: Yes: Supple Cardiovascular: Yes: S1, S2 Respiratory: Yes: CTA Bilaterally, On Nasal O2 Gastrointestinal: Yes: Soft, Abdomen, Obese Genitourinary: Yes: WNL Edema: Yes Edema: LLE: 2+, RLE: 2+ Neurological: Yes: Oriented Psychiatric: Yes: Oriented Labs: CBC, BMP 08/31/19 08:10 08/31/19 05:40 INR, PTT INR 1.47 (0.83-1.09) H 08/20/19 03:30 Assessment/Plan Current Medications Generic Name Dose Route Start Last Admin Trade Name Freq PRN Reason Stop Dose Admin Acetaminophen 650 mg 08/27/19 18:56 Tylenol - PO Q6H PRN PAIN LEVEL 1-5 Apixaban 2.5 mg 08/27/19 22:00 08/31/19 09:03 Eliquis - PO 2.5 mg BID [facility] Administration Furosemide 80 mg 08/29/19 14:00 08/31/19 14:40 Lasix Injection - IVPB 80 mg BID@0600,1400 [facility] Administration Insulin Aspart 1 vial 08/27/19 07:00 08/31/19 17:08 Novolog Vial Sliding Scale - SQ Not Given BIDAC [facility] Protocol Lactic Acid 1 applic 08/26/19 12:32 08/26/19 20:03 Lac-Hydrin 12 TP 1 applic DAILY PRN Administration xerosis Lidocaine 1 patch 08/28/19 10:00 08/31/19 09:07 Lidoderm Patch - TP Not Given DAILY [facility] Metoprolol Tartrate 25 mg 08/27/19 22:00 08/31/19 09:03 Lopressor - PO 25 mg BID [facility] Administration Miscellaneous 1 each 08/27/19 22:00 08/30/19 21:13 Lidoderm Patch Removal MC 1 each DAILY@2200 [facility] Administration Impression 1. KEL 2. CHF 3. hx sepsis from biliary source 4. cad 5. ALL 6. CAD 7. a-fib 8. lactic acidosis 9. hx of leukocytoclastic vasculitis 10. rash Plan - monitor renal function - cont lasix - she remains overloaded - oncology follow up for light chains - derm eval - replace potassium
[2019-08-31] MEDS: LIDOCAINE PATCH REMOVAL MC SCH (21:04)
--- NOTE | 2019-08-31 21:09 | PN ---
Progress Note, Physician History of Present Illness: Petechial rash is less - Current Medication List Current Medications: Active Medications Acetaminophen (Tylenol -) 650 mg PO Q6H PRN PRN Reason: PAIN LEVEL 1-5 Apixaban (Eliquis -) 2.5 mg PO BID [facility] Last Admin: 08/31/19 21:05 Dose: 2.5 mg Furosemide (Lasix Injection -) 80 mg IVPB BID@0600,1400 [facility] Last Admin: 08/31/19 14:40 Dose: 80 mg Insulin Aspart (Novolog Vial Sliding Scale -) 1 vial SQ BIDAC [facility]; Protocol Last Admin: 08/31/19 17:08 Dose: Not Given Lactic Acid (Lac-Hydrin 12) 1 applic TP DAILY PRN PRN Reason: xerosis Last Admin: 08/26/19 20:03 Dose: 1 applic Lidocaine (Lidoderm Patch -) 1 patch TP DAILY [facility] Last Admin: 08/31/19 09:07 Dose: Not Given Metoprolol Tartrate (Lopressor -) 25 mg PO BID [facility] Last Admin: 08/31/19 21:05 Dose: 25 mg Miscellaneous (Lidoderm Patch Removal) 1 each MC DAILY@2200 [facility] Last Admin: 08/31/19 21:04 Dose: Not Given - Objective Vital Signs: Vital Signs Temperature 98.3 F 08/31/19 13:48 Pulse Rate 78 08/31/19 17:38 Respiratory Rate 18 08/31/19 17:38 Blood Pressure 112/52 L 08/31/19 17:38 O2 Sat by Pulse Oximetry (%) 100 08/31/19 10:00 Neck: Yes: WNL, Supple Cardiovascular: Yes: Pulse Irregular Respiratory: Yes: Diminished Gastrointestinal: Yes: WNL, Normal Bowel Sounds, Soft, Abdomen, Obese Extremities: Yes: Other (Chronic venous stasis B/L (+) petechial rash behind b/ l knees) Edema: LLE: 1+, RLE: 1+ Labs: CBC, BMP 08/31/19 08:10 08/31/19 05:40 INR, PTT INR 1.47 (0.83-1.09) H 08/20/19 03:30 Problem List - Problems (1) Acute on chronic combined systolic (congestive) and diastolic (congestive) heart failure Assessment/Plan: Cont IV lasix TID Metolazone prn Monitor electrolytes/renal function Code(s): I50.43 - ACUTE ON CHRONIC COMBINED SYSTOLIC AND DIASTOLIC HRT FAIL (2) APL (acute promyelocytic leukemia) Assessment/Plan: Onco consult noted Abnormal light chains thought to be due to renal dz (H/O recent skin bx wc showed leukocytoclastic vasculitis (3) Renal failure Assessment/Plan: Acute on chronic renal failure As per renal Code(s): N19 - UNSPECIFIED KIDNEY FAILURE Qualifiers: Renal failure chronicity: unspecified chronicity Qualified Code(s): N19 - Unspecified kidney failure (4) Anemia Assessment/Plan: Multifactorial Code(s): D64.9 - ANEMIA, UNSPECIFIED (5) Leukocytosis Assessment/Plan: Lactic acidosis resolved Pt is now off antibxs BC remain negative Code(s): D72.829 - ELEVATED WHITE BLOOD CELL COUNT, UNSPECIFIED (6) Afib Assessment/Plan: Heart rate controlled Cont eliquis Code(s): I48.91 - UNSPECIFIED ATRIAL FIBRILLATION Qualifiers: Atrial fibrillation type: unspecified Qualified Code(s): I48.91 - Unspecified atrial fibrillation (7) HTN (hypertension) Assessment/Plan: BP stable Code(s): I10 - ESSENTIAL (PRIMARY) HYPERTENSION (8) Hyperlipidemia Code(s): E78.5 - HYPERLIPIDEMIA, UNSPECIFIED (9) Respiratory failure Assessment/Plan: Resolved Code(s): J96.90 - RESPIRATORY FAILURE, UNSP, UNSP W HYPOXIA OR HYPERCAPNIA Qualifiers: Chronicity: acute on chronic Respiratory failure complication: hypoxia Qualified Code(s): J96.21 - Acute and chronic respiratory failure with hypoxia (10) Diabetes Assessment/Plan: HgA1c is 6.4 Code(s): E11.9 - TYPE 2 DIABETES MELLITUS WITHOUT COMPLICATIONS Qualifiers: Diabetes mellitus type: type 2
[2019-09-01] MEDS: FUROSEMIDE 100 MG/10 ML INJECTABLE VIAL IVPB SCH ×3 (07:05→14:54)
[2019-09-01] MEDS: INSULIN SLIDING SCALE (NOVOLOG) 1 VIAL SQ SCH ×2 (07:05→16:58)
[2019-09-01 07:27] LABS: ALBUMIN 2.7 g/dl (3.4-5.0); BLOOD UREA NITROGEN 100.6 mg/dL (7-18); CALCIUM 8.8 mg/dL (8.5-10.1); CREATININE 3.2 mg/dL (0.55-1.3); MAGNESIUM 2.1 mg/dL (1.8-2.4); POTASSIUM 3.6 mmol/L (3.5-5.1)
--- NOTE | 2019-09-01 09:03 | PN ---
Progress Note (short form) - Note Progress Note: Patient presents with painful thick dystrophic mycotic toenails in shoes and ambulation Positive inflamed nail bed . Postive subungual debrie Patient instructed not to cut her own nails Debride mycotic toenails 1-10
[2019-09-01] MEDS: LIDOCAINE 5% TOPICAL PATCH TP SCH (09:48)
[2019-09-01] MEDS: APIXABAN 2.5 MG TABLET PO SCH ×2 (09:48→22:59)
[2019-09-01] MEDS: METOPROLOL TARTRATE 25 MG TABLET (FP) PO SCH ×2 (11:53→22:59)
[2019-09-01] MEDS ORDERED: ALBUMIN HUMAN 25% 12.5 GM/50 ML VIAL IVPB ONE (11:55)
--- NOTE | 2019-09-01 11:55 | PN ---
Progress Note, Physician History of Present Illness: Pt seen and examined at bedside. She is awake and alert. She feels that her shortness of breath is improving. - Current Medication List Current Medications: Active Medications Acetaminophen (Tylenol -) 650 mg PO Q6H PRN PRN Reason: PAIN LEVEL 1-5 Apixaban (Eliquis -) 2.5 mg PO BID [facility] Last Admin: 09/01/19 09:48 Dose: 2.5 mg Furosemide (Lasix Injection -) 80 mg IVPB BID@0600,1400 [facility] Last Admin: 09/01/19 07:05 Dose: Not Given Insulin Aspart (Novolog Vial Sliding Scale -) 1 vial SQ BIDAC [facility]; Protocol Last Admin: 09/01/19 07:05 Dose: Not Given Lactic Acid (Lac-Hydrin 12) 1 applic TP DAILY PRN PRN Reason: xerosis Last Admin: 08/26/19 20:03 Dose: 1 applic Lidocaine (Lidoderm Patch -) 1 patch TP DAILY [facility] Last Admin: 09/01/19 09:48 Dose: Not Given Metoprolol Tartrate (Lopressor -) 25 mg PO BID [facility] Last Admin: 08/31/19 21:05 Dose: 25 mg Miscellaneous (Lidoderm Patch Removal) 1 each MC DAILY@2200 [facility] Last Admin: 08/31/19 21:04 Dose: Not Given - Objective Vital Signs: Vital Signs Temperature 97.4 F L 09/01/19 10:00 Pulse Rate 78 09/01/19 10:00 Respiratory Rate 18 09/01/19 10:00 Blood Pressure 100/55 L 09/01/19 10:00 O2 Sat by Pulse Oximetry (%) 98 09/01/19 11:40 Constitutional: Yes: Calm Eyes: Yes: Conjunctiva Clear HENT: Yes: Atraumatic Cardiovascular: Yes: S1, S2 Respiratory: Yes: On Nasal O2 Gastrointestinal: Yes: Soft, Abdomen, Obese Genitourinary: Yes: WNL Edema: Yes Edema: LLE: 2+, RLE: 2+ Neurological: Yes: Oriented Psychiatric: Yes: Oriented Labs: CBC, BMP 08/31/19 08:10 09/01/19 06:10 INR, PTT INR 1.47 (0.83-1.09) H 08/20/19 03:30 Assessment/Plan Current Medications Generic Name Dose Route Start Last Admin Trade Name Freq PRN Reason Stop Dose Admin Acetaminophen 650 mg 08/27/19 18:56 Tylenol - PO Q6H PRN PAIN LEVEL 1-5 Apixaban 2.5 mg 08/27/19 22:00 09/01/19 09:48 Eliquis - PO 2.5 mg BID [facility] Administration Furosemide 80 mg 08/29/19 14:00 09/01/19 07:05 Lasix Injection - IVPB Not Given BID@0600,1400 [facility] Insulin Aspart 1 vial 08/27/19 07:00 09/01/19 07:05 [facility] Sliding [facility] - [facility] Protocol Lactic Acid 1 applic 08/26/19 12:32 08/26/19 20:03 Lac-Hydrin 12 TP 1 applic DAILY PRN Administration xerosis Lidocaine 1 patch 08/28/19 10:00 09/01/19 09:48 Lidoderm Patch - TP Not Given DAILY [facility] Metoprolol Tartrate 25 mg 08/27/19 22:00 09/01/19 11:53 Lopressor - PO Not Given BID [facility] Miscellaneous 1 each 08/27/19 22:00 08/31/19 21:04 Lidoderm Patch Removal MC Not Given DAILY@2200 [facility] Impression 1. KEL 2. CHF 3. hx sepsis from biliary source 4. cad 5. ALL 6. CAD 7. a-fib 8. lactic acidosis 9. hx of leukocytoclastic vasculitis 10. rash Plan - cont lasix - will give albumin - repeat cxr - cardiology follow up - she remains overloaded - oncology follow up for light chains - replace potassium
[2019-09-01] MEDS ORDERED: POTASSIUM CHLORIDE TABS 20 MEQ TABLET.ER (FP) PO ONE (11:56)
--- NOTE | 2019-09-01 13:15 | PN ---
Progress Note, Physician History of Present Illness: 73 F known to our practice. She has history of HfPEF, chronic Lext swelling, CAD with LAD PCI 2014. She was recently admitted with cholangitis and gram negative bacteremia complicated by KEL and new onset Afib. She was transferred to [facility] and had ERCP with sphyncterotomy and removal of GB stones. Her KEL improved and at time of DC 08/15 BUN/Cr was 47/4.4. Eitiology of KEL was felt to be due to ATN. NSR was restored spontaneously as well and she was discharged on Metoprolol 12.5mg BID and Eliquis in addition to NaHCo3 and Amlodipine. Admitted with sudden SOB last night. In ER initially, severe hypoxemia and rapid Afib was noted. she improved on BiPAP She was found with hypoxemia and rapid Afib. - Current Medication List Current Medications: Active Medications Acetaminophen (Tylenol -) 650 mg PO Q6H PRN PRN Reason: PAIN LEVEL 1-5 Apixaban (Eliquis -) 2.5 mg PO BID [facility] Last Admin: 09/01/19 09:48 Dose: 2.5 mg Furosemide (Lasix Injection -) 80 mg IVPB BID@0600,1400 [facility] Last Admin: 09/01/19 12:22 Dose: 80 mg Insulin Aspart (Novolog Vial Sliding Scale -) 1 vial SQ BIDAC [facility]; Protocol Last Admin: 09/01/19 07:05 Dose: Not Given Lactic Acid (Lac-Hydrin 12) 1 applic TP DAILY PRN PRN Reason: xerosis Last Admin: 08/26/19 20:03 Dose: 1 applic Lidocaine (Lidoderm Patch -) 1 patch TP DAILY [facility] Last Admin: 09/01/19 09:48 Dose: Not Given Metoprolol Tartrate (Lopressor -) 25 mg PO BID [facility] Last Admin: 09/01/19 11:53 Dose: Not Given Miscellaneous (Lidoderm Patch Removal) 1 each MC DAILY@2200 [facility] Last Admin: 08/31/19 21:04 Dose: Not Given - Objective Vital Signs: Vital Signs Temperature 97.4 F L 09/01/19 10:00 Pulse Rate 78 09/01/19 10:00 Respiratory Rate 18 09/01/19 10:00 Blood Pressure 100/55 L 09/01/19 10:00 O2 Sat by Pulse Oximetry (%) 98 09/01/19 11:40 Constitutional: Yes: No Distress, Calm Eyes: Yes: Conjunctiva Clear, EOM Intact HENT: Yes: Normocephalic Neck: Yes: Trachea Midline Cardiovascular: Yes: Pulse Irregular, S1, S2 Respiratory: Yes: CTA Bilaterally Gastrointestinal: Yes: Normal Bowel Sounds, Soft Musculoskeletal: Yes: WNL Extremities: Yes: Erythema (bilat anterior vega) Edema: Yes Edema: LLE: 2+, RLE: 2+ Peripheral Pulses WNL: Yes Labs: CBC, BMP 08/31/19 08:10 09/01/19 06:10 INR, PTT INR 1.47 (0.83-1.09) H 08/20/19 03:30 Assessment/Plan 73 F known to our practice. She has history of HfPEF, chronic Lext swelling, CAD with LAD PCI 2014. She was recently admitted with cholangitis and gram negative bacteremia complicated by KEL and new onset Afib. She was transferred to [facility] and had ERCP with sphyncterotomy and removal of GB stones. Her KEL improved and at time of DC 08/15 BUN/Cr was 47/4.4. Eitiology of KEL was felt to be due to ATN. NSR was restored spontaneously as well and she was discharged on Metoprolol 12.5mg BID and Eliquis in addition to NaHCo3 and Amlodipine. Admitted with sudden SOB last night. In ER initially, severe hypoxemia and rapid Afib was noted. she improved on BiPAP She was found with hypoxemia and rapid Afib. CHF-Acute on chronic combined CHF -Volume status improving each day. -PO furosemide 80mg BID -Cont to follow I's/O's/Wt's/Lytes -Needs cardiac amyloid workup. Pyrophosphate scan can be done as outpatient. Continue diuresis. AFIB-pafib, HR adequately controlled -Contiue AC with apixaban 2.5 mg PO BID -Rate control with Metoprolol Tartrate 25 mg PO BID if BP allows. If not will have to lower to 12.5mg CAD -TP level minimally elevated with normal CK level in setting of respiratory distress c/w demand ischemia not ACS. -cont medical management
--- NOTE | 2019-09-01 14:42 | PN ---
Progress Note (short form) - Note Progress Note: PULMONARY Breathing continues to improve. No cough or chest pain. Vital Signs Period Temp Pulse Resp BP Sys/Hernandez Pulse Ox Last 24 Hr 97.4 F-98.7 F 72-83 18-20 86-112/52-60 98-100 Gen: NAD at rest Heart: RRR Lung: decreased breath sounds at the bases Abd: soft, nontender Ext: + edema CBC, BMP 08/31/19 08:10 09/01/19 06:10 Active Medications Acetaminophen (Tylenol -) 650 mg PO Q6H PRN PRN Reason: PAIN LEVEL 1-5 Apixaban (Eliquis -) 2.5 mg PO BID [facility] Last Admin: 09/01/19 09:48 Dose: 2.5 mg Furosemide (Lasix Injection -) 80 mg IVPB BID@0600,1400 [facility] Last Admin: 09/01/19 12:22 Dose: 80 mg Insulin Aspart (Novolog Vial Sliding Scale -) 1 vial SQ BIDAC [facility]; Protocol Last Admin: 09/01/19 07:05 Dose: Not Given Lactic Acid (Lac-Hydrin 12) 1 applic TP DAILY PRN PRN Reason: xerosis Last Admin: 08/26/19 20:03 Dose: 1 applic Lidocaine (Lidoderm Patch -) 1 patch TP DAILY [facility] Last Admin: 09/01/19 09:48 Dose: Not Given Metoprolol Tartrate (Lopressor -) 25 mg PO BID [facility] Last Admin: 09/01/19 11:53 Dose: Not Given Miscellaneous (Lidoderm Patch Removal) 1 each MC DAILY@2200 [facility] Last Admin: 08/31/19 21:04 Dose: Not Given A/P Acute Hypercapneic and Hypoxic Respiratory Failure improving Acute on Chronic Diastolic Heart Failure Acute Kidney Injury Lactic Acidosis resolved Atrial Fibrillation CAD Pericardial Effusion HTN DM ALL Cholelithiasis Anemia ENOC - continue lasix - monitor urine output, creatinine - O2 to keep SpO2 >90% - daily weights - rate control - continue anticoagulation - completed antibiotics
[2019-09-01] MEDS ORDERED: INSULIN SLIDING SCALE (NOVOLOG) 1 VIAL SQ ONE (16:48)
--- NOTE | 2019-09-01 22:27 | PN ---
Progress Note, Physician History of Present Illness: No new changes - Current Medication List Current Medications: Active Medications Acetaminophen (Tylenol -) 650 mg PO Q6H PRN PRN Reason: PAIN LEVEL 1-5 Apixaban (Eliquis -) 2.5 mg PO BID [facility] Last Admin: 09/01/19 09:48 Dose: 2.5 mg Furosemide (Lasix Injection -) 80 mg IVPB BID@0600,1400 [facility] Last Admin: 09/01/19 14:54 Dose: Not Given Insulin Aspart ([facility] Last Admin: 09/01/19 16:58 Dose: 1 units Lactic Acid (Lac-Hydrin 12) 1 applic TP DAILY PRN PRN Reason: xerosis Last Admin: 08/26/19 20:03 Dose: 1 applic Lidocaine (Lidoderm Patch -) 1 patch TP DAILY [facility] Last Admin: 09/01/19 09:48 Dose: Not Given Metoprolol Tartrate (Lopressor -) 25 mg PO BID [facility] Last Admin: 09/01/19 11:53 Dose: Not Given Miscellaneous (Lidoderm Patch Removal) 1 each MC DAILY@2200 [facility] Last Admin: 08/31/19 21:04 Dose: Not Given - Objective Vital Signs: Vital Signs Temperature 98.7 F 09/01/19 21:30 Pulse Rate 90 09/01/19 21:30 Respiratory Rate 20 09/01/19 21:30 Blood Pressure 121/73 09/01/19 21:30 O2 Sat by Pulse Oximetry (%) 98 09/01/19 21:00 Neck: Yes: WNL, Supple Cardiovascular: Yes: Pulse Irregular Respiratory: Yes: Diminished Gastrointestinal: Yes: WNL, Normal Bowel Sounds, Soft, Abdomen, Obese Edema: LLE: 1+, RLE: 1+ Labs: CBC, BMP 08/31/19 08:10 09/01/19 06:10 INR, PTT INR 1.47 (0.83-1.09) H 08/20/19 03:30 Problem List - Problems (1) Acute on chronic combined systolic (congestive) and diastolic (congestive) heart failure Assessment/Plan: Pt given albumin Pt now on IV lasix BID Slight hypotension this am Metolazone prn Monitor electrolytes/renal function Code(s): I50.43 - ACUTE ON CHRONIC COMBINED SYSTOLIC AND DIASTOLIC HRT FAIL (2) APL (acute promyelocytic leukemia) Assessment/Plan: As per onco (H/O recent skin bx wc showed leukocytoclastic vasculitis (3) Anemia Assessment/Plan: Multifactorial Code(s): D64.9 - ANEMIA, UNSPECIFIED (4) Leukocytosis Assessment/Plan: Lactic acidosis resolved Cont IV zosyn BC remain negative Code(s): D72.829 - ELEVATED WHITE BLOOD CELL COUNT, UNSPECIFIED (5) Renal failure Assessment/Plan: Acute on chronic renal failure As per renal Code(s): N19 - UNSPECIFIED KIDNEY FAILURE Qualifiers: Renal failure chronicity: unspecified chronicity Qualified Code(s): N19 - Unspecified kidney failure (6) Afib Assessment/Plan: Heart rate controlled Cont eliquis Code(s): I48.91 - UNSPECIFIED ATRIAL FIBRILLATION Qualifiers: Atrial fibrillation type: unspecified Qualified Code(s): I48.91 - Unspecified atrial fibrillation (7) HTN (hypertension) Assessment/Plan: BP stable Code(s): I10 - ESSENTIAL (PRIMARY) HYPERTENSION (8) Hyperlipidemia Code(s): E78.5 - HYPERLIPIDEMIA, UNSPECIFIED (9) Diabetes Assessment/Plan: HgA1c is 6.4 Code(s): E11.9 - TYPE 2 DIABETES MELLITUS WITHOUT COMPLICATIONS Qualifiers: Diabetes mellitus type: type 2 (10) Respiratory failure Assessment/Plan: Resolved Code(s): J96.90 - RESPIRATORY FAILURE, UNSP, UNSP W HYPOXIA OR HYPERCAPNIA Qualifiers: Chronicity: acute on chronic Respiratory failure complication: hypoxia Qualified Code(s): J96.21 - Acute and chronic respiratory failure with hypoxia
[2019-09-02] MEDS: LIDOCAINE PATCH REMOVAL MC SCH ×2 (00:17→21:00)
[2019-09-02] MEDS: FUROSEMIDE 100 MG/10 ML INJECTABLE VIAL IVPB SCH (05:48)
[2019-09-02] MEDS: INSULIN SLIDING SCALE (NOVOLOG) 1 VIAL SQ SCH ×2 (06:36→16:44)
[2019-09-02 07:09] LABS: ALBUMIN 2.9 g/dl (3.4-5.0); BILIRUBIN,TOTAL 0.9 mg/dL (0.2-1); BLOOD UREA NITROGEN 99.8 mg/dL (7-18); CALCIUM 9.1 mg/dL (8.5-10.1); POTASSIUM 3.6 mmol/L (3.5-5.1); TOT PROT 7.1 g/dl (6.4-8.2)
--- NOTE | 2019-09-02 09:22 | PN ---
Progress Note, Physician Chief Complaint: no complaints tele no events History of Present Illness: 73 F known to our practice. She has history of HfPEF, chronic Lext swelling, CAD with LAD PCI 2014. She was recently admitted with cholangitis and gram negative bacteremia complicated by KEL and new onset Afib. She was transferred to [facility] and had ERCP with sphyncterotomy and removal of GB stones. Her KEL improved and at time of DC 08/15 BUN/Cr was 47/4.4. Eitiology of KEL was felt to be due to ATN. NSR was restored spontaneously as well and she was discharged on Metoprolol 12.5mg BID and Eliquis in addition to NaHCo3 and Amlodipine. Admitted with sudden SOB last night. In ER initially, severe hypoxemia and rapid Afib was noted. she improved on BiPAP She was found with hypoxemia and rapid Afib. - Current Medication List Current Medications: Active Medications Acetaminophen (Tylenol -) 650 mg PO Q6H PRN PRN Reason: PAIN LEVEL 1-5 Apixaban (Eliquis -) 2.5 mg PO BID [facility] Last Admin: 09/01/19 22:59 Dose: 2.5 mg Furosemide (Lasix Injection -) 80 mg IVPB BID@0600,1400 [facility] Last Admin: 09/02/19 05:48 Dose: 80 mg Insulin Aspart (Novolog Vial Sliding Scale -) 1 vial SQ BIDAC [facility]; Protocol Last Admin: 09/02/19 06:36 Dose: 1 units Lactic Acid (Lac-Hydrin 12) 1 applic TP DAILY PRN PRN Reason: xerosis Last Admin: 08/26/19 20:03 Dose: 1 applic Lidocaine (Lidoderm Patch -) 1 patch TP DAILY [facility] Last Admin: 09/01/19 09:48 Dose: Not Given Metoprolol Tartrate (Lopressor -) 25 mg PO BID [facility] Last Admin: 09/01/19 22:59 Dose: 25 mg Miscellaneous (Lidoderm Patch Removal) 1 each MC DAILY@2200 [facility] Last Admin: 09/02/19 00:17 Dose: 1 each - Objective Vital Signs: Vital Signs Temperature 97.9 F 09/02/19 06:00 Pulse Rate 76 09/02/19 06:00 Respiratory Rate 16 09/02/19 06:00 Blood Pressure 117/63 09/02/19 06:00 O2 Sat by Pulse Oximetry (%) 98 09/01/19 21:00 Constitutional: Yes: No Distress, Calm Eyes: Yes: Conjunctiva Clear, EOM Intact HENT: Yes: Atraumatic, Normocephalic Neck: Yes: Supple, Trachea Midline Cardiovascular: Yes: Regular Rate and Rhythm Respiratory: Yes: CTA Bilaterally Gastrointestinal: Yes: Normal Bowel Sounds, Soft Musculoskeletal: Yes: WNL Extremities: Yes: Erythema Edema: Yes Edema: LLE: 2+, RLE: 2+ Peripheral Pulses WNL: Yes Labs: CBC, BMP 08/31/19 08:10 09/02/19 06:05 INR, PTT INR 1.47 (0.83-1.09) H 08/20/19 03:30 Assessment/Plan 73 F known to our practice. She has history of HfPEF, chronic Lext swelling, CAD with LAD PCI 2014. She was recently admitted with cholangitis and gram negative bacteremia complicated by KEL and new onset Afib. She was transferred to [facility] and had ERCP with sphyncterotomy and removal of GB stones. Her KEL improved and at time of DC 08/15 BUN/Cr was 47/4.4. Eitiology of KEL was felt to be due to ATN. NSR was restored spontaneously as well and she was discharged on Metoprolol 12.5mg BID and Eliquis in addition to NaHCo3 and Amlodipine. Admitted with sudden SOB last night. In ER initially, severe hypoxemia and rapid Afib was noted. she improved on BiPAP She was found with hypoxemia and rapid Afib. CHF-Acute on chronic combined CHF -Volume status improving each day. -PO furosemide 80mg BID -Cont to follow I's/O's/Wt's/Lytes -Needs cardiac amyloid workup. Pyrophosphate scan can be done as outpatient. Continue diuresis. AFIB-pafib, HR adequately controlled -Contiue AC with apixaban 2.5 mg PO BID -Rate control with Metoprolol Tartrate 25 mg PO BID if BP allows. If not will have to lower to 12.5mg CAD -TP level minimally elevated with normal CK level in setting of respiratory distress c/w demand ischemia not ACS. -cont medical management
[2019-09-02] MEDS: LIDOCAINE 5% TOPICAL PATCH TP SCH (09:37)
[2019-09-02] MEDS: METOPROLOL TARTRATE 25 MG TABLET (FP) PO SCH (09:38)
[2019-09-02] MEDS: APIXABAN 2.5 MG TABLET PO SCH ×2 (09:38→21:00)
--- NOTE | 2019-09-02 12:26 | PN ---
Progress Note, Physician History of Present Illness: Pt seen and examined at bedside. She is awake and alert. She feels that her breathing is better. - Current Medication List Current Medications: Active Medications Acetaminophen (Tylenol -) 650 mg PO Q6H PRN PRN Reason: PAIN LEVEL 1-5 Apixaban (Eliquis -) 2.5 mg PO BID [facility] Last Admin: 09/02/19 09:38 Dose: 2.5 mg Furosemide (Lasix Injection -) 80 mg IVPB BID@0600,1400 [facility] Last Admin: 09/02/19 05:48 Dose: 80 mg Insulin Aspart (Novolog Vial Sliding Scale -) 1 vial SQ BIDAC [facility]; Protocol Last Admin: 09/02/19 06:36 Dose: 1 units Lactic Acid (Lac-Hydrin 12) 1 applic TP DAILY PRN PRN Reason: xerosis Last Admin: 08/26/19 20:03 Dose: 1 applic Lidocaine (Lidoderm Patch -) 1 patch TP DAILY [facility] Last Admin: 09/02/19 09:37 Dose: Not Given Metoprolol Tartrate (Lopressor -) 25 mg PO BID [facility] Last Admin: 09/02/19 09:38 Dose: Not Given Miscellaneous (Lidoderm Patch Removal) 1 each MC DAILY@2200 [facility] Last Admin: 09/02/19 00:17 Dose: 1 each - Objective Vital Signs: Vital Signs Temperature 97.9 F 09/02/19 06:00 Pulse Rate 76 09/02/19 06:00 Respiratory Rate 18 09/02/19 09:33 Blood Pressure 100/60 09/02/19 12:13 O2 Sat by Pulse Oximetry (%) 98 09/02/19 09:43 Constitutional: Yes: Calm Eyes: Yes: Conjunctiva Clear HENT: Yes: Atraumatic Neck: Yes: Supple Cardiovascular: Yes: S1, S2 Respiratory: Yes: CTA Bilaterally Gastrointestinal: Yes: Soft, Abdomen, Obese Musculoskeletal: Yes: WNL Extremities: Yes: WNL Edema: LLE: 1+, RLE: 1+ Integumentary: Yes: Venous Stasis Changes Neurological: Yes: Oriented Psychiatric: Yes: Oriented Labs: CBC, BMP 08/31/19 08:10 09/02/19 06:05 INR, PTT INR 1.47 (0.83-1.09) H 08/20/19 03:30 Assessment/Plan Current Medications Generic Name Dose Route Start Last Admin Trade Name Freq PRN Reason Stop Dose Admin Acetaminophen 650 mg 08/27/19 18:56 Tylenol - PO Q6H PRN PAIN LEVEL 1-5 Apixaban 2.5 mg 08/27/19 22:00 09/02/19 09:38 Eliquis - PO 2.5 mg BID [facility] Administration Furosemide 80 mg 08/29/19 14:00 09/02/19 05:48 Lasix Injection - IVPB 80 mg BID@0600,1400 [facility] Administration Insulin Aspart 1 vial 08/27/19 07:00 09/02/19 06:36 Novolog Vial Sliding Scale - SQ 1 units BIDAC [facility] Administration Protocol Lactic Acid 1 applic 08/26/19 12:32 08/26/19 20:03 Lac-Hydrin 12 TP 1 applic DAILY PRN Administration xerosis Lidocaine 1 patch 08/28/19 10:00 09/02/19 09:37 Lidoderm Patch - TP Not Given DAILY [facility] Metoprolol Tartrate 25 mg 08/27/19 22:00 09/02/19 09:38 Lopressor - PO Not Given BID [facility] Miscellaneous 1 each 08/27/19 22:00 09/02/19 00:17 Lidoderm Patch Removal MC 1 each DAILY@2200 [facility] Administration Impression 1. KEL 2. CHF 3. hx sepsis from biliary source 4. cad 5. ALL 6. CAD 7. a-fib 8. lactic acidosis 9. hx of leukocytoclastic vasculitis 10. rash Plan - cardio input appreciated - will switch lasix to 80 po bid (pt refusing iv) - volume status improving - 2 gram sodium diet - restrict free water - outpt follow up - oncology follow up for light chains
[2019-09-02] MEDS: FUROSEMIDE 40 MG TABLET (FP) PO SCH (13:01)
--- NOTE | 2019-09-02 13:05 | PN ---
Progress Note (short form) - Note Progress Note: PULMONARY Breathing continues to improve. No cough or chest pain. Vital Signs Period Temp Pulse Resp BP Sys/Hernandez Pulse Ox Last 24 Hr 97.8 F-98.7 F 76-90 16-20 88-121/45-73 98-98 Gen: NAD at rest Heart: RRR Lung: decreased breath sounds at the bases Abd: soft, nontender Ext: + edema CBC, BMP 08/31/19 08:10 09/02/19 06:05 Active Medications Acetaminophen (Tylenol -) 650 mg PO Q6H PRN PRN Reason: PAIN LEVEL 1-5 Apixaban (Eliquis -) 2.5 mg PO BID [facility] Last Admin: 09/02/19 09:38 Dose: 2.5 mg Furosemide (Lasix -) 80 mg PO BID@0600,1400 [facility] Last Admin: 09/02/19 13:01 Dose: Not Given Insulin Aspart (Novolog Vial Sliding Scale -) 1 vial SQ [facility]AC [facility]; Protocol Last Admin: 09/02/19 06:36 Dose: 1 units Lactic Acid (Lac-Hydrin 12) 1 applic TP DAILY PRN PRN Reason: xerosis Last Admin: 08/26/19 20:03 Dose: 1 applic Lidocaine (Lidoderm Patch -) 1 patch TP DAILY [facility] Last Admin: 09/02/19 09:37 Dose: Not Given Metoprolol Tartrate (Lopressor -) 25 mg PO BID [facility] Last Admin: 09/02/19 09:38 Dose: Not Given Miscellaneous (Lidoderm Patch Removal) 1 each MC DAILY@2200 [facility] Last Admin: 09/02/19 00:17 Dose: 1 each A/P Acute Hypercapneic and Hypoxic Respiratory Failure improving Acute on Chronic Diastolic Heart Failure Acute Kidney Injury Lactic Acidosis resolved Atrial Fibrillation CAD Pericardial Effusion HTN DM ALL Cholelithiasis Anemia ENOC - continue lasix - monitor urine output, creatinine - O2 to keep SpO2 >90% - daily weights - rate control - continue anticoagulation - completed antibiotics
[2019-09-02 15:06] LABS: TOTAL PROTEIN, URINE 14.6 mg/dL (Not Estab.)
--- NOTE | 2019-09-02 19:58 | PN ---
Progress Note (short form) - Note Progress Note: patient seen and examined Less SOB and dyspneic Last Vital Signs Temp Pulse Resp BP Pulse Ox 98.2 F 87 20 117/58 L 98 09/02/19 18:00 09/02/19 18:00 09/02/19 18:00 09/02/19 18:00 09/02/19 09:43 HEENT: DENISA, EOM Intact Oropharynx: No thrush, No mucositis Cor:atrial fib Lungs rales abases Abd: Soft, Normal bowel sounds, No organomegaly Ext:LE edema /stasis CBC, BMP 08/31/19 08:10 09/02/19 06:05 Quantitative immunoglobulins--IgG, IgA, IgM - normal No "M" component Free kappa/free lambda light chains elevated - 2.49 Kidneys not enlarged on CT Current Medications Generic Name Dose Route Start Last Admin Trade Name Freq PRN Reason Stop Dose Admin Acetaminophen 650 mg 08/27/19 18:56 Tylenol - PO Q6H PRN PAIN LEVEL 1-5 Apixaban 2.5 mg 08/27/19 22:00 09/02/19 09:38 Eliquis - PO 2.5 mg BID [facility] Administration Furosemide 80 mg 09/02/19 14:00 09/02/19 13:01 Lasix - PO Not Given BID@0600,1400 [facility] Insulin Aspart 1 vial 08/27/19 07:00 09/02/19 16:44 Novolog Vial Sliding Scale - SQ 1 units BIDAC [facility] Administration Protocol Lactic Acid 1 applic 08/26/19 12:32 08/26/19 20:03 Lac-Hydrin 12 TP 1 applic DAILY PRN Administration xerosis Lidocaine 1 patch 08/28/19 10:00 09/02/19 09:37 Lidoderm Patch - TP Not Given DAILY [facility] Miscellaneous 1 each 08/27/19 22:00 09/02/19 00:17 Lidoderm Patch Removal MC 1 each DAILY@2200 [facility] Administration Impression: Anemia, KEL/CKD Increased Fk/Fl light chains does raise possibility of dysproteinemia. Lack of "M"component, normal immunoglobulins, and normal kidney size somewhat against this. Not unreasonable to do fat pad biopsy
[2019-09-02] MEDS ORDERED: MELATONIN 5 MG TABLETS PO ONE (20:15)
--- NOTE | 2019-09-02 21:51 | PN ---
Progress Note, Physician History of Present Illness: Pt less dyspneic - Current Medication List Current Medications: Active Medications Acetaminophen (Tylenol -) 650 mg PO Q6H PRN PRN Reason: PAIN LEVEL 1-5 Apixaban (Eliquis -) 2.5 mg PO BID [facility] Last Admin: 09/02/19 21:00 Dose: 2.5 mg Furosemide (Lasix -) 80 mg PO BID@0600,1400 [facility] Last Admin: 09/02/19 13:01 Dose: Not Given Insulin Aspart (Novolog Vial Sliding Scale -) 1 vial SQ BIDAC [facility]; Protocol Last Admin: 09/02/19 16:44 Dose: 1 units Lactic Acid (Lac-Hydrin 12) 1 applic TP DAILY PRN PRN Reason: xerosis Last Admin: 08/26/19 20:03 Dose: 1 applic Lidocaine (Lidoderm Patch -) 1 patch TP DAILY [facility] Last Admin: 09/02/19 09:37 Dose: Not Given Miscellaneous (Lidoderm Patch Removal) 1 each MC DAILY@2200 [facility] Last Admin: 09/02/19 21:00 Dose: 1 each - Objective Vital Signs: Vital Signs Temperature 98.2 F 09/02/19 18:00 Pulse Rate 87 09/02/19 18:00 Respiratory Rate 20 09/02/19 18:00 Blood Pressure 117/58 L 09/02/19 18:00 O2 Sat by Pulse Oximetry (%) 98 09/02/19 09:43 Constitutional: Yes: Obese Neck: Yes: WNL, Supple Cardiovascular: Yes: WNL, Regular Rate and Rhythm Respiratory: Yes: WNL, Regular, CTA Bilaterally Gastrointestinal: Yes: WNL, Normal Bowel Sounds, Soft, Abdomen, Obese Edema: Yes Edema: LLE: 1+, RLE: 1+ Labs: CBC, BMP 08/31/19 08:10 09/02/19 06:05 INR, PTT INR 1.47 (0.83-1.09) H 08/20/19 03:30 Problem List - Problems (1) Renal failure Assessment/Plan: Acute on chronic renal failure Spoke w/ nephrology about fat pad bx to r/o amyloid Will speak to family about bx Code(s): N19 - UNSPECIFIED KIDNEY FAILURE Qualifiers: Renal failure chronicity: unspecified chronicity Qualified Code(s): N19 - Unspecified kidney failure (2) Acute on chronic combined systolic (congestive) and diastolic (congestive) heart failure Assessment/Plan: Pt given albumin Pt changed to PO lasix Slight hypotension this am Metolazone prn Monitor electrolytes/renal function Code(s): I50.43 - ACUTE ON CHRONIC COMBINED SYSTOLIC AND DIASTOLIC HRT FAIL (3) APL (acute promyelocytic leukemia) Assessment/Plan: As per onco (H/O recent skin bx wc showed leukocytoclastic vasculitis (4) Anemia Assessment/Plan: Multifactorial Code(s): D64.9 - ANEMIA, UNSPECIFIED (5) Leukocytosis Assessment/Plan: Lactic acidosis resolved Cont IV zosyn BC remain negative Code(s): D72.829 - ELEVATED WHITE BLOOD CELL COUNT, UNSPECIFIED (6) Afib Assessment/Plan: Heart rate controlled Cont eliquis Code(s): I48.91 - UNSPECIFIED ATRIAL FIBRILLATION Qualifiers: Atrial fibrillation type: unspecified Qualified Code(s): I48.91 - Unspecified atrial fibrillation (7) HTN (hypertension) Assessment/Plan: BP stable Code(s): I10 - ESSENTIAL (PRIMARY) HYPERTENSION (8) Hyperlipidemia Code(s): E78.5 - HYPERLIPIDEMIA, UNSPECIFIED (9) Diabetes Assessment/Plan: HgA1c is 6.4 Code(s): E11.9 - TYPE 2 DIABETES MELLITUS WITHOUT COMPLICATIONS Qualifiers: Diabetes mellitus type: type 2 (10) Respiratory failure Assessment/Plan: Resolved Code(s): J96.90 - RESPIRATORY FAILURE, UNSP, UNSP W HYPOXIA OR HYPERCAPNIA Qualifiers: Chronicity: acute on chronic Respiratory failure complication: hypoxia Qualified Code(s): J96.21 - Acute and chronic respiratory failure with hypoxia
[2019-09-03] MEDS: FUROSEMIDE 40 MG TABLET (FP) PO SCH ×2 (05:46→15:26)
[2019-09-03] MEDS: INSULIN SLIDING SCALE (NOVOLOG) 1 VIAL SQ SCH ×2 (07:20→17:10)
[2019-09-03] MEDS ORDERED: INSULIN SLIDING SCALE (NOVOLOG) 1 VIAL SQ ONE (07:24)
[2019-09-03] MEDS: APIXABAN 2.5 MG TABLET PO SCH (09:34)
[2019-09-03] MEDS: LIDOCAINE 5% TOPICAL PATCH TP SCH (09:35)
[2019-09-03 09:57] LABS: BLOOD UREA NITROGEN 96.4 mg/dL (7-18); CALCIUM 8.8 mg/dL (8.5-10.1); CREATININE 2.8 mg/dL (0.55-1.3); POTASSIUM 3.3 mmol/L (3.5-5.1)
[2019-09-03] MEDS ORDERED: POTASSIUM CHLORIDE TABS 20 MEQ TABLET.ER (FP) PO ONE ×2 (10:26→10:51)
--- NOTE | 2019-09-03 10:55 | PN ---
Progress Note, Physician History of Present Illness: Pt seen and examined at bedside. She feels that her breathing is improved. She denies chest pain. - Current Medication List Current Medications: Active Medications Acetaminophen (Tylenol -) 650 mg PO Q6H PRN PRN Reason: PAIN LEVEL 1-5 Apixaban (Eliquis -) 2.5 mg PO BID [facility] Last Admin: 09/03/19 09:34 Dose: 2.5 mg Furosemide (Lasix -) 80 mg PO BID@0600,1400 [facility] Last Admin: 09/03/19 05:46 Dose: Not Given Insulin Aspart (Novolog Vial Sliding Scale -) 1 vial SQ BIDAC [facility]; Protocol Last Admin: 09/03/19 07:20 Dose: 1 units Lactic Acid (Lac-Hydrin 12) 1 applic TP DAILY PRN PRN Reason: xerosis Last Admin: 08/26/19 20:03 Dose: 1 applic Lidocaine (Lidoderm Patch -) 1 patch TP DAILY [facility] Last Admin: 09/03/19 09:35 Dose: Not Given Miscellaneous (Lidoderm Patch Removal) 1 each MC DAILY@2200 [facility] Last Admin: 09/02/19 21:00 Dose: 1 each Potassium Chloride (K-Dur -) 40 meq PO ONCE ONE Stop: 09/03/19 10:52 - Objective Vital Signs: Vital Signs Temperature 98.2 F 09/03/19 05:47 Pulse Rate 88 09/03/19 05:47 Respiratory Rate 20 09/03/19 05:47 Blood Pressure 99/55 L 09/03/19 05:47 O2 Sat by Pulse Oximetry (%) 98 09/02/19 21:00 Constitutional: Yes: Calm Eyes: Yes: Conjunctiva Clear HENT: Yes: Atraumatic Neck: Yes: Supple Cardiovascular: Yes: S1, S2 Respiratory: Yes: CTA Bilaterally Gastrointestinal: Yes: Soft, Abdomen, Obese Genitourinary: Yes: WNL Musculoskeletal: Yes: WNL Edema: Yes Edema: LLE: 1+, RLE: 1+ Integumentary: Yes: Venous Stasis Changes Neurological: Yes: Oriented Psychiatric: Yes: Oriented Labs: CBC, BMP 08/31/19 08:10 09/03/19 06:00 INR, PTT INR 1.47 (0.83-1.09) H 08/20/19 03:30 Assessment/Plan Current Medications Generic Name Dose Route Start Last Admin Trade Name Freq PRN Reason Stop Dose Admin Acetaminophen 650 mg 08/27/19 18:56 Tylenol - PO Q6H PRN PAIN LEVEL 1-5 Apixaban 2.5 mg 08/27/19 22:00 09/03/19 09:34 Eliquis - PO 2.5 mg BID [facility] Administration Furosemide 80 mg 09/02/19 14:00 09/03/19 05:46 Lasix - PO Not Given BID@0600,1400 [facility] Insulin Aspart 1 vial 08/27/19 07:00 09/03/19 07:20 Novolog Vial Sliding Scale - SQ 1 units BIDAC [facility] Administration Protocol Lactic Acid 1 applic 08/26/19 12:32 08/26/19 20:03 Lac-Hydrin 12 TP 1 applic DAILY PRN Administration xerosis Lidocaine 1 patch 08/28/19 10:00 09/03/19 09:35 Lidoderm Patch - TP Not Given DAILY [facility] Miscellaneous 1 each 08/27/19 22:00 09/02/19 21:00 Lidoderm Patch Removal MC 1 each DAILY@2200 [facility] Administration Potassium Chloride 40 meq 09/03/19 10:51 K-Dur - PO 09/03/19 10:52 ONCE ONE Impression 1. KEL 2. CHF 3. hx sepsis from biliary source 4. cad 5. ALL 6. CAD 7. a-fib 8. lactic acidosis 9. hx of leukocytoclastic vasculitis 10. rash 11. r/o amyloid Plan - replace potassium - discussed with cardio at length yesterday, concern for amyloid, will get abd fat pad biopsy - discussed with PMD at length last ngiht - family at bedside and care discussed with them - cont po lasix - cxrr is improved
--- NOTE | 2019-09-03 13:24 | PN ---
Progress Note, Physician History of Present Illness: PULMONARY ALERT,OOB-CHAIR,COMFORTABLE,-SOB - Current Medication List Current Medications: Active Medications Acetaminophen (Tylenol -) 650 mg PO Q6H PRN PRN Reason: PAIN LEVEL 1-5 Apixaban (Eliquis -) 2.5 mg PO BID [facility] Last Admin: 09/03/19 09:34 Dose: 2.5 mg Furosemide (Lasix -) 80 mg PO BID@0600,1400 [facility] Last Admin: 09/03/19 05:46 Dose: Not Given Insulin Aspart (Novolog Vial Sliding Scale -) 1 vial SQ BIDAC [facility]; Protocol Last Admin: 09/03/19 07:20 Dose: 1 units Lactic Acid (Lac-Hydrin 12) 1 applic TP DAILY PRN PRN Reason: xerosis Last Admin: 08/26/19 20:03 Dose: 1 applic Lidocaine (Lidoderm Patch -) 1 patch TP DAILY [facility] Last Admin: 09/03/19 09:35 Dose: Not Given Miscellaneous (Lidoderm Patch Removal) 1 each MC DAILY@2200 [facility] Last Admin: 09/02/19 21:00 Dose: 1 each - Objective Vital Signs: Vital Signs Temperature 98.2 F 09/03/19 10:00 Pulse Rate 84 09/03/19 10:00 Respiratory Rate 16 09/03/19 10:00 Blood Pressure 98/58 L 09/03/19 10:00 O2 Sat by Pulse Oximetry (%) 98 09/03/19 10:00 Constitutional: Yes: Calm, Obese Eyes: Yes: WNL HENT: Yes: WNL Neck: Yes: WNL Cardiovascular: Yes: Pulse Irregular, S1, S2 Respiratory: Yes: Diminished Gastrointestinal: Yes: Normal Bowel Sounds, Soft Extremities: Yes: WNL Edema: Yes Labs: CBC, BMP 08/31/19 08:10 09/03/19 06:00 INR, PTT INR 1.47 (0.83-1.09) H 08/20/19 03:30 Problem List - Problems (1) Acute on chronic combined systolic (congestive) and diastolic (congestive) heart failure Code(s): I50.43 - ACUTE ON CHRONIC COMBINED SYSTOLIC AND DIASTOLIC HRT FAIL (2) Anemia Code(s): D64.9 - ANEMIA, UNSPECIFIED (3) Renal failure Code(s): N19 - UNSPECIFIED KIDNEY FAILURE Qualifiers: Renal failure chronicity: unspecified chronicity Qualified Code(s): N19 - Unspecified kidney failure (4) Respiratory failure Code(s): J96.90 - RESPIRATORY FAILURE, UNSP, UNSP W HYPOXIA OR HYPERCAPNIA Qualifiers: Chronicity: acute on chronic Respiratory failure complication: hypoxia Qualified Code(s): J96.21 - Acute and chronic respiratory failure with hypoxia (5) Severe congestive heart failure Code(s): I50.9 - HEART FAILURE, UNSPECIFIED (6) Venous stasis of lower extremity Code(s): I87.8 - OTHER SPECIFIED DISORDERS OF VEINS (7) Afib Code(s): I48.91 - UNSPECIFIED ATRIAL FIBRILLATION Qualifiers: Atrial fibrillation type: unspecified Qualified Code(s): I48.91 - Unspecified atrial fibrillation (8) Bilateral pulmonary infiltrates on chest x-ray Code(s): R91.8 - OTHER NONSPECIFIC ABNORMAL FINDING OF LUNG FIELD (9) CAD (coronary artery disease) Code(s): I25.10 - ATHSCL HEART DISEASE OF [place] CORONARY ARTERY W/O ANG PCTRS (10) HTN (hypertension) Code(s): I10 - ESSENTIAL (PRIMARY) HYPERTENSION Assessment/Plan ASSESSMENT AND PLAN: Acute Hypercapneic and Hypoxic Respiratory Failure improved Acute on Chronic Diastolic Heart Failure Acute Kidney Injury Lactic Acidosis resolved Atrial Fibrillation CAD Pericardial Effusion HTN DM ALL Cholelithiasis Anemia ENOC Leukocytoclastic vasculitis R/O Amyloid - lasix - monitor urine output, creatinine - O2 to keep SpO2 >90% - daily weights - rate control - anticoagulation - abdominal fat pad bx DR GALVAN
--- NOTE | 2019-09-03 13:58 | PN ---
Progress Note, Physician Chief Complaint: no complaints. tele no events History of Present Illness: 73 F known to our practice. She has history of HfPEF, chronic Lext swelling, CAD with LAD PCI 2014. She was recently admitted with cholangitis and gram negative bacteremia complicated by KEL and new onset Afib. She was transferred to [facility] and had ERCP with sphyncterotomy and removal of GB stones. Her KEL improved and at time of DC 08/15 BUN/Cr was 47/4.4. Eitiology of KEL was felt to be due to ATN. NSR was restored spontaneously as well and she was discharged on Metoprolol 12.5mg BID and Eliquis in addition to NaHCo3 and Amlodipine. Admitted with sudden SOB last night. In ER initially, severe hypoxemia and rapid Afib was noted. she improved on BiPAP She was found with hypoxemia and rapid Afib. not tolerating bp meds with asymptomatic hypotension. awaiting fat pad biopsy. - Current Medication List Current Medications: Active Medications Acetaminophen (Tylenol -) 650 mg PO Q6H PRN PRN Reason: PAIN LEVEL 1-5 Apixaban (Eliquis -) 2.5 mg PO BID [facility] Last Admin: 09/03/19 09:34 Dose: 2.5 mg Furosemide (Lasix -) 80 mg PO BID@0600,1400 [facility] Last Admin: 09/03/19 05:46 Dose: Not Given Insulin Aspart (Novolog Vial Sliding Scale -) 1 vial SQ BIDAC [facility]; Protocol Last Admin: 09/03/19 07:20 Dose: 1 units Lactic Acid (Lac-Hydrin 12) 1 applic TP DAILY PRN PRN Reason: xerosis Last Admin: 08/26/19 20:03 Dose: 1 applic Lidocaine (Lidoderm Patch -) 1 patch TP DAILY [facility] Last Admin: 09/03/19 09:35 Dose: Not Given Miscellaneous (Lidoderm Patch Removal) 1 each MC DAILY@2200 [facility] Last Admin: 09/02/19 21:00 Dose: 1 each - Objective Vital Signs: Vital Signs Temperature 98.2 F 09/03/19 10:00 Pulse Rate 84 09/03/19 10:00 Respiratory Rate 16 09/03/19 10:00 Blood Pressure 98/58 L 09/03/19 10:00 O2 Sat by Pulse Oximetry (%) 98 09/03/19 10:00 Constitutional: Yes: No Distress, Calm Eyes: Yes: Conjunctiva Clear, EOM Intact HENT: Yes: Atraumatic, Normocephalic Neck: Yes: Trachea Midline Cardiovascular: Yes: Pulse Irregular, S1, S2 Respiratory: Yes: CTA Bilaterally Gastrointestinal: Yes: Normal Bowel Sounds, Soft Musculoskeletal: Yes: WNL Extremities: Yes: Erythema Edema: Yes Edema: LLE: 2+, RLE: 2+ Peripheral Pulses WNL: Yes Labs: CBC, BMP 08/31/19 08:10 09/03/19 06:00 INR, PTT INR 1.47 (0.83-1.09) H 08/20/19 03:30 Assessment/Plan 73 F known to our practice. She has history of HfPEF, chronic Lext swelling, CAD with LAD PCI 2014. She was recently admitted with cholangitis and gram negative bacteremia complicated by KEL and new onset Afib. She was transferred to [facility] and had ERCP with sphyncterotomy and removal of GB stones. Her KEL improved and at time of DC 08/15 BUN/Cr was 47/4.4. Eitiology of KEL was felt to be due to ATN. NSR was restored spontaneously as well and she was discharged on Metoprolol 12.5mg BID and Eliquis in addition to NaHCo3 and Amlodipine. Admitted with sudden SOB last night. In ER initially, severe hypoxemia and rapid Afib was noted. she improved on BiPAP She was found with hypoxemia and rapid Afib. CHF-Acute on chronic combined CHF -Volume status improving each day. -PO furosemide 80mg BID -Cont to follow I's/O's/Wt's/Lytes -Needs cardiac amyloid workup. Pyrophosphate scan can be done as outpatient. Continue diuresis. -awaiting fat pad biopsy AFIB-pafib, HR adequately controlled -Contiue AC with apixaban 2.5 mg PO BID -rates are controlled off of medication. CAD -TP level minimally elevated with normal CK level in setting of respiratory distress c/w demand ischemia not ACS. -cont medical management Preop eval -no cardiac contraindications to surgery. She is at low risk of events. Hold eliquis until postop.
--- NOTE | 2019-09-03 15:02 | CONSULT ---
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 She has been treated and is breathing much better , now able to ambulate with PT with walker in halls, no more SOB, tolerating diet. She admits to occasional mild abd pain, more right sided, but no dysuria, no bowel complaints, no f/c, no h/a or dizziness. She has had symptoms concerning her physicians for possible amyloidosis, and surgery is asked to obtain a fat pad biopsy for diagnosis. She is seen and examined in her room, with family present. She reports feeling better overall than on admission. She is able to lie back in bed, but is still up on some pillows. She reports following fluid restriction as well. Cardiology and other specialty notes are reviewed. Eliquis was last given this am, now held. - History Source History Provided By: Patient, Medical Record Limitations to Obtaining History: No Limitations - Past Medical History Cardio/Vascular: Yes: AFIB, CAD, CHF, HTN, Hyperlipdemia, [place] (s/p EES stent to LAD) Hepatobiliary: Yes: Cholelithiasis, Cholecystitis, Choledocholithiasis Renal/: Yes: Renal Inusuff Reproductive: Yes: Postmenopausal Heme/Onc: Yes: Cancer (ALL) Musculoskeletal: Yes: Osteoarthritis Endocrine: Yes: Diabetes Mellitus - Past Surgical History Past Surgical History: Yes: Stent (coronary 2015 [facility]), Upper Endoscopy (ERCP w/ sphincterotomy) - Alcohol/Substance Use Hx Alcohol Use: No History of Substance Use: reports: None - Smoking History Smoking history: Former smoker Have you smoked in the past 12 months: No If you are a former smoker, when did you quit?: 3 years ago - Social History Usual Living Arrangement: With Spouse ADL: Independent Occupation: retired dietary staff at [employer] History of Recent Travel: No Home Medications - Allergies Allergies/Adverse Reactions: Allergies Allergy/AdvReac Type Severity Reaction Status Date / Time No Known Allergies Allergy Verified 08/20/19 03:35 - Home Medications Home Medications: Ambulatory Orders Metoprolol Tartrate 25 mg PO DAILY 08/05/19 Apixaban [Eliquis -] 2.5 mg PO BID 08/20/19 Ciprofloxacin [Cipro (Restricted To Id)] 500 mg PO ASDIR 08/20/19 Metronidazole 500 mg PO ASDIR 08/20/19 Sodium Bicarbonate - 1,300 mg PO TID 08/20/19 Family Medical History Family Hx Cancer: Father ( of pancreatic ca), Sister (had leukemia, not sure of kind) Family Hx Congestive Heart Failure: Mother Review of Systems - Review of Systems Constitutional: denies: Chills, Fever Eyes: reports: Other (glasses occasionally). denies: Recent Change in Vision HENT: denies: Difficult Swallowing, Throat Pain Neck: denies: Pain on Movement, Stiffness, Swollen Glands, Tenderness Cardiovascular: denies: Chest Pain, Palpitations Respiratory: denies: Cough, SOB (not now, better from admission) Gastrointestinal: reports: Abdominal Pain (occasional, more right side, mild). denies: Constipation, Diarrhea, Nausea, Vomiting Genitourinary: denies: Burning, Dysuria Musculoskeletal: reports: Joint Pain (occasional, worse with weather). denies: Back Pain, Muscle Pain Integumentary: denies: Change in Color, Rash Neurological: reports: Unsteady Gait (using walker for about a month, since was sick in July - not before). denies: Dizziness, Headache Psychiatric: denies: Anxiety, Depression Physical Exam Vital Signs: Vital Signs Temperature 98.2 F 09/03/19 10:00 Pulse Rate 84 09/03/19 10:00 Respiratory Rate 16 09/03/19 10:00 Blood Pressure 98/58 L 09/03/19 10:00 O2 Sat by Pulse Oximetry (%) 98 09/03/19 10:00 Constitutional: Yes: No Distress, Calm, Obese Eyes: Yes: Conjunctiva Clear, EOM Intact. No: Sclera Icterus HENT: Yes: Atraumatic, Normocephalic Neck: Yes: Supple, Trachea Midline Gastrointestinal: Yes: Soft, Abdomen, Obese, Tenderness (mild/minimal RUQ, RLQ, LLQ - no focal superficial tenderness over anticipated biopsy region). No: Tenderness, Rebound (no guarding or rebound) ...Rectal Exam: Yes: Deferred Renal/: No: CVA Tenderness - Left, CVA Tenderness - Right Musculoskeletal: No: Joint Stiffness, Joint Swelling Extremities: No: Cool, Cyanosis Edema: Yes Edema: LLE: 2+, RLE: 2+ Peripheral Pulses WNL: Yes Integumentary: Yes: Venous Stasis Changes. No: Jaundice, Rash Neurological: Yes: Alert, Oriented, Other (ambulated with PT with walker) Psychiatric: Yes: Alert, Oriented Labs: CBC, BMP 08/31/19 08:10 09/03/19 06:00 CMP Sodium 137 mmol/L (136-145) 09/03/19 06:00 Potassium 3.3 mmol/L (3.5-5.1) L 09/03/19 06:00 Chloride 97 mmol/L (98-107) L 09/03/19 06:00 Carbon Dioxide 26 mmol/L (21-32) 09/03/19 06:00 Anion Gap 14 MMOL/L (8-16) 09/03/19 06:00 BUN 96.4 mg/dL (7-18) H 09/03/19 06:00 Creatinine 2.8 mg/dL (0.55-1.3) H 09/03/19 06:00 Est GFR (CKD-EPI)AfAm 18.51 09/03/19 06:00 Est GFR (CKD-EPI)NonAf 15.97 09/03/19 06:00 POC Glucometer 184 UNITS (80-120) 09/03/19 11:29 Random Glucose 167 mg/dL (74-106) H 09/03/19 06:00 Hemoglobin A1c % 6.4 % (4.2-6.3) H 08/25/19 09:44 Lactic Acid 1.0 mmol/L (0.4-2.0) 08/23/19 06:44 Calcium 8.8 mg/dL (8.5-10.1) 09/03/19 06:00 Phosphorus 5.6 mg/dL (2.5-4.9) H 08/28/19 05:30 Magnesium 2.1 mg/dL (1.8-2.4) 09/01/19 06:10 Iron 38 ug/dL (50-175) L 09/03/19 06:00 TIBC 228 ug/dL (250-450) L 09/03/19 06:00 Iron Saturation 16 % (17.5-39) L 09/03/19 06:00 Unsaturated IBC 190 ug/dL (200-275) L 09/03/19 06:00 Ferritin 331.1 ng/ml (8-388) 09/03/19 06:00 Total Bilirubin 0.9 mg/dL (0.2-1) 09/02/19 06:05 AST 13 U/L (15-37) L 09/02/19 06:05 ALT 15 U/L (13-61) 09/02/19 06:05 Alkaline Phosphatase 77 U/L (45-117) 09/02/19 06:05 Creatine Kinase 32 U/L (26-192) 08/22/19 14:45 Troponin I 0.03 ng/ml (0.00-0.05) 08/22/19 14:45 B-Natriuretic Peptide 58161.0 pg/ml (5-125) H 08/20/19 03:30 Total Protein 7.1 g/dl (6.4-8.2) 09/02/19 06:05 Total Protein (PEP) 6.5 g/dL (6.0-8.5) 08/26/19 05:45 Albumin 2.9 g/dl (3.4-5.0) L 09/02/19 06:05 Albumin (PEP) 3.0 gm/dl (2.9-4.4) 08/26/19 05:45 Globulin 3.5 g/dL (2.2-3.9) 08/26/19 05:45 Albumin/Globulin Ratio 0.9 (0.7-1.7) 08/26/19 05:45 Fpdty-5-Reyctneby (%) 4.8 % (.) 08/30/19 11:45 Phduh-5-Ccmihwaid (%) 10.4 % (.) 08/30/19 11:45 Beta Globulins 0.7 gm/dL (0.7-1.3) 08/26/19 05:45 Beta Globulins (%) 19.1 % (.) 08/30/19 11:45 Gamma Globulins (%) 24.2 % (.) 08/30/19 11:45 M-Conrad % Not observed % (Not Observed) 08/30/19 11:45 INR, PTT INR 1.47 (0.83-1.09) H 08/20/19 03:30 Urine Test Results Urine Color Yellow 08/20/19 05:15 Urine Appearance Cloudy 08/20/19 05:15 Urine pH 5.0 (5.0-8.0) 08/20/19 05:15 Ur Specific [place] 1.006 (1.010-1.035) L 08/20/19 05:15 Urine Protein 1+ (NEGATIVE) H 08/20/19 05:15 Urine Glucose (UA) Negative (NEGATIVE) 08/20/19 05:15 Urine Ketones Negative (NEGATIVE) 08/20/19 05:15 Urine Blood 3+ (NEGATIVE) H 08/20/19 05:15 Urine Nitrite Negative (NEGATIVE) 08/20/19 05:15 Urine Bilirubin Negative (NEGATIVE) 08/20/19 05:15 Ur Leukocyte Esterase Trace (NEGATIVE) 08/20/19 05:15 Imaging - Results Cat Scan: Report Reviewed (gallbladder decompressed from previously, some fluid around liver, small umbilical fatty hernia noted, no significant acute changes from prior otherwise), Image Reviewed Problem List - Problems (1) Acute on chronic combined systolic (congestive) and diastolic (congestive) heart failure Code(s): I50.43 - ACUTE ON CHRONIC COMBINED SYSTOLIC AND DIASTOLIC HRT FAIL (2) Afib Code(s): I48.91 - UNSPECIFIED ATRIAL FIBRILLATION Qualifiers: Atrial fibrillation type: unspecified Qualified Code(s): I48.91 - Unspecified atrial fibrillation (3) CAD (coronary artery disease) Code(s): I25.10 - ATHSCL HEART DISEASE OF [place] CORONARY ARTERY W/O ANG PCTRS Qualifiers: Coronary Disease-Associated Artery/Lesion type: [place] artery [place] vs. transplanted heart: [place] heart Associated angina: angina presence unspecified Qualified Code(s): I25.10 - Atherosclerotic heart disease of [place] coronary artery without angina pectoris (4) Diabetes Code(s): E11.9 - TYPE 2 DIABETES MELLITUS WITHOUT COMPLICATIONS Qualifiers: Diabetes mellitus type: type 2 Diabetes mellitus [place] insulin use: without mcc use Diabetes mellitus complication status: with kidney complications Diabetes mellitus complication detail: with chronic kidney disease Chronic kidney disease stage: unspecified stage Qualified Code(s): E11.22 - Type 2 diabetes mellitus with diabetic chronic kidney disease (5) HTN (hypertension) Code(s): I10 - ESSENTIAL (PRIMARY) HYPERTENSION Qualifiers: Hypertension type: essential hypertension Qualified Code(s): I10 - Essential (primary) hypertension (6) Hyperlipidemia Code(s): E78.5 - HYPERLIPIDEMIA, UNSPECIFIED Qualifiers: Hyperlipidemia type: unspecified Qualified Code(s): E78.5 - Hyperlipidemia , unspecified (7) APL (acute promyelocytic leukemia) Qualifiers: Leukemia Active/Remission status: in remission Qualified Code(s): C92.41 - Acute promyelocytic leukemia, in remission Assessment/Plan NPO after 6am except meds repeat coags hold eliquis for now update T&S replete mayur prn - K low plan to do under local anesthesia, possible MAC Discussed with patient risks, benefits and alternatives of abdominal fat pad biopsy, including but not limited to bleeding, infection, pain; alternatives include no surgery - risks of this include failure to establish diagnosis. Patient agreeable to proceed with operation - will take to OR tomorrow afternoon for above. Informed consent signed for same. Plan for ~4:30pm, might be as early as 2:00 but won't know for sure until then. discussed with Dr. Koenig Thank you for the opportunity to participate in the care of this patient.
[2019-09-03] MEDS: LIDOCAINE PATCH REMOVAL MC SCH (21:12)
--- NOTE | 2019-09-03 21:26 | PN ---
Progress Note, Physician History of Present Illness: Pt less dyspneic - Current Medication List Current Medications: Active Medications Acetaminophen (Tylenol -) 650 mg PO Q6H PRN PRN Reason: PAIN LEVEL 1-5 Apixaban (Eliquis -) 2.5 mg PO BID [facility] Last Admin: 09/03/19 09:34 Dose: 2.5 mg Furosemide (Lasix -) 80 mg PO BID@0600,1400 [facility] Last Admin: 09/03/19 15:26 Dose: 80 mg Insulin Aspart (Novolog Vial Sliding Scale -) 1 vial SQ BIDAC [facility]; Protocol Last Admin: 09/03/19 17:10 Dose: 1 units Lactic Acid (Lac-Hydrin 12) 1 applic TP DAILY PRN PRN Reason: xerosis Last Admin: 08/26/19 20:03 Dose: 1 applic Lidocaine (Lidoderm Patch -) 1 patch TP DAILY [facility] Last Admin: 09/03/19 09:35 Dose: Not Given Miscellaneous (Lidoderm Patch Removal) 1 each MC DAILY@2200 [facility] Last Admin: 09/03/19 21:12 Dose: Not Given - Objective Vital Signs: Vital Signs Temperature 98.9 F 09/03/19 20:03 Pulse Rate 97 H 09/03/19 20:03 Respiratory Rate 20 09/03/19 20:03 Blood Pressure 111/60 09/03/19 20:03 O2 Sat by Pulse Oximetry (%) 98 09/03/19 10:00 Neck: Yes: WNL, Supple Cardiovascular: Yes: Pulse Irregular Respiratory: Yes: WNL, Regular, CTA Bilaterally Gastrointestinal: Yes: WNL, Normal Bowel Sounds, Soft, Abdomen, Obese Edema: Yes Edema: LLE: 1+, RLE: 1+ Labs: CBC, BMP 08/31/19 08:10 09/03/19 06:00 INR, PTT INR 1.47 (0.83-1.09) H 08/20/19 03:30 Problem List - Problems (1) Renal failure Assessment/Plan: Acute on chronic renal failure Pt to undergo fat bx in am to r/o amyloid Eliquis on hold due to bx Code(s): N19 - UNSPECIFIED KIDNEY FAILURE Qualifiers: Renal failure chronicity: unspecified chronicity Qualified Code(s): N19 - Unspecified kidney failure (2) Acute on chronic combined systolic (congestive) and diastolic (congestive) heart failure Assessment/Plan: Cont po lasix Metolazone prn Monitor electrolytes/renal function Code(s): I50.43 - ACUTE ON CHRONIC COMBINED SYSTOLIC AND DIASTOLIC HRT FAIL (3) APL (acute promyelocytic leukemia) Assessment/Plan: As per onco (H/O recent skin bx wc showed leukocytoclastic vasculitis Qualifiers: Leukemia Active/Remission status: in remission Qualified Code(s): C92.41 - Acute promyelocytic leukemia, in remission (4) Anemia Assessment/Plan: Multifactorial Code(s): D64.9 - ANEMIA, UNSPECIFIED (5) Leukocytosis Assessment/Plan: Lactic acidosis resolved Cont IV zosyn BC remain negative Code(s): D72.829 - ELEVATED WHITE BLOOD CELL COUNT, UNSPECIFIED (6) Afib Assessment/Plan: Heart rate controlled Cont eliquis Code(s): I48.91 - UNSPECIFIED ATRIAL FIBRILLATION Qualifiers: Atrial fibrillation type: unspecified Qualified Code(s): I48.91 - Unspecified atrial fibrillation (7) HTN (hypertension) Assessment/Plan: BP stable Code(s): I10 - ESSENTIAL (PRIMARY) HYPERTENSION Qualifiers: Hypertension type: essential hypertension Qualified Code(s): I10 - Essential (primary) hypertension (8) Hyperlipidemia Code(s): E78.5 - HYPERLIPIDEMIA, UNSPECIFIED Qualifiers: Hyperlipidemia type: unspecified Qualified Code(s): E78.5 - Hyperlipidemia , unspecified (9) Diabetes Assessment/Plan: HgA1c is 6.4 Code(s): E11.9 - TYPE 2 DIABETES MELLITUS WITHOUT COMPLICATIONS Qualifiers: Diabetes mellitus type: type 2 Diabetes mellitus nursing home insulin use: without tank terminal gauger use Diabetes mellitus complication status: with kidney complications Diabetes mellitus complication detail: with chronic kidney disease Chronic kidney disease stage: unspecified stage Qualified Code(s): E11.22 - Type 2 diabetes mellitus with diabetic chronic kidney disease (10) Respiratory failure Assessment/Plan: Resolved Code(s): J96.90 - RESPIRATORY FAILURE, UNSP, UNSP W HYPOXIA OR HYPERCAPNIA Qualifiers: Chronicity: acute on chronic Respiratory failure complication: hypoxia Qualified Code(s): J96.21 - Acute and chronic respiratory failure with hypoxia
[2019-09-04] MEDS: FUROSEMIDE 40 MG TABLET (FP) PO SCH ×2 (05:30→16:08)
[2019-09-04] MEDS: INSULIN SLIDING SCALE (NOVOLOG) 1 VIAL SQ SCH ×2 (06:10→17:15)
[2019-09-04 07:18] LABS: INR 1.25 (0.83-1.09); PROTHROMBIN TIME (PATIENT) 14.8 SEC (9.7-13.0)
[2019-09-04 07:20] LABS: ACTIVATED PTT 29.8 SECONDS (25.2-36.5)
[2019-09-04 07:43] LABS: ALBUMIN 2.9 g/dl (3.4-5.0); BILIRUBIN,TOTAL 0.8 mg/dL (0.2-1); BLOOD UREA NITROGEN 88.3 mg/dL (7-18); CALCIUM 9.5 mg/dL (8.5-10.1); CREATININE 2.7 mg/dL (0.55-1.3); POTASSIUM 3.8 mmol/L (3.5-5.1); TOT PROT 7.1 g/dl (6.4-8.2)
[2019-09-04] MEDS: LIDOCAINE 5% TOPICAL PATCH TP SCH (09:04)
--- NOTE | 2019-09-04 10:03 | PN ---
Physical Exam: SUBJECTIVE: Patient seen and examined at bed side , doinh well , tolerating diet , breathing improved , sitting in chait , pending Fat pad biopsy OBJECTIVE: Vital Signs Period Temp Pulse Resp BP Sys/Hernandez Pulse Ox Last 24 Hr 98.0 F-98.9 F 92-97 17-20 95-122/54-70 Gen: NAD at rest Heart: RRR Lung: decreased breath sounds at the bases Abd: soft, nontender Ext: + edema Laboratory Results - last 24 hr 09/03/19 09/03/19 09/04/19 11:29 17:07 05:29 PT with INR INR PTT (Actin FS) Sodium Potassium Chloride Carbon Dioxide Anion Gap BUN Creatinine Est GFR (CKD-EPI)AfAm Est GFR (CKD-EPI)NonAf POC Glucometer 184 180 154 Random Glucose Calcium Total Bilirubin AST ALT Alkaline Phosphatase Total Protein Albumin Blood Type Antibody Screen 09/04/19 09/04/19 09/04/19 05:58 05:58 05:58 PT with INR 14.80 H INR 1.25 H PTT (Actin FS) 29.8 Sodium 138 Potassium 3.8 Chloride 99 Carbon Dioxide 28 Anion Gap 11 BUN 88.3 H Creatinine 2.7 H Est GFR (CKD-EPI)AfAm 19.34 Est GFR (CKD-EPI)NonAf 16.69 POC Glucometer Random Glucose 155 H Calcium 9.5 Total Bilirubin 0.8 AST 12 L ALT 13 Alkaline Phosphatase 76 Total Protein 7.1 Albumin 2.9 L Blood Type AB POSITIVE Antibody Screen Negative Active Medications Generic Name Dose Route Start Last Admin Trade Name Freq PRN Reason Stop Dose Admin Acetaminophen 650 mg 08/27/19 18:56 Tylenol - PO Q6H PRN PAIN LEVEL 1-5 Apixaban 2.5 mg 08/27/19 22:00 09/03/19 09:34 Eliquis - PO 2.5 mg BID GABY Administration Furosemide 80 mg 09/02/19 14:00 09/04/19 05:30 Lasix - PO 80 mg BID@0600,1400 GABY Administration Insulin Aspart 1 vial 08/27/19 07:00 09/04/19 06:10 Novolog Vial Sliding Scale - SQ Not Given BIDAC G[facility]Y Protocol Lactic Acid 1 applic 08/26/19 12:32 08/26/19 20:03 Lac-Hydrin 12 TP 1 applic DAILY PRN Administration xerosis Lidocaine 1 patch 08/28/19 10:00 09/04/19 09:04 Lidoderm Patch - TP Not Given DAILY G[facility]Y Miscellaneous 1 each 08/27/19 22:00 09/03/19 21:12 Lidoderm Patch Removal MC Not Given DAILY@2200 [facility] CBC, BMP 08/31/19 08:10 09/04/19 05:58 ASSESSMENT/PLAN: Anemia, KEL/CKD Increased Fk/Fl light chains does raise possibility of dysproteinemia. Lack of "M"component, normal immunoglobulins, and normal kidney size somewhat against this. Not unreasonable to do fat pad biopsy pt is on Eliquis last dose yesterday morning , the usual recommendation to hold Eliquis 48 hours before procedure , as high risk for bleeding Visit type - Emergency Visit Emergency Visit: Yes ED Registration Date: 08/20/19 Care time: The patient presented to the Emergency Department on the above date and was hospitalized for further evaluation of their emergent condition. - New Patient This patient is new to me today: No - Critical Care Critical Care patient: No ATTENDING PHYSICIAN STATEMENT I saw and evaluated the patient. I reviewed the resident's note and discussed the case with the resident. I agree with the resident's findings and plan as documented. SUBJECTIVE: OBJECTIVE: ASSESSMENT AND PLAN:
--- NOTE | 2019-09-04 13:22 | PN ---
Progress Note (short form) - Note Progress Note: PULMONARY Breathing continues to improve. No cough or chest pain. Vital Signs Period Temp Pulse Resp BP Sys/Hernandez Pulse Ox Last 24 Hr 98.0 F-98.9 F 92-98 17-20 95-122/54-70 99 Gen: NAD at rest Heart: RRR Lung: decreased breath sounds at the bases Abd: soft, nontender Ext: + edema CBC, BMP 08/31/19 08:10 09/04/19 05:58 Active Medications Acetaminophen (Tylenol -) 650 mg PO Q6H PRN PRN Reason: PAIN LEVEL 1-5 Apixaban (Eliquis -) 2.5 mg PO BID [facility] Last Admin: 09/03/19 09:34 Dose: 2.5 mg Furosemide (Lasix -) 80 mg PO BID@0600,1400 [facility] Last Admin: 09/04/19 05:30 Dose: 80 mg Insulin Aspart (Novolog Vial Sliding Scale -) 1 vial SQ BIDAC [facility]; Protocol Last Admin: 09/04/19 06:10 Dose: Not Given Lactic Acid (Lac-Hydrin 12) 1 applic TP DAILY PRN PRN Reason: xerosis Last Admin: 08/26/19 20:03 Dose: 1 applic Lidocaine (Lidoderm Patch -) 1 patch TP DAILY [facility] Last Admin: 09/04/19 09:04 Dose: Not Given Miscellaneous (Lidoderm Patch Removal) 1 each MC DAILY@2200 [facility] Last Admin: 09/03/19 21:12 Dose: Not Given A/P Acute Hypercapneic and Hypoxic Respiratory Failure improving Acute on Chronic Diastolic Heart Failure Acute Kidney Injury Lactic Acidosis resolved Atrial Fibrillation CAD Pericardial Effusion HTN DM ALL Cholelithiasis Anemia ENOC - continue lasix - monitor urine output, creatinine - O2 to keep SpO2 >90% - daily weights - rate control - continue anticoagulation - completed antibiotics - for fat pad biopsy
[2019-09-04] MEDS ORDERED: LIDOCAINE HCL 1%, 10 MG/ML (20ML VIAL) ONE (14:03)
--- NOTE | 2019-09-04 14:32 | PN ---
Progress Note, Physician Chief Complaint: no complaints. tele no events History of Present Illness: 73 F known to our practice. She has history of HfPEF, chronic Lext swelling, CAD with LAD PCI 2014. She was recently admitted with cholangitis and gram negative bacteremia complicated by KEL and new onset Afib. She was transferred to [facility] and had ERCP with sphyncterotomy and removal of GB stones. Her KEL improved and at time of DC 08/15 BUN/Cr was 47/4.4. Eitiology of KEL was felt to be due to ATN. NSR was restored spontaneously as well and she was discharged on Metoprolol 12.5mg BID and Eliquis in addition to NaHCo3 and Amlodipine. Admitted with sudden SOB last night. In ER initially, severe hypoxemia and rapid Afib was noted. she improved on BiPAP She was found with hypoxemia and rapid Afib. not tolerating bp meds with asymptomatic hypotension. awaiting fat pad biopsy. - Current Medication List Current Medications: Active Medications Acetaminophen (Tylenol -) 650 mg PO Q6H PRN PRN Reason: PAIN LEVEL 1-5 Apixaban (Eliquis -) 2.5 mg PO BID [facility] Last Admin: 09/03/19 09:34 Dose: 2.5 mg Furosemide (Lasix -) 80 mg PO BID@0600,1400 [facility] Last Admin: 09/04/19 05:30 Dose: 80 mg Insulin Aspart (Novolog Vial Sliding Scale -) 1 vial SQ BIDAC [facility]; Protocol Last Admin: 09/04/19 06:10 Dose: Not Given Lactic Acid (Lac-Hydrin 12) 1 applic TP DAILY PRN PRN Reason: xerosis Last Admin: 08/26/19 20:03 Dose: 1 applic Lidocaine (Lidoderm Patch -) 1 patch TP DAILY [facility] Last Admin: 09/04/19 09:04 Dose: Not Given Miscellaneous (Lidoderm Patch Removal) 1 each MC DAILY@2200 [facility] Last Admin: 09/03/19 21:12 Dose: Not Given - Objective Vital Signs: Vital Signs Temperature 97.8 F 09/04/19 14:00 Pulse Rate 93 H 09/04/19 14:00 Respiratory Rate 18 09/04/19 14:00 Blood Pressure 95/49 L 09/04/19 14:00 O2 Sat by Pulse Oximetry (%) 99 09/04/19 10:00 Constitutional: Yes: No Distress, Calm Eyes: Yes: Conjunctiva Clear, EOM Intact HENT: Yes: Atraumatic, Normocephalic Neck: Yes: Trachea Midline Cardiovascular: Yes: Pulse Irregular Respiratory: Yes: CTA Bilaterally Gastrointestinal: Yes: Normal Bowel Sounds, Soft Edema: Yes Edema: LLE: 2+, RLE: 2+ Labs: CBC, BMP 08/31/19 08:10 09/04/19 05:58 INR, PTT INR 1.25 (0.83-1.09) H 09/04/19 05:58 Assessment/Plan 73 F known to our practice. She has history of HfPEF, chronic Lext swelling, CAD with LAD PCI 2014. She was recently admitted with cholangitis and gram negative bacteremia complicated by KEL and new onset Afib. She was transferred to [facility] and had ERCP with sphyncterotomy and removal of GB stones. Her KEL improved and at time of DC 08/15 BUN/Cr was 47/4.4. Eitiology of KEL was felt to be due to ATN. NSR was restored spontaneously as well and she was discharged on Metoprolol 12.5mg BID and Eliquis in addition to NaHCo3 and Amlodipine. Admitted with sudden SOB last night. In ER initially, severe hypoxemia and rapid Afib was noted. she improved on BiPAP She was found with hypoxemia and rapid Afib. CHF-Acute on chronic combined CHF -Volume status improving each day. -PO furosemide 80mg BID -Cont to follow I's/O's/Wt's/Lytes -Needs cardiac amyloid workup. Pyrophosphate scan can be done as outpatient. Continue diuresis. -awaiting fat pad biopsy AFIB-pafib, HR adequately controlled -Contiue AC with apixaban 2.5 mg PO BID -rates are controlled off of medication. CAD -TP level minimally elevated with normal CK level in setting of respiratory distress c/w demand ischemia not ACS. -cont medical management Preop eval -no cardiac contraindications to surgery. She is at low risk of events. Hold eliquis until postop.
--- NOTE | 2019-09-04 15:02 | PN ---
Progress Note, Physician History of Present Illness: Pt seen and examined at bedside. She is awake and alert. She feels that her breathing is improved. - Current Medication List Current Medications: Active Medications Acetaminophen (Tylenol -) 650 mg PO Q6H PRN PRN Reason: PAIN LEVEL 1-5 Apixaban (Eliquis -) 2.5 mg PO BID [facility] Last Admin: 09/03/19 09:34 Dose: 2.5 mg Furosemide (Lasix -) 80 mg PO BID@0600,1400 [facility] Last Admin: 09/04/19 05:30 Dose: 80 mg Insulin Aspart (Novolog Vial Sliding Scale -) 1 vial SQ BIDAC [facility]; Protocol Last Admin: 09/04/19 06:10 Dose: Not Given Lactic Acid (Lac-Hydrin 12) 1 applic TP DAILY PRN PRN Reason: xerosis Last Admin: 08/26/19 20:03 Dose: 1 applic Lidocaine (Lidoderm Patch -) 1 patch TP DAILY [facility] Last Admin: 09/04/19 09:04 Dose: Not Given Miscellaneous (Lidoderm Patch Removal) 1 each MC DAILY@2200 [facility] Last Admin: 09/03/19 21:12 Dose: Not Given - Objective Vital Signs: Vital Signs Temperature 97.8 F 09/04/19 14:00 Pulse Rate 93 H 09/04/19 14:00 Respiratory Rate 18 09/04/19 14:00 Blood Pressure 95/49 L 09/04/19 14:00 O2 Sat by Pulse Oximetry (%) 99 09/04/19 10:00 Constitutional: Yes: Calm Eyes: Yes: Conjunctiva Clear HENT: Yes: Atraumatic Neck: Yes: Supple Cardiovascular: Yes: S1, S2 Respiratory: Yes: CTA Bilaterally Gastrointestinal: Yes: Soft Genitourinary: Yes: WNL Edema: Yes Edema: LLE: 1+, RLE: 1+ Integumentary: Yes: Venous Stasis Changes Neurological: Yes: Oriented Psychiatric: Yes: Oriented Labs: CBC, BMP 08/31/19 08:10 09/04/19 05:58 INR, PTT INR 1.25 (0.83-1.09) H 09/04/19 05:58 Assessment/Plan Current Medications Generic Name Dose Route Start Last Admin Trade Name Freq PRN Reason Stop Dose Admin Acetaminophen 650 mg 08/27/19 18:56 Tylenol - PO Q6H PRN PAIN LEVEL 1-5 Apixaban 2.5 mg 08/27/19 22:00 09/03/19 09:34 Eliquis - PO 2.5 mg BID [facility]Y Administration Furosemide 80 mg 09/02/19 14:00 09/04/19 05:30 Lasix - PO 80 mg BID@0600,1400 [facility] Administration Insulin Aspart 1 vial 08/27/19 07:00 09/04/19 06:10 Novolog Vial Sliding Scale - SQ Not Given BIDAC [facility] Protocol Lactic Acid 1 applic 08/26/19 12:32 08/26/19 20:03 Lac-Hydrin 12 TP 1 applic DAILY PRN Administration xerosis Lidocaine 1 patch 08/28/19 10:00 09/04/19 09:04 Lidoderm Patch - TP Not Given DAILY [facility] Miscellaneous 1 each 08/27/19 22:00 09/03/19 21:12 Lidoderm Patch Removal MC Not Given DAILY@2200 [facility] Impression 1. KEL 2. CHF 3. hx sepsis from biliary source 4. cad 5. ALL 6. CAD 7. a-fib 8. lactic acidosis 9. hx of leukocytoclastic vasculitis 10. rash 11. r/o amyloid Plan - cont lasix - abd fat pad biopsy tomorrow - cardio follow up - discussed with family - renal function improving
[2019-09-04] MEDS: FERROUS SO4 325 MG TABLET (FP) PO SCH (17:15)
--- NOTE | 2019-09-04 18:17 | PN ---
Progress Note, Physician History of Present Illness: Pt awaiting fat pad biopsy to r/o amyloidosis. Seen up in chair with family, feeling well. Breathing ok, tolerating diet. - Current Medication List Current Medications: Active Medications Acetaminophen (Tylenol -) 650 mg PO Q6H PRN PRN Reason: PAIN LEVEL 1-5 Apixaban (Eliquis -) 2.5 mg PO BID [facility] Last Admin: 09/03/19 09:34 Dose: 2.5 mg Ferrous Sulfate (Feosol -) 325 mg PO BIDWM [facility] Last Admin: 09/04/19 17:15 Dose: 325 mg Furosemide (Lasix -) 80 mg PO BID@0600,1400 [facility] Last Admin: 09/04/19 16:08 Dose: 80 mg Insulin Aspart (Novolog Vial Sliding Scale -) 1 vial SQ BIDAC [facility]; Protocol Last Admin: 09/04/19 17:15 Dose: 3 units Lactic Acid (Lac-Hydrin 12) 1 applic TP DAILY PRN PRN Reason: xerosis Last Admin: 08/26/19 20:03 Dose: 1 applic Lidocaine (Lidoderm Patch -) 1 patch TP DAILY [facility] Last Admin: 09/04/19 09:04 Dose: Not Given Miscellaneous (Lidoderm Patch Removal) 1 each MC DAILY@2200 [facility] Last Admin: 09/03/19 21:12 Dose: Not Given Potassium Chloride (K-Dur -) 20 meq PO ONCE ONE Stop: 09/04/19 20:01 - Objective Vital Signs: Vital Signs Temperature 97.8 F 09/04/19 14:00 Pulse Rate 93 H 09/04/19 14:00 Respiratory Rate 18 09/04/19 14:00 Blood Pressure 95/49 L 09/04/19 14:00 O2 Sat by Pulse Oximetry (%) 99 09/04/19 10:00 Constitutional: Yes: No Distress, Calm, Obese Eyes: Yes: Conjunctiva Clear, EOM Intact HENT: Yes: Atraumatic, Normocephalic Gastrointestinal: Yes: Soft, Abdomen, Obese Extremities: No: Cool, Cyanosis Integumentary: No: Jaundice, Rash Neurological: Yes: Alert, Oriented Labs: [facility] 09/04/19 05:58 INR, PTT INR 1.25 (0.83-1.09) H 09/04/19 05:58 Problem List - Problems (1) Acute on chronic combined systolic (congestive) and diastolic (congestive) heart failure Code(s): I50.43 - ACUTE ON CHRONIC COMBINED SYSTOLIC AND DIASTOLIC HRT FAIL (2) Afib Code(s): I48.91 - UNSPECIFIED ATRIAL FIBRILLATION Qualifiers: Atrial fibrillation type: unspecified Qualified Code(s): I48.91 - Unspecified atrial fibrillation (3) CAD (coronary artery disease) Code(s): I25.10 - ATHSCL HEART DISEASE OF [place] CORONARY ARTERY W/O ANG PCTRS Qualifiers: Coronary Disease-Associated Artery/Lesion type: [place] artery [place] vs. transplanted heart: [place] heart Associated angina: angina presence unspecified Qualified Code(s): I25.10 - Atherosclerotic heart disease of [place] coronary artery without angina pectoris (4) Diabetes Code(s): E11.9 - TYPE 2 DIABETES MELLITUS WITHOUT COMPLICATIONS Qualifiers: Diabetes mellitus type: type 2 Diabetes mellitus snf insulin use: without snf use Diabetes mellitus complication status: with kidney complications Diabetes mellitus complication detail: with chronic kidney disease Chronic kidney disease stage: unspecified stage Qualified Code(s): E11.22 - Type 2 diabetes mellitus with diabetic chronic kidney disease (5) HTN (hypertension) Code(s): I10 - ESSENTIAL (PRIMARY) HYPERTENSION Qualifiers: Hypertension type: essential hypertension Qualified Code(s): I10 - Essential (primary) hypertension (6) Hyperlipidemia Code(s): E78.5 - HYPERLIPIDEMIA, UNSPECIFIED Qualifiers: Hyperlipidemia type: unspecified Qualified Code(s): E78.5 - Hyperlipidemia , unspecified (7) APL (acute promyelocytic leukemia) Qualifiers: Leukemia Active/Remission status: in remission Qualified Code(s): C92.41 - Acute promyelocytic leukemia, in remission Assessment/Plan for abd fat pad biopsy will wait until 48 hours off eliquis instead of 24 - to be done tomorrow at 12: 30 pm NPO after midnight except meds hold eliquis until postop replete lytes prn, am labs plan to do under local anesthesia, possible MAC discussed with Dr. Koenig and Hematology, Dr. Britton
[2019-09-04] MEDS ORDERED: POTASSIUM CHLORIDE TABS 20 MEQ TABLET.ER (FP) PO ONE (20:00)
--- NOTE | 2019-09-04 20:51 | PN ---
Progress Note, Physician History of Present Illness: No new complaints - Current Medication List Current Medications: Active Medications Acetaminophen (Tylenol -) 650 mg PO Q6H PRN PRN Reason: PAIN LEVEL 1-5 Apixaban (Eliquis -) 2.5 mg PO BID [facility] Last Admin: 09/03/19 09:34 Dose: 2.5 mg Ferrous Sulfate (Feosol -) 325 mg PO BIDWM [facility] Last Admin: 09/04/19 17:15 Dose: 325 mg Furosemide (Lasix -) 80 mg PO BID@0600,1400 [facility] Last Admin: 09/04/19 16:08 Dose: 80 mg Insulin Aspart (Novolog Vial Sliding Scale -) 1 vial SQ BIDAC [facility]; Protocol Last Admin: 09/04/19 17:15 Dose: 3 units Lactic Acid (Lac-Hydrin 12) 1 applic TP DAILY PRN PRN Reason: xerosis Last Admin: 08/26/19 20:03 Dose: 1 applic Lidocaine (Lidoderm Patch -) 1 patch TP DAILY [facility] Last Admin: 09/04/19 09:04 Dose: Not Given Miscellaneous (Lidoderm Patch Removal) 1 each MC DAILY@2200 [facility] Last Admin: 09/03/19 21:12 Dose: Not Given - Objective Vital Signs: Vital Signs Temperature 98.6 F 09/04/19 18:00 Pulse Rate 73 09/04/19 18:00 Respiratory Rate 18 09/04/19 18:00 Blood Pressure 114/52 L 09/04/19 18:00 O2 Sat by Pulse Oximetry (%) 99 09/04/19 10:00 Neck: Yes: WNL, Supple Cardiovascular: Yes: Pulse Irregular Respiratory: Yes: Diminished Gastrointestinal: Yes: WNL, Normal Bowel Sounds, Soft, Abdomen, Obese Edema: LLE: 1+, RLE: 1+ Labs: CBC, BMP 08/31/19 08:10 09/04/19 05:58 INR, PTT INR 1.25 (0.83-1.09) H 09/04/19 05:58 Problem List - Problems (1) Renal failure Assessment/Plan: Acute on chronic renal failure Pt to undergo fat bx in am to r/o amyloid Eliquis on hold due to bx Code(s): N19 - UNSPECIFIED KIDNEY FAILURE Qualifiers: Renal failure chronicity: unspecified chronicity Qualified Code(s): N19 - Unspecified kidney failure (2) Acute on chronic combined systolic (congestive) and diastolic (congestive) heart failure Assessment/Plan: Cont po lasix Metolazone prn Monitor electrolytes/renal function Code(s): I50.43 - ACUTE ON CHRONIC COMBINED SYSTOLIC AND DIASTOLIC HRT FAIL (3) APL (acute promyelocytic leukemia) Assessment/Plan: As per onco (H/O recent skin bx wc showed leukocytoclastic vasculitis Qualifiers: Leukemia Active/Remission status: in remission Qualified Code(s): C92.41 - Acute promyelocytic leukemia, in remission (4) Anemia Assessment/Plan: Multifactorial Code(s): D64.9 - ANEMIA, UNSPECIFIED (5) Leukocytosis Assessment/Plan: Lactic acidosis resolved Cont IV zosyn BC remain negative Code(s): D72.829 - ELEVATED WHITE BLOOD CELL COUNT, UNSPECIFIED (6) Afib Assessment/Plan: Heart rate controlled Cont eliquis Code(s): I48.91 - UNSPECIFIED ATRIAL FIBRILLATION Qualifiers: Atrial fibrillation type: unspecified Qualified Code(s): I48.91 - Unspecified atrial fibrillation (7) HTN (hypertension) Assessment/Plan: BP stable Code(s): I10 - ESSENTIAL (PRIMARY) HYPERTENSION Qualifiers: Hypertension type: essential hypertension Qualified Code(s): I10 - Essential (primary) hypertension (8) Hyperlipidemia Code(s): E78.5 - HYPERLIPIDEMIA, UNSPECIFIED Qualifiers: Hyperlipidemia type: unspecified Qualified Code(s): E78.5 - Hyperlipidemia , unspecified (9) Diabetes Code(s): E11.9 - TYPE 2 DIABETES MELLITUS WITHOUT COMPLICATIONS Qualifiers: Diabetes mellitus type: type 2 Diabetes mellitus skilled nursing insulin use: without ocean transportation intermediary use Diabetes mellitus complication status: with kidney complications Diabetes mellitus complication detail: with chronic kidney disease Chronic kidney disease stage: unspecified stage Qualified Code(s): E11.22 - Type 2 diabetes mellitus with diabetic chronic kidney disease (10) Respiratory failure Code(s): J96.90 - RESPIRATORY FAILURE, UNSP, UNSP W HYPOXIA OR HYPERCAPNIA Qualifiers: Chronicity: acute on chronic Respiratory failure complication: hypoxia Qualified Code(s): J96.21 - Acute and chronic respiratory failure with hypoxia
[2019-09-04] MEDS: LIDOCAINE PATCH REMOVAL MC SCH (21:14)
[2019-09-05] MEDS: INSULIN SLIDING SCALE (NOVOLOG) 1 VIAL SQ SCH ×2 (06:00→17:21)
[2019-09-05 07:01] LABS: ALBUMIN 3.1 g/dl (3.4-5.0); BILIRUBIN,TOTAL 0.9 mg/dL (0.2-1); BLOOD UREA NITROGEN 82.2 mg/dL (7-18); CREATININE 2.7 mg/dL (0.55-1.3); PHOSPHOROUS 3.9 mg/dL (2.5-4.9); POTASSIUM 4.1 mmol/L (3.5-5.1); TOT PROT 7.3 g/dl (6.4-8.2)
[2019-09-05] MEDS: FERROUS SO4 325 MG TABLET (FP) PO SCH ×2 (09:37→17:18)
[2019-09-05] MEDS: LIDOCAINE 5% TOPICAL PATCH TP SCH (09:56)
--- NOTE | 2019-09-05 12:02 | PN ---
Progress Note (short form) - Note Progress Note: OOB to chair. Breathing continues to improve. No cough or chest pain. Intake & Output 09/02/19 09/03/19 09/04/19 09/05/19 23:59 23:59 23:59 23:59 Intake Total 1750 1690 240 Output Total 1400 2300 1700 Balance 350 -610 -1460 Weight 237 lb 9.6 oz 237 lb 6.4 oz Last Vital Signs Temp Pulse Resp BP Pulse Ox 98.3 F 84 20 113/63 99 09/05/19 06:00 09/05/19 06:00 09/05/19 06:00 09/05/19 06:00 09/04/19 22:00 Active Medications Acetaminophen (Tylenol -) 650 mg PO Q6H PRN PRN Reason: PAIN LEVEL 1-5 Apixaban (Eliquis -) 2.5 mg PO BID [facility] Last Admin: 09/03/19 09:34 Dose: 2.5 mg Ferrous Sulfate (Feosol -) 325 mg PO BIDWM [facility] Last Admin: 09/05/19 09:37 Dose: Not Given Furosemide (Lasix -) 80 mg PO BID@0600,1400 [facility] Last Admin: 09/04/19 16:08 Dose: 80 mg Insulin Aspart (Novolog Vial Sliding Scale -) 1 vial SQ BIDAC [facility]; Protocol Last Admin: 09/05/19 06:00 Dose: Not Given Lactic Acid (Lac-Hydrin 12) 1 applic TP DAILY PRN PRN Reason: xerosis Last Admin: 08/26/19 20:03 Dose: 1 applic Lidocaine (Lidoderm Patch -) 1 patch TP DAILY [facility] Last Admin: 09/05/19 09:56 Dose: Not Given Miscellaneous (Lidoderm Patch Removal) 1 each MC DAILY@2200 [facility] Last Admin: 09/04/19 21:14 Dose: Not Given Gen: NAD at rest Heart: RRR Lung: decreased breath sounds at the bases Abd: soft, nontender Ext: + edema Laboratory Results - last 24 hr 09/02/19 09/04/19 09/05/19 21:20 17:13 05:52 Sodium 135 L Potassium 4.1 Chloride 99 Carbon Dioxide 28 Anion Gap 8 BUN 82.2 H Creatinine 2.7 H Est GFR (CKD-EPI)AfAm 19.34 Est GFR (CKD-EPI)NonAf 16.69 POC Glucometer 277 Random Glucose 182 H Calcium 9.0 Phosphorus 3.9 Magnesium 2.0 Total Bilirubin 0.9 AST 17 ALT 14 Alkaline Phosphatase 77 Total Protein 7.3 Albumin 3.1 L Serum [place] Interpret IEP IgG 1635 H IEP IgA 293 IEP IgM 187 09/05/19 05:57 Sodium Potassium Chloride Carbon Dioxide Anion Gap BUN Creatinine Est GFR (CKD-EPI)AfAm Est GFR (CKD-EPI)NonAf POC Glucometer 165 Random Glucose Calcium Phosphorus Magnesium Total Bilirubin AST ALT Alkaline Phosphatase Total Protein Albumin Serum [place] Interpret IEP IgG IEP IgA IEP IgM A/P Acute Hypercapneic and Hypoxic Respiratory Failure improving Acute on Chronic Diastolic Heart Failure Acute Kidney Injury Lactic Acidosis resolved Atrial Fibrillation CAD Pericardial Effusion HTN DM ALL Cholelithiasis Anemia ENOC - Lasix - monitor urine output, creatinine - O2 to keep SpO2 >90% - daily weights - rate control - continue anticoagulation - completed antibiotics - for fat pad biopsy Dr Godwin
[2019-09-05] MEDS ORDERED: LIDOCAINE 1%-EPI 1:100,000 30 ML MDV IJ ONE ×2 (12:54→13:38)
[2019-09-05] MEDS ORDERED: PROPOFOL 20 ML ONE (13:16)
[2019-09-05] MEDS ORDERED: LIDOCAINE 1%/EPI 1:100000 (20 ML MULTI DOSE VIAL) IJ ONE (13:26)
--- NOTE | 2019-09-05 14:09 | OP ---
Operative Note - Note: Operative Date: 09/05/19 Pre-Operative Diagnosis: severe CHF, renal failure, r/o amyloidosis Operation: abdominal fat pad biopsy (removal of fat for diagnosis) Findings: 2.5 x 2.5 x 1cm portion of fat removed from RUQ Post-Operative Diagnosis: Same as Pre-op Surgeon: Raleigh Waddell Anesthesiologist/INSURANCE FOLLOW UP REPRESENTATIVE: Arelis Harris MD Anesthesia: Local (20ml 1% lidocaine + epinephrine), MAC Specimens Removed: abdominal fat pad to pathology Estimated Blood Loss (mls): 1 Instrument used (Debridements only): scissors, forceps Fluid Volume Replaced (mls): 100 (crystalloid) Operative Report Dictated: Yes
[2019-09-05] MEDS ORDERED: ACETAMINOPHEN 325 MG TABLET (FP) PO PRN ×2 (14:10→19:29)
[2019-09-05] MEDS ORDERED: FUROSEMIDE 40 MG TABLET (FP) PO ONE (15:00)
--- NOTE | 2019-09-05 17:39 | PN ---
Progress Note (short form) - Note Progress Note: Patient seen and examined Breathing improved No chest pains Last Vital Signs Temp Pulse Resp BP Pulse Ox 98.1 F 92 H 18 121/68 100 09/05/19 15:00 09/05/19 15:00 09/05/19 15:00 09/05/19 15:00 09/05/19 15:00 Lungs rales base Cor - irregular Abd- s/p fat pad biopsy LE edema CBC, BMP 08/31/19 08:10 09/05/19 05:52 Current Medications Generic Name Dose Route Start Last Admin Trade Name Freq PRN Reason Stop Dose Admin Acetaminophen 650 mg 09/05/19 14:10 Tylenol - PO Q6H PRN Pain Level 4 - 10 Apixaban 2.5 mg 08/27/19 22:00 09/03/19 09:34 Eliquis - PO 2.5 mg BID [facility] Administration Ferrous Sulfate 325 mg 09/04/19 17:30 09/05/19 17:18 Feosol - PO 325 mg BIDWM [facility] Administration Furosemide 80 mg 09/02/19 14:00 09/04/19 16:08 Lasix - PO 80 mg BID@0600,1400 [facility] Administration Insulin Aspart 1 vial 08/27/19 07:00 09/05/19 17:21 Novolog Vial Sliding Scale - SQ 1 units BIDAC [facility] Administration Protocol Lactic Acid 1 applic 08/26/19 12:32 08/26/19 20:03 Lac-Hydrin 12 TP 1 applic DAILY PRN Administration xerosis Lidocaine 1 patch 08/28/19 10:00 09/05/19 09:56 Lidoderm Patch - TP Not Given DAILY [facility] Miscellaneous 1 each 08/27/19 22:00 09/04/19 21:14 Lidoderm Patch Removal MC Not Given DAILY@2200 [facility] Impression; RESPIRATORY FAILURE- IMPROVED CHF- IMPROVED ANEMIA KEL S/P FAT PAD biopsy Awaiting results of bx Continuing therapy for hypoxic respiratory failure and CHF.
--- NOTE | 2019-09-05 18:01 | PN ---
Progress Note, Physician History of Present Illness: Pt seen and examined at bedside. She is awake and alert. She had the abd fat pad biopsy. - Current Medication List Current Medications: Active Medications Acetaminophen (Tylenol -) 650 mg PO Q6H PRN PRN Reason: Pain Level 4 - 10 Apixaban (Eliquis -) 2.5 mg PO BID [facility] Last Admin: 09/03/19 09:34 Dose: 2.5 mg Ferrous Sulfate (Feosol -) 325 mg PO BIDWM [facility] Last Admin: 09/05/19 17:18 Dose: 325 mg Furosemide (Lasix -) 80 mg PO BID@0600,1400 [facility] Last Admin: 09/04/19 16:08 Dose: 80 mg Insulin Aspart (Novolog Vial Sliding Scale -) 1 vial SQ BIDAC [facility]; Protocol Last Admin: 09/05/19 17:21 Dose: 1 units Lactic Acid (Lac-Hydrin 12) 1 applic TP DAILY PRN PRN Reason: xerosis Last Admin: 08/26/19 20:03 Dose: 1 applic Lidocaine (Lidoderm Patch -) 1 patch TP DAILY [facility] Last Admin: 09/05/19 09:56 Dose: Not Given Miscellaneous (Lidoderm Patch Removal) 1 each MC DAILY@2200 [facility] Last Admin: 09/04/19 21:14 Dose: Not Given - Objective Vital Signs: Vital Signs Temperature 98.1 F 09/05/19 15:00 Pulse Rate 92 H 09/05/19 15:00 Respiratory Rate 18 09/05/19 15:00 Blood Pressure 121/68 09/05/19 15:00 O2 Sat by Pulse Oximetry (%) 100 09/05/19 15:00 Constitutional: Yes: Calm Eyes: Yes: Conjunctiva Clear HENT: Yes: Atraumatic Neck: Yes: Supple Cardiovascular: Yes: S1, S2 Respiratory: Yes: CTA Bilaterally Gastrointestinal: Yes: Normal Bowel Sounds, Soft Genitourinary: Yes: WNL Musculoskeletal: Yes: WNL Edema: Yes Edema: LLE: 1+, RLE: 1+ Neurological: Yes: Oriented Psychiatric: Yes: Oriented Labs: CBC, BMP 08/31/19 08:10 09/05/19 05:52 INR, PTT INR 1.25 (0.83-1.09) H 09/04/19 05:58 Assessment/Plan Current Medications Generic Name Dose Route Start Last Admin Trade Name Freq PRN Reason Stop Dose Admin Acetaminophen 650 mg 09/05/19 14:10 Tylenol - PO Q6H PRN Pain Level 4 - 10 Apixaban 2.5 mg 08/27/19 22:00 09/03/19 09:34 Eliquis - PO 2.5 mg BID [facility] Administration Ferrous Sulfate 325 mg 09/04/19 17:30 09/05/19 17:18 Feosol - PO 325 mg BIDWM [facility] Administration Furosemide 80 mg 09/02/19 14:00 09/04/19 16:08 Lasix - PO 80 mg BID@0600,1400 [facility] Administration Insulin Aspart 1 vial 08/27/19 07:00 09/05/19 17:21 Novolog Vial Sliding Scale - SQ 1 units BIDAC [facility] Administration Protocol Lactic Acid 1 applic 08/26/19 12:32 08/26/19 20:03 Lac-Hydrin 12 TP 1 applic DAILY PRN Administration xerosis Lidocaine 1 patch 08/28/19 10:00 09/05/19 09:56 Lidoderm Patch - TP Not Given DAILY [facility] Metoprolol Tartrate 12.5 mg 09/06/19 10:00 Lopressor - PO DAILY [facility] Miscellaneous 1 each 08/27/19 22:00 09/04/19 21:14 Lidoderm Patch Removal MC Not Given DAILY@2200 [facility] Impression 1. KEL 2. CHF 3. hx sepsis from biliary source 4. cad 5. ALL 6. CAD 7. a-fib 8. lactic acidosis 9. hx of leukocytoclastic vasculitis 10. rash 11. r/o amyloid Plan - po lasix 80 bid, will need to monitor volume status closely - decreased dose of metoprolol to 12.5 , will need to monitor bp and not take if hypotensive - renal function stable, will need outpt follow - follow abd fat pad biopsy - discussed plan with pt
[2019-09-05] MEDS: APIXABAN 2.5 MG TABLET PO SCH (21:12)
[2019-09-05] MEDS: AMMONIUM LACTATE 12% LOTION 225 GM BOTTLE TP SCH (21:16)
[2019-09-05] MEDS ORDERED: LIDOCAINE PATCH REMOVAL MC SCH (22:00)
--- NOTE | 2019-09-05 23:50 | PN ---
Progress Note, Physician - Current Medication List Current Medications: Active Medications Acetaminophen (Tylenol -) 650 mg PO Q6H PRN PRN Reason: Pain Level 4 - 10 Apixaban (Eliquis -) 2.5 mg PO BID [facility] Last Admin: 09/05/19 21:12 Dose: 2.5 mg Ferrous Sulfate (Feosol -) 325 mg PO BIDWM [facility] Furosemide (Lasix -) 80 mg PO BID@0600,1400 [facility] Insulin Aspart (Novolog Vial Sliding Scale -) 1 vial SQ BIDAC [facility]; Protocol Lactic Acid (Lac-Hydrin 12) 1 applic TP BID [facility] Last Admin: 09/05/19 21:16 Dose: 1 applic Lidocaine (Lidoderm Patch -) 1 patch TP DAILY [facility] Metoprolol Tartrate (Lopressor -) 12.5 mg PO DAILY [facility] Miscellaneous (Lidoderm Patch Removal) 1 each MC DAILY@2200 [facility] Last Admin: 09/05/19 21:17 Dose: Not Given - Objective Vital Signs: Vital Signs Temperature 98.1 F 09/05/19 22:00 Pulse Rate 82 09/05/19 22:00 Respiratory Rate 20 09/05/19 22:00 Blood Pressure 92/71 09/05/19 22:00 O2 Sat by Pulse Oximetry (%) 100 09/05/19 20:39 Labs: CBC, BMP 08/31/19 08:10 09/05/19 05:52 INR, PTT INR 1.25 (0.83-1.09) H 09/04/19 05:58 Problem List - Problems (1) Renal failure Code(s): N19 - UNSPECIFIED KIDNEY FAILURE Qualifiers: Renal failure chronicity: unspecified chronicity Qualified Code(s): N19 - Unspecified kidney failure (2) Acute on chronic combined systolic (congestive) and diastolic (congestive) heart failure Code(s): I50.43 - ACUTE ON CHRONIC COMBINED SYSTOLIC AND DIASTOLIC HRT FAIL (3) APL (acute promyelocytic leukemia) Qualifiers: Leukemia Active/Remission status: in remission Qualified Code(s): C92.41 - Acute promyelocytic leukemia, in remission (4) Anemia Code(s): D64.9 - ANEMIA, UNSPECIFIED (5) Leukocytosis Code(s): D72.829 - ELEVATED WHITE BLOOD CELL COUNT, UNSPECIFIED (6) Afib Code(s): I48.91 - UNSPECIFIED ATRIAL FIBRILLATION Qualifiers: Atrial fibrillation type: unspecified Qualified Code(s): I48.91 - Unspecified atrial fibrillation (7) HTN (hypertension) Code(s): I10 - ESSENTIAL (PRIMARY) HYPERTENSION Qualifiers: Hypertension type: essential hypertension Qualified Code(s): I10 - Essential (primary) hypertension (8) Hyperlipidemia Code(s): E78.5 - HYPERLIPIDEMIA, UNSPECIFIED Qualifiers: Hyperlipidemia type: unspecified Qualified Code(s): E78.5 - Hyperlipidemia , unspecified (9) Diabetes Code(s): E11.9 - TYPE 2 DIABETES MELLITUS WITHOUT COMPLICATIONS Qualifiers: Diabetes mellitus type: type 2 Diabetes mellitus fci insulin use: without fci use Diabetes mellitus complication status: with kidney complications Diabetes mellitus complication detail: with chronic kidney disease Chronic kidney disease stage: unspecified stage Qualified Code(s): E11.22 - Type 2 diabetes mellitus with diabetic chronic kidney disease (10) Respiratory failure Code(s): J96.90 - RESPIRATORY FAILURE, UNSP, UNSP W HYPOXIA OR HYPERCAPNIA Qualifiers: Chronicity: acute on chronic Respiratory failure complication: hypoxia Qualified Code(s): J96.21 - Acute and chronic respiratory failure with hypoxia
[2019-09-06] MEDS ORDERED: FUROSEMIDE 40 MG TABLET (FP) PO SCH (06:00)
[2019-09-06 06:15] LABS: KAPPA LAMBDA RATIO URIN 21.57 (2.04-10.37)
[2019-09-06] MEDS ORDERED: INSULIN SLIDING SCALE (NOVOLOG) 1 VIAL SQ SCH (07:00)
[2019-09-06] MEDS ORDERED: FERROUS SO4 325 MG TABLET (FP) PO SCH (08:00)
[2019-09-06 08:38] VITALS: TEMP 98.8
[2019-09-06] MEDS: AMMONIUM LACTATE 12% LOTION 225 GM BOTTLE TP SCH (09:30)
[2019-09-06] MEDS: APIXABAN 2.5 MG TABLET PO SCH (09:30)
[2019-09-06] MEDS ORDERED: LIDOCAINE 5% TOPICAL PATCH TP SCH (10:00)
[2019-09-06] MEDS ORDERED: METOPROLOL TARTRATE 25 MG TABLET (FP) PO SCH (10:00)
[2019-09-06 11:42] VITALS: BP 105/54; PULSE 88
--- NOTE | 2019-09-06 12:59 | PN ---
Progress Note (short form) - Note Progress Note: PULMONARY s/p fat pad biopsy. Breathing continues to improve. No cough or chest pain. Vital Signs Period Temp Pulse Resp BP Sys/Hernandez Pulse Ox Last 24 Hr 97.6 F-98.8 F 82-98 13-20 92-121/46-71 95-100 Gen: NAD at rest Heart: RRR Lung: decreased breath sounds at the bases Abd: soft, nontender Ext: + edema CBC, BMP 08/31/19 08:10 09/05/19 05:52 Active Medications Acetaminophen (Tylenol -) 650 mg PO Q6H PRN PRN Reason: Pain Level 4 - 10 Apixaban (Eliquis -) 2.5 mg PO BID [facility] Last Admin: 09/06/19 09:30 Dose: 2.5 mg Ferrous Sulfate (Feosol -) 325 mg PO BIDWM [facility] Last Admin: 09/06/19 08:32 Dose: 325 mg Furosemide (Lasix -) 80 mg PO BID@0600,1400 [facility] Last Admin: 09/06/19 06:39 Dose: 80 mg Insulin Aspart (Novolog Vial Sliding Scale -) 1 vial SQ BIDAC [facility]; Protocol Last Admin: 09/06/19 06:12 Dose: Not Given Lactic Acid (Lac-Hydrin 12) 1 applic TP BID [facility] Last Admin: 09/06/19 09:30 Dose: 1 applic Lidocaine (Lidoderm Patch -) 1 patch TP DAILY [facility] Last Admin: 09/06/19 09:28 Dose: Not Given Metoprolol Tartrate (Lopressor -) 12.5 mg PO DAILY [facility] Last Admin: 09/06/19 11:39 Dose: 12.5 mg Miscellaneous (Lidoderm Patch Removal) 1 each MC DAILY@2200 [facility] Last Admin: 09/05/19 21:17 Dose: Not Given A/P Acute Hypercapneic and Hypoxic Respiratory Failure improving Acute on Chronic Diastolic Heart Failure Acute Kidney Injury Lactic Acidosis resolved Atrial Fibrillation CAD Pericardial Effusion HTN DM ALL Cholelithiasis Anemia ENOC - continue lasix - monitor urine output, creatinine - O2 to keep SpO2 >90% - daily weights - rate control - continue anticoagulation - completed antibiotics - d/c planning in progress
--- NOTE | 2019-09-09 14:27 | PATH ---
Surgical Pathology Report Patient Name: STACIE KHAN [facility]. Rec. #: [id number] /Age/Gender: 1945 (Age: 73) / F Account: [id number] Location: 4 PEDS/ADOL Taken: 09/04/2019 Received: 09/08/2019 Reported: 09/09/2019 Physicians: America Chau M.D. Specimen(s) Received ABDOMINAL FAT PAD Clinical History Severe CHF, renal failure, rule out amyloidosis Final Diagnosis ABDOMINAL FAT PAD, RUQ, BIOPSY: MATURE FIBROADIPOSE TISSUE. STAIN FOR AMYLOID PENDING, FINDINGS WILL BE REPORTED SEPARATELY. Electronically Signed Millicent Greenfield M.D. Addendum Reported: 09/18/2019 Addendum Diagnosis Amlyoid A and Congo Red performed and interpreted at [facility], [place], [place] ([id number]) are Negative for Amlyoid. See Integrated report for additional details. Millicent Greenfield M.D. Gross Description Received in formalin labeled "abdominal fat pad," is a 3.5 x 2.5 x 1.6 cm yellow portion of adipose tissue. The specimen is sectioned and entirely submitted in 3 cassettes. /09/08/2019 saudi09/08/2019
--- NOTE | 2019-09-24 12:26 | OP ---
DATE OF OPERATION: 09/05/2019 PREOPERATIVE DIAGNOSES: 1. Severe congestive heart failure. 2. Renal failure. 3. Rule out amyloidosis. POSTOPERATIVE DIAGNOSES: 1. Severe congestive heart failure. 2. Renal failure. 3. Rule out amyloidosis. PROCEDURE: Abdominal fat pad biopsy for diagnostic purposes. SURGEON: Raleigh Waddell MD ANESTHESIA: Local with MAC (20 mL of 1% lidocaine with epinephrine). ESTIMATED BLOOD LOSS: 1 mL. FLUIDS: 100 mL crystalloid. SPECIMEN: Abdominal fat pad to Pathology, which was removed with scissors and forceps. FINDINGS: A 2.5 x 2.5 x 1-cm portion of fat was removed from the right upper quadrant. DISPOSITION: Stable and awake to PACU. 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 She had been treated medically and has been breathing much better, ambulating with physical therapy, but had a constellation of symptoms and clinical values concerning for amyloidosis. Surgery was asked to obtain a fat pad biopsy for diagnosis. Her Eliquis was last given 48 hours prior to the day of procedure. Risks, benefits , and alternatives of abdominal fat pad biopsy were discussed with the patient including, but not limited to, bleeding, infection, or pain. Alternatives include no surgery, which would risk failure to establish a diagnosis. Patient was agreeable to proceed under local anesthetic in an operating room setting and signed informed consent for the same. She is now brought to the OR for this procedure. OPERATIVE TECHNIQUE: The patient was brought to the operating room and the procedure performed on her bed. Sequential compression devices were applied to bilateral lower extremities, and the patient was given some sedation by Anesthesia. The right side of her abdomen was prepped and draped in sterile fashion and an area selected in the right upper quadrant from which the biopsy would be taken. A small silverio- shaped area of skin and subcutaneous tissue was infiltrated with local anesthetic, surrounding the intended biopsy site, with a mixture of 1% lidocaine and epinephrine. A small incision was then made with a scalpel and carried through the skin into the subcutaneous fat. A portion of the fat pad was grasped with an Allis clamp, and scissors used to excise a generous portion of the fat pad, ultimately measuring 2.5 x 2.5 x 1 cm, which was passed off for a pathology specimen. Hemostasis was then achieved in the operative site with electrocautery where needed, although there was very little bleeding of any kind. 4-0 Vicryl suture was then used to approximate the skin in running subcuticular fashion, and Dermabond was applied over the closed incision. This was allowed to dry. Counts were correct at the end of the procedure. The patient was then ensured to be awake and comfortable by Anesthesia, and was returned on her bed to the recovery room in stable condition, having tolerated the procedure well. Raleigh Waddell M.D. [id number] MTDD
== END 2019-09-06 14:08 | disposition home health service (06) | DRG 291 ==
LOC: JER 03:18 → JERBED 05:22 → J4W 16:39 → JICU 08-21 09:53 → J4S 08-27 18:30
PROVIDERS: ADMIT Internal Medicine; ATTEND Internal Medicine
PROC: 0JB80ZX Excision of Abdomen Subcutaneous Tissue and Fascia, Open Approach, Diagnostic (ICD-10-PCS; principal; 2019-09-05 12:52)
DX: I11.0 Hypertensive heart disease with heart failure (principal); J96.01 Acute respiratory failure with hypoxia; J96.02 Acute respiratory failure with hypercapnia; C92.41 Acute promyelocytic leukemia, in remission; E87.2 Acidosis; Z68.41 Body mass index [BMI] 40.0-44.9, adult; N17.9 Acute kidney failure, unspecified; I31.3 Pericardial effusion (noninflammatory); I24.8 Other forms of acute ischemic heart disease; M31.0 Hypersensitivity angiitis; E85.9 Amyloidosis, unspecified; E66.01 Morbid (severe) obesity due to excess calories; I25.10 Atherosclerotic heart disease of native coronary artery without angina pectoris; I50.43 Acute on chronic combined systolic (congestive) and diastolic (congestive) heart failure; I25.2 Old myocardial infarction; I48.91 Unspecified atrial fibrillation; G47.33 Obstructive sleep apnea (adult) (pediatric); K80.50 Calculus of bile duct without cholangitis or cholecystitis without obstruction; D72.829 Elevated white blood cell count, unspecified; R50.9 Fever, unspecified; D63.8 Anemia in other chronic diseases classified elsewhere; B35.1 Tinea unguium; L85.3 Xerosis cutis; E11.51 Type 2 diabetes mellitus with diabetic peripheral angiopathy without gangrene; R94.5 Abnormal results of liver function studies; R21 Rash and other nonspecific skin eruption
CPT/HCPCS: 36415; 36600; 71045-TC-FY; 73700-TC-RT; 74176-TC; 76705-TC; 76775-TC; 76856-TC; 80048; 80053; 81003; 82375; 82436; 82550; 82565; 82570; 82595; 82728; 82784; 82803; 82962; 83036; 83050; 83516; 83520; 83540; 83550; 83605; 83735; 83880; 83883; 84100; 84133; 84155; 84156; 84157; 84165; 84300; 84484; 85025; 85027; 85610; 85730; 86038; 86225; 86256; 86704; 86705; 86706; 86707; 86708; 86709; 86803; 86850; 86900; 86901; 87040; 87340; 87522; 88304-TC; 93005; 93010; 93306-TC; 93925-TC; 94660; 94760; 97116-GP; 97162-GP; 99285-25; P9047

== ENCOUNTER 2020-06-22 06:37 | Day surgery (SDC) | payer OTHER ==
--- OUTSIDE RECORDS SUMMARY | 2020-06-22 06:56 | XMS ---
:1945 Author [facility] Support Name Relationship Address Phone RE, RETIRED Unavailable Unavailable Unavailable RE Unavailable Unavailable Unavailable DENISE KHAN DAUGHTER [address] [place] [address] FRANCY KHAN DAUGHTER [address] [facility] [address] [place] [address] Re-disclosure Warning The records that you are about to access may contain information from federally- assisted alcohol or drug abuse programs. If such information is present, then the following federally mandated warning applies: This information has been disclosed to you from records protected by federal confidentiality rules (42 CFR part 2). The federal rules prohibit you from making any further disclosure of this information unless further disclosure is expressly permitted by the written consent of the person to whom it pertains or as otherwise permitted by 42 CFR part 2. A general authorization for the release of medical or other information is NOT sufficient for this purpose. The Federal rules restrict any use of the information to criminally investigate or prosecute any alcohol or drug abuse patient.The records that you are about to access may contain highly sensitive health information, the redisclosure of which is protected by Article 27-F of the [facility] Public Health law. If you continue you may haveaccess to information: Regarding HIV / AIDS; Provided by facilities licensed or operated by the [facility] Office of Mental Health; or Provided by the [facility] Office for People With Developmental Disabilities. If such information is present, then the following [facility] mandated warning applies: This information has been disclosed to you from confidential records which are protected by state law. State law prohibits you from making any further disclosure of this information without the specific written consent of the person to whom it pertains, or as otherwise permitted by law. Any unauthorized further disclosure in violation of state law may result in a fine or intermediate sentence or both. A general authorization for the release of medical or other information is NOT sufficient authorization for further disclosure. Insurance Providers Payer name Policy type Policy ID Covered Covered libertarian's Policy P kristy / Coverage libertarian ID relationship to [employer] Inf ormation type castaneda LEONIDAS [id number] SP [id number] HEALTHCARE (MEDICARE) NALLELY MEDICARE [id number] SP [id number] LEONIDAS [id number] SP [id number] HEALTHCARE (MEDICARE) XOCHILT [id number] SP [id number] 200 MEDICARE ADV PLAN Results ID Date Data Source [id number] 04/16/2020 10:50:00 AM EDT [facility] Name Value Range Interpretation Description Data Sup porting Code Source(s) Document(s ) 2018 Novel [facility] Coronavirus RNA Interpretation Unspecified Specimen Qualitative DEA Probe Detection This lab was ordered by [facility] and reported by [facility]. ID Date Data Source [id number] 04/12/2020 12:00:00 AM EDT [facility] Name Value Range Interpretation Code Description Data Oralia rce(s) Supporting Document(s ) 2018-nCoV [facility] RNA XXX DEA+probe- Imp This lab was ordered by [facility] and reported by [facility] ID Date Data Source [id number] 03/24/2020 12:00:00 AM EDT [facility] Name Value Range Interpretation Code Description Data Oralia rce(s) Supporting Document(s ) 2018-nCoV [facility] RNA XXX DEA+probe- Imp This lab was ordered by [facility] and reported by [facility] ID Date Data Source [id number] 01/16/2020 12:00:00 AM EDT [facility] Name Value Range Interpretation Code Description Data Oralia rce(s) Supporting Document(s ) 2018-nCoV [facility] RNA XXX DEA+probe- Imp This lab was ordered by [facility] and reported by [facility] ID Date Data Source [id number] 01/08/2020 12:00:00 AM EDT [facility] Name Value Range Interpretation Code Description Data Oralia rce(s) Supporting Document(s ) 2018-nCoV [facility] RNA XXX DEA+probe- Imp This lab was ordered by [facility] and reported by [facility] Procedure
[2020-06-22] MEDS ORDERED: IRON SUCROSE INJECTION 200 MG in SODIUM CHLORIDE 90 ML IVPB ONE (14:30)
[2020-06-22 14:33] LABS: BASO % 0.4 % (0-2.0); EOS % 2.3 % (0-4.5); HEMATOCRIT 30.8 % (32.4-45.2); LYMPH % 24.2 % (8-40); MCH 25.6 pg (25.7-33.7); MCHC 32.3 g/dl (32.0-36.0); MEAN CELL VOLUME 79.3 fl (80-96); MEAN PLT VOLUME 7.9 fl (7.5-11.1); MONO % 4.9 % (3.8-10.2); NEUT % 68.2 % (42.8-82.8); PLATELET COUNT 225 K/MM3 (134-434); RBC 3.89 M/mm3 (3.60-5.2); RDW 17.9 % (11.6-15.6); WHITE BLOOD COUNT 4.8 K/mm3 (4.0-10.0)
[2020-06-22 17:14] VITALS: TEMP 98.1
[2020-06-22 17:15] VITALS: BP 109/53; PULSE 89
== END 2020-06-22 15:50 | disposition home or self-care (01) ==
LOC: JONCNONCHE 06:37 → JONCCHEMO 06:37 → JONCNONCHE 15:50
PROVIDERS: ATTEND Internal Medicine Hematology & Oncology
PROC: 3E033GC Introduction of Other Therapeutic Substance into Peripheral Vein, Percutaneous Approach (ICD-10-PCS; principal; 2020-06-22)
DX: D50.9 Iron deficiency anemia, unspecified (principal)
CPT/HCPCS: 36415; 85025; 96365; J1756

== ENCOUNTER 2020-06-29 07:13 | Day surgery (SDC) | payer OTHER ==
--- OUTSIDE RECORDS SUMMARY | 2020-06-29 07:16 | XMS ---
:1945 [facility] Support Name Relationship Address Phone RE, RETIRED Unavailable Unavailable Unavailable RE Unavailable Unavailable Unavailable DENISE KHAN DAUGHTER [address] [place] [address] FRANCY KHAN DAUGHTER [address] [facility] [phone] [place] [address] Re-disclosure Warning The records that you are [...] is protected by Article 27-F of the [facility] Public Health law. If you continue you may haveaccess to information: Regarding HIV / AIDS; Provided by facilities licensed or operated by the [facility] Office of Mental Health; or Provided by the [facility] Office for People With Developmental Disabilities. If such information is present, then the following [facility] mandated warning applies: This information has been [...] law may result in a fine or mcfp sentence or both. A general authorization for the release of medical or other information is NOT sufficient authorization for further disclosure. Insurance Providers Payer name Policy type Policy ID Covered Covered republican's Policy P kristy / Coverage republican ID relationship to [employer] Inf ormation type castaneda [employer] [id number] SP [id number] HEALTHCARE (MEDICARE) NALLELY MEDICARE [id number] SP [id number] [employer] [id number] SP [id number] HEALTHCARE (MEDICARE) [id number] SP [id number] MEDICARE ADV PLAN Results ID Date Data Source [id number] 04/16/2020 10:50:00 AM EDT [facility] Name Value Range Interpretation Description Data Sup porting Code Source(s) Document(s ) 2018 Novel [facility] Coronavirus RNA Interpretation Unspecified Specimen Qualitative DEA Probe Detection This lab was ordered by [facility] and reported by [employer]. ID Date Data Source [id number] 04/12/2020 12:00:00 AM EDT [facility] Name Value Range Interpretation Code Description Data Oralia rce(s) Supporting Document(s ) 2018-nCoV [facility] RNA XXX DEA+probe- Imp This lab was ordered by [facility] and reported by [employer] ID Date Data Source [id number] 03/24/2020 12:00:00 AM EDT [facility] Name Value Range Interpretation Code Description Data Oralia rce(s) Supporting Document(s ) 2018-nCoV [facility] RNA XXX DEA+probe- Imp This lab was ordered by [facility] and reported by [employer] ID Date Data Source [id number] 01/16/2020 12:00:00 AM EDT [facility] Name Value Range Interpretation Code Description Data Oralia rce(s) Supporting Document(s ) 2018-nCoV [facility] RNA XXX DEA+probe- Imp This lab was ordered by [facility] and reported by [employer] ID Date Data Source [id number] 01/08/2020 12:00:00 AM EDT [facility] Name Value Range Interpretation Code Description Data Oralia rce(s) Supporting Document(s ) 2018-nCoV [facility] RNA XXX DEA+probe- Imp This lab was ordered by [facility] and reported by [employer] Procedure
[2020-06-29] MEDS ORDERED: IRON SUCROSE INJECTION 200 MG in SODIUM CHLORIDE 100 ML IVPB ONE (14:45)
[2020-06-29 15:42] VITALS: TEMP 98.2
[2020-06-29 15:50] VITALS: BP 115/51; PULSE 74
== END 2020-06-29 16:10 | disposition home or self-care (01) ==
LOC: JONCNONCHE 07:13
PROVIDERS: ATTEND Internal Medicine Hematology & Oncology
PROC: 3E033GC Introduction of Other Therapeutic Substance into Peripheral Vein, Percutaneous Approach (ICD-10-PCS; principal; 2020-06-29)
DX: D50.9 Iron deficiency anemia, unspecified (principal)
CPT/HCPCS: 96365; J1756

== ENCOUNTER 2021-04-06 12:59 | Inpatient (IN) | payer OTHER ==
[2021-04-06] MEDS ORDERED: AZITHROMYCIN IVPB 500 MG in DEXTROSE 5%-WATER - 250 ML IVPB ONE (14:17)
[2021-04-06] MEDS ORDERED: AZITHROMYCIN IVPB 500 MG/250 ML BAG IVPB ONE (14:34)
[2021-04-06 14:57] LABS: VENOUS BASE EXCESS 3.3 mmol/L (-2-2); VENOUS O2 SATURATION 50.4 % (70-80); VENOUS PCO2 52.9 mmHg (38-52); VENOUS PH 7.369 (7.310-7.410)
[2021-04-06 14:58] LABS: BASO % 0.3 % (0-2.0); EOS % 0.4 % (0-4.5); HEMATOCRIT 35.6 % (32.4-45.2); HEMOGLOBIN 11.5 GM/dL (10.7-15.3); LYMPH % 11.9 % (8-40); MCH 26.4 pg (25.7-33.7); MCHC 32.1 g/dl (32.0-36.0); MEAN CELL VOLUME 82.3 fl (80-96); MEAN PLT VOLUME 8.5 fl (7.5-11.1); MONO % 3.1 % (3.8-10.2); NEUT % 84.3 % (42.8-82.8); PLATELET COUNT 214 10^3/uL (134-434); RBC 4.33 M/mm3 (3.60-5.2); RDW 16.3 % (11.6-15.6); WHITE BLOOD COUNT 7.9 K/mm3 (4.0-10.0)
[2021-04-06 15:13] LABS: CHLORIDE 102 mmol/L (98-107); SODIUM 137 mmol/L (136-145)
[2021-04-06 15:16] LABS: ALBUMIN 3.4 g/dl (3.4-5.0); ANION GAP 7 MMOL/L (8-16); BLOOD UREA NITROGEN 29.7 mg/dL (7-18); CALCIUM 9.1 mg/dL (8.5-10.1); CO2 28 mmol/L (21-32); GLUCOSE,RANDOM 178 mg/dL (74-106)
[2021-04-06 15:18] LABS: INR 1.23 (0.83-1.09); PROTHROMBIN TIME (PATIENT) 14.8 SEC (9.7-13.0)
[2021-04-06 15:20] LABS: CREATININE 1.3 mg/dL (0.55-1.3); SGOT/AST 16 U/L (15-37); SGPT/ALT 15 U/L (13-61)
[2021-04-06 15:21] LABS: BILIRUBIN,TOTAL 0.9 mg/dL (0.2-1); TOT PROT 7.4 g/dl (6.4-8.2)
[2021-04-06 15:22] LABS: ALK PHOS 56 U/L (45-117); LACTIC ACID 2.3 mmol/L (0.4-2.0)
[2021-04-06 15:51] LABS: EPI CELLS 7 /uL (0-25.1); HYALINE CASTS 0 /uL (0-3.1); PH,URINE 6.5 (5.0-8.0); URINE APPEARANCE CLEAR; URINE BACTERIA 152 /uL (0-1359); URINE BILIRUBIN NEGATIVE (NEGATIVE); URINE COLOR YELLOW; URINE GLUCOSE (UA) NEGATIVE (NEGATIVE); URINE KETONE NEGATIVE (NEGATIVE); URINE LEUK ESTERASE TRACE (NEGATIVE); URINE NITRITE NEGATIVE (NEGATIVE); URINE PROTEIN NEGATIVE (NEGATIVE); URINE RBC 51 /uL (0-23.9); URINE UROBILINOGEN 0.2 mg/dL (0.2-1.0); URINE WBC 7 /uL (0-25.8)
[2021-04-06 16:37] LABS: LDH 173 U/L (84-246); N-TERMINAL BNP 6803.1 pg/ml (5-450)
[2021-04-06] MEDS ORDERED: ALBUTEROL SO4 2.5/IPRATROPIUM 0.5 INH SOL 3 ML VIAL.NEB. NEB PRN (23:30)
[2021-04-06] MEDS: APIXABAN 5 MG TABLET PO SCH (23:50)
[2021-04-06] MEDS: PREGABALIN 50 MG CAPSULE PO SCH (23:50)
[2021-04-07 07:46] LABS: BASO % 0.3 % (0-2.0); HEMATOCRIT 33.5 % (32.4-45.2); HEMOGLOBIN 11.1 GM/dL (10.7-15.3); LYMPH % 15.7 % (8-40); MEAN PLT VOLUME 8.3 fl (7.5-11.1); MONO % 2.3 % (3.8-10.2); NEUT % 81.7 % (42.8-82.8); PLATELET COUNT 184 10^3/uL (134-434); RBC 4.09 M/mm3 (3.60-5.2); RDW 16.6 % (11.6-15.6)
[2021-04-07 08:13] LABS: ALBUMIN 3.4 g/dl (3.4-5.0); BLOOD UREA NITROGEN 40.9 mg/dL (7-18); CALCIUM 9.3 mg/dL (8.5-10.1)
[2021-04-07 08:15] LABS: CREATININE 1.6 mg/dL (0.55-1.3)
[2021-04-07 08:18] LABS: BILIRUBIN,TOTAL 0.6 mg/dL (0.2-1); TOT PROT 7.6 g/dl (6.4-8.2)
[2021-04-07] MEDS ORDERED: DEXTROSE 5%-WATER - 50 ML IVPB ONE (09:48)
[2021-04-07] MEDS ORDERED: cefTRIAXone SODIUM 1 GM VIAL ONE (09:48)
[2021-04-07] MEDS ORDERED: FUROSEMIDE 40 MG TABLET (FP) PO SCH (10:00)
[2021-04-07] MEDS: FUROSEMIDE 40 MG/4 ML INJECTABLE VIAL IVPUSH SCH (10:16)
[2021-04-07] MEDS: PREGABALIN 50 MG CAPSULE PO SCH ×2 (10:16→22:00)
[2021-04-07] MEDS: APIXABAN 5 MG TABLET PO SCH ×2 (10:16→22:00)
[2021-04-07] MEDS: AZITHROMYCIN IVPB 250 MG in DEXTROSE 5%-WATER - 250 ML IVPB SCH (10:17)
[2021-04-07] MEDS: CEFTRIAXONE 1 GM in DEXTROSE 5%-WATER - 50 ML IVPB SCH (10:17)
[2021-04-08 08:58] LABS: BASO % 0.2 % (0-2.0); EOS % 0.3 % (0-4.5); HEMATOCRIT 34.3 % (32.4-45.2); HEMOGLOBIN 11.2 GM/dL (10.7-15.3); LYMPH % 13.7 % (8-40); MCHC 32.8 g/dl (32.0-36.0); MEAN CELL VOLUME 82.3 fl (80-96); MEAN PLT VOLUME 8.5 fl (7.5-11.1); MONO % 3.4 % (3.8-10.2); NEUT % 82.4 % (42.8-82.8); PLATELET COUNT 216 10^3/uL (134-434); RBC 4.16 M/mm3 (3.60-5.2); RDW 16.3 % (11.6-15.6); WHITE BLOOD COUNT 9.6 K/mm3 (4.0-10.0)
[2021-04-08 09:15] LABS: CHLORIDE 100 mmol/L (98-107); SODIUM 136 mmol/L (136-145)
[2021-04-08] MEDS ORDERED: DEXTROSE 5%-WATER - 50 ML IVPB ONE (09:21)
[2021-04-08] MEDS ORDERED: cefTRIAXone SODIUM 1 GM VIAL ONE (09:21)
[2021-04-08 09:24] LABS: ALBUMIN 3.1 g/dl (3.4-5.0); ANION GAP 9 MMOL/L (8-16); BLOOD UREA NITROGEN 46.7 mg/dL (7-18); CALCIUM 8.8 mg/dL (8.5-10.1); CO2 27 mmol/L (21-32)
[2021-04-08 09:25] LABS: GLUCOSE,RANDOM 169 mg/dL (74-106)
[2021-04-08 09:27] LABS: SGPT/ALT 13 U/L (13-61)
[2021-04-08 09:28] LABS: CREATININE 1.4 mg/dL (0.55-1.3); SGOT/AST 5 U/L (15-37)
[2021-04-08 09:30] LABS: ALK PHOS 53 U/L (45-117); BILIRUBIN,TOTAL 0.6 mg/dL (0.2-1); TOT PROT 7.1 g/dl (6.4-8.2)
[2021-04-08] MEDS: APIXABAN 5 MG TABLET PO SCH ×2 (09:38→21:40)
[2021-04-08] MEDS: FUROSEMIDE 40 MG/4 ML INJECTABLE VIAL IVPUSH SCH (09:38)
[2021-04-08] MEDS: CEFTRIAXONE 1 GM in DEXTROSE 5%-WATER - 50 ML IVPB SCH (09:38)
[2021-04-08] MEDS: PREGABALIN 50 MG CAPSULE PO SCH ×2 (09:38→21:40)
[2021-04-08] MEDS: AZITHROMYCIN IVPB 250 MG in DEXTROSE 5%-WATER - 250 ML IVPB SCH (10:28)
[2021-04-08 15:46] VITALS: BMI 39.9
[2021-04-08] MEDS: INSULIN SLIDING SCALE (NOVOLOG) 1 VIAL SQ SCH ×2 (17:20→21:41)
[2021-04-09] MEDS: INSULIN SLIDING SCALE (NOVOLOG) 1 VIAL SQ SCH ×2 (06:15→11:50)
[2021-04-09] MEDS ORDERED: cefTRIAXone SODIUM 1 GM VIAL ONE (09:02)
[2021-04-09] MEDS ORDERED: PT OWN MED DRAWER 7, Y5N ONE ×2 (09:02→15:38)
[2021-04-09] MEDS ORDERED: DEXTROSE 5%-WATER - 50 ML IVPB ONE (09:03)
[2021-04-09] MEDS: APIXABAN 5 MG TABLET PO SCH (09:18)
[2021-04-09] MEDS: CEFTRIAXONE 1 GM in DEXTROSE 5%-WATER - 50 ML IVPB SCH (09:18)
[2021-04-09] MEDS: PREGABALIN 50 MG CAPSULE PO SCH (09:18)
[2021-04-09] MEDS: FUROSEMIDE 40 MG/4 ML INJECTABLE VIAL IVPUSH SCH (09:18)
[2021-04-09] MEDS: AZITHROMYCIN IVPB 250 MG in DEXTROSE 5%-WATER - 250 ML IVPB SCH (11:01)
[2021-04-09 14:33] VITALS: BP 109/65; PULSE 104; TEMP 98.3
[2021-04-09 14:43] LABS: BLOOD UREA NITROGEN 47.8 mg/dL (7-18)
[2021-04-09 14:46] LABS: CREATININE 1.2 mg/dL (0.55-1.3)
[2021-04-10] MEDS ORDERED: FUROSEMIDE 40 MG TABLET (FP) PO SCH (10:00)
== END 2021-04-09 17:19 | disposition home or self-care (01) | DRG 291 ==
LOC: JER 12:59 → JERBED 14:17 → J4S 18:31
PROVIDERS: ADMIT Internal Medicine; ATTEND Internal Medicine
DX: I11.0 Hypertensive heart disease with heart failure (principal); J18.9 Pneumonia, unspecified organism; C91.00 Acute lymphoblastic leukemia not having achieved remission; I25.10 Atherosclerotic heart disease of native coronary artery without angina pectoris; I50.43 Acute on chronic combined systolic (congestive) and diastolic (congestive) heart failure; E11.9 Type 2 diabetes mellitus without complications; E66.9 Obesity, unspecified; Z68.39 Body mass index [BMI] 39.0-39.9, adult; D64.9 Anemia, unspecified; Z86.16 Personal history of COVID-19; I48.91 Unspecified atrial fibrillation
CPT/HCPCS: 36415; 71045-TC-FY; 80048; 80053; 81003; 82550; 82728; 82803; 82962; 83036; 83605; 83615; 83880; 84484; 85025; 85610; 85730; 86140; 87040; 87086; 93005; 93010; 99285-25; C9803; U0003; U0005

== ENCOUNTER 2022-03-27 10:58 | Inpatient (IN) | payer OTHER ==
[2022-03-27 11:07] VITALS: BMI 44.5
[2022-03-27] MEDS ORDERED: ACETAMINOPHEN 1000 MG/100 ML BAG IVPB ONE (12:06)
[2022-03-27] MEDS ORDERED: ACETAMINOPHEN INJECTION 100 ML IVPB ONE (12:26)
[2022-03-27 13:29] LABS: HEMATOCRIT 36.4 % (32.4-45.2); MCH 25.9 pg (25.7-33.7); MCHC 32.9 g/dl (32.0-36.0); MEAN CELL VOLUME 78.8 fl (80-96); MEAN PLT VOLUME 8.8 fl (7.5-11.1); PLATELET COUNT 145 10^3/uL (134-434); RBC 4.61 M/mm3 (3.60-5.2); RDW 17.9 % (11.6-15.6); WHITE BLOOD COUNT 10.3 K/mm3 (4.0-10.0)
[2022-03-27 13:31] LABS: INR 1.4 (0.83-1.09); PROTHROMBIN TIME (PATIENT) 16.2 SEC (9.7-13.0)
[2022-03-27 13:34] LABS: ACTIVATED PTT 29.1 SECONDS (25.2-36.5)
[2022-03-27 13:52] LABS: BLOOD UREA NITROGEN 39.4 mg/dL (7-18); CALCIUM 9.1 mg/dL (8.5-10.1)
[2022-03-27 13:56] LABS: BILIRUBIN,DIRECT 5.8 mg/dL (0.0-0.2); CREATININE 1.6 mg/dL (0.55-1.3); TOT PROT 6.3 g/dl (6.4-8.2)
[2022-03-27 13:57] LABS: BILIRUBIN,TOTAL 7.5 mg/dL (0.2-1)
[2022-03-27 14:00] LABS: ANISOCYTOSIS 3+; MACROCYTOSIS 0
[2022-03-27] MEDS ORDERED: morphine CARPU-JECT 4 MG/1 ML DISP.SYRIN IVPUSH ONE (15:42)
[2022-03-27] MEDS ORDERED: morphine SULFATE 4 MG/ML VIAL ONE ×2 (15:45→22:36)
[2022-03-27] MEDS ORDERED: SODIUM CHLORIDE 250 ML IV STA (16:42)
[2022-03-27] MEDS ORDERED: DEXTROSE 5%-0.45% SALINE 1,000 ML IV SCH ×2 (18:15→19:45)
[2022-03-27] MEDS ORDERED: PIPERACILLIN/TAZOB 3.375 GM 3.375 GM/50 ML BAG IVPB ONE (18:26)
[2022-03-27] MEDS ORDERED: NOREPINEPHRINE BITARTRATE 16,000 MCG in DEXTROSE 5%-WATER - 484 ML IVPB SCH (18:30)
[2022-03-27] MEDS: PIPERACILLIN/TAZOB 3.375 GM 3.375 GM in DEXTROSE 5%-WATER - 50 ML IVPB SCH (18:32)
[2022-03-27] MEDS ORDERED: LACTATED RINGERS SOLUTION 1,000 ML/1,000 ML INFUS.BAG IV STA (20:20)
[2022-03-27] MEDS ORDERED: SODIUM CHLORIDE 1,000 ML IV SCH (21:15)
[2022-03-27] MEDS ORDERED: APIXABAN 5 MG TABLET PO SCH (22:00)
[2022-03-27] MEDS ORDERED: INSULIN SLIDING SCALE (NOVOLOG) 1 VIAL SQ SCH (22:00)
[2022-03-27] MEDS ORDERED: morphine SULFATE 4 MG/ML VIAL IVPUSH PRN (22:32)
[2022-03-27] MEDS ORDERED: APIXABAN 5 MG TABLET ONE (22:39)
[2022-03-27] MEDS: INSULIN SLIDING SCALE (NOVOLOG) 1 VIAL SQ SCH (22:46)
[2022-03-28] MEDS ORDERED: FUROSEMIDE 40 MG/4 ML INJECTABLE VIAL IVPUSH SCH (06:00)
[2022-03-28] MEDS ORDERED: morphine SULFATE 4 MG/ML VIAL ONE ×2 (07:33→07:47)
[2022-03-28] MEDS ORDERED: PIPERACILLIN/TAZOB 3.375 GM 3.375 GM/50 ML BAG IVPB ONE (07:35)
[2022-03-28] MEDS: INSULIN SLIDING SCALE (NOVOLOG) 1 VIAL SQ SCH (07:46)
[2022-03-28] MEDS: PIPERACILLIN/TAZOB 3.375 GM 3.375 GM in DEXTROSE 5%-WATER - 50 ML IVPB SCH (08:02)
[2022-03-28 08:08] VITALS: BP 134/74; PULSE 114; TEMP 98.2
[2022-03-28] MEDS ORDERED: PANTOPRAZOLE SODIUM 40 MG VIAL IVPUSH SCH (10:00)
[2022-03-28] MEDS ORDERED: PIPERACILLIN/TAZOB 3.375 GM 3.375 GM in DEXTROSE 5%-WATER - 50 ML IVPB SCH (18:00)
== END 2022-03-28 07:45 | disposition short-term general hospital (02) | DRG 445 ==
LOC: JER 10:58 → JERBED 16:53
PROVIDERS: ADMIT Internal Medicine; ATTEND Internal Medicine
DX: K80.00 Calculus of gallbladder with acute cholecystitis without obstruction (principal); Z68.41 Body mass index [BMI] 40.0-44.9, adult; C91.00 Acute lymphoblastic leukemia not having achieved remission; N17.9 Acute kidney failure, unspecified; I25.10 Atherosclerotic heart disease of native coronary artery without angina pectoris; E11.9 Type 2 diabetes mellitus without complications; E78.5 Hyperlipidemia, unspecified; E66.01 Morbid (severe) obesity due to excess calories; I87.8 Other specified disorders of veins; I11.0 Hypertensive heart disease with heart failure; I50.9 Heart failure, unspecified; I95.9 Hypotension, unspecified; I48.91 Unspecified atrial fibrillation; I25.2 Old myocardial infarction; R00.0 Tachycardia, unspecified; K76.0 Fatty (change of) liver, not elsewhere classified
CPT/HCPCS: 36415; 71045-TC-FY; 76705-TC; 80053; 82248; 82962; 83690; 85025; 85610; 85730; 86850; 86900; 86901; 93005; 93010; 99285-25; C9803-CS; U0003; U0005

== ENCOUNTER 2022-04-11 04:26 | Inpatient (IN) | payer OTHER ==
[2022-04-11] MEDS ORDERED: FUROSEMIDE 40 MG/4 ML INJECTABLE VIAL IVPUSH ONE ×2 (04:34→11:00)
[2022-04-11] MEDS ORDERED: methylPREDNISolone NA SUCC 125 MG/2 ML VIAL IVPB ONE (04:34)
[2022-04-11] MEDS ORDERED: LEVALBUTEROL HCL 0.63 MG/3 ML VIAL.NEB. IH ONE (04:42)
[2022-04-11 04:52] LABS: BASO % 0.7 % (0-2.0); EOS % 1.8 % (0-4.5); HEMOGLOBIN 9.1 GM/dL (10.7-15.3); LYMPH % 31.8 % (8-40); MCH 25.2 pg (25.7-33.7); MCHC 31.3 g/dl (32.0-36.0); MEAN CELL VOLUME 80.6 fl (80-96); MEAN PLT VOLUME 8.9 fl (7.5-11.1); MONO % 3.5 % (3.8-10.2); NEUT % 62.2 % (42.8-82.8); PLATELET COUNT 478 10^3/uL (134-434); RBC 3.59 M/mm3 (3.60-5.2); RDW 18.8 % (11.6-15.6); WHITE BLOOD COUNT 11.5 K/mm3 (4.0-10.0)
[2022-04-11 05:17] LABS: ARTERIAL BLD GAS O2 SATURATION 99.3 % (95-98); ARTERIAL BLOOD GAS BASE EXCESS -7.8 mmol/L (-2-2); ARTERIAL BLOOD GAS PO2 201.5 mmHg (80-100); ARTERIAL BLOOD GAS pH 7.323 (7.350-7.450)
[2022-04-11 05:18] LABS: ALLENS TEST POSITIVE
[2022-04-11 05:19] LABS: VENT RATE 16
[2022-04-11 05:21] LABS: ALBUMIN 2.3 g/dl (3.4-5.0); MAGNESIUM 1.7 mg/dL (1.8-2.4)
[2022-04-11 05:24] LABS: CREATININE 1.8 mg/dL (0.55-1.3); PHOSPHOROUS 4.5 mg/dL (2.5-4.9)
[2022-04-11 05:25] LABS: BILIRUBIN,TOTAL 2.6 mg/dL (0.2-1); TOT PROT 7.2 g/dl (6.4-8.2)
[2022-04-11 05:28] LABS: EPI CELLS 5 /uL (0-25.1); HYALINE CASTS 1 /uL (0-3.1); PH,URINE 6.5 (5.0-8.0); URINE APPEARANCE CLEAR; URINE BACTERIA 3 /uL (0-1359); URINE BILIRUBIN NEGATIVE (NEGATIVE); URINE COLOR YELLOW; URINE GLUCOSE (UA) NEGATIVE (NEGATIVE); URINE KETONE NEGATIVE (NEGATIVE); URINE LEUK ESTERASE NEGATIVE (NEGATIVE); URINE NITRITE NEGATIVE (NEGATIVE); URINE PROTEIN 1+ (NEGATIVE); URINE RBC 156 /uL (0-23.9); URINE WBC 9 /uL (0-25.8)
[2022-04-11 05:28] LABS: INR 1.46 (0.83-1.09); PROTHROMBIN TIME (PATIENT) 16.9 SEC (9.7-13.0)
[2022-04-11 05:30] LABS: ACTIVATED PTT 30.8 SECONDS (25.2-36.5)
[2022-04-11] MEDS: METOPROLOL TARTRATE 25 MG TABLET (FP) PO SCH (11:52)
[2022-04-11] MEDS: APIXABAN 2.5 MG TABLET PO SCH ×2 (11:52→21:12)
[2022-04-11] MEDS: INSULIN SLIDING SCALE (NOVOLOG) 1 VIAL SQ SCH ×2 (17:03→21:14)
[2022-04-11] MEDS: PREGABALIN 50 MG CAPSULE PO SCH (21:12)
[2022-04-12] MEDS: INSULIN SLIDING SCALE (NOVOLOG) 1 VIAL SQ SCH ×4 (06:20→21:45)
[2022-04-12] MEDS: PREGABALIN 50 MG CAPSULE PO SCH ×2 (09:47→21:40)
[2022-04-12] MEDS: METOPROLOL TARTRATE 25 MG TABLET (FP) PO SCH (09:47)
[2022-04-12] MEDS: APIXABAN 2.5 MG TABLET PO SCH ×2 (09:47→21:40)
[2022-04-12] MEDS: FUROSEMIDE 40 MG/4 ML INJECTABLE VIAL IVPUSH SCH ×2 (12:16→17:00)
[2022-04-12 13:41] LABS: BASO % 0.4 % (0-2.0); EOS % 0.2 % (0-4.5); HEMATOCRIT 26.2 % (32.4-45.2); HEMOGLOBIN 8.4 GM/dL (10.7-15.3); LYMPH % 13.9 % (8-40); MCH 26.1 pg (25.7-33.7); MCHC 32.1 g/dl (32.0-36.0); MEAN CELL VOLUME 81.3 fl (80-96); MEAN PLT VOLUME 9.5 fl (7.5-11.1); NEUT % 81.5 % (42.8-82.8); PLATELET COUNT 394 10^3/uL (134-434); RBC 3.23 M/mm3 (3.60-5.2); RDW 18.4 % (11.6-15.6); WHITE BLOOD COUNT 10.6 K/mm3 (4.0-10.0)
[2022-04-12 14:03] LABS: ALBUMIN 2.3 g/dl (3.4-5.0); BLOOD UREA NITROGEN 49.3 mg/dL (7-18); CALCIUM 8.8 mg/dL (8.5-10.1)
[2022-04-12 14:06] LABS: CREATININE 1.9 mg/dL (0.55-1.3)
[2022-04-12 14:08] LABS: BILIRUBIN,TOTAL 2.2 mg/dL (0.2-1); TOT PROT 7.2 g/dl (6.4-8.2)
[2022-04-12] MEDS: BACITRACIN 15 GM TUBE TOPICAL OINTMENT TP SCH ×2 (15:06→21:40)
[2022-04-12] MEDS ORDERED: INSULIN (NOVOLOG) ASPART 100 UNITS/ML 10ML VIAL ONE (17:05)
[2022-04-13] MEDS: FUROSEMIDE 40 MG/4 ML INJECTABLE VIAL IVPUSH SCH ×2 (05:49→13:21)
[2022-04-13] MEDS: INSULIN SLIDING SCALE (NOVOLOG) 1 VIAL SQ SCH ×4 (06:00→22:56)
[2022-04-13 07:31] LABS: BASO % 0.6 % (0-2.0); EOS % 0.9 % (0-4.5); HEMOGLOBIN 8.7 GM/dL (10.7-15.3); LYMPH % 14.3 % (8-40); MCH 26.1 pg (25.7-33.7); MCHC 32.4 g/dl (32.0-36.0); MEAN CELL VOLUME 80.7 fl (80-96); MEAN PLT VOLUME 8.9 fl (7.5-11.1); MONO % 5.3 % (3.8-10.2); NEUT % 78.9 % (42.8-82.8); PLATELET COUNT 399 10^3/uL (134-434); RBC 3.34 M/mm3 (3.60-5.2); RDW 18.6 % (11.6-15.6); WHITE BLOOD COUNT 9.9 K/mm3 (4.0-10.0)
[2022-04-13 08:04] LABS: CALCIUM 8.5 mg/dL (8.5-10.1)
[2022-04-13 08:05] LABS: ALBUMIN 2.2 g/dl (3.4-5.0)
[2022-04-13 08:08] LABS: CREATININE 1.7 mg/dL (0.55-1.3)
[2022-04-13 08:09] LABS: BILIRUBIN,TOTAL 2.4 mg/dL (0.2-1); TOT PROT 6.7 g/dl (6.4-8.2)
[2022-04-13] MEDS: METOPROLOL TARTRATE 25 MG TABLET (FP) PO SCH (09:43)
[2022-04-13] MEDS: APIXABAN 2.5 MG TABLET PO SCH ×2 (09:46→21:12)
[2022-04-13] MEDS: PREGABALIN 50 MG CAPSULE PO SCH ×2 (09:46→21:12)
[2022-04-13] MEDS: BACITRACIN 15 GM TUBE TOPICAL OINTMENT TP SCH ×2 (12:00→21:15)
[2022-04-13] MEDS: DOCUSATE SODIUM 100 MG CAPSULE (FP) PO SCH ×2 (16:41→21:15)
[2022-04-13] MEDS: POLYETHYLENE GLYCOL (HEALTHYLAX) 3350 17 GM PACKET PO SCH (16:41)
[2022-04-14] MEDS: DOCUSATE SODIUM 100 MG CAPSULE (FP) PO SCH ×3 (05:55→21:47)
[2022-04-14] MEDS: FUROSEMIDE 40 MG/4 ML INJECTABLE VIAL IVPUSH SCH ×2 (05:55→13:34)
[2022-04-14] MEDS: INSULIN SLIDING SCALE (NOVOLOG) 1 VIAL SQ SCH ×4 (06:30→22:00)
[2022-04-14] MEDS: APIXABAN 2.5 MG TABLET PO SCH ×2 (09:19→21:47)
[2022-04-14] MEDS: METOPROLOL TARTRATE 25 MG TABLET (FP) PO SCH (09:19)
[2022-04-14] MEDS: PREGABALIN 50 MG CAPSULE PO SCH ×2 (09:19→21:47)
[2022-04-14] MEDS: BACITRACIN 15 GM TUBE TOPICAL OINTMENT TP SCH ×2 (09:19→21:46)
[2022-04-14] MEDS: POLYETHYLENE GLYCOL (HEALTHYLAX) 3350 17 GM PACKET PO SCH (09:19)
[2022-04-15] MEDS: FUROSEMIDE 40 MG/4 ML INJECTABLE VIAL IVPUSH SCH (05:26)
[2022-04-15] MEDS: DOCUSATE SODIUM 100 MG CAPSULE (FP) PO SCH ×4 (05:26→22:09)
[2022-04-15] MEDS: INSULIN SLIDING SCALE (NOVOLOG) 1 VIAL SQ SCH ×4 (06:02→22:25)
[2022-04-15 09:05] LABS: BASO % 0.3 % (0-2.0); EOS % 2.3 % (0-4.5); HEMATOCRIT 26.9 % (32.4-45.2); HEMOGLOBIN 8.8 GM/dL (10.7-15.3); LYMPH % 26.5 % (8-40); MCH 25.8 pg (25.7-33.7); MCHC 32.5 g/dl (32.0-36.0); MEAN CELL VOLUME 79.3 fl (80-96); MEAN PLT VOLUME 8.3 fl (7.5-11.1); NEUT % 63.9 % (42.8-82.8); PLATELET COUNT 330 10^3/uL (134-434); RBC 3.39 M/mm3 (3.60-5.2); RDW 18.9 % (11.6-15.6); WHITE BLOOD COUNT 6.1 K/mm3 (4.0-10.0)
[2022-04-15] MEDS: METOPROLOL TARTRATE 25 MG TABLET (FP) PO SCH ×2 (09:14→22:11)
[2022-04-15] MEDS: APIXABAN 2.5 MG TABLET PO SCH ×2 (09:14→22:09)
[2022-04-15] MEDS: BACITRACIN 15 GM TUBE TOPICAL OINTMENT TP SCH ×2 (09:14→22:25)
[2022-04-15] MEDS: POLYETHYLENE GLYCOL (HEALTHYLAX) 3350 17 GM PACKET PO SCH (09:14)
[2022-04-15] MEDS: PREGABALIN 50 MG CAPSULE PO SCH ×2 (09:14→22:08)
[2022-04-15 09:28] LABS: BLOOD UREA NITROGEN 60.5 mg/dL (7-18)
[2022-04-15 09:32] LABS: CREATININE 1.9 mg/dL (0.55-1.3)
[2022-04-15 09:33] LABS: BILIRUBIN,TOTAL 2.3 mg/dL (0.2-1); CALCIUM 8.5 mg/dL (8.5-10.1); TOT PROT 6.8 g/dl (6.4-8.2)
[2022-04-15 09:35] LABS: ALBUMIN 2.3 g/dl (3.4-5.0)
[2022-04-15] MEDS ORDERED: FUROSEMIDE 40 MG/4 ML INJECTABLE VIAL IVPUSH ONE (14:00)
[2022-04-15] MEDS: MIDODRINE HCL 5 MG TABLET PO SCH (17:46)
[2022-04-16] MEDS: DOCUSATE SODIUM 100 MG CAPSULE (FP) PO SCH ×3 (05:56→21:20)
[2022-04-16] MEDS: INSULIN SLIDING SCALE (NOVOLOG) 1 VIAL SQ SCH ×4 (06:09→21:20)
[2022-04-16] MEDS: FUROSEMIDE 40 MG/4 ML INJECTABLE VIAL IVPUSH SCH ×2 (06:09→13:54)
[2022-04-16 08:18] LABS: BASO % 0.5 % (0-2.0); HEMATOCRIT 25.7 % (32.4-45.2); HEMOGLOBIN 8.6 GM/dL (10.7-15.3); LYMPH % 22.5 % (8-40); MCH 26.5 pg (25.7-33.7); MCHC 33.3 g/dl (32.0-36.0); MEAN CELL VOLUME 79.5 fl (80-96); MEAN PLT VOLUME 8.8 fl (7.5-11.1); MONO % 4.1 % (3.8-10.2); NEUT % 69.9 % (42.8-82.8); PLATELET COUNT 324 10^3/uL (134-434); RBC 3.24 M/mm3 (3.60-5.2); RDW 18.9 % (11.6-15.6); WHITE BLOOD COUNT 5.2 K/mm3 (4.0-10.0)
[2022-04-16 08:30] LABS: ALBUMIN 2.3 g/dl (3.4-5.0); CALCIUM 8.4 mg/dL (8.5-10.1)
[2022-04-16 08:31] LABS: BLOOD UREA NITROGEN 61.2 mg/dL (7-18)
[2022-04-16 08:33] LABS: CREATININE 1.9 mg/dL (0.55-1.3)
[2022-04-16 08:35] LABS: BILIRUBIN,TOTAL 2.2 mg/dL (0.2-1); TOT PROT 6.4 g/dl (6.4-8.2)
[2022-04-16] MEDS: BACITRACIN 15 GM TUBE TOPICAL OINTMENT TP SCH ×2 (10:31→21:20)
[2022-04-16] MEDS: APIXABAN 2.5 MG TABLET PO SCH ×2 (10:31→21:20)
[2022-04-16] MEDS: MIDODRINE HCL 5 MG TABLET PO SCH ×2 (10:31→17:30)
[2022-04-16] MEDS: POLYETHYLENE GLYCOL (HEALTHYLAX) 3350 17 GM PACKET PO SCH (10:32)
[2022-04-16] MEDS: METOPROLOL TARTRATE 25 MG TABLET (FP) PO SCH ×2 (10:32→21:19)
[2022-04-17] MEDS: DOCUSATE SODIUM 100 MG CAPSULE (FP) PO SCH ×3 (06:37→21:45)
[2022-04-17] MEDS: FUROSEMIDE 40 MG/4 ML INJECTABLE VIAL IVPUSH SCH (06:38)
[2022-04-17] MEDS: INSULIN SLIDING SCALE (NOVOLOG) 1 VIAL SQ SCH ×4 (06:38→21:48)
[2022-04-17 07:24] LABS: CALCIUM 7.9 mg/dL (8.5-10.1)
[2022-04-17 07:25] LABS: BLOOD UREA NITROGEN 57.4 mg/dL (7-18)
[2022-04-17 07:28] LABS: CREATININE 1.7 mg/dL (0.55-1.3)
[2022-04-17] MEDS: MIDODRINE HCL 5 MG TABLET PO SCH ×2 (09:58→18:19)
[2022-04-17] MEDS: APIXABAN 2.5 MG TABLET PO SCH ×2 (09:58→21:45)
[2022-04-17] MEDS: BACITRACIN 15 GM TUBE TOPICAL OINTMENT TP SCH ×2 (09:58→21:45)
[2022-04-17] MEDS: METOPROLOL TARTRATE 25 MG TABLET (FP) PO SCH ×2 (10:00→21:45)
[2022-04-17] MEDS: POLYETHYLENE GLYCOL (HEALTHYLAX) 3350 17 GM PACKET PO SCH (10:01)
[2022-04-17] MEDS: FUROSEMIDE INJECTION 100 MG in SODIUM CHLORIDE 90 ML IVPB SCH (11:30)
[2022-04-17] MEDS ORDERED: POTASSIUM CHLORIDE TABS 20 MEQ TABLET.ER (FP) PO ONE (12:01)
[2022-04-18] MEDS: DOCUSATE SODIUM 100 MG CAPSULE (FP) PO SCH ×3 (06:23→22:41)
[2022-04-18] MEDS: INSULIN SLIDING SCALE (NOVOLOG) 1 VIAL SQ SCH ×4 (06:24→22:57)
[2022-04-18 07:06] LABS: BLOOD UREA NITROGEN 55.4 mg/dL (7-18)
[2022-04-18 07:09] LABS: CREATININE 1.6 mg/dL (0.55-1.3)
[2022-04-18] MEDS: POLYETHYLENE GLYCOL (HEALTHYLAX) 3350 17 GM PACKET PO SCH (10:02)
[2022-04-18] MEDS: FUROSEMIDE INJECTION 100 MG in SODIUM CHLORIDE 90 ML IVPB SCH (10:02)
[2022-04-18] MEDS: APIXABAN 2.5 MG TABLET PO SCH ×2 (10:03→22:40)
[2022-04-18] MEDS: BACITRACIN 15 GM TUBE TOPICAL OINTMENT TP SCH ×2 (10:03→22:57)
[2022-04-18] MEDS: MIDODRINE HCL 5 MG TABLET PO SCH ×2 (10:03→17:59)
[2022-04-18] MEDS: METOPROLOL TARTRATE 25 MG TABLET (FP) PO SCH ×2 (12:41→22:40)
[2022-04-19] MEDS: DOCUSATE SODIUM 100 MG CAPSULE (FP) PO SCH ×3 (06:13→21:50)
[2022-04-19] MEDS: INSULIN SLIDING SCALE (NOVOLOG) 1 VIAL SQ SCH ×4 (06:13→21:58)
[2022-04-19 07:36] LABS: BASO % 1.3 % (0-2.0); EOS % 3.3 % (0-4.5); HEMATOCRIT 24.4 % (32.4-45.2); LYMPH % 28.3 % (8-40); MCH 25.8 pg (25.7-33.7); MCHC 32.7 g/dl (32.0-36.0); MEAN CELL VOLUME 79.2 fl (80-96); MONO % 5.2 % (3.8-10.2); NEUT % 61.9 % (42.8-82.8); PLATELET COUNT 238 10^3/uL (134-434); RBC 3.08 M/mm3 (3.60-5.2); RDW 18.7 % (11.6-15.6); WHITE BLOOD COUNT 4.3 K/mm3 (4.0-10.0)
[2022-04-19 07:57] LABS: ALBUMIN 2.4 g/dl (3.4-5.0); BLOOD UREA NITROGEN 51.5 mg/dL (7-18)
[2022-04-19 08:00] LABS: CREATININE 1.5 mg/dL (0.55-1.3)
[2022-04-19 08:01] LABS: BILIRUBIN,TOTAL 2.3 mg/dL (0.2-1)
[2022-04-19 08:06] LABS: TOT PROT 6.7 g/dl (6.4-8.2)
[2022-04-19] MEDS: APIXABAN 2.5 MG TABLET PO SCH ×2 (10:06→21:50)
[2022-04-19] MEDS: POLYETHYLENE GLYCOL (HEALTHYLAX) 3350 17 GM PACKET PO SCH (10:06)
[2022-04-19] MEDS: MIDODRINE HCL 5 MG TABLET PO SCH ×2 (10:06→17:38)
[2022-04-19] MEDS: BACITRACIN 15 GM TUBE TOPICAL OINTMENT TP SCH ×2 (10:06→21:49)
[2022-04-19] MEDS: FUROSEMIDE INJECTION 100 MG in SODIUM CHLORIDE 90 ML IVPB SCH ×2 (10:37→13:06)
[2022-04-19] MEDS: METOPROLOL TARTRATE 25 MG TABLET (FP) PO SCH ×2 (11:00→21:50)
[2022-04-19] MEDS ORDERED: POTASSIUM CHLORIDE TABS 20 MEQ TABLET.ER (FP) PO ONE (11:26)
[2022-04-19 13:45] LABS: ARTERIAL BLOOD GAS BASE EXCESS 6.5 mmol/L (-2-2); ARTERIAL BLOOD GAS PO2 76.5 mmHg (80-100); ARTERIAL BLOOD GAS pH 7.472 (7.350-7.450)
[2022-04-19 13:47] LABS: ALLENS TEST POSITIVE
[2022-04-19 14:24] LABS: ALBUMIN 2.5 g/dl (3.4-5.0)
[2022-04-19 14:27] LABS: BILIRUBIN,DIRECT 1.4 mg/dL (0.0-0.2)
[2022-04-19 14:29] LABS: BILIRUBIN,TOTAL 2.2 mg/dL (0.2-1); TOT PROT 6.7 g/dl (6.4-8.2)
[2022-04-20] MEDS: FUROSEMIDE INJECTION 100 MG in SODIUM CHLORIDE 90 ML IVPB SCH ×2 (05:00→13:51)
[2022-04-20] MEDS: DOCUSATE SODIUM 100 MG CAPSULE (FP) PO SCH ×3 (06:33→21:40)
[2022-04-20] MEDS: INSULIN SLIDING SCALE (NOVOLOG) 1 VIAL SQ SCH ×4 (06:34→21:48)
[2022-04-20 07:41] LABS: BASO % 0.9 % (0-2.0); EOS % 4.5 % (0-4.5); HEMATOCRIT 25.7 % (32.4-45.2); HEMOGLOBIN 8.3 GM/dL (10.7-15.3); MCH 25.5 pg (25.7-33.7); MCHC 32.1 g/dl (32.0-36.0); MEAN CELL VOLUME 79.4 fl (80-96); MEAN PLT VOLUME 8.9 fl (7.5-11.1); MONO % 5.6 % (3.8-10.2); PLATELET COUNT 223 10^3/uL (134-434); RBC 3.23 M/mm3 (3.60-5.2); RDW 17.8 % (11.6-15.6); WHITE BLOOD COUNT 4.3 K/mm3 (4.0-10.0)
[2022-04-20 07:58] LABS: ALBUMIN 2.6 g/dl (3.4-5.0); BLOOD UREA NITROGEN 48.7 mg/dL (7-18); CALCIUM 8.3 mg/dL (8.5-10.1)
[2022-04-20] MEDS: AMOX TR/POT CLAV 875MG/125MG TABLETS (FP) PO SCH ×2 (08:00→17:56)
[2022-04-20 08:01] LABS: CREATININE 1.5 mg/dL (0.55-1.3)
[2022-04-20 08:03] LABS: BILIRUBIN,TOTAL 2.1 mg/dL (0.2-1); TOT PROT 6.7 g/dl (6.4-8.2)
[2022-04-20] MEDS: APIXABAN 2.5 MG TABLET PO SCH ×2 (10:14→21:40)
[2022-04-20] MEDS: POLYETHYLENE GLYCOL (HEALTHYLAX) 3350 17 GM PACKET PO SCH (10:14)
[2022-04-20] MEDS: MIDODRINE HCL 5 MG TABLET PO SCH ×2 (10:14→17:55)
[2022-04-20] MEDS: BACITRACIN 15 GM TUBE TOPICAL OINTMENT TP SCH ×2 (10:14→21:40)
[2022-04-20] MEDS: METOPROLOL TARTRATE 25 MG TABLET (FP) PO SCH ×2 (13:05→21:40)
[2022-04-21] MEDS: FUROSEMIDE INJECTION 100 MG in SODIUM CHLORIDE 90 ML IVPB SCH ×2 (02:30→14:30)
[2022-04-21] MEDS: INSULIN SLIDING SCALE (NOVOLOG) 1 VIAL SQ SCH ×4 (06:00→22:15)
[2022-04-21] MEDS: DOCUSATE SODIUM 100 MG CAPSULE (FP) PO SCH ×3 (06:00→21:08)
[2022-04-21] MEDS: AMOX TR/POT CLAV 875MG/125MG TABLETS (FP) PO SCH ×2 (10:00→17:15)
[2022-04-21] MEDS: METOPROLOL TARTRATE 25 MG TABLET (FP) PO SCH ×2 (10:46→21:08)
[2022-04-21] MEDS: POLYETHYLENE GLYCOL (HEALTHYLAX) 3350 17 GM PACKET PO SCH (10:46)
[2022-04-21] MEDS: MIDODRINE HCL 5 MG TABLET PO SCH ×2 (10:47→17:16)
[2022-04-21] MEDS: APIXABAN 2.5 MG TABLET PO SCH ×2 (10:47→21:08)
[2022-04-21] MEDS: BACITRACIN 15 GM TUBE TOPICAL OINTMENT TP SCH ×2 (10:47→21:09)
[2022-04-21 15:20] LABS: CALCIUM 8.7 mg/dL (8.5-10.1)
[2022-04-21 15:21] LABS: ALBUMIN 2.7 g/dl (3.4-5.0); BLOOD UREA NITROGEN 47.5 mg/dL (7-18)
[2022-04-21 15:23] LABS: CREATININE 1.7 mg/dL (0.55-1.3)
[2022-04-21 15:25] LABS: BILIRUBIN,TOTAL 1.8 mg/dL (0.2-1); TOT PROT 7.1 g/dl (6.4-8.2)
[2022-04-22 00:22] LABS: EPI CELLS 5 /uL (0-25.1); HYALINE CASTS 1 /uL (0-3.1); PH,URINE 6.5 (5.0-8.0); URINE APPEARANCE CLEAR; URINE BACTERIA 7 /uL (0-1359); URINE BILIRUBIN NEGATIVE (NEGATIVE); URINE COLOR YELLOW; URINE GLUCOSE (UA) NEGATIVE (NEGATIVE); URINE KETONE NEGATIVE (NEGATIVE); URINE LEUK ESTERASE TRACE (NEGATIVE); URINE NITRITE NEGATIVE (NEGATIVE); URINE PROTEIN TRACE (NEGATIVE); URINE RBC 382 /uL (0-23.9); URINE WBC 29 /uL (0-25.8)
[2022-04-22] MEDS: DOCUSATE SODIUM 100 MG CAPSULE (FP) PO SCH ×3 (05:46→22:00)
[2022-04-22] MEDS: INSULIN SLIDING SCALE (NOVOLOG) 1 VIAL SQ SCH ×4 (06:28→22:04)
[2022-04-22] MEDS ORDERED: METOLAZONE 2.5 MG TABLET (FP) PO ONE (08:40)
[2022-04-22] MEDS: FUROSEMIDE INJECTION 100 MG in SODIUM CHLORIDE 90 ML IVPB SCH ×2 (08:59→17:46)
[2022-04-22] MEDS: METOPROLOL TARTRATE 25 MG TABLET (FP) PO SCH ×2 (09:18→22:00)
[2022-04-22] MEDS: POLYETHYLENE GLYCOL (HEALTHYLAX) 3350 17 GM PACKET PO SCH (09:18)
[2022-04-22] MEDS: AMOX TR/POT CLAV 875MG/125MG TABLETS (FP) PO SCH ×2 (09:18→17:46)
[2022-04-22] MEDS: MIDODRINE HCL 5 MG TABLET PO SCH ×2 (09:18→17:46)
[2022-04-22] MEDS: APIXABAN 2.5 MG TABLET PO SCH ×2 (09:18→22:00)
[2022-04-22] MEDS: BACITRACIN 15 GM TUBE TOPICAL OINTMENT TP SCH ×2 (09:19→21:59)
[2022-04-22] MEDS: predniSONE 20 MG TABLET (UD) PO SCH (15:36)
[2022-04-22 18:03] LABS: CALCIUM 8.4 mg/dL (8.5-10.1)
[2022-04-22 18:04] LABS: ALBUMIN 2.6 g/dl (3.4-5.0); BLOOD UREA NITROGEN 50.1 mg/dL (7-18)
[2022-04-22 18:07] LABS: CREATININE 1.8 mg/dL (0.55-1.3)
[2022-04-22 18:08] LABS: BILIRUBIN,TOTAL 1.8 mg/dL (0.2-1); TOT PROT 6.9 g/dl (6.4-8.2)
[2022-04-23] MEDS: FUROSEMIDE INJECTION 100 MG in SODIUM CHLORIDE 90 ML IVPB SCH ×4 (01:00→21:32)
[2022-04-23] MEDS: DOCUSATE SODIUM 100 MG CAPSULE (FP) PO SCH ×3 (05:53→21:32)
[2022-04-23] MEDS: INSULIN SLIDING SCALE (NOVOLOG) 1 VIAL SQ SCH ×4 (06:05→21:41)
[2022-04-23 07:01] LABS: BASO % 0.9 % (0-2.0); EOS % 0.6 % (0-4.5); HEMATOCRIT 24.9 % (32.4-45.2); LYMPH % 27.2 % (8-40); MCHC 32.3 g/dl (32.0-36.0); MEAN CELL VOLUME 77.4 fl (80-96); MEAN PLT VOLUME 9.1 fl (7.5-11.1); MONO % 5.2 % (3.8-10.2); NEUT % 66.1 % (42.8-82.8); PLATELET COUNT 216 10^3/uL (134-434); RBC 3.22 M/mm3 (3.60-5.2); RDW 17.9 % (11.6-15.6); WHITE BLOOD COUNT 3.9 K/mm3 (4.0-10.0)
[2022-04-23 07:32] LABS: CALCIUM 8.7 mg/dL (8.5-10.1)
[2022-04-23 07:34] LABS: MAGNESIUM 1.5 mg/dL (1.8-2.4)
[2022-04-23 07:36] LABS: CREATININE 1.8 mg/dL (0.55-1.3)
[2022-04-23] MEDS ORDERED: POTASSIUM CHLORIDE ORAL LIQUID 20 MEQ/15 ML PO ONE (07:54)
[2022-04-23] MEDS: AMOX TR/POT CLAV 875MG/125MG TABLETS (FP) PO SCH ×2 (08:27→18:02)
[2022-04-23] MEDS: BACITRACIN 15 GM TUBE TOPICAL OINTMENT TP SCH ×2 (09:44→21:32)
[2022-04-23] MEDS: APIXABAN 2.5 MG TABLET PO SCH ×2 (09:45→21:32)
[2022-04-23] MEDS: predniSONE 20 MG TABLET (UD) PO SCH (09:45)
[2022-04-23] MEDS: METOPROLOL TARTRATE 25 MG TABLET (FP) PO SCH ×2 (09:45→21:33)
[2022-04-23] MEDS: POLYETHYLENE GLYCOL (HEALTHYLAX) 3350 17 GM PACKET PO SCH (09:45)
[2022-04-23] MEDS: MIDODRINE HCL 5 MG TABLET PO SCH ×2 (09:45→18:02)
[2022-04-23] MEDS: MAGNESIUM OXIDE 400 MG TABLET (FP) PO SCH ×2 (09:45→21:33)
[2022-04-23] MEDS ORDERED: METOLAZONE 2.5 MG TABLET (FP) PO ONE (11:00)
[2022-04-23 12:43] VITALS: BMI 39.9
[2022-04-23] MEDS ORDERED: MAGNESIUM 1GM/D5W - 1 GM/100 ML IVPB IVPB ONE (13:24)
[2022-04-23 15:30] LABS: CALCIUM 8.6 mg/dL (8.5-10.1)
[2022-04-23 15:31] LABS: BLOOD UREA NITROGEN 54.7 mg/dL (7-18); MAGNESIUM 1.9 mg/dL (1.8-2.4)
[2022-04-23 15:34] LABS: CREATININE 1.9 mg/dL (0.55-1.3)
[2022-04-24] MEDS: DOCUSATE SODIUM 100 MG CAPSULE (FP) PO SCH ×3 (05:45→23:08)
[2022-04-24] MEDS: INSULIN SLIDING SCALE (NOVOLOG) 1 VIAL SQ SCH ×4 (06:04→23:15)
[2022-04-24] MEDS: AMOX TR/POT CLAV 875MG/125MG TABLETS (FP) PO SCH ×2 (08:29→17:36)
[2022-04-24] MEDS: FUROSEMIDE INJECTION 100 MG in SODIUM CHLORIDE 90 ML IVPB SCH ×2 (08:30→15:28)
[2022-04-24] MEDS: MAGNESIUM OXIDE 400 MG TABLET (FP) PO SCH ×2 (10:36→23:07)
[2022-04-24] MEDS: BACITRACIN 15 GM TUBE TOPICAL OINTMENT TP SCH ×2 (10:36→23:17)
[2022-04-24] MEDS: MIDODRINE HCL 5 MG TABLET PO SCH ×2 (10:36→17:36)
[2022-04-24] MEDS: METOPROLOL TARTRATE 25 MG TABLET (FP) PO SCH ×2 (10:36→23:10)
[2022-04-24] MEDS: predniSONE 20 MG TABLET (UD) PO SCH (10:36)
[2022-04-24] MEDS: APIXABAN 2.5 MG TABLET PO SCH ×2 (10:36→23:08)
[2022-04-24] MEDS: POLYETHYLENE GLYCOL (HEALTHYLAX) 3350 17 GM PACKET PO SCH (10:36)
[2022-04-24] MEDS ORDERED: METOLAZONE 5 MG TABLET PO ONE (14:00)
[2022-04-24 16:03] LABS: CALCIUM 8.9 mg/dL (8.5-10.1)
[2022-04-24 16:05] LABS: MAGNESIUM 1.8 mg/dL (1.8-2.4)
[2022-04-24 16:11] LABS: SPECKLED PATTERN >1:1280 (.)
[2022-04-25] MEDS: INSULIN SLIDING SCALE (NOVOLOG) 1 VIAL SQ SCH ×4 (06:06→21:37)
[2022-04-25] MEDS: DOCUSATE SODIUM 100 MG CAPSULE (FP) PO SCH ×3 (06:06→21:36)
[2022-04-25] MEDS: FUROSEMIDE INJECTION 100 MG in SODIUM CHLORIDE 90 ML IVPB SCH ×3 (06:06→17:24)
[2022-04-25] MEDS: AMOX TR/POT CLAV 875MG/125MG TABLETS (FP) PO SCH ×2 (07:58→16:48)
[2022-04-25] MEDS: APIXABAN 2.5 MG TABLET PO SCH ×2 (09:43→21:36)
[2022-04-25] MEDS: POLYETHYLENE GLYCOL (HEALTHYLAX) 3350 17 GM PACKET PO SCH (09:44)
[2022-04-25] MEDS: MAGNESIUM OXIDE 400 MG TABLET (FP) PO SCH ×2 (09:44→21:36)
[2022-04-25] MEDS: predniSONE 20 MG TABLET (UD) PO SCH (09:44)
[2022-04-25] MEDS: METOPROLOL TARTRATE 25 MG TABLET (FP) PO SCH ×2 (09:44→21:36)
[2022-04-25] MEDS: MIDODRINE HCL 5 MG TABLET PO SCH ×2 (09:44→17:05)
[2022-04-25] MEDS: BACITRACIN 15 GM TUBE TOPICAL OINTMENT TP SCH ×2 (09:45→21:37)
[2022-04-25 11:34] LABS: BASO % 0.7 % (0-2.0); HEMATOCRIT 27.2 % (32.4-45.2); HEMOGLOBIN 8.8 GM/dL (10.7-15.3); LYMPH % 17.2 % (8-40); MCH 25.2 pg (25.7-33.7); MCHC 32.3 g/dl (32.0-36.0); MEAN CELL VOLUME 78.1 fl (80-96); MEAN PLT VOLUME 9.2 fl (7.5-11.1); MONO % 4.3 % (3.8-10.2); NEUT % 75.8 % (42.8-82.8); PLATELET COUNT 252 10^3/uL (134-434); RBC 3.48 M/mm3 (3.60-5.2); RDW 18.2 % (11.6-15.6); WHITE BLOOD COUNT 7.3 K/mm3 (4.0-10.0)
[2022-04-25 12:04] LABS: CALCIUM 9.1 mg/dL (8.5-10.1)
[2022-04-25 12:05] LABS: ALBUMIN 2.7 g/dl (3.4-5.0); BLOOD UREA NITROGEN 61.6 mg/dL (7-18)
[2022-04-25 12:08] LABS: CREATININE 1.9 mg/dL (0.55-1.3)
[2022-04-25 12:10] LABS: BILIRUBIN,TOTAL 1.6 mg/dL (0.2-1)
[2022-04-25] MEDS ORDERED: POTASSIUM CHLORIDE TABS 20 MEQ TABLET.ER (FP) PO ONE (15:00)
[2022-04-26] MEDS: FUROSEMIDE INJECTION 100 MG in SODIUM CHLORIDE 90 ML IVPB SCH ×3 (06:22→22:23)
[2022-04-26] MEDS: INSULIN SLIDING SCALE (NOVOLOG) 1 VIAL SQ SCH ×4 (06:22→22:20)
[2022-04-26] MEDS: DOCUSATE SODIUM 100 MG CAPSULE (FP) PO SCH ×3 (06:23→22:12)
[2022-04-26] MEDS: AMOX TR/POT CLAV 875MG/125MG TABLETS (FP) PO SCH ×2 (07:48→17:41)
[2022-04-26] MEDS: POLYETHYLENE GLYCOL (HEALTHYLAX) 3350 17 GM PACKET PO SCH (10:01)
[2022-04-26] MEDS: METOPROLOL TARTRATE 25 MG TABLET (FP) PO SCH ×2 (10:01→22:13)
[2022-04-26] MEDS: APIXABAN 2.5 MG TABLET PO SCH ×2 (10:01→22:12)
[2022-04-26] MEDS: MIDODRINE HCL 5 MG TABLET PO SCH ×2 (10:02→17:41)
[2022-04-26] MEDS: BACITRACIN 15 GM TUBE TOPICAL OINTMENT TP SCH ×2 (10:02→22:16)
[2022-04-26] MEDS: predniSONE 20 MG TABLET (UD) PO SCH (10:02)
[2022-04-27] MEDS: FUROSEMIDE INJECTION 100 MG in SODIUM CHLORIDE 90 ML IVPB SCH ×3 (06:23→17:33)
[2022-04-27] MEDS: predniSONE 20 MG TABLET (UD) PO SCH ×2 (06:23→10:41)
[2022-04-27] MEDS: INSULIN SLIDING SCALE (NOVOLOG) 1 VIAL SQ SCH ×4 (06:24→21:50)
[2022-04-27] MEDS: DOCUSATE SODIUM 100 MG CAPSULE (FP) PO SCH ×3 (06:24→21:35)
[2022-04-27 08:44] LABS: BASO % 0.5 % (0-2.0); EOS % 3.6 % (0-4.5); HEMATOCRIT 27.4 % (32.4-45.2); HEMOGLOBIN 8.9 GM/dL (10.7-15.3); LYMPH % 23.5 % (8-40); MCH 25.4 pg (25.7-33.7); MCHC 32.5 g/dl (32.0-36.0); MEAN CELL VOLUME 78.2 fl (80-96); MEAN PLT VOLUME 9.1 fl (7.5-11.1); MONO % 4.6 % (3.8-10.2); NEUT % 67.8 % (42.8-82.8); PLATELET COUNT 250 10^3/uL (134-434); RDW 18.7 % (11.6-15.6); WHITE BLOOD COUNT 7.2 K/mm3 (4.0-10.0)
[2022-04-27 09:11] LABS: ALBUMIN 2.9 g/dl (3.4-5.0); BLOOD UREA NITROGEN 75.7 mg/dL (7-18); CALCIUM 9.1 mg/dL (8.5-10.1)
[2022-04-27 09:14] LABS: BILIRUBIN,TOTAL 1.4 mg/dL (0.2-1); CREATININE 1.7 mg/dL (0.55-1.3); TOT PROT 7.2 g/dl (6.4-8.2)
[2022-04-27] MEDS: POLYETHYLENE GLYCOL (HEALTHYLAX) 3350 17 GM PACKET PO SCH (10:41)
[2022-04-27] MEDS: COLCHICINE 0.6 MG TAB PO SCH (10:41)
[2022-04-27] MEDS: BACITRACIN 15 GM TUBE TOPICAL OINTMENT TP SCH ×2 (10:42→21:33)
[2022-04-27] MEDS: METOPROLOL TARTRATE 25 MG TABLET (FP) PO SCH ×2 (10:42→21:31)
[2022-04-27] MEDS: APIXABAN 2.5 MG TABLET PO SCH ×2 (10:42→21:32)
[2022-04-27] MEDS: MIDODRINE HCL 5 MG TABLET PO SCH ×2 (10:42→18:20)
[2022-04-27] MEDS ORDERED: POTASSIUM CHLORIDE TABS 20 MEQ TABLET.ER (FP) PO ONE (15:00)
[2022-04-28] MEDS: FUROSEMIDE INJECTION 100 MG in SODIUM CHLORIDE 90 ML IVPB SCH ×5 (01:45→23:55)
[2022-04-28] MEDS ORDERED: MELATONIN 5 MG TABLETS PO ONE (01:46)
[2022-04-28] MEDS: DOCUSATE SODIUM 100 MG CAPSULE (FP) PO SCH ×3 (06:48→22:15)
[2022-04-28] MEDS: INSULIN SLIDING SCALE (NOVOLOG) 1 VIAL SQ SCH ×4 (06:54→22:13)
[2022-04-28 07:47] LABS: ALBUMIN 2.8 g/dl (3.4-5.0); BLOOD UREA NITROGEN 88.3 mg/dL (7-18); CALCIUM 8.8 mg/dL (8.5-10.1); MAGNESIUM 1.8 mg/dL (1.8-2.4)
[2022-04-28 07:51] LABS: BILIRUBIN,TOTAL 1.2 mg/dL (0.2-1)
[2022-04-28] MEDS: METOPROLOL TARTRATE 25 MG TABLET (FP) PO SCH ×2 (11:01→22:14)
[2022-04-28] MEDS: predniSONE 20 MG TABLET (UD) PO SCH (11:01)
[2022-04-28] MEDS: POLYETHYLENE GLYCOL (HEALTHYLAX) 3350 17 GM PACKET PO SCH (11:01)
[2022-04-28] MEDS: MIDODRINE HCL 5 MG TABLET PO SCH ×2 (11:01→17:22)
[2022-04-28] MEDS: COLCHICINE 0.6 MG TAB PO SCH (11:02)
[2022-04-28] MEDS: BACITRACIN 15 GM TUBE TOPICAL OINTMENT TP SCH ×2 (11:02→22:15)
[2022-04-28] MEDS: APIXABAN 2.5 MG TABLET PO SCH ×2 (11:02→22:15)
[2022-04-29] MEDS: DOCUSATE SODIUM 100 MG CAPSULE (FP) PO SCH ×3 (05:38→22:16)
[2022-04-29] MEDS: INSULIN SLIDING SCALE (NOVOLOG) 1 VIAL SQ SCH ×4 (06:18→22:16)
[2022-04-29 07:51] LABS: CALCIUM 9.1 mg/dL (8.5-10.1)
[2022-04-29 07:54] LABS: CREATININE 1.8 mg/dL (0.55-1.3)
[2022-04-29 07:56] LABS: TOT PROT 7.4 g/dl (6.4-8.2)
[2022-04-29 07:59] LABS: BILIRUBIN,TOTAL 1.3 mg/dL (0.2-1)
[2022-04-29] MEDS ORDERED: predniSONE 2.5 MG TABLET PO SCH (10:00)
[2022-04-29] MEDS: BACITRACIN 15 GM TUBE TOPICAL OINTMENT TP SCH ×2 (10:48→22:16)
[2022-04-29] MEDS: METOPROLOL TARTRATE 25 MG TABLET (FP) PO SCH ×2 (10:49→22:13)
[2022-04-29] MEDS: COLCHICINE 0.6 MG TAB PO SCH (10:49)
[2022-04-29] MEDS: POLYETHYLENE GLYCOL (HEALTHYLAX) 3350 17 GM PACKET PO SCH (10:49)
[2022-04-29] MEDS: APIXABAN 5 MG TABLET PO SCH ×2 (10:49→22:15)
[2022-04-29] MEDS: MIDODRINE HCL 5 MG TABLET PO SCH ×2 (10:49→17:46)
[2022-04-29] MEDS ORDERED: POTASSIUM CHLORIDE TABS 20 MEQ TABLET.ER (FP) PO ONE (12:22)
[2022-04-29] MEDS: predniSONE 5 MG TABLET (UD) PO SCH (12:24)
[2022-04-29] MEDS: FUROSEMIDE INJECTION 100 MG in SODIUM CHLORIDE 90 ML IVPB SCH (13:52)
[2022-04-30] MEDS: FUROSEMIDE INJECTION 100 MG in SODIUM CHLORIDE 90 ML IVPB SCH (01:25)
[2022-04-30] MEDS: DOCUSATE SODIUM 100 MG CAPSULE (FP) PO SCH ×3 (06:53→21:33)
[2022-04-30] MEDS: INSULIN SLIDING SCALE (NOVOLOG) 1 VIAL SQ SCH ×4 (06:54→21:33)
[2022-04-30 07:33] LABS: BLOOD UREA NITROGEN 95.3 mg/dL (7-18); CALCIUM 8.7 mg/dL (8.5-10.1); MAGNESIUM 1.7 mg/dL (1.8-2.4)
[2022-04-30 07:36] LABS: CREATININE 1.8 mg/dL (0.55-1.3); PHOSPHOROUS 3.4 mg/dL (2.5-4.9)
[2022-04-30 07:38] LABS: BILIRUBIN,TOTAL 1.3 mg/dL (0.2-1); TOT PROT 7.2 g/dl (6.4-8.2)
[2022-04-30] MEDS: MIDODRINE HCL 5 MG TABLET PO SCH ×2 (09:46→17:21)
[2022-04-30] MEDS: METOPROLOL TARTRATE 25 MG TABLET (FP) PO SCH ×2 (09:46→21:30)
[2022-04-30] MEDS: APIXABAN 5 MG TABLET PO SCH ×2 (09:47→21:30)
[2022-04-30] MEDS: BACITRACIN 15 GM TUBE TOPICAL OINTMENT TP SCH ×2 (09:47→21:33)
[2022-04-30] MEDS: COLCHICINE 0.6 MG TAB PO SCH (09:47)
[2022-04-30] MEDS: predniSONE 5 MG TABLET (UD) PO SCH (09:47)
[2022-04-30] MEDS: POLYETHYLENE GLYCOL (HEALTHYLAX) 3350 17 GM PACKET PO SCH (09:53)
[2022-04-30] MEDS ORDERED: MAGNESIUM 2GM/50ML STERILE WATER IVPB IVPB ONE (12:00)
[2022-05-01] MEDS: INSULIN SLIDING SCALE (NOVOLOG) 1 VIAL SQ SCH ×4 (06:26→21:49)
[2022-05-01] MEDS: DOCUSATE SODIUM 100 MG CAPSULE (FP) PO SCH ×4 (06:26→22:00)
[2022-05-01 07:49] LABS: BLOOD UREA NITROGEN 82.7 mg/dL (7-18); CALCIUM 8.6 mg/dL (8.5-10.1); MAGNESIUM 2.2 mg/dL (1.8-2.4)
[2022-05-01 07:52] LABS: CREATININE 1.5 mg/dL (0.55-1.3)
[2022-05-01] MEDS: predniSONE 5 MG TABLET (UD) PO SCH (09:54)
[2022-05-01] MEDS: APIXABAN 5 MG TABLET PO SCH ×2 (09:54→21:51)
[2022-05-01] MEDS: BACITRACIN 15 GM TUBE TOPICAL OINTMENT TP SCH ×2 (09:54→21:53)
[2022-05-01] MEDS: MIDODRINE HCL 5 MG TABLET PO SCH ×2 (09:54→17:28)
[2022-05-01] MEDS: COLCHICINE 0.6 MG TAB PO SCH (09:55)
[2022-05-01] MEDS: POLYETHYLENE GLYCOL (HEALTHYLAX) 3350 17 GM PACKET PO SCH (09:55)
[2022-05-01] MEDS: METOPROLOL TARTRATE 25 MG TABLET (FP) PO SCH ×2 (09:55→21:50)
[2022-05-01] MEDS ORDERED: predniSONE 5 MG TABLET (UD) PO SCH (12:49)
[2022-05-01] MEDS: TORSEMIDE 20 MG TABLET (FP) PO SCH (14:06)
[2022-05-02] MEDS: DOCUSATE SODIUM 100 MG CAPSULE (FP) PO SCH ×2 (07:03→13:57)
[2022-05-02] MEDS: INSULIN SLIDING SCALE (NOVOLOG) 1 VIAL SQ SCH ×3 (07:13→17:05)
[2022-05-02] MEDS: TORSEMIDE 20 MG TABLET (FP) PO SCH ×2 (07:13→13:57)
[2022-05-02] MEDS: APIXABAN 5 MG TABLET PO SCH (09:22)
[2022-05-02] MEDS: BACITRACIN 15 GM TUBE TOPICAL OINTMENT TP SCH (09:22)
[2022-05-02] MEDS: COLCHICINE 0.6 MG TAB PO SCH (09:23)
[2022-05-02] MEDS: METOPROLOL TARTRATE 25 MG TABLET (FP) PO SCH (09:23)
[2022-05-02] MEDS: MIDODRINE HCL 5 MG TABLET PO SCH ×2 (09:23→17:05)
[2022-05-02] MEDS: POLYETHYLENE GLYCOL (HEALTHYLAX) 3350 17 GM PACKET PO SCH (09:24)
[2022-05-02 14:29] VITALS: BP 99/57; PULSE 68; RESP 20; TEMP 98.4
== END 2022-05-02 17:28 | disposition home or self-care (01) | DRG 291 ==
LOC: JER 04:26 → JERBED 06:08 → J4W 08:33
PROVIDERS: ADMIT Internal Medicine; ATTEND Internal Medicine
DX: I13.0 Hypertensive heart and chronic kidney disease with heart failure and stage 1 through stage 4 chronic kidney disease, or unspecified chronic kidney disease (principal); I50.43 Acute on chronic combined systolic (congestive) and diastolic (congestive) heart failure; J96.21 Acute and chronic respiratory failure with hypoxia; Z68.41 Body mass index [BMI] 40.0-44.9, adult; M31.0 Hypersensitivity angiitis; E66.01 Morbid (severe) obesity due to excess calories; I77.6 Arteritis, unspecified; I25.10 Atherosclerotic heart disease of native coronary artery without angina pectoris; N18.9 Chronic kidney disease, unspecified; E11.9 Type 2 diabetes mellitus without complications; E78.5 Hyperlipidemia, unspecified; Z98.61 Coronary angioplasty status; I48.91 Unspecified atrial fibrillation
CPT/HCPCS: 0241U-QW; 36415; 36600; 71045-TC-FY; 76700-TC; 76775-TC; 80048; 80053; 80076; 81003; 82784; 82803; 82962; 83735; 84100; 84155; 84165; 84484; 85025; 85610; 85651; 85730; 86038; 86160; 86225; 86334; 86431; 86850; 86900; 86901; 87086; 93005; 93010; 93306-TC; 94660; 97116-GP; 97162-GP; 99291

== ENCOUNTER 2022-09-06 12:10 | Inpatient (IN) | payer OTHER ==
[2022-09-06 12:17] VITALS: BMI 36.1
[2022-09-06] MEDS ORDERED: ALBUTEROL SO4 2.5/IPRATROPIUM 0.5 INH SOL 3 ML VIAL.NEB. NEB ONE ×2 (12:58→13:17)
[2022-09-06 13:17] LABS: BASO % 0.3 % (0-2.0); EOS % 0.2 % (0-4.5); HEMATOCRIT 32.1 % (32.4-45.2); HEMOGLOBIN 10.1 GM/dL (10.7-15.3); LYMPH % 9.1 % (8-40); MCHC 31.5 g/dl (32.0-36.0); MEAN CELL VOLUME 79.4 fl (80-96); MONO % 3.4 % (3.8-10.2); PLATELET COUNT 260 10^3/uL (134-434); RBC 4.05 M/mm3 (3.60-5.2); RDW 18.4 % (11.6-15.6); WHITE BLOOD COUNT 5.5 K/mm3 (4.0-10.0)
[2022-09-06 13:23] LABS: INR 1.97 (0.83-1.09); PROTHROMBIN TIME (PATIENT) 22.8 SEC (9.7-13.0)
[2022-09-06 13:34] LABS: BLOOD UREA NITROGEN 31.8 mg/dL (7-18); CALCIUM 9.1 mg/dL (8.5-10.1)
[2022-09-06 13:38] LABS: CREATININE 1.6 mg/dL (0.55-1.3)
[2022-09-06 13:39] LABS: TOT PROT 8.1 g/dl (6.4-8.2)
[2022-09-06 13:57] LABS: ERYTHROCYTE SEDIMENTATION RATE 100 mm/hr (0-30)
[2022-09-06] MEDS ORDERED: CEFTRIAXONE 1 GM in DEXTROSE 5%-WATER - 100 ML IVPB ONE (15:44)
[2022-09-06] MEDS ORDERED: AZITHROMYCIN IVPB 500 MG in DEXTROSE 5%-WATER - 250 ML IVPB ONE (15:44)
[2022-09-06] MEDS ORDERED: CEFTRIAXONE 1 GM/50 ML BAG ONE (15:59)
[2022-09-06] MEDS ORDERED: AZITHROMYCIN IVPB 500 MG/250 ML BAG IVPB ONE (16:45)
[2022-09-07] MEDS ORDERED: ENOXAPARIN NA (PORCINE) 100 MG/1 ML DISP.SYRIN SQ ONE ×2 (03:50→22:32)
[2022-09-07] MEDS: ENOXAPARIN NA (PORCINE) 100 MG/1 ML DISP.SYRIN SQ SCH ×3 (03:54→22:34)
[2022-09-07] MEDS ORDERED: TORSEMIDE 20 MG TABLET (FP) PO SCH (06:00)
[2022-09-07] MEDS ORDERED: DOCUSATE SODIUM 100 MG CAPSULE (FP) PO ONE (06:12)
[2022-09-07] MEDS: DOCUSATE SODIUM 100 MG CAPSULE (FP) PO SCH ×3 (06:20→22:31)
[2022-09-07] MEDS ORDERED: FUROSEMIDE 40 MG/4 ML INJECTABLE VIAL IVPUSH SCH (10:00)
[2022-09-07] MEDS ORDERED: METOPROLOL TARTRATE 25 MG TABLET (FP) ONE (10:26)
[2022-09-07] MEDS ORDERED: ENOXAPARIN NA (PORCINE) 40 MG/0.4 ML DISP.SYRIN SQ ONE (10:27)
[2022-09-07] MEDS ORDERED: AZITHROMYCIN 250 MG TABLET ONE (10:27)
[2022-09-07] MEDS ORDERED: COLCHICINE 0.6 MG TAB ONE (10:27)
[2022-09-07] MEDS ORDERED: CEFTRIAXONE 1 GM/50 ML BAG ONE (10:28)
[2022-09-07] MEDS ORDERED: FUROSEMIDE 40 MG/4 ML INJECTABLE VIAL ONE ×2 (10:28→12:02)
[2022-09-07] MEDS: INSULIN SLIDING SCALE (NOVOLOG) 1 VIAL SQ SCH ×3 (10:48→22:31)
[2022-09-07] MEDS: predniSONE 5 MG TABLET (UD) PO SCH (10:49)
[2022-09-07] MEDS: COLCHICINE 0.6 MG TAB PO SCH (10:49)
[2022-09-07] MEDS: METOPROLOL TARTRATE 25 MG TABLET (FP) PO SCH (10:50)
[2022-09-07] MEDS: MIDODRINE HCL 5 MG TABLET PO SCH ×2 (10:51→22:31)
[2022-09-07] MEDS: CEFTRIAXONE 1 GM in DEXTROSE 5%-WATER - 50 ML IVPB SCH (10:51)
[2022-09-07 11:41] LABS: BASO % 0.2 % (0-2.0); HEMATOCRIT 31.5 % (32.4-45.2); HEMOGLOBIN 9.8 GM/dL (10.7-15.3); LYMPH % 7.5 % (8-40); MCHC 31.2 g/dl (32.0-36.0); MEAN CELL VOLUME 80.2 fl (80-96); MEAN PLT VOLUME 8.4 fl (7.5-11.1); MONO % 4.9 % (3.8-10.2); NEUT % 87.4 % (42.8-82.8); PLATELET COUNT 226 10^3/uL (134-434); RBC 3.93 M/mm3 (3.60-5.2); RDW 18.4 % (11.6-15.6); WHITE BLOOD COUNT 6.4 K/mm3 (4.0-10.0)
[2022-09-07] MEDS ORDERED: INSULIN REGULAR HUMAN 100 UNITS/ML *VIAL ONE (12:02)
[2022-09-07 12:04] LABS: CALCIUM 9.3 mg/dL (8.5-10.1)
[2022-09-07 12:05] LABS: BLOOD UREA NITROGEN 49.7 mg/dL (7-18)
[2022-09-07 12:09] LABS: BILIRUBIN,TOTAL 0.9 mg/dL (0.2-1); CREATININE 2.1 mg/dL (0.55-1.3)
[2022-09-07 12:10] LABS: TOT PROT 7.9 g/dl (6.4-8.2)
[2022-09-07 21:24] LABS: EPI CELLS 12 /uL (0-25.1); HYALINE CASTS 10 /uL (0-3.1); PH,URINE 5.5 (5.0-8.0); URINE APPEARANCE CLEAR; URINE BACTERIA 7 /uL (0-1359); URINE BILIRUBIN NEGATIVE (NEGATIVE); URINE COLOR YELLOW; URINE GLUCOSE (UA) NEGATIVE (NEGATIVE); URINE KETONE NEGATIVE (NEGATIVE); URINE LEUK ESTERASE NEGATIVE (NEGATIVE); URINE NITRITE NEGATIVE (NEGATIVE); URINE PROTEIN 2+ (NEGATIVE); URINE RBC 76 /uL (0-23.9); URINE UROBILINOGEN 0.2 mg/dL (0.2-1.0); URINE WBC 34 /uL (0-25.8)
[2022-09-07] MEDS: AZITHROMYCIN IVPB 250 MG in DEXTROSE 5%-WATER - 250 ML IVPB SCH (22:30)
[2022-09-08] MEDS ORDERED: DOCUSATE SODIUM 100 MG CAPSULE (FP) PO ONE (08:15)
[2022-09-08] MEDS ORDERED: FUROSEMIDE 40 MG/4 ML INJECTABLE VIAL ONE (08:15)
[2022-09-08 08:21] LABS: CALCIUM 9.5 mg/dL (8.5-10.1)
[2022-09-08 08:22] LABS: BLOOD UREA NITROGEN 66.6 mg/dL (7-18)
[2022-09-08 08:24] LABS: CREATININE 2.1 mg/dL (0.55-1.3)
[2022-09-08] MEDS: DOCUSATE SODIUM 100 MG CAPSULE (FP) PO SCH ×3 (08:25→21:40)
[2022-09-08] MEDS: FUROSEMIDE 40 MG/4 ML INJECTABLE VIAL IVPUSH SCH ×2 (08:25→14:39)
[2022-09-08 08:26] LABS: BILIRUBIN,TOTAL 0.6 mg/dL (0.2-1); TOT PROT 7.7 g/dl (6.4-8.2)
[2022-09-08 08:44] LABS: BASO % 0.4 % (0-2.0); HEMATOCRIT 35.5 % (32.4-45.2); HEMOGLOBIN 10.7 GM/dL (10.7-15.3); LYMPH % 11.5 % (8-40); MCH 24.3 pg (25.7-33.7); MCHC 30.2 g/dl (32.0-36.0); MEAN CELL VOLUME 80.4 fl (80-96); MEAN PLT VOLUME 8.4 fl (7.5-11.1); NEUT % 78.1 % (42.8-82.8); PLATELET COUNT 226 10^3/uL (134-434); RBC 4.42 M/mm3 (3.60-5.2); RDW 18.8 % (11.6-15.6)
[2022-09-08 08:49] LABS: WHITE BLOOD COUNT 9.3 K/mm3 (4.0-10.0)
[2022-09-08] MEDS ORDERED: AZITHROMYCIN 250 MG TABLET ONE (09:07)
[2022-09-08] MEDS ORDERED: ENOXAPARIN NA (PORCINE) 100 MG/1 ML DISP.SYRIN SQ ONE (09:07)
[2022-09-08] MEDS ORDERED: COLCHICINE 0.6 MG TAB ONE (09:07)
[2022-09-08] MEDS ORDERED: METOPROLOL TARTRATE 25 MG TABLET (FP) ONE (09:07)
[2022-09-08] MEDS ORDERED: CEFTRIAXONE 1 GM/50 ML BAG ONE (09:30)
[2022-09-08] MEDS ORDERED: AZITHROMYCIN IVPB 500 MG/250 ML BAG IVPB ONE (09:31)
[2022-09-08] MEDS: predniSONE 5 MG TABLET (UD) PO SCH (09:43)
[2022-09-08] MEDS: CEFTRIAXONE 1 GM in DEXTROSE 5%-WATER - 50 ML IVPB SCH (09:43)
[2022-09-08] MEDS: ENOXAPARIN NA (PORCINE) 100 MG/1 ML DISP.SYRIN SQ SCH ×2 (09:43→21:40)
[2022-09-08] MEDS: MIDODRINE HCL 5 MG TABLET PO SCH ×2 (09:43→18:03)
[2022-09-08] MEDS: COLCHICINE 0.6 MG TAB PO SCH (09:43)
[2022-09-08] MEDS: METOPROLOL TARTRATE 25 MG TABLET (FP) PO SCH (09:43)
[2022-09-08] MEDS: AZITHROMYCIN IVPB 250 MG in DEXTROSE 5%-WATER - 250 ML IVPB SCH (10:04)
[2022-09-08] MEDS: INSULIN SLIDING SCALE (NOVOLOG) 1 VIAL SQ SCH ×4 (16:37→21:41)
[2022-09-08] MEDS: ALBUTEROL SO4 2.5/IPRATROPIUM 0.5 INH SOL 3 ML VIAL.NEB. NEB PRN (19:40)
[2022-09-09] MEDS: DOCUSATE SODIUM 100 MG CAPSULE (FP) PO SCH ×3 (06:19→21:40)
[2022-09-09] MEDS: FUROSEMIDE 40 MG/4 ML INJECTABLE VIAL IVPUSH SCH ×2 (06:19→13:56)
[2022-09-09] MEDS: INSULIN SLIDING SCALE (NOVOLOG) 1 VIAL SQ SCH ×4 (06:34→21:41)
[2022-09-09] MEDS: CEFTRIAXONE 1 GM in DEXTROSE 5%-WATER - 50 ML IVPB SCH (09:37)
[2022-09-09] MEDS: predniSONE 5 MG TABLET (UD) PO SCH (09:38)
[2022-09-09] MEDS: ENOXAPARIN NA (PORCINE) 100 MG/1 ML DISP.SYRIN SQ SCH ×2 (09:38→21:40)
[2022-09-09] MEDS: COLCHICINE 0.6 MG TAB PO SCH (09:38)
[2022-09-09] MEDS: AZITHROMYCIN IVPB 250 MG in DEXTROSE 5%-WATER - 250 ML IVPB SCH (09:38)
[2022-09-09] MEDS: METOPROLOL TARTRATE 25 MG TABLET (FP) PO SCH (09:38)
[2022-09-09] MEDS: MIDODRINE HCL 5 MG TABLET PO SCH ×2 (09:38→17:19)
[2022-09-10] MEDS: INSULIN SLIDING SCALE (NOVOLOG) 1 VIAL SQ SCH ×4 (06:06→21:02)
[2022-09-10] MEDS: DOCUSATE SODIUM 100 MG CAPSULE (FP) PO SCH ×3 (06:06→21:02)
[2022-09-10] MEDS: FUROSEMIDE 40 MG/4 ML INJECTABLE VIAL IVPUSH SCH ×2 (06:06→13:31)
[2022-09-10 07:53] LABS: BASO % 0.5 % (0-2.0); EOS % 1.5 % (0-4.5); HEMATOCRIT 34.9 % (32.4-45.2); HEMOGLOBIN 10.6 GM/dL (10.7-15.3); LYMPH % 28.6 % (8-40); MCH 24.2 pg (25.7-33.7); MCHC 30.3 g/dl (32.0-36.0); MEAN CELL VOLUME 79.8 fl (80-96); MEAN PLT VOLUME 8.7 fl (7.5-11.1); MONO % 4.7 % (3.8-10.2); NEUT % 64.7 % (42.8-82.8); PLATELET COUNT 225 10^3/uL (134-434); RBC 4.38 M/mm3 (3.60-5.2); RDW 18.2 % (11.6-15.6); WHITE BLOOD COUNT 4.8 K/mm3 (4.0-10.0)
[2022-09-10 08:20] LABS: CALCIUM 8.9 mg/dL (8.5-10.1)
[2022-09-10 08:21] LABS: ALBUMIN 2.6 g/dl (3.4-5.0)
[2022-09-10 08:24] LABS: CREATININE 1.4 mg/dL (0.55-1.3); PHOSPHOROUS 2.6 mg/dL (2.5-4.9)
[2022-09-10 08:25] LABS: BILIRUBIN,TOTAL 0.6 mg/dL (0.2-1); TOT PROT 6.8 g/dl (6.4-8.2)
[2022-09-10] MEDS: CEFTRIAXONE 1 GM in DEXTROSE 5%-WATER - 50 ML IVPB SCH (09:09)
[2022-09-10] MEDS: COLCHICINE 0.6 MG TAB PO SCH (09:11)
[2022-09-10] MEDS: MIDODRINE HCL 5 MG TABLET PO SCH ×2 (09:12→17:01)
[2022-09-10] MEDS: predniSONE 5 MG TABLET (UD) PO SCH (09:12)
[2022-09-10] MEDS: METOPROLOL TARTRATE 25 MG TABLET (FP) PO SCH (09:12)
[2022-09-10] MEDS: AZITHROMYCIN IVPB 250 MG in DEXTROSE 5%-WATER - 250 ML IVPB SCH (09:49)
[2022-09-10] MEDS: ENOXAPARIN NA (PORCINE) 100 MG/1 ML DISP.SYRIN SQ SCH ×2 (09:49→21:02)
[2022-09-10] MEDS: ALBUTEROL SO4 2.5/IPRATROPIUM 0.5 INH SOL 3 ML VIAL.NEB. NEB PRN ×2 (11:28→19:45)
[2022-09-11] MEDS: FUROSEMIDE 40 MG/4 ML INJECTABLE VIAL IVPUSH SCH ×2 (05:35→13:14)
[2022-09-11] MEDS: DOCUSATE SODIUM 100 MG CAPSULE (FP) PO SCH ×3 (05:35→21:03)
[2022-09-11] MEDS: INSULIN SLIDING SCALE (NOVOLOG) 1 VIAL SQ SCH ×4 (06:30→21:03)
[2022-09-11] MEDS: ENOXAPARIN NA (PORCINE) 100 MG/1 ML DISP.SYRIN SQ SCH ×2 (09:56→21:02)
[2022-09-11] MEDS: CEFTRIAXONE 1 GM in DEXTROSE 5%-WATER - 50 ML IVPB SCH (09:56)
[2022-09-11] MEDS: predniSONE 5 MG TABLET (UD) PO SCH (09:57)
[2022-09-11] MEDS: COLCHICINE 0.6 MG TAB PO SCH (09:57)
[2022-09-11] MEDS: AZITHROMYCIN IVPB 250 MG in DEXTROSE 5%-WATER - 250 ML IVPB SCH (09:58)
[2022-09-11] MEDS: MIDODRINE HCL 5 MG TABLET PO SCH ×2 (09:58→17:47)
[2022-09-11] MEDS: METOPROLOL TARTRATE 25 MG TABLET (FP) PO SCH (09:58)
[2022-09-11 10:28] LABS: BASO % 0.5 % (0-2.0); EOS % 2.4 % (0-4.5); HEMATOCRIT 33.5 % (32.4-45.2); HEMOGLOBIN 10.3 GM/dL (10.7-15.3); LYMPH % 28.7 % (8-40); MCH 24.6 pg (25.7-33.7); MCHC 30.7 g/dl (32.0-36.0); MEAN CELL VOLUME 80.1 fl (80-96); MEAN PLT VOLUME 8.9 fl (7.5-11.1); MONO % 4.7 % (3.8-10.2); NEUT % 63.7 % (42.8-82.8); PLATELET COUNT 207 10^3/uL (134-434); RBC 4.18 M/mm3 (3.60-5.2); RDW 18.3 % (11.6-15.6); WHITE BLOOD COUNT 3.8 K/mm3 (4.0-10.0)
[2022-09-11 10:57] LABS: CALCIUM 8.8 mg/dL (8.5-10.1)
[2022-09-11 10:58] LABS: BLOOD UREA NITROGEN 56.4 mg/dL (7-18)
[2022-09-11 11:01] LABS: CREATININE 1.3 mg/dL (0.55-1.3)
[2022-09-11] MEDS: ALBUTEROL SO4 2.5/IPRATROPIUM 0.5 INH SOL 3 ML VIAL.NEB. NEB PRN (20:51)
[2022-09-12] MEDS: ALBUTEROL SO4 2.5/IPRATROPIUM 0.5 INH SOL 3 ML VIAL.NEB. NEB PRN ×5 (02:59→20:40)
[2022-09-12] MEDS: DOCUSATE SODIUM 100 MG CAPSULE (FP) PO SCH ×3 (06:03→21:22)
[2022-09-12] MEDS: FUROSEMIDE 40 MG/4 ML INJECTABLE VIAL IVPUSH SCH ×2 (06:03→13:37)
[2022-09-12] MEDS: INSULIN SLIDING SCALE (NOVOLOG) 1 VIAL SQ SCH ×4 (06:15→21:35)
[2022-09-12] MEDS: CEFTRIAXONE 1 GM in DEXTROSE 5%-WATER - 50 ML IVPB SCH (09:52)
[2022-09-12] MEDS: METOPROLOL TARTRATE 25 MG TABLET (FP) PO SCH (09:53)
[2022-09-12] MEDS: COLCHICINE 0.6 MG TAB PO SCH (09:53)
[2022-09-12] MEDS: predniSONE 5 MG TABLET (UD) PO SCH (09:53)
[2022-09-12] MEDS: ENOXAPARIN NA (PORCINE) 100 MG/1 ML DISP.SYRIN SQ SCH ×2 (09:53→21:22)
[2022-09-12] MEDS: AZITHROMYCIN IVPB 250 MG in DEXTROSE 5%-WATER - 250 ML IVPB SCH (09:53)
[2022-09-12] MEDS: MIDODRINE HCL 5 MG TABLET PO SCH ×2 (09:53→17:39)
[2022-09-12] MEDS: PREGABALIN 50 MG CAPSULE PO SCH ×2 (11:10→21:22)
[2022-09-13] MEDS: FUROSEMIDE 40 MG/4 ML INJECTABLE VIAL IVPUSH SCH ×2 (06:09→13:38)
[2022-09-13] MEDS: DOCUSATE SODIUM 100 MG CAPSULE (FP) PO SCH ×3 (06:09→21:11)
[2022-09-13] MEDS: INSULIN SLIDING SCALE (NOVOLOG) 1 VIAL SQ SCH ×4 (06:18→21:13)
[2022-09-13] MEDS: ALBUTEROL SO4 2.5/IPRATROPIUM 0.5 INH SOL 3 ML VIAL.NEB. NEB PRN (07:52)
[2022-09-13 08:51] LABS: CALCIUM 8.8 mg/dL (8.5-10.1)
[2022-09-13 08:52] LABS: ALBUMIN 2.9 g/dl (3.4-5.0); BLOOD UREA NITROGEN 47.4 mg/dL (7-18)
[2022-09-13 08:55] LABS: CREATININE 1.2 mg/dL (0.55-1.3)
[2022-09-13 08:56] LABS: BILIRUBIN,TOTAL 0.5 mg/dL (0.2-1); TOT PROT 6.9 g/dl (6.4-8.2)
[2022-09-13] MEDS: CEFTRIAXONE 1 GM in DEXTROSE 5%-WATER - 50 ML IVPB SCH (09:49)
[2022-09-13] MEDS: AZITHROMYCIN IVPB 250 MG in DEXTROSE 5%-WATER - 250 ML IVPB SCH (09:49)
[2022-09-13] MEDS: MIDODRINE HCL 5 MG TABLET PO SCH ×2 (09:49→18:10)
[2022-09-13] MEDS: PREGABALIN 50 MG CAPSULE PO SCH ×2 (09:49→21:11)
[2022-09-13] MEDS: METOPROLOL TARTRATE 25 MG TABLET (FP) PO SCH (09:49)
[2022-09-13] MEDS: APIXABAN 5 MG TABLET PO SCH ×2 (09:49→21:12)
[2022-09-13] MEDS: COLCHICINE 0.6 MG TAB PO SCH (09:49)
[2022-09-13] MEDS: predniSONE 5 MG TABLET (UD) PO SCH (09:49)
[2022-09-13] MEDS ORDERED: POTASSIUM CHLORIDE TABS 20 MEQ TABLET.ER (FP) PO ONE (11:45)
[2022-09-13 15:54] LABS: EPI CELLS 14 /uL (0-25.1); HYALINE CASTS 3 /uL (0-3.1); PH,URINE 5.5 (5.0-8.0); URINE APPEARANCE CLEAR; URINE BACTERIA 9 /uL (0-1359); URINE BILIRUBIN NEGATIVE (NEGATIVE); URINE COLOR YELLOW; URINE GLUCOSE (UA) NEGATIVE (NEGATIVE); URINE KETONE NEGATIVE (NEGATIVE); URINE LEUK ESTERASE TRACE (NEGATIVE); URINE NITRITE NEGATIVE (NEGATIVE); URINE PROTEIN 2+ (NEGATIVE); URINE RBC 946 /uL (0-23.9); URINE UROBILINOGEN 0.2 mg/dL (0.2-1.0); URINE WBC 92 /uL (0-25.8)
[2022-09-14] MEDS: DOCUSATE SODIUM 100 MG CAPSULE (FP) PO SCH ×3 (06:20→21:01)
[2022-09-14] MEDS: FUROSEMIDE 40 MG/4 ML INJECTABLE VIAL IVPUSH SCH ×2 (06:20→15:34)
[2022-09-14] MEDS: INSULIN SLIDING SCALE (NOVOLOG) 1 VIAL SQ SCH ×4 (06:22→21:01)
[2022-09-14 08:41] LABS: CALCIUM 8.8 mg/dL (8.5-10.1)
[2022-09-14 08:42] LABS: ALBUMIN 2.8 g/dl (3.4-5.0); BLOOD UREA NITROGEN 49.5 mg/dL (7-18)
[2022-09-14 08:44] LABS: CREATININE 1.3 mg/dL (0.55-1.3)
[2022-09-14 08:46] LABS: BILIRUBIN,TOTAL 0.5 mg/dL (0.2-1); TOT PROT 6.6 g/dl (6.4-8.2)
[2022-09-14] MEDS: CEFTRIAXONE 1 GM in DEXTROSE 5%-WATER - 50 ML IVPB SCH (09:54)
[2022-09-14] MEDS: COLCHICINE 0.6 MG TAB PO SCH (09:54)
[2022-09-14] MEDS: APIXABAN 5 MG TABLET PO SCH ×2 (09:54→21:01)
[2022-09-14] MEDS: PREGABALIN 50 MG CAPSULE PO SCH ×2 (09:54→21:01)
[2022-09-14] MEDS: predniSONE 5 MG TABLET (UD) PO SCH (09:54)
[2022-09-14] MEDS: METOPROLOL TARTRATE 25 MG TABLET (FP) PO SCH (09:54)
[2022-09-14] MEDS: MIDODRINE HCL 5 MG TABLET PO SCH ×2 (09:54→17:56)
[2022-09-14] MEDS: AZITHROMYCIN IVPB 250 MG in DEXTROSE 5%-WATER - 250 ML IVPB SCH (11:08)
[2022-09-15] MEDS: FUROSEMIDE 40 MG/4 ML INJECTABLE VIAL IVPUSH SCH ×2 (05:27→14:35)
[2022-09-15] MEDS: DOCUSATE SODIUM 100 MG CAPSULE (FP) PO SCH ×3 (05:27→21:28)
[2022-09-15] MEDS: INSULIN SLIDING SCALE (NOVOLOG) 1 VIAL SQ SCH ×4 (06:09→21:29)
[2022-09-15] MEDS: MIDODRINE HCL 5 MG TABLET PO SCH ×2 (10:18→17:03)
[2022-09-15] MEDS: COLCHICINE 0.6 MG TAB PO SCH (10:18)
[2022-09-15] MEDS: APIXABAN 5 MG TABLET PO SCH ×2 (10:18→21:29)
[2022-09-15] MEDS: PREGABALIN 50 MG CAPSULE PO SCH ×2 (10:18→21:29)
[2022-09-15] MEDS: predniSONE 5 MG TABLET (UD) PO SCH (10:18)
[2022-09-15] MEDS: CEFTRIAXONE 1 GM in DEXTROSE 5%-WATER - 50 ML IVPB SCH (10:18)
[2022-09-15] MEDS: METOPROLOL TARTRATE 25 MG TABLET (FP) PO SCH (10:18)
[2022-09-15] MEDS: AZITHROMYCIN IVPB 250 MG in DEXTROSE 5%-WATER - 250 ML IVPB SCH (10:45)
[2022-09-16] MEDS: DOCUSATE SODIUM 100 MG CAPSULE (FP) PO SCH ×3 (06:52→22:11)
[2022-09-16] MEDS: INSULIN SLIDING SCALE (NOVOLOG) 1 VIAL SQ SCH ×4 (06:52→22:11)
[2022-09-16] MEDS: FUROSEMIDE 40 MG/4 ML INJECTABLE VIAL IVPUSH SCH ×2 (06:52→14:05)
[2022-09-16] MEDS: MIDODRINE HCL 5 MG TABLET PO SCH ×2 (09:50→18:10)
[2022-09-16] MEDS: APIXABAN 5 MG TABLET PO SCH ×2 (09:50→22:11)
[2022-09-16] MEDS: CEFTRIAXONE 1 GM in DEXTROSE 5%-WATER - 50 ML IVPB SCH (09:50)
[2022-09-16] MEDS: METOPROLOL TARTRATE 25 MG TABLET (FP) PO SCH (09:51)
[2022-09-16] MEDS: COLCHICINE 0.6 MG TAB PO SCH (09:51)
[2022-09-16] MEDS: predniSONE 5 MG TABLET (UD) PO SCH (09:51)
[2022-09-16] MEDS: PREGABALIN 50 MG CAPSULE PO SCH ×2 (09:51→22:11)
[2022-09-16] MEDS: AZITHROMYCIN IVPB 250 MG in DEXTROSE 5%-WATER - 250 ML IVPB SCH (10:50)
[2022-09-16 12:06] LABS: ALBUMIN 2.7 g/dl (3.4-5.0)
[2022-09-16 12:10] LABS: CREATININE 1.5 mg/dL (0.55-1.3)
[2022-09-16 12:11] LABS: BILIRUBIN,TOTAL 0.5 mg/dL (0.2-1); TOT PROT 6.7 g/dl (6.4-8.2)
[2022-09-17] MEDS: DOCUSATE SODIUM 100 MG CAPSULE (FP) PO SCH ×3 (05:13→21:09)
[2022-09-17] MEDS: FUROSEMIDE 40 MG/4 ML INJECTABLE VIAL IVPUSH SCH ×2 (05:13→14:48)
[2022-09-17] MEDS: INSULIN SLIDING SCALE (NOVOLOG) 1 VIAL SQ SCH ×4 (06:12→21:10)
[2022-09-17 09:06] LABS: ALBUMIN 2.8 g/dl (3.4-5.0); BLOOD UREA NITROGEN 51.2 mg/dL (7-18); CALCIUM 8.9 mg/dL (8.5-10.1)
[2022-09-17 09:09] LABS: CREATININE 1.3 mg/dL (0.55-1.3)
[2022-09-17 09:10] LABS: BILIRUBIN,TOTAL 0.7 mg/dL (0.2-1)
[2022-09-17 09:11] LABS: TOT PROT 6.7 g/dl (6.4-8.2)
[2022-09-17] MEDS: CEFTRIAXONE 1 GM in DEXTROSE 5%-WATER - 50 ML IVPB SCH (09:42)
[2022-09-17] MEDS: METOPROLOL TARTRATE 25 MG TABLET (FP) PO SCH (09:42)
[2022-09-17] MEDS: APIXABAN 5 MG TABLET PO SCH ×2 (09:43→21:10)
[2022-09-17] MEDS: COLCHICINE 0.6 MG TAB PO SCH (09:43)
[2022-09-17] MEDS: predniSONE 5 MG TABLET (UD) PO SCH (09:43)
[2022-09-17] MEDS: PREGABALIN 50 MG CAPSULE PO SCH ×2 (09:43→21:09)
[2022-09-17] MEDS: MIDODRINE HCL 5 MG TABLET PO SCH ×2 (09:43→17:35)
[2022-09-17] MEDS: AZITHROMYCIN IVPB 250 MG in DEXTROSE 5%-WATER - 250 ML IVPB SCH (11:05)
[2022-09-18] MEDS: DOCUSATE SODIUM 100 MG CAPSULE (FP) PO SCH ×3 (05:59→21:53)
[2022-09-18] MEDS: FUROSEMIDE 40 MG/4 ML INJECTABLE VIAL IVPUSH SCH ×2 (05:59→14:38)
[2022-09-18] MEDS: INSULIN SLIDING SCALE (NOVOLOG) 1 VIAL SQ SCH ×4 (06:03→22:18)
[2022-09-18 09:58] LABS: BASO % 0.6 % (0-2.0); EOS % 1.3 % (0-4.5); HEMOGLOBIN 10.1 GM/dL (10.7-15.3); LYMPH % 19.5 % (8-40); MCH 24.7 pg (25.7-33.7); MCHC 30.6 g/dl (32.0-36.0); MEAN CELL VOLUME 80.9 fl (80-96); MEAN PLT VOLUME 8.5 fl (7.5-11.1); MONO % 3.8 % (3.8-10.2); NEUT % 74.8 % (42.8-82.8); PLATELET COUNT 219 10^3/uL (134-434); RBC 4.08 M/mm3 (3.60-5.2); RDW 19.3 % (11.6-15.6); WHITE BLOOD COUNT 5.2 K/mm3 (4.0-10.0)
[2022-09-18] MEDS: CEFTRIAXONE 1 GM in DEXTROSE 5%-WATER - 50 ML IVPB SCH (10:02)
[2022-09-18] MEDS: COLCHICINE 0.6 MG TAB PO SCH (10:02)
[2022-09-18] MEDS: METOPROLOL TARTRATE 25 MG TABLET (FP) PO SCH (10:02)
[2022-09-18] MEDS: PREGABALIN 50 MG CAPSULE PO SCH ×2 (10:02→21:53)
[2022-09-18] MEDS: predniSONE 5 MG TABLET (UD) PO SCH (10:02)
[2022-09-18] MEDS: APIXABAN 5 MG TABLET PO SCH ×2 (10:02→21:53)
[2022-09-18] MEDS: MIDODRINE HCL 5 MG TABLET PO SCH ×2 (10:02→18:09)
[2022-09-18 10:10] LABS: CALCIUM 9.1 mg/dL (8.5-10.1)
[2022-09-18 10:11] LABS: ALBUMIN 2.8 g/dl (3.4-5.0); BLOOD UREA NITROGEN 55.4 mg/dL (7-18)
[2022-09-18] MEDS: AZITHROMYCIN IVPB 250 MG in DEXTROSE 5%-WATER - 250 ML IVPB SCH (10:12)
[2022-09-18 10:14] LABS: CREATININE 1.4 mg/dL (0.55-1.3)
[2022-09-18 10:16] LABS: BILIRUBIN,TOTAL 0.7 mg/dL (0.2-1); TOT PROT 6.9 g/dl (6.4-8.2)
[2022-09-19] MEDS: DOCUSATE SODIUM 100 MG CAPSULE (FP) PO SCH ×3 (06:19→21:33)
[2022-09-19] MEDS: FUROSEMIDE 40 MG/4 ML INJECTABLE VIAL IVPUSH SCH ×2 (06:19→13:47)
[2022-09-19] MEDS: INSULIN SLIDING SCALE (NOVOLOG) 1 VIAL SQ SCH ×4 (06:19→21:33)
[2022-09-19] MEDS: CEFTRIAXONE 1 GM in DEXTROSE 5%-WATER - 50 ML IVPB SCH (09:36)
[2022-09-19] MEDS: APIXABAN 5 MG TABLET PO SCH ×2 (09:36→21:33)
[2022-09-19] MEDS: METOPROLOL TARTRATE 25 MG TABLET (FP) PO SCH (09:36)
[2022-09-19] MEDS: PREGABALIN 50 MG CAPSULE PO SCH (09:37)
[2022-09-19] MEDS: COLCHICINE 0.6 MG TAB PO SCH (09:37)
[2022-09-19] MEDS: predniSONE 5 MG TABLET (UD) PO SCH (09:37)
[2022-09-19] MEDS: MIDODRINE HCL 5 MG TABLET PO SCH ×2 (09:37→17:06)
[2022-09-19] MEDS: AZITHROMYCIN IVPB 250 MG in DEXTROSE 5%-WATER - 250 ML IVPB SCH (11:10)
[2022-09-19 12:34] LABS: BASO % 0.4 % (0-2.0); EOS % 1.3 % (0-4.5); HEMATOCRIT 29.2 % (32.4-45.2); HEMOGLOBIN 9.1 GM/dL (10.7-15.3); LYMPH % 17.2 % (8-40); MCH 25.1 pg (25.7-33.7); MCHC 31.2 g/dl (32.0-36.0); MEAN CELL VOLUME 80.3 fl (80-96); MEAN PLT VOLUME 9.2 fl (7.5-11.1); MONO % 4.5 % (3.8-10.2); NEUT % 76.6 % (42.8-82.8); PLATELET COUNT 243 10^3/uL (134-434); RBC 3.63 M/mm3 (3.60-5.2); RDW 19.3 % (11.6-15.6); WHITE BLOOD COUNT 6.5 K/mm3 (4.0-10.0)
[2022-09-19 12:54] LABS: CALCIUM 8.9 mg/dL (8.5-10.1)
[2022-09-19 12:55] LABS: ALBUMIN 2.8 g/dl (3.4-5.0); BLOOD UREA NITROGEN 54.2 mg/dL (7-18)
[2022-09-19 12:58] LABS: CREATININE 1.3 mg/dL (0.55-1.3)
[2022-09-19 13:00] LABS: BILIRUBIN,TOTAL 0.9 mg/dL (0.2-1); TOT PROT 6.8 g/dl (6.4-8.2)
[2022-09-20] MEDS: INSULIN SLIDING SCALE (NOVOLOG) 1 VIAL SQ SCH ×4 (06:11→22:25)
[2022-09-20] MEDS: DOCUSATE SODIUM 100 MG CAPSULE (FP) PO SCH ×3 (06:11→22:25)
[2022-09-20] MEDS: FUROSEMIDE 40 MG/4 ML INJECTABLE VIAL IVPUSH SCH ×2 (06:11→15:39)
[2022-09-20] MEDS: CEFTRIAXONE 1 GM in DEXTROSE 5%-WATER - 50 ML IVPB SCH (09:41)
[2022-09-20] MEDS: METOPROLOL TARTRATE 25 MG TABLET (FP) PO SCH (09:42)
[2022-09-20] MEDS: APIXABAN 5 MG TABLET PO SCH ×2 (09:42→22:25)
[2022-09-20] MEDS: AZITHROMYCIN IVPB 250 MG in DEXTROSE 5%-WATER - 250 ML IVPB SCH (09:42)
[2022-09-20] MEDS: predniSONE 5 MG TABLET (UD) PO SCH (09:42)
[2022-09-20] MEDS: MIDODRINE HCL 5 MG TABLET PO SCH ×2 (09:42→17:47)
[2022-09-20] MEDS: COLCHICINE 0.6 MG TAB PO SCH (09:42)
[2022-09-20] MEDS ORDERED: METOLAZONE 5 MG TABLET PO ONE (12:39)
[2022-09-21] MEDS: INSULIN SLIDING SCALE (NOVOLOG) 1 VIAL SQ SCH ×4 (06:43→22:32)
[2022-09-21] MEDS: FUROSEMIDE 40 MG/4 ML INJECTABLE VIAL IVPUSH SCH ×2 (06:44→14:08)
[2022-09-21] MEDS: DOCUSATE SODIUM 100 MG CAPSULE (FP) PO SCH ×3 (06:44→22:31)
[2022-09-21 07:22] LABS: BASO % 0.7 % (0-2.0); EOS % 2.4 % (0-4.5); HEMATOCRIT 30.4 % (32.4-45.2); HEMOGLOBIN 9.6 GM/dL (10.7-15.3); LYMPH % 25.5 % (8-40); MCH 25.2 pg (25.7-33.7); MCHC 31.4 g/dl (32.0-36.0); MEAN CELL VOLUME 80.2 fl (80-96); MEAN PLT VOLUME 8.7 fl (7.5-11.1); MONO % 5.3 % (3.8-10.2); NEUT % 66.1 % (42.8-82.8); PLATELET COUNT 214 10^3/uL (134-434); RBC 3.79 M/mm3 (3.60-5.2); RDW 19.1 % (11.6-15.6); WHITE BLOOD COUNT 5.1 K/mm3 (4.0-10.0)
[2022-09-21 07:54] LABS: TOT PROT 6.9 g/dl (6.4-8.2)
[2022-09-21 09:37] LABS: ALBUMIN 2.9 g/dl (3.4-5.0); BILIRUBIN,TOTAL 0.7 mg/dL (0.2-1); BLOOD UREA NITROGEN 58.3 mg/dL (7-18); CALCIUM 9.6 mg/dL (8.5-10.1); CREATININE 1.5 mg/dL (0.55-1.3)
[2022-09-21] MEDS: APIXABAN 5 MG TABLET PO SCH ×2 (09:52→22:31)
[2022-09-21] MEDS: MIDODRINE HCL 5 MG TABLET PO SCH ×2 (09:52→18:37)
[2022-09-21] MEDS: METOPROLOL TARTRATE 25 MG TABLET (FP) PO SCH (09:52)
[2022-09-21] MEDS: CEFTRIAXONE 1 GM in DEXTROSE 5%-WATER - 50 ML IVPB SCH (09:53)
[2022-09-21] MEDS: AZITHROMYCIN IVPB 250 MG in DEXTROSE 5%-WATER - 250 ML IVPB SCH (09:53)
[2022-09-21] MEDS: predniSONE 5 MG TABLET (UD) PO SCH (09:53)
[2022-09-21] MEDS: COLCHICINE 0.6 MG TAB PO SCH (09:53)
[2022-09-22] MEDS: DOCUSATE SODIUM 100 MG CAPSULE (FP) PO SCH ×3 (06:23→21:12)
[2022-09-22] MEDS: FUROSEMIDE 40 MG/4 ML INJECTABLE VIAL IVPUSH SCH ×2 (06:25→14:34)
[2022-09-22] MEDS: INSULIN SLIDING SCALE (NOVOLOG) 1 VIAL SQ SCH ×4 (06:26→21:19)
[2022-09-22] MEDS: MIDODRINE HCL 5 MG TABLET PO SCH ×2 (10:43→18:20)
[2022-09-22] MEDS: CEFTRIAXONE 1 GM in DEXTROSE 5%-WATER - 50 ML IVPB SCH (10:43)
[2022-09-22] MEDS: predniSONE 5 MG TABLET (UD) PO SCH (10:43)
[2022-09-22] MEDS: COLCHICINE 0.6 MG TAB PO SCH (10:43)
[2022-09-22] MEDS: METOPROLOL TARTRATE 25 MG TABLET (FP) PO SCH (10:43)
[2022-09-22] MEDS: APIXABAN 5 MG TABLET PO SCH ×2 (10:43→21:09)
[2022-09-22] MEDS: AZITHROMYCIN IVPB 250 MG in DEXTROSE 5%-WATER - 250 ML IVPB SCH (11:27)
[2022-09-22] MEDS ORDERED: METOLAZONE 5 MG TABLET PO ONE (11:30)
[2022-09-22 17:42] LABS: CALCIUM 9.3 mg/dL (8.5-10.1)
[2022-09-22 17:43] LABS: BLOOD UREA NITROGEN 66.5 mg/dL (7-18); MAGNESIUM 2.3 mg/dL (1.8-2.4)
[2022-09-22 17:46] LABS: CREATININE 1.6 mg/dL (0.55-1.3)
[2022-09-22] MEDS: PREGABALIN 75 MG CAPSULE PO SCH (21:12)
[2022-09-23] MEDS: FUROSEMIDE 40 MG/4 ML INJECTABLE VIAL IVPUSH SCH ×2 (07:01→15:51)
[2022-09-23] MEDS: DOCUSATE SODIUM 100 MG CAPSULE (FP) PO SCH ×3 (07:01→22:05)
[2022-09-23] MEDS: INSULIN SLIDING SCALE (NOVOLOG) 1 VIAL SQ SCH ×4 (07:04→22:05)
[2022-09-23] MEDS: predniSONE 5 MG TABLET (UD) PO SCH (10:50)
[2022-09-23] MEDS: PREGABALIN 75 MG CAPSULE PO SCH ×2 (10:50→22:05)
[2022-09-23] MEDS: COLCHICINE 0.6 MG TAB PO SCH (10:50)
[2022-09-23] MEDS: MIDODRINE HCL 5 MG TABLET PO SCH ×2 (10:51→17:33)
[2022-09-23] MEDS: METOPROLOL TARTRATE 25 MG TABLET (FP) PO SCH (10:51)
[2022-09-23] MEDS: APIXABAN 5 MG TABLET PO SCH ×2 (10:51→22:05)
[2022-09-23] MEDS: ESCITALOPRAM OXALATE 10 MG TABLET PO SCH (10:51)
[2022-09-23 12:59] LABS: CALCIUM 9.3 mg/dL (8.5-10.1)
[2022-09-23 13:00] LABS: BLOOD UREA NITROGEN 69.2 mg/dL (7-18)
[2022-09-23 13:03] LABS: CREATININE 1.7 mg/dL (0.55-1.3)
[2022-09-24] MEDS: FUROSEMIDE 40 MG/4 ML INJECTABLE VIAL IVPUSH SCH (06:31)
[2022-09-24] MEDS: INSULIN SLIDING SCALE (NOVOLOG) 1 VIAL SQ SCH ×4 (06:31→21:19)
[2022-09-24] MEDS: DOCUSATE SODIUM 100 MG CAPSULE (FP) PO SCH ×3 (06:31→21:18)
[2022-09-24 08:42] LABS: CALCIUM 9.3 mg/dL (8.5-10.1)
[2022-09-24 08:43] LABS: ALBUMIN 3.1 g/dl (3.4-5.0); BLOOD UREA NITROGEN 76.9 mg/dL (7-18); MAGNESIUM 2.2 mg/dL (1.8-2.4)
[2022-09-24 08:46] LABS: CREATININE 1.8 mg/dL (0.55-1.3)
[2022-09-24 08:48] LABS: BILIRUBIN,TOTAL 0.6 mg/dL (0.2-1); TOT PROT 7.3 g/dl (6.4-8.2)
[2022-09-24] MEDS: METOPROLOL TARTRATE 25 MG TABLET (FP) PO SCH (09:36)
[2022-09-24] MEDS: ESCITALOPRAM OXALATE 10 MG TABLET PO SCH (09:36)
[2022-09-24] MEDS: COLCHICINE 0.6 MG TAB PO SCH (09:37)
[2022-09-24] MEDS: APIXABAN 5 MG TABLET PO SCH ×2 (09:37→21:18)
[2022-09-24] MEDS: predniSONE 5 MG TABLET (UD) PO SCH (09:37)
[2022-09-24] MEDS: PREGABALIN 75 MG CAPSULE PO SCH ×2 (09:37→21:18)
[2022-09-24] MEDS: MIDODRINE HCL 5 MG TABLET PO SCH ×2 (09:37→17:18)
[2022-09-24] MEDS: TORSEMIDE 20 MG TABLET (FP) PO SCH (17:18)
[2022-09-25] MEDS: DOCUSATE SODIUM 100 MG CAPSULE (FP) PO SCH (06:43)
[2022-09-25] MEDS: TORSEMIDE 20 MG TABLET (FP) PO SCH (06:43)
[2022-09-25] MEDS: INSULIN SLIDING SCALE (NOVOLOG) 1 VIAL SQ SCH ×2 (06:48→11:55)
[2022-09-25 09:56] LABS: ALBUMIN 3.1 g/dl (3.4-5.0); CALCIUM 9.5 mg/dL (8.5-10.1)
[2022-09-25 09:57] LABS: BLOOD UREA NITROGEN 82.3 mg/dL (7-18)
[2022-09-25 09:59] LABS: CREATININE 1.7 mg/dL (0.55-1.3)
[2022-09-25 10:01] LABS: BILIRUBIN,TOTAL 0.7 mg/dL (0.2-1); TOT PROT 7.2 g/dl (6.4-8.2)
[2022-09-25] MEDS: METOPROLOL TARTRATE 25 MG TABLET (FP) PO SCH (10:21)
[2022-09-25] MEDS: COLCHICINE 0.6 MG TAB PO SCH (10:21)
[2022-09-25] MEDS: MIDODRINE HCL 5 MG TABLET PO SCH (10:21)
[2022-09-25] MEDS: predniSONE 5 MG TABLET (UD) PO SCH (10:21)
[2022-09-25] MEDS: PREGABALIN 75 MG CAPSULE PO SCH (10:21)
[2022-09-25] MEDS: APIXABAN 5 MG TABLET PO SCH (10:21)
[2022-09-25] MEDS: ESCITALOPRAM OXALATE 10 MG TABLET PO SCH (11:47)
[2022-09-25 13:09] VITALS: BP 93/56; PULSE 69; RESP 19; TEMP 97.8
== END 2022-09-25 14:40 | disposition home health service (06) | DRG 291 ==
LOC: JER 12:10 → JERBED 14:27 → J4S 09-08 11:23
PROVIDERS: ADMIT Internal Medicine; ATTEND Internal Medicine
DX: I13.0 Hypertensive heart and chronic kidney disease with heart failure and stage 1 through stage 4 chronic kidney disease, or unspecified chronic kidney disease (principal); I50.33 Acute on chronic diastolic (congestive) heart failure; J18.9 Pneumonia, unspecified organism; J12.1 Respiratory syncytial virus pneumonia; N17.9 Acute kidney failure, unspecified; M31.0 Hypersensitivity angiitis; C95.90 Leukemia, unspecified not having achieved remission; R09.02 Hypoxemia; I48.91 Unspecified atrial fibrillation; I25.10 Atherosclerotic heart disease of native coronary artery without angina pectoris; E78.5 Hyperlipidemia, unspecified; R91.8 Other nonspecific abnormal finding of lung field; E11.22 Type 2 diabetes mellitus with diabetic chronic kidney disease; N18.9 Chronic kidney disease, unspecified; E66.9 Obesity, unspecified; Z68.35 Body mass index [BMI] 35.0-35.9, adult
CPT/HCPCS: 0241U-QW; 36415; 71045-TC-FY; 71250-TC; 80048; 80053; 81003; 82962; 83735; 84100; 84484; 85025; 85379; 85610; 85651; 86140; 87086; 87899; 93005; 93010; 93970-TC; 94640; 94660; 99285-25; C9803-CS; U0003; U0005

== ENCOUNTER 2023-01-05 09:37 | Inpatient (IN) | payer OTHER ==
[2023-01-05] MEDS ORDERED: NITROGLYCERIN 2% OINTMENT - 1GM PACKET TD ONE (09:44)
[2023-01-05] MEDS ORDERED: NITROGLYCERIN 25MG/D5W 250ML 25 MG/250 ML ML IVPB ONE (09:45)
[2023-01-05] MEDS: NITROGLYCERIN 25MG/D5W 250ML 25 MG/250 ML ML IVPB SCH (09:49)
[2023-01-05] MEDS ORDERED: FUROSEMIDE 40 MG/4 ML INJECTABLE VIAL IVPUSH ONE ×4 (09:50→21:10)
[2023-01-05] MEDS ORDERED: FUROSEMIDE 40 MG/4 ML INJECTABLE VIAL ONE (09:56)
[2023-01-05 10:11] LABS: INR 1.45 (0.83-1.09); PROTHROMBIN TIME (PATIENT) 16.8 SEC (9.7-13.0); VENOUS O2 SATURATION 21.3 % (70-80); VENOUS PCO2 55.2 mmHg (38-52); VENOUS PH 7.308 (7.310-7.410)
[2023-01-05 10:14] LABS: ACTIVATED PTT 29.5 SECONDS (25.2-36.5)
[2023-01-05] MEDS ORDERED: NITROGLYCERIN SUBLINGUAL 1/150 0.4 MG TAB SL ONE (10:24)
[2023-01-05 10:25] LABS: CALCIUM 9.5 mg/dL (8.5-10.1)
[2023-01-05 10:26] LABS: ALBUMIN 3.4 g/dl (3.4-5.0); BLOOD UREA NITROGEN 45.3 mg/dL (7-18)
[2023-01-05 10:29] LABS: CREATININE 1.9 mg/dL (0.55-1.3); PHOSPHOROUS 3.2 mg/dL (2.5-4.9)
[2023-01-05 10:30] LABS: TOT PROT 8.6 g/dl (6.4-8.2)
[2023-01-05 10:34] LABS: EPI CELLS 4 /uL (0-25.1); HYALINE CASTS 1 /uL (0-3.1); PH,URINE 6.5 (5.0-8.0); URINE APPEARANCE CLEAR; URINE BACTERIA 47 /uL (0-1359); URINE BILIRUBIN NEGATIVE (NEGATIVE); URINE COLOR YELLOW; URINE GLUCOSE (UA) 2+ (NEGATIVE); URINE KETONE NEGATIVE (NEGATIVE); URINE LEUK ESTERASE NEGATIVE (NEGATIVE); URINE NITRITE NEGATIVE (NEGATIVE); URINE PROTEIN 1+ (NEGATIVE); URINE RBC 150 /uL (0-23.9); URINE UROBILINOGEN 0.2 mg/dL (0.2-1.0); URINE WBC 15 /uL (0-25.8)
[2023-01-05 10:34] LABS: N-TERMINAL BNP 16681.1 pg/ml (5-450)
[2023-01-05 10:41] LABS: BASO % 0.2 % (0-2.0); EOS % 1.7 % (0-4.5); HEMATOCRIT 35.5 % (32.4-45.2); HEMOGLOBIN 10.8 GM/dL (10.7-15.3); LACTIC ACID 4.2 mmol/L (0.4-2.0); LYMPH % 10.3 % (8-40); MCH 23.5 pg (25.7-33.7); MCHC 30.4 g/dl (32.0-36.0); MEAN CELL VOLUME 77.3 fl (80-96); MEAN PLT VOLUME 8.6 fl (7.5-11.1); MONO % 3.3 % (3.8-10.2); NEUT % 84.5 % (42.8-82.8); PLATELET COUNT 440 10^3/uL (134-434); RBC 4.59 M/mm3 (3.60-5.2); RDW 20.6 % (11.6-15.6); WHITE BLOOD COUNT 9.1 K/mm3 (4.0-10.0)
[2023-01-05] MEDS ORDERED: INSULIN REGULAR HUMAN 100 UNITS/ML *VIAL SQ ONE (11:14)
[2023-01-05 11:39] LABS: ANISOCYTOSIS 3+; MACROCYTOSIS 0
[2023-01-05] MEDS: FUROSEMIDE 40 MG/4 ML INJECTABLE VIAL IVPUSH SCH (16:00)
[2023-01-05] MEDS: INSULIN SLIDING SCALE (NOVOLOG) 1 VIAL SQ SCH ×2 (16:57→22:31)
[2023-01-05] MEDS ORDERED: METOLAZONE 2.5 MG TABLET (FP) PO ONE (21:11)
[2023-01-05] MEDS ORDERED: METOLAZONE 5 MG TABLET PO ONE (21:30)
[2023-01-05] MEDS ORDERED: APIXABAN 5 MG TABLET PO SCH (22:00)
[2023-01-05] MEDS: CHLORHEXIDINE GLUCONATE 4% CLEANSER FOR DECOLONIZATION TP SCH (22:05)
[2023-01-05] MEDS: MUPIROCIN 2% TOPICAL OINTMENT FOR DECOLONIZATION NS SCH (22:05)
[2023-01-05] MEDS: TRIAMCINOLONE ACET 0.025% OINTMENT 15 GM TUBE TP SCH (22:31)
[2023-01-06] MEDS: INSULIN SLIDING SCALE (NOVOLOG) 1 VIAL SQ SCH ×4 (06:35→22:24)
[2023-01-06 07:31] LABS: HEMATOCRIT 30.3 % (32.4-45.2); HEMOGLOBIN 9.5 GM/dL (10.7-15.3); MCH 23.5 pg (25.7-33.7); MCHC 31.2 g/dl (32.0-36.0); MEAN CELL VOLUME 75.4 fl (80-96); MEAN PLT VOLUME 8.7 fl (7.5-11.1); PLATELET COUNT 310 10^3/uL (134-434); RBC 4.02 M/mm3 (3.60-5.2); RDW 19.7 % (11.6-15.6)
[2023-01-06 07:37] LABS: INR 1.47 (0.83-1.09)
[2023-01-06 07:56] LABS: POTASSIUM 3.6 mmol/L (3.5-5.1)
[2023-01-06 08:03] LABS: CALCIUM 9.2 mg/dL (8.5-10.1)
[2023-01-06 08:04] LABS: ALBUMIN 2.9 g/dl (3.4-5.0); BLOOD UREA NITROGEN 52.5 mg/dL (7-18); MAGNESIUM 2.1 mg/dL (1.8-2.4)
[2023-01-06 08:06] LABS: CREATININE 1.7 mg/dL (0.55-1.3); PHOSPHOROUS 3.5 mg/dL (2.5-4.9)
[2023-01-06 08:08] LABS: BILIRUBIN,TOTAL 0.9 mg/dL (0.2-1)
[2023-01-06] MEDS: FUROSEMIDE 40 MG/4 ML INJECTABLE VIAL IVPUSH SCH ×2 (08:25→15:31)
[2023-01-06] MEDS ORDERED: HEPARIN NA (PORCINE) 5,000 UNITS/ML 1ML VIAL IVPUSH PRN ×2 (08:57)
[2023-01-06] MEDS ORDERED: HEPARIN INFUSION - 25,000 UNITS/500 ML INFUS.BAG IVPB SCH (09:00)
[2023-01-06] MEDS: TRIAMCINOLONE ACET 0.025% OINTMENT 15 GM TUBE TP SCH ×2 (09:13→21:03)
[2023-01-06] MEDS: MUPIROCIN 2% TOPICAL OINTMENT FOR DECOLONIZATION NS SCH ×2 (09:14→21:03)
[2023-01-06] MEDS: ALLOPURINOL 100 MG TABLET (FP) PO SCH (09:27)
[2023-01-06] MEDS: predniSONE 5 MG TABLET (UD) PO SCH (09:27)
[2023-01-06] MEDS: PREGABALIN 50 MG CAPSULE PO SCH (09:27)
[2023-01-06] MEDS: NITROGLYCERIN 25MG/D5W 250ML 25 MG/250 ML ML IVPB SCH (09:28)
[2023-01-06] MEDS ORDERED: MIDODRINE HCL 5 MG TABLET PO SCH (10:00)
[2023-01-06] MEDS: APIXABAN 5 MG TABLET PO SCH ×2 (10:38→21:03)
[2023-01-06] MEDS ORDERED: diphenhydrAMINE HCL 25 MG CAPSULE (FP) PO ONE (11:08)
[2023-01-06] MEDS: KCL 10 MEQ IVPB 10 MEQ/100 ML INFUS.BAG IVPB SCH ×3 (11:25→13:53)
[2023-01-06] MEDS: PIPERACILLIN/TAZOB 2.25 GM 2.25 GM in DEXTROSE 5%-WATER - 50 ML IVPB SCH ×2 (14:19→17:00)
[2023-01-06] MEDS: CHLORHEXIDINE GLUCONATE 4% CLEANSER FOR DECOLONIZATION TP SCH (21:04)
[2023-01-07] MEDS: PIPERACILLIN/TAZOB 2.25 GM 2.25 GM in DEXTROSE 5%-WATER - 50 ML IVPB SCH ×3 (01:17→17:12)
[2023-01-07] MEDS: INSULIN SLIDING SCALE (NOVOLOG) 1 VIAL SQ SCH ×4 (06:30→21:59)
[2023-01-07 07:34] LABS: HEMATOCRIT 33.2 % (32.4-45.2); HEMOGLOBIN 10.3 GM/dL (10.7-15.3); MCH 23.5 pg (25.7-33.7); MCHC 31.1 g/dl (32.0-36.0); MEAN CELL VOLUME 75.6 fl (80-96); MEAN PLT VOLUME 8.8 fl (7.5-11.1); PLATELET COUNT 281 10^3/uL (134-434); RBC 4.39 M/mm3 (3.60-5.2); RDW 19.8 % (11.6-15.6); WHITE BLOOD COUNT 6.8 K/mm3 (4.0-10.0)
[2023-01-07 07:46] LABS: POTASSIUM 3.2 mmol/L (3.5-5.1)
[2023-01-07 07:51] LABS: CALCIUM 9.2 mg/dL (8.5-10.1)
[2023-01-07 07:52] LABS: BLOOD UREA NITROGEN 56.6 mg/dL (7-18); MAGNESIUM 1.9 mg/dL (1.8-2.4)
[2023-01-07 07:55] LABS: CREATININE 1.8 mg/dL (0.55-1.3); PHOSPHOROUS 3.5 mg/dL (2.5-4.9)
[2023-01-07] MEDS: PREGABALIN 50 MG CAPSULE PO SCH (09:23)
[2023-01-07] MEDS: FUROSEMIDE 40 MG/4 ML INJECTABLE VIAL IVPUSH SCH ×2 (09:23→16:30)
[2023-01-07] MEDS: ALLOPURINOL 100 MG TABLET (FP) PO SCH (09:24)
[2023-01-07] MEDS: predniSONE 5 MG TABLET (UD) PO SCH (09:24)
[2023-01-07] MEDS: APIXABAN 5 MG TABLET PO SCH ×2 (09:24→21:58)
[2023-01-07] MEDS ORDERED: POTASSIUM CHLORIDE ORAL LIQUID 20 MEQ/15 ML PO ONE (09:33)
[2023-01-07] MEDS: TRIAMCINOLONE ACET 0.025% OINTMENT 15 GM TUBE TP SCH (09:42)
[2023-01-07] MEDS: MUPIROCIN 2% TOPICAL OINTMENT FOR DECOLONIZATION NS SCH ×2 (09:42→21:58)
[2023-01-07] MEDS ORDERED: diphenhydrAMINE HCL 25 MG CAPSULE (FP) PO ONE (10:53)
[2023-01-07] MEDS ORDERED: CEFTRIAXONE 1 GM in DEXTROSE 5%-WATER - 50 ML IVPB SCH (17:15)
[2023-01-07] MEDS: TRIAMCINOLONE ACET 0.025% CREAM 15 GM TUBE TP SCH (21:58)
[2023-01-07] MEDS: CHLORHEXIDINE GLUCONATE 4% CLEANSER FOR DECOLONIZATION TP SCH (21:58)
[2023-01-07] MEDS: INSULIN (LEVEMIR) 100 UNITS/ML UNITS SQ SCH (22:16)
[2023-01-08] MEDS: PIPERACILLIN/TAZOB 2.25 GM 2.25 GM in DEXTROSE 5%-WATER - 50 ML IVPB SCH ×3 (04:37→17:40)
[2023-01-08] MEDS: INSULIN (LEVEMIR) 100 UNITS/ML UNITS SQ SCH ×2 (06:30→21:20)
[2023-01-08] MEDS: INSULIN SLIDING SCALE (NOVOLOG) 1 VIAL SQ SCH ×4 (06:30→21:41)
[2023-01-08 08:04] LABS: POTASSIUM 3.3 mmol/L (3.5-5.1)
[2023-01-08 08:09] LABS: INR 1.68 (0.83-1.09); PROTHROMBIN TIME (PATIENT) 19.4 SEC (9.7-13.0)
[2023-01-08 08:13] LABS: HEMATOCRIT 34.4 % (32.4-45.2); HEMOGLOBIN 10.7 GM/dL (10.7-15.3); MCH 23.5 pg (25.7-33.7); MCHC 31.2 g/dl (32.0-36.0); MEAN CELL VOLUME 75.4 fl (80-96); MEAN PLT VOLUME 8.4 fl (7.5-11.1); PLATELET COUNT 295 10^3/uL (134-434); RBC 4.56 M/mm3 (3.60-5.2); RDW 19.9 % (11.6-15.6); WHITE BLOOD COUNT 5.3 K/mm3 (4.0-10.0)
[2023-01-08 08:16] LABS: CALCIUM 8.5 mg/dL (8.5-10.1)
[2023-01-08 08:17] LABS: ALBUMIN 2.6 g/dl (3.4-5.0); BLOOD UREA NITROGEN 73.4 mg/dL (7-18)
[2023-01-08 08:18] LABS: MAGNESIUM 1.7 mg/dL (1.8-2.4)
[2023-01-08 08:20] LABS: BILIRUBIN,DIRECT 0.5 mg/dL (0.0-0.2); PHOSPHOROUS 4.4 mg/dL (2.5-4.9)
[2023-01-08 08:21] LABS: CREATININE 2.1 mg/dL (0.55-1.3)
[2023-01-08 08:22] LABS: BILIRUBIN,TOTAL 1.3 mg/dL (0.2-1); TOT PROT 6.1 g/dl (6.4-8.2)
[2023-01-08] MEDS: FUROSEMIDE 40 MG/4 ML INJECTABLE VIAL IVPUSH SCH ×2 (09:52→11:00)
[2023-01-08] MEDS: MUPIROCIN 2% TOPICAL OINTMENT FOR DECOLONIZATION NS SCH ×2 (10:59→21:42)
[2023-01-08] MEDS: TRIAMCINOLONE ACET 0.025% CREAM 15 GM TUBE TP SCH ×2 (10:59→21:42)
[2023-01-08] MEDS: ALLOPURINOL 100 MG TABLET (FP) PO SCH (11:00)
[2023-01-08] MEDS: APIXABAN 5 MG TABLET PO SCH ×2 (11:00→21:21)
[2023-01-08] MEDS: PREGABALIN 50 MG CAPSULE PO SCH (11:00)
[2023-01-08] MEDS: predniSONE 5 MG TABLET (UD) PO SCH (11:00)
[2023-01-08] MEDS: POTASSIUM CHLORIDE ORAL LIQUID 20 MEQ/15 ML PO SCH ×2 (11:00→21:20)
[2023-01-08] MEDS: CHLORHEXIDINE GLUCONATE 4% CLEANSER FOR DECOLONIZATION TP SCH (21:21)
[2023-01-08] MEDS ORDERED: methylPREDNISolone NA SUCC 40 MG/1 ML VIAL IVPUSH ONE (21:26)
[2023-01-09] MEDS: PIPERACILLIN/TAZOB 2.25 GM 2.25 GM in DEXTROSE 5%-WATER - 50 ML IVPB SCH ×3 (02:19→18:24)
[2023-01-09] MEDS: INSULIN SLIDING SCALE (NOVOLOG) 1 VIAL SQ SCH ×4 (06:06→21:25)
[2023-01-09] MEDS: INSULIN (LEVEMIR) 100 UNITS/ML UNITS SQ SCH ×2 (06:06→21:25)
[2023-01-09 07:35] LABS: BASO % 0.2 % (0-2.0); EOS % 1.6 % (0-4.5); HEMATOCRIT 31.2 % (32.4-45.2); HEMOGLOBIN 9.8 GM/dL (10.7-15.3); LYMPH % 13.4 % (8-40); MCH 23.7 pg (25.7-33.7); MCHC 31.4 g/dl (32.0-36.0); MEAN CELL VOLUME 75.6 fl (80-96); MEAN PLT VOLUME 9.1 fl (7.5-11.1); NEUT % 83.8 % (42.8-82.8); PLATELET COUNT 244 10^3/uL (134-434); RBC 4.13 M/mm3 (3.60-5.2); RDW 19.8 % (11.6-15.6); WHITE BLOOD COUNT 3.9 K/mm3 (4.0-10.0)
[2023-01-09 07:57] LABS: POTASSIUM 4.6 mmol/L (3.5-5.1)
[2023-01-09 07:59] LABS: ALBUMIN 2.7 g/dl (3.4-5.0); CALCIUM 8.3 mg/dL (8.5-10.1)
[2023-01-09 08:00] LABS: BLOOD UREA NITROGEN 73.2 mg/dL (7-18)
[2023-01-09 08:04] LABS: TOT PROT 6.3 g/dl (6.4-8.2)
[2023-01-09 08:05] LABS: BILIRUBIN,TOTAL 0.8 mg/dL (0.2-1)
[2023-01-09] MEDS: TRIAMCINOLONE ACET 0.025% CREAM 15 GM TUBE TP SCH ×2 (10:28→21:22)
[2023-01-09] MEDS: MUPIROCIN 2% TOPICAL OINTMENT FOR DECOLONIZATION NS SCH ×2 (10:28→21:22)
[2023-01-09] MEDS: APIXABAN 5 MG TABLET PO SCH ×2 (10:28→21:22)
[2023-01-09] MEDS: ALLOPURINOL 100 MG TABLET (FP) PO SCH (10:29)
[2023-01-09] MEDS: PREGABALIN 50 MG CAPSULE PO SCH (10:29)
[2023-01-09] MEDS: methylPREDNISolone NA SUCC 40 MG/1 ML VIAL IVPUSH SCH (10:29)
[2023-01-09] MEDS: FUROSEMIDE 40 MG/4 ML INJECTABLE VIAL IVPUSH SCH (10:29)
[2023-01-09] MEDS: CHLORHEXIDINE GLUCONATE 4% CLEANSER FOR DECOLONIZATION TP SCH (21:22)
[2023-01-10] MEDS: PIPERACILLIN/TAZOB 2.25 GM 2.25 GM in DEXTROSE 5%-WATER - 50 ML IVPB SCH ×3 (02:00→17:09)
[2023-01-10] MEDS: INSULIN SLIDING SCALE (NOVOLOG) 1 VIAL SQ SCH ×4 (06:00→21:20)
[2023-01-10] MEDS: INSULIN (LEVEMIR) 100 UNITS/ML UNITS SQ SCH ×2 (06:00→21:20)
[2023-01-10] MEDS: FUROSEMIDE 40 MG/4 ML INJECTABLE VIAL IVPUSH SCH (10:02)
[2023-01-10] MEDS: methylPREDNISolone NA SUCC 40 MG/1 ML VIAL IVPUSH SCH (10:02)
[2023-01-10] MEDS: APIXABAN 5 MG TABLET PO SCH ×2 (10:03→21:14)
[2023-01-10] MEDS: ALLOPURINOL 100 MG TABLET (FP) PO SCH (10:03)
[2023-01-10] MEDS: PREGABALIN 50 MG CAPSULE PO SCH (10:04)
[2023-01-10] MEDS: MUPIROCIN 2% TOPICAL OINTMENT FOR DECOLONIZATION NS SCH (10:06)
[2023-01-10 13:21] VITALS: BMI 33.7
[2023-01-10] MEDS: TRIAMCINOLONE ACET 0.025% CREAM 15 GM TUBE TP SCH (14:51)
[2023-01-10] MEDS: TRIAMCINOLONE ACET 0.025% OINTMENT 15 GM TUBE TP SCH (21:14)
[2023-01-10] MEDS: CHLORHEXIDINE GLUCONATE 4% CLEANSER FOR DECOLONIZATION TP SCH (21:14)
[2023-01-11] MEDS: PIPERACILLIN/TAZOB 2.25 GM 2.25 GM in DEXTROSE 5%-WATER - 50 ML IVPB SCH ×3 (01:41→17:03)
[2023-01-11] MEDS: INSULIN SLIDING SCALE (NOVOLOG) 1 VIAL SQ SCH ×4 (06:31→22:04)
[2023-01-11] MEDS: INSULIN (LEVEMIR) 100 UNITS/ML UNITS SQ SCH ×2 (06:31→22:01)
[2023-01-11] MEDS: ALLOPURINOL 100 MG TABLET (FP) PO SCH (09:01)
[2023-01-11] MEDS: FUROSEMIDE 40 MG/4 ML INJECTABLE VIAL IVPUSH SCH (09:01)
[2023-01-11] MEDS: PREGABALIN 50 MG CAPSULE PO SCH (09:01)
[2023-01-11] MEDS: APIXABAN 5 MG TABLET PO SCH ×2 (09:01→21:54)
[2023-01-11] MEDS: methylPREDNISolone NA SUCC 40 MG/1 ML VIAL IVPUSH SCH (09:01)
[2023-01-11] MEDS: TRIAMCINOLONE ACET 0.025% OINTMENT 15 GM TUBE TP SCH (09:02)
[2023-01-11 10:05] LABS: POTASSIUM 3.7 mmol/L (3.5-5.1)
[2023-01-11 10:07] LABS: CALCIUM 9.1 mg/dL (8.5-10.1)
[2023-01-11 10:08] LABS: ALBUMIN 2.7 g/dl (3.4-5.0)
[2023-01-11 10:11] LABS: CREATININE 1.7 mg/dL (0.55-1.3)
[2023-01-11 10:12] LABS: BILIRUBIN,TOTAL 0.7 mg/dL (0.2-1)
[2023-01-11 10:13] LABS: TOT PROT 6.5 g/dl (6.4-8.2)
[2023-01-11] MEDS ORDERED: ARTIFICIAL TEARS (POLYVINYL ALCOHOL) OPTH DROPS OU PRN (17:19)
[2023-01-11] MEDS: CHLORHEXIDINE GLUCONATE 4% CLEANSER FOR DECOLONIZATION TP SCH (21:54)
[2023-01-11] MEDS ORDERED: INSULIN (NOVOLOG) ASPART 100 UNITS/ML 10ML VIAL ONE (21:59)
[2023-01-11] MEDS: TRIAMCINOLONE ACET 0.025% TP SCH (22:50)
[2023-01-12] MEDS: PIPERACILLIN/TAZOB 2.25 GM 2.25 GM in DEXTROSE 5%-WATER - 50 ML IVPB SCH (01:09)
[2023-01-12] MEDS ORDERED: INSULIN (NOVOLOG) ASPART 100 UNITS/ML 10ML VIAL ONE ×4 (06:35→22:09)
[2023-01-12] MEDS: INSULIN (LEVEMIR) 100 UNITS/ML UNITS SQ SCH ×2 (06:36→22:07)
[2023-01-12] MEDS: INSULIN SLIDING SCALE (NOVOLOG) 1 VIAL SQ SCH ×4 (06:36→22:11)
[2023-01-12 06:54] LABS: POTASSIUM 3.2 mmol/L (3.5-5.1)
[2023-01-12 06:56] LABS: CALCIUM 8.7 mg/dL (8.5-10.1)
[2023-01-12 06:57] LABS: ALBUMIN 2.9 g/dl (3.4-5.0); BLOOD UREA NITROGEN 88.1 mg/dL (7-18)
[2023-01-12 07:00] LABS: CREATININE 1.6 mg/dL (0.55-1.3)
[2023-01-12 07:02] LABS: BILIRUBIN,TOTAL 0.8 mg/dL (0.2-1); TOT PROT 6.7 g/dl (6.4-8.2)
[2023-01-12] MEDS ORDERED: POTASSIUM CHLORIDE ORAL LIQUID 20 MEQ/15 ML PO ONE (09:09)
[2023-01-12] MEDS ORDERED: PIPERACILLIN/TAZOB 2.25 GM 2.25 GM in DEXTROSE 5%-WATER - 50 ML IVPB SCH (10:00)
[2023-01-12] MEDS: FUROSEMIDE 40 MG/4 ML INJECTABLE VIAL IVPUSH SCH (10:09)
[2023-01-12] MEDS: methylPREDNISolone NA SUCC 40 MG/1 ML VIAL IVPUSH SCH (10:09)
[2023-01-12] MEDS: APIXABAN 5 MG TABLET PO SCH ×2 (10:26→22:11)
[2023-01-12] MEDS: ALLOPURINOL 100 MG TABLET (FP) PO SCH (10:26)
[2023-01-12] MEDS: PREGABALIN 50 MG CAPSULE PO SCH (10:26)
[2023-01-12] MEDS: TRIAMCINOLONE ACET 0.025% TP SCH ×2 (10:27→22:11)
[2023-01-12] MEDS: KCL 10 MEQ IVPB 10 MEQ/100 ML INFUS.BAG IVPB SCH ×2 (10:54→11:47)
[2023-01-12 17:36] LABS: EPI CELLS 7 /uL (0-25.1); HYALINE CASTS 1 /uL (0-3.1); PH,URINE 5.5 (5.0-8.0); URINE APPEARANCE CLEAR; URINE BACTERIA 1 /uL (0-1359); URINE BILIRUBIN NEGATIVE (NEGATIVE); URINE COLOR YELLOW; URINE GLUCOSE (UA) NEGATIVE (NEGATIVE); URINE KETONE NEGATIVE (NEGATIVE); URINE LEUK ESTERASE NEGATIVE (NEGATIVE); URINE NITRITE NEGATIVE (NEGATIVE); URINE PROTEIN TRACE (NEGATIVE); URINE RBC 135 /uL (0-23.9); URINE UROBILINOGEN 0.2 mg/dL (0.2-1.0); URINE WBC 23 /uL (0-25.8)
[2023-01-12 20:07] LABS: URINE CRYSTALS NONE SEEN /hpf
[2023-01-12] MEDS ORDERED: CHLORHEXIDINE GLUCONATE 4% CLEANSER FOR DECOLONIZATION TP SCH (22:00)
[2023-01-13] MEDS: INSULIN (LEVEMIR) 100 UNITS/ML UNITS SQ SCH ×2 (06:29→21:47)
[2023-01-13] MEDS ORDERED: INSULIN (NOVOLOG) ASPART 100 UNITS/ML 10ML VIAL ONE ×3 (06:32→21:35)
[2023-01-13] MEDS: INSULIN SLIDING SCALE (NOVOLOG) 1 VIAL SQ SCH ×4 (06:35→21:48)
[2023-01-13 07:20] LABS: BASO % 0.7 % (0-2.0); EOS % 4.2 % (0-4.5); HEMATOCRIT 28.6 % (32.4-45.2); HEMOGLOBIN 9.1 GM/dL (10.7-15.3); LYMPH % 16.9 % (8-40); MCHC 31.8 g/dl (32.0-36.0); MEAN CELL VOLUME 75.4 fl (80-96); MEAN PLT VOLUME 9.1 fl (7.5-11.1); MONO % 4.4 % (3.8-10.2); NEUT % 73.8 % (42.8-82.8); PLATELET COUNT 219 10^3/uL (134-434); RBC 3.79 M/mm3 (3.60-5.2); RDW 19.9 % (11.6-15.6); WHITE BLOOD COUNT 4.7 K/mm3 (4.0-10.0)
[2023-01-13 07:43] LABS: POTASSIUM 3.9 mmol/L (3.5-5.1)
[2023-01-13 07:47] LABS: ALBUMIN 2.9 g/dl (3.4-5.0); MAGNESIUM 1.9 mg/dL (1.8-2.4)
[2023-01-13 07:51] LABS: CREATININE 1.5 mg/dL (0.55-1.3)
[2023-01-13 07:52] LABS: BILIRUBIN,TOTAL 0.7 mg/dL (0.2-1); TOT PROT 6.6 g/dl (6.4-8.2)
[2023-01-13] MEDS ORDERED: IRON SUCROSE INJECTION 200 MG in SODIUM CHLORIDE 90 ML IVPB ONE (09:30)
[2023-01-13] MEDS: APIXABAN 5 MG TABLET PO SCH ×2 (09:39→21:49)
[2023-01-13] MEDS: ALLOPURINOL 100 MG TABLET (FP) PO SCH (09:39)
[2023-01-13] MEDS: PREGABALIN 50 MG CAPSULE PO SCH (09:39)
[2023-01-13] MEDS: TRIAMCINOLONE ACET 0.025% TP SCH ×2 (09:39→21:50)
[2023-01-13] MEDS: methylPREDNISolone NA SUCC 40 MG/1 ML VIAL IVPUSH SCH ×2 (09:40→21:49)
[2023-01-13] MEDS: FUROSEMIDE 40 MG/4 ML INJECTABLE VIAL IVPUSH SCH ×2 (09:40→16:36)
[2023-01-13] MEDS ORDERED: FUROSEMIDE 40 MG/4 ML INJECTABLE VIAL IVPUSH SCH (10:17)
[2023-01-13] MEDS: ALBUTEROL SO4 2.5/IPRATROPIUM 0.5 INH SOL 3 ML VIAL.NEB. NEB SCH ×3 (11:25→19:55)
[2023-01-13] MEDS ORDERED: POTASSIUM CHLORIDE ORAL LIQUID 20 MEQ/15 ML PO ONE (13:30)
[2023-01-13] MEDS: ALBUMIN HUMAN 25% 100 ML VIAL IV SCH ×2 (16:36→21:45)
[2023-01-13] MEDS ORDERED: DEXTROSE 50%-WATER 25 GM/50 ML DISP.SYRIN ONE (17:30)
[2023-01-13] MEDS ORDERED: FUROSEMIDE 40 MG/4 ML INJECTABLE VIAL IVPUSH ONE (18:00)
[2023-01-14] MEDS ORDERED: INSULIN (NOVOLOG) ASPART 100 UNITS/ML 10ML VIAL ONE ×6 (06:37→21:22)
[2023-01-14] MEDS: INSULIN SLIDING SCALE (NOVOLOG) 1 VIAL SQ SCH ×4 (06:39→21:24)
[2023-01-14] MEDS: FUROSEMIDE 40 MG/4 ML INJECTABLE VIAL IVPUSH SCH ×2 (06:40→13:54)
[2023-01-14] MEDS: INSULIN (LEVEMIR) 100 UNITS/ML UNITS SQ SCH ×2 (06:44→21:12)
[2023-01-14] MEDS: ALBUTEROL SO4 2.5/IPRATROPIUM 0.5 INH SOL 3 ML VIAL.NEB. NEB SCH ×4 (07:20→20:00)
[2023-01-14] MEDS: APIXABAN 5 MG TABLET PO SCH ×2 (09:17→21:12)
[2023-01-14] MEDS: PREGABALIN 50 MG CAPSULE PO SCH (09:17)
[2023-01-14] MEDS: ALLOPURINOL 100 MG TABLET (FP) PO SCH (09:18)
[2023-01-14] MEDS: TRIAMCINOLONE ACET 0.025% TP SCH ×2 (09:18→21:12)
[2023-01-14] MEDS: methylPREDNISolone NA SUCC 40 MG/1 ML VIAL IVPUSH SCH (09:18)
[2023-01-14 09:54] LABS: HEMATOCRIT 29.6 % (32.4-45.2); HEMOGLOBIN 9.3 GM/dL (10.7-15.3); MCH 24.1 pg (25.7-33.7); MCHC 31.5 g/dl (32.0-36.0); MEAN CELL VOLUME 76.5 fl (80-96); MEAN PLT VOLUME 8.6 fl (7.5-11.1); PLATELET COUNT 249 10^3/uL (134-434); RBC 3.87 M/mm3 (3.60-5.2); RDW 19.9 % (11.6-15.6); WHITE BLOOD COUNT 9.1 K/mm3 (4.0-10.0)
[2023-01-14 10:07] LABS: POTASSIUM 4.7 mmol/L (3.5-5.1)
[2023-01-14 10:09] LABS: CALCIUM 9.6 mg/dL (8.5-10.1)
[2023-01-14 10:10] LABS: ALBUMIN 3.3 g/dl (3.4-5.0); BLOOD UREA NITROGEN 76.1 mg/dL (7-18)
[2023-01-14 10:13] LABS: CREATININE 1.4 mg/dL (0.55-1.3)
[2023-01-14 10:15] LABS: BILIRUBIN,TOTAL 0.8 mg/dL (0.2-1); TOT PROT 7.1 g/dl (6.4-8.2)
[2023-01-14 10:42] LABS: ANISOCYTOSIS 2+; MACROCYTOSIS 0
[2023-01-14] MEDS: ALBUMIN HUMAN 25% 12.5 GM/50 ML VIAL IV SCH ×2 (11:57→21:24)
[2023-01-15] MEDS ORDERED: INSULIN (NOVOLOG) ASPART 100 UNITS/ML 10ML VIAL ONE ×4 (05:59→21:12)
[2023-01-15] MEDS: FUROSEMIDE 40 MG/4 ML INJECTABLE VIAL IVPUSH SCH ×2 (06:40→14:33)
[2023-01-15] MEDS: INSULIN SLIDING SCALE (NOVOLOG) 1 VIAL SQ SCH ×4 (06:40→21:37)
[2023-01-15] MEDS: INSULIN (LEVEMIR) 100 UNITS/ML UNITS SQ SCH ×2 (06:40→21:36)
[2023-01-15] MEDS: ALBUTEROL SO4 2.5/IPRATROPIUM 0.5 INH SOL 3 ML VIAL.NEB. NEB SCH ×4 (07:10→20:36)
[2023-01-15] MEDS ORDERED: FUROSEMIDE 40 MG/4 ML INJECTABLE VIAL IVPUSH SCH (10:00)
[2023-01-15] MEDS: TRIAMCINOLONE ACET 0.025% TP SCH ×2 (10:03→21:40)
[2023-01-15] MEDS: APIXABAN 5 MG TABLET PO SCH ×2 (10:04→21:36)
[2023-01-15] MEDS: ALLOPURINOL 100 MG TABLET (FP) PO SCH (10:04)
[2023-01-15] MEDS: PREGABALIN 50 MG CAPSULE PO SCH (10:04)
[2023-01-15] MEDS: predniSONE 10 MG TABLET (UD) PO SCH (10:06)
[2023-01-15] MEDS: ALBUMIN HUMAN 25% 12.5 GM/50 ML VIAL IV SCH ×2 (10:29→22:16)
[2023-01-15 12:53] LABS: HEMATOCRIT 31.3 % (32.4-45.2); HEMOGLOBIN 9.5 GM/dL (10.7-15.3); MCH 23.3 pg (25.7-33.7); MCHC 30.2 g/dl (32.0-36.0); MEAN CELL VOLUME 77.1 fl (80-96); MEAN PLT VOLUME 8.6 fl (7.5-11.1); PLATELET COUNT 259 10^3/uL (134-434); RBC 4.06 M/mm3 (3.60-5.2); RDW 20.2 % (11.6-15.6); WHITE BLOOD COUNT 13.9 K/mm3 (4.0-10.0)
[2023-01-15] MEDS ORDERED: METOLAZONE 5 MG TABLET PO ONE (12:53)
[2023-01-15 13:13] LABS: POTASSIUM 4.3 mmol/L (3.5-5.1)
[2023-01-15 13:23] LABS: ALBUMIN 3.5 g/dl (3.4-5.0); BLOOD UREA NITROGEN 76.8 mg/dL (7-18); CALCIUM 9.8 mg/dL (8.5-10.1)
[2023-01-15 13:27] LABS: CREATININE 1.3 mg/dL (0.55-1.3)
[2023-01-15 13:28] LABS: TOT PROT 7.1 g/dl (6.4-8.2)
[2023-01-16] MEDS ORDERED: INSULIN (NOVOLOG) ASPART 100 UNITS/ML 10ML VIAL ONE ×3 (06:42→21:12)
[2023-01-16] MEDS: INSULIN SLIDING SCALE (NOVOLOG) 1 VIAL SQ SCH ×4 (06:45→21:17)
[2023-01-16] MEDS: INSULIN (LEVEMIR) 100 UNITS/ML UNITS SQ SCH ×2 (06:45→21:26)
[2023-01-16] MEDS: FUROSEMIDE 40 MG/4 ML INJECTABLE VIAL IVPUSH SCH ×2 (06:52→13:37)
[2023-01-16] MEDS: METOLAZONE 5 MG TABLET PO ONE ×2 (07:20→08:07)
[2023-01-16] MEDS: ALBUTEROL SO4 2.5/IPRATROPIUM 0.5 INH SOL 3 ML VIAL.NEB. NEB SCH ×4 (08:40→20:30)
[2023-01-16] MEDS: ALLOPURINOL 100 MG TABLET (FP) PO SCH (10:27)
[2023-01-16] MEDS: predniSONE 10 MG TABLET (UD) PO SCH (10:27)
[2023-01-16] MEDS: TRIAMCINOLONE ACET 0.025% TP SCH ×2 (10:27→21:39)
[2023-01-16] MEDS: APIXABAN 5 MG TABLET PO SCH ×2 (10:27→21:36)
[2023-01-16] MEDS: PREGABALIN 50 MG CAPSULE PO SCH (10:28)
[2023-01-16 17:07] LABS: FREE KAPPA,SERUM 127.7 mg/L (3.3-19.4)
[2023-01-17] MEDS: INSULIN SLIDING SCALE (NOVOLOG) 1 VIAL SQ SCH ×4 (06:25→22:18)
[2023-01-17] MEDS: INSULIN (LEVEMIR) 100 UNITS/ML UNITS SQ SCH ×2 (06:27→22:16)
[2023-01-17] MEDS: FUROSEMIDE 40 MG/4 ML INJECTABLE VIAL IVPUSH SCH ×2 (06:30→13:33)
[2023-01-17] MEDS: ALLOPURINOL 100 MG TABLET (FP) PO SCH (09:50)
[2023-01-17] MEDS: PREGABALIN 50 MG CAPSULE PO SCH (09:50)
[2023-01-17] MEDS: predniSONE 10 MG TABLET (UD) PO SCH (09:50)
[2023-01-17] MEDS: APIXABAN 5 MG TABLET PO SCH ×2 (09:50→22:16)
[2023-01-17] MEDS: TRIAMCINOLONE ACET 0.025% TP SCH ×2 (09:52→22:15)
[2023-01-17] MEDS: ALBUTEROL SO4 2.5/IPRATROPIUM 0.5 INH SOL 3 ML VIAL.NEB. NEB SCH ×4 (10:03→20:01)
[2023-01-17] MEDS ORDERED: INSULIN (NOVOLOG) ASPART 100 UNITS/ML 10ML VIAL ONE ×2 (11:49→16:23)
[2023-01-18] MEDS ORDERED: INSULIN (NOVOLOG) ASPART 100 UNITS/ML 10ML VIAL ONE ×2 (05:59→22:27)
[2023-01-18] MEDS: INSULIN SLIDING SCALE (NOVOLOG) 1 VIAL SQ SCH ×4 (06:57→22:28)
[2023-01-18] MEDS: FUROSEMIDE 40 MG/4 ML INJECTABLE VIAL IVPUSH SCH ×2 (06:58→14:54)
[2023-01-18] MEDS: INSULIN (LEVEMIR) 100 UNITS/ML UNITS SQ SCH ×2 (06:58→22:29)
[2023-01-18] MEDS: ALBUTEROL SO4 2.5/IPRATROPIUM 0.5 INH SOL 3 ML VIAL.NEB. NEB SCH (07:12)
[2023-01-18 07:53] LABS: BASO % 0.5 % (0-2.0); HEMATOCRIT 32.1 % (32.4-45.2); LYMPH % 10.1 % (8-40); MCHC 31.3 g/dl (32.0-36.0); MEAN CELL VOLUME 76.6 fl (80-96); MEAN PLT VOLUME 9.2 fl (7.5-11.1); MONO % 2.1 % (3.8-10.2); NEUT % 79.3 % (42.8-82.8); PLATELET COUNT 234 10^3/uL (134-434); RBC 4.19 M/mm3 (3.60-5.2); RDW 21.8 % (11.6-15.6); WHITE BLOOD COUNT 11.2 K/mm3 (4.0-10.0)
[2023-01-18 08:10] LABS: CHLORIDE 92 mmol/L (98-107); POTASSIUM 3.3 mmol/L (3.5-5.1); SODIUM 132 mmol/L (136-145)
[2023-01-18 08:12] LABS: CALCIUM 8.7 mg/dL (8.5-10.1)
[2023-01-18 08:14] LABS: ALBUMIN 3.1 g/dl (3.4-5.0); ANION GAP 9 MMOL/L (8-16); CO2 32 mmol/L (21-32); GLUCOSE,RANDOM 170 mg/dL (74-106)
[2023-01-18 08:16] LABS: CREATININE 1.5 mg/dL (0.55-1.3); SGOT/AST 7 U/L (15-37); SGPT/ALT 12 U/L (13-61)
[2023-01-18 08:17] LABS: BILIRUBIN,TOTAL 1.2 mg/dL (0.2-1)
[2023-01-18 08:18] LABS: TOT PROT 6.5 g/dl (6.4-8.2)
[2023-01-18 08:20] LABS: ALK PHOS 52 U/L (45-117)
[2023-01-18 08:25] LABS: BLOOD UREA NITROGEN 106.6 mg/dL (7-18)
[2023-01-18] MEDS: PREGABALIN 50 MG CAPSULE PO SCH (09:09)
[2023-01-18] MEDS: ALLOPURINOL 100 MG TABLET (FP) PO SCH (09:10)
[2023-01-18] MEDS: predniSONE 10 MG TABLET (UD) PO SCH (09:10)
[2023-01-18] MEDS: APIXABAN 5 MG TABLET PO SCH ×2 (09:10→22:28)
[2023-01-18] MEDS: TRIAMCINOLONE ACET 0.025% TP SCH ×2 (09:11→22:31)
[2023-01-18 13:07] LABS: ANISOCYTOSIS 2+; MACROCYTOSIS 1+; OVALOCYTE 2+
[2023-01-18] MEDS ORDERED: POTASSIUM CHLORIDE ORAL LIQUID 20 MEQ/15 ML PO ONE (16:51)
[2023-01-19] MEDS ORDERED: INSULIN (NOVOLOG) ASPART 100 UNITS/ML 10ML VIAL ONE ×4 (06:20→21:52)
[2023-01-19] MEDS: FUROSEMIDE 40 MG/4 ML INJECTABLE VIAL IVPUSH SCH ×2 (06:36→13:51)
[2023-01-19] MEDS: INSULIN (LEVEMIR) 100 UNITS/ML UNITS SQ SCH ×2 (06:37→21:54)
[2023-01-19] MEDS: INSULIN SLIDING SCALE (NOVOLOG) 1 VIAL SQ SCH ×4 (06:37→21:54)
[2023-01-19] MEDS: APIXABAN 5 MG TABLET PO SCH ×2 (09:23→21:46)
[2023-01-19] MEDS: ALLOPURINOL 100 MG TABLET (FP) PO SCH (09:23)
[2023-01-19] MEDS: predniSONE 10 MG TABLET (UD) PO SCH (09:23)
[2023-01-19] MEDS: TRIAMCINOLONE ACET 0.025% TP SCH ×2 (09:28→21:46)
[2023-01-19] MEDS: ACETAMINOPHEN 325 MG TABLET (FP) PO PRN ×2 (10:07→23:01)
[2023-01-20] MEDS: INSULIN SLIDING SCALE (NOVOLOG) 1 VIAL SQ SCH ×4 (06:30→22:32)
[2023-01-20] MEDS: INSULIN (LEVEMIR) 100 UNITS/ML UNITS SQ SCH ×2 (06:52→22:21)
[2023-01-20] MEDS: FUROSEMIDE 40 MG/4 ML INJECTABLE VIAL IVPUSH SCH (06:52)
[2023-01-20] MEDS: ACETAMINOPHEN 325 MG TABLET (FP) PO PRN (07:01)
[2023-01-20] MEDS: APIXABAN 5 MG TABLET PO SCH ×2 (10:07→22:21)
[2023-01-20] MEDS: ALLOPURINOL 100 MG TABLET (FP) PO SCH (10:07)
[2023-01-20] MEDS: predniSONE 10 MG TABLET (UD) PO SCH (10:07)
[2023-01-20] MEDS: TRIAMCINOLONE ACET 0.025% TP SCH ×2 (10:09→22:21)
[2023-01-20] MEDS ORDERED: INSULIN (NOVOLOG) ASPART 100 UNITS/ML 10ML VIAL ONE ×3 (10:46→22:39)
[2023-01-20 11:39] LABS: CHLORIDE 92 mmol/L (98-107); POTASSIUM 3.2 mmol/L (3.5-5.1); SODIUM 131 mmol/L (136-145)
[2023-01-20 11:40] LABS: CALCIUM 8.4 mg/dL (8.5-10.1)
[2023-01-20 11:41] LABS: ANION GAP 7 MMOL/L (8-16); CO2 33 mmol/L (21-32); GLUCOSE,RANDOM 243 mg/dL (74-106)
[2023-01-20 11:44] LABS: CREATININE 1.6 mg/dL (0.55-1.3)
[2023-01-20] MEDS ORDERED: CYCLOBENZAPRINE HCL 5 MG TABLET PO ONE (12:15)
[2023-01-20] MEDS ORDERED: POTASSIUM CHLORIDE ORAL LIQUID 20 MEQ/15 ML PO ONE (23:41)
[2023-01-21] MEDS: INSULIN (LEVEMIR) 100 UNITS/ML UNITS SQ SCH ×2 (06:19→21:51)
[2023-01-21] MEDS: INSULIN SLIDING SCALE (NOVOLOG) 1 VIAL SQ SCH ×4 (06:26→21:50)
[2023-01-21] MEDS: ACETAMINOPHEN 325 MG TABLET (FP) PO PRN (06:27)
[2023-01-21] MEDS: ALLOPURINOL 100 MG TABLET (FP) PO SCH (10:05)
[2023-01-21] MEDS: APIXABAN 5 MG TABLET PO SCH ×2 (10:05→21:50)
[2023-01-21] MEDS: predniSONE 10 MG TABLET (UD) PO SCH (10:05)
[2023-01-21] MEDS: TRIAMCINOLONE ACET 0.025% TP SCH ×2 (10:10→21:53)
[2023-01-21] MEDS ORDERED: INSULIN (NOVOLOG) ASPART 100 UNITS/ML 10ML VIAL ONE ×4 (10:25→21:34)
[2023-01-21] MEDS ORDERED: ACETAMINOPHEN 1000 MG/100 ML BAG IVPB PRN (11:03)
[2023-01-21] MEDS ORDERED: oxyCODONE HCL 5 MG TABLET PO ONE (11:23)
[2023-01-22] MEDS: INSULIN SLIDING SCALE (NOVOLOG) 1 VIAL SQ SCH ×4 (06:02→21:20)
[2023-01-22] MEDS: INSULIN (LEVEMIR) 100 UNITS/ML UNITS SQ SCH ×2 (06:02→21:20)
[2023-01-22] MEDS: APIXABAN 5 MG TABLET PO SCH ×2 (10:30→21:20)
[2023-01-22] MEDS: ALLOPURINOL 100 MG TABLET (FP) PO SCH (10:30)
[2023-01-22] MEDS: predniSONE 10 MG TABLET (UD) PO SCH (10:30)
[2023-01-22] MEDS: TRIAMCINOLONE ACET 0.025% TP SCH ×2 (10:30→21:19)
[2023-01-22] MEDS: oxyCODONE HCL 5 MG TABLET PO PRN ×2 (11:56→19:03)
[2023-01-22] MEDS ORDERED: POTASSIUM CHLORIDE ORAL LIQUID 20 MEQ/15 ML PO ONE (15:08)
[2023-01-22] MEDS ORDERED: INSULIN (NOVOLOG) ASPART 100 UNITS/ML 10ML VIAL ONE ×2 (17:27→21:17)
[2023-01-22] MEDS: TORSEMIDE 100 MG TABLET PO SCH (21:19)
[2023-01-22] MEDS: ACETAMINOPHEN 325 MG TABLET (FP) PO PRN (21:20)
[2023-01-23] MEDS: INSULIN SLIDING SCALE (NOVOLOG) 1 VIAL SQ SCH ×3 (06:46→17:19)
[2023-01-23] MEDS: INSULIN (LEVEMIR) 100 UNITS/ML UNITS SQ SCH (06:46)
[2023-01-23 07:07] LABS: MCH 24.9 pg (25.7-33.7); MEAN PLT VOLUME 9.4 fl (7.5-11.1); PLATELET COUNT 204 10^3/uL (134-434); RDW 22.2 % (11.6-15.6); WHITE BLOOD COUNT 6.8 K/mm3 (4.0-10.0)
[2023-01-23 07:27] LABS: POTASSIUM 3.7 mmol/L (3.5-5.1)
[2023-01-23 07:38] LABS: BLOOD UREA NITROGEN 90.6 mg/dL (7-18)
[2023-01-23 07:39] LABS: ALBUMIN 2.7 g/dl (3.4-5.0)
[2023-01-23 07:41] LABS: CREATININE 1.3 mg/dL (0.55-1.3)
[2023-01-23 07:43] LABS: BILIRUBIN,TOTAL 1.3 mg/dL (0.2-1); TOT PROT 6.2 g/dl (6.4-8.2)
[2023-01-23] MEDS: oxyCODONE HCL 5 MG TABLET PO PRN (08:22)
[2023-01-23] MEDS: ALLOPURINOL 100 MG TABLET (FP) PO SCH (09:36)
[2023-01-23] MEDS: TORSEMIDE 100 MG TABLET PO SCH (09:36)
[2023-01-23] MEDS: predniSONE 10 MG TABLET (UD) PO SCH (09:36)
[2023-01-23] MEDS: APIXABAN 5 MG TABLET PO SCH (09:37)
[2023-01-23] MEDS: TRIAMCINOLONE ACET 0.025% TP SCH (09:39)
[2023-01-23] MEDS: ACETAMINOPHEN 325 MG TABLET (FP) PO PRN (13:34)
[2023-01-23 14:55] VITALS: RESP 20
[2023-01-23 16:17] VITALS: BP 113/70; PULSE 90; TEMP 97.8
[2023-01-23] MEDS ORDERED: INSULIN (NOVOLOG) ASPART 100 UNITS/ML 10ML VIAL ONE (17:01)
[2023-01-23] MEDS ORDERED: oxyCODONE HCL 5 MG TABLET PO ONE (17:11)
== END 2023-01-23 18:43 | disposition short-term general hospital (02) | DRG 291 ==
LOC: JER 09:37 → JERBED 11:00 → JICU 11:47 → J4W 01-11 21:19
PROVIDERS: ADMIT Internal Medicine; ATTEND Internal Medicine
DX: I13.0 Hypertensive heart and chronic kidney disease with heart failure and stage 1 through stage 4 chronic kidney disease, or unspecified chronic kidney disease (principal); I50.33 Acute on chronic diastolic (congestive) heart failure; J96.21 Acute and chronic respiratory failure with hypoxia; J96.22 Acute and chronic respiratory failure with hypercapnia; N18.4 Chronic kidney disease, stage 4 (severe); E87.20 Acidosis, unspecified; N17.9 Acute kidney failure, unspecified; J90 Pleural effusion, not elsewhere classified; C91.00 Acute lymphoblastic leukemia not having achieved remission; I25.10 Atherosclerotic heart disease of native coronary artery without angina pectoris; E78.5 Hyperlipidemia, unspecified; E11.22 Type 2 diabetes mellitus with diabetic chronic kidney disease; I35.0 Nonrheumatic aortic (valve) stenosis; E11.42 Type 2 diabetes mellitus with diabetic polyneuropathy; D64.9 Anemia, unspecified; I48.0 Paroxysmal atrial fibrillation; E11.51 Type 2 diabetes mellitus with diabetic peripheral angiopathy without gangrene; I77.6 Arteritis, unspecified; I25.2 Old myocardial infarction; E87.70 Fluid overload, unspecified; E66.8 Other obesity; Z68.35 Body mass index [BMI] 35.0-35.9, adult; Z95.5 Presence of coronary angioplasty implant and graft; E87.6 Hypokalemia
CPT/HCPCS: 0241U-QW; 36415; 71045-TC-FY; 71250-TC; 73521-TC-FY; 80048; 80053; 80076; 81003; 82550; 82607; 82728; 82747; 82784; 82803; 82962; 83540; 83550; 83605; 83735; 83880; 83883; 84100; 84155; 84165; 84484; 85014; 85025; 85027; 85045; 85610; 85730; 87040; 87086; 87186; 93005; 93010; 93306-TC; 93970-TC; 94640; 94660; 97116-GP; 97161-GP; 99291; C9803-CS; J1644; J1756; P9047; U0003; U0005

== ENCOUNTER 2023-02-04 20:11 | Inpatient (IN) | payer OTHER ==
[2023-02-04 20:21] VITALS: BMI 41.5
[2023-02-04 21:14] LABS: VENOUS BASE EXCESS -0.5 mmol/L (-2-2); VENOUS PCO2 35.6 mmHg (38-52); VENOUS PH 7.437 (7.310-7.410)
[2023-02-04] MEDS ORDERED: BUMETANIDE INJECTION 1 MG/4 ML VIAL IVPUSH ONE (21:16)
[2023-02-04] MEDS ORDERED: ACETAMINOPHEN 500 MG TABLET (FP) PO ONE (21:16)
[2023-02-04 21:20] LABS: BASO % 0.2 % (0-2.0); EOS % 6.3 % (0-4.5); HEMATOCRIT 25.2 % (32.4-45.2); HEMOGLOBIN 7.9 GM/dL (10.7-15.3); LYMPH % 4.5 % (8-40); MCH 23.5 pg (25.7-33.7); MCHC 31.3 g/dl (32.0-36.0); MEAN CELL VOLUME 75.1 fl (80-96); MEAN PLT VOLUME 8.3 fl (7.5-11.1); MONO % 7.5 % (3.8-10.2); NEUT % 81.5 % (42.8-82.8); PLATELET COUNT 266 10^3/uL (134-434); RBC 3.36 M/mm3 (3.60-5.2); RDW 19.9 % (11.6-15.6); WHITE BLOOD COUNT 8.2 K/mm3 (4.0-10.0)
[2023-02-04] MEDS ORDERED: VANCOMYCIN 1 GM in D5W (PRE-DOCKED) 1,000 MG/250 ML (RESTRICTED TO ID ONLY IVPB ONE (21:20)
[2023-02-04] MEDS ORDERED: PIPERACILLIN/TAZOB 4.5 GM 4.5 GM in DEXTROSE 5%-WATER 100 ML IVPB ONE (21:22)
[2023-02-04] MEDS ORDERED: SODIUM CHLORIDE 0.9% 500 ML INFUS.BAG IV ONE (21:26)
[2023-02-04 21:27] LABS: INR 2.8 (0.83-1.09); PROTHROMBIN TIME (PATIENT) 32.1 SEC (9.7-13.0)
[2023-02-04 21:29] LABS: ACTIVATED PTT 34.4 SECONDS (25.2-36.5)
[2023-02-04] MEDS ORDERED: ACETAMINOPHEN 500 MG TABLET (FP) ONE (21:29)
[2023-02-04 21:31] LABS: POTASSIUM 4.2 mmol/L (3.5-5.1)
[2023-02-04 21:36] LABS: ALBUMIN 2.6 g/dl (3.4-5.0); MAGNESIUM 1.6 mg/dL (1.8-2.4)
[2023-02-04 21:40] LABS: CREATININE 2.3 mg/dL (0.55-1.3)
[2023-02-04 21:41] LABS: TOT PROT 5.8 g/dl (6.4-8.2)
[2023-02-04 21:45] LABS: N-TERMINAL BNP 13960.9 pg/ml (5-450)
[2023-02-04 21:46] LABS: BLOOD UREA NITROGEN 60.2 mg/dL (7-18)
[2023-02-04] MEDS ORDERED: PIPERACILLIN/TAZOB 4.5 GM 4.5 GM/100 ML BAG IVPB ONE (22:04)
[2023-02-04 22:05] LABS: LACTIC ACID 2.8 mmol/L (0.4-2.0)
[2023-02-04] MEDS ORDERED: MAGNESIUM SULF 50% (8.12 MEQ/2 ML-1 GM VIAL) IVPB ONE (22:15)
[2023-02-04] MEDS ORDERED: VANCOMYCIN/WATER FOR INJ (PEG) 1,000 MG/200 ML BAG IVPB ONE (22:59)
[2023-02-04 23:57] LABS: EPI CELLS 2 /uL (0-25.1); HYALINE CASTS 0 /uL (0-3.1); URINE APPEARANCE CLOUDY; URINE BACTERIA 14 /uL (0-1359); URINE BILIRUBIN NEGATIVE (NEGATIVE); URINE COLOR YELLOW; URINE GLUCOSE (UA) 1+ (NEGATIVE); URINE KETONE NEGATIVE (NEGATIVE); URINE LEUK ESTERASE 2+ (NEGATIVE); URINE NITRITE NEGATIVE (NEGATIVE); URINE PROTEIN 2+ (NEGATIVE); URINE RBC 6172 /uL (0-23.9); URINE WBC 1049 /uL (0-25.8)
[2023-02-05] MEDS ORDERED: MAGNESIUM SULFATE IN WATER 2 GM/50 ML IVPB IVPB ONE (00:06)
[2023-02-05] MEDS ORDERED: MIDODRINE HCL 5 MG TABLET PO ONE ×2 (01:30→08:15)
[2023-02-05] MEDS ORDERED: ACETAMINOPHEN 500 MG TABLET (FP) PO PRN ×2 (01:31→11:52)
[2023-02-05] MEDS ORDERED: SODIUM CHLORIDE 250 ML IV STA (01:33)
[2023-02-05] MEDS ORDERED: SODIUM CHLORIDE 1,000 ML IV STA ×3 (01:41→06:58)
[2023-02-05] MEDS: PIPERACILLIN/TAZOB 3.375 GM 3.375 GM in DEXTROSE 5%-WATER - 50 ML IVPB SCH ×3 (02:45→13:41)
[2023-02-05] MEDS: INSULIN SLIDING SCALE (NOVOLOG) 1 VIAL SQ SCH ×2 (06:08→13:41)
[2023-02-05 09:01] LABS: BASO % 0.4 % (0-2.0); EOS % 5.6 % (0-4.5); HEMATOCRIT 23.6 % (32.4-45.2); HEMOGLOBIN 7.4 GM/dL (10.7-15.3); LYMPH % 3.4 % (8-40); MCH 23.6 pg (25.7-33.7); MCHC 31.3 g/dl (32.0-36.0); MEAN CELL VOLUME 75.4 fl (80-96); MEAN PLT VOLUME 8.3 fl (7.5-11.1); MONO % 5.5 % (3.8-10.2); NEUT % 85.1 % (42.8-82.8); PLATELET COUNT 224 10^3/uL (134-434); RBC 3.13 M/mm3 (3.60-5.2); RDW 20.3 % (11.6-15.6); WHITE BLOOD COUNT 7.3 K/mm3 (4.0-10.0)
[2023-02-05 09:08] LABS: POTASSIUM 3.8 mmol/L (3.5-5.1)
[2023-02-05 09:10] LABS: ALBUMIN 2.2 g/dl (3.4-5.0); CALCIUM 7.7 mg/dL (8.5-10.1)
[2023-02-05 09:12] LABS: BLOOD UREA NITROGEN 57.4 mg/dL (7-18)
[2023-02-05 09:15] LABS: TOT PROT 4.9 g/dl (6.4-8.2)
[2023-02-05] MEDS ORDERED: APIXABAN 5 MG TABLET PO SCH ×2 (10:00→22:00)
[2023-02-05] MEDS ORDERED: PREGABALIN 50 MG CAPSULE PO SCH (10:00)
[2023-02-05] MEDS ORDERED: ALLOPURINOL 100 MG TABLET (FP) PO SCH (10:00)
[2023-02-05] MEDS ORDERED: MIDODRINE HCL 5 MG TABLET PO SCH ×5 (10:00→14:00)
[2023-02-05] MEDS ORDERED: CLOPIDOGREL BISULFATE 75 MG TABLET (FP) PO SCH ×2 (10:00→11:15)
[2023-02-05] MEDS ORDERED: predniSONE 5 MG TABLET (UD) PO SCH (10:00)
[2023-02-05] MEDS ORDERED: NOREPINEPHRINE BITARTRATE 4,000 MCG in DEXTROSE 5%-WATER - 496 ML IV SCH ×2 (11:45→13:00)
[2023-02-05] MEDS ORDERED: NOREPINEPHRINE 0.9 % NACL 8 MG/250 ML BAG IVPB SCH (13:00)
[2023-02-05] MEDS ORDERED: INSULIN (NOVOLOG) ASPART 100 UNITS/ML 10ML VIAL ONE ×2 (13:13→16:46)
[2023-02-05] MEDS ORDERED: INSULIN SLIDING SCALE (NOVOLOG) 1 VIAL SQ SCH (16:30)
[2023-02-05] MEDS ORDERED: PIPERACILLIN/TAZOB 2.25 GM 2.25 GM in DEXTROSE 5%-WATER - 50 ML IVPB SCH ×3 (18:00)
[2023-02-05 20:46] VITALS: BP 137/58; PULSE 68; RESP 23; TEMP 100.1
[2023-02-05] MEDS ORDERED: CHLORHEXIDINE GLUCONATE 4% CLEANSER FOR DECOLONIZATION TP SCH (22:00)
[2023-02-05] MEDS ORDERED: MUPIROCIN 2% TOPICAL OINTMENT FOR DECOLONIZATION NS SCH (22:00)
[2023-02-05] MEDS ORDERED: ATORVASTATIN CA 80 MG TABLET (FP) PO SCH (22:00)
[2023-02-06] MEDS ORDERED: predniSONE 5 MG TABLET (UD) PO SCH (10:00)
[2023-02-06] MEDS ORDERED: ALLOPURINOL 100 MG TABLET (FP) PO SCH (10:00)
[2023-02-06] MEDS ORDERED: PANTOPRAZOLE SODIUM 40 MG VIAL IVPUSH SCH (10:00)
[2023-02-06] MEDS ORDERED: CLOPIDOGREL BISULFATE 75 MG TABLET (FP) PO SCH ×2 (10:00)
[2023-02-06] MEDS ORDERED: PREGABALIN 50 MG CAPSULE PO SCH (10:00)
== END 2023-02-05 20:47 | disposition short-term general hospital (02) | DRG 871 ==
LOC: JER 20:11 → JERBED 23:57 → J4S 02-05 01:02 → JICU 02-05 11:24
PROVIDERS: ADMIT Internal Medicine; ATTEND Internal Medicine
PROC: 05HM33Z Insertion of Infusion Device into Right Internal Jugular Vein, Percutaneous Approach (ICD-10-PCS; principal; 2023-02-05)
PROC: B543ZZA Ultrasonography of Right Jugular Veins, Guidance (ICD-10-PCS; 2023-02-05)
DX: A41.89 Other specified sepsis (principal); I50.43 Acute on chronic combined systolic (congestive) and diastolic (congestive) heart failure; R65.21 Severe sepsis with septic shock; C91.00 Acute lymphoblastic leukemia not having achieved remission; Z68.41 Body mass index [BMI] 40.0-44.9, adult; N17.9 Acute kidney failure, unspecified; E87.20 Acidosis, unspecified; I48.20 Chronic atrial fibrillation, unspecified; I13.0 Hypertensive heart and chronic kidney disease with heart failure and stage 1 through stage 4 chronic kidney disease, or unspecified chronic kidney disease; N30.00 Acute cystitis without hematuria; I77.6 Arteritis, unspecified; I25.10 Atherosclerotic heart disease of native coronary artery without angina pectoris; I48.91 Unspecified atrial fibrillation; E78.5 Hyperlipidemia, unspecified; I77.1 Stricture of artery; E66.01 Morbid (severe) obesity due to excess calories; I11.0 Hypertensive heart disease with heart failure; E11.51 Type 2 diabetes mellitus with diabetic peripheral angiopathy without gangrene; E11.22 Type 2 diabetes mellitus with diabetic chronic kidney disease; N18.9 Chronic kidney disease, unspecified; Z98.61 Coronary angioplasty status
CPT/HCPCS: 0241U-QW; 36415; 71045-TC-FY; 80053; 81003; 82570; 82803; 82962; 83605; 83735; 83880; 84156; 84300; 84484; 85025; 85610; 85730; 86850; 86900; 86901; 87040; 87086; 87186; 93005; 93010; 99285-25

== ENCOUNTER 2023-12-12 05:20 | Day surgery (SDC) | payer OTHER ==
[2023-12-06 16:41] VITALS: BMI 34.4
[~2023-12-12 05:20] MED LIST: ACETAMINOPHEN 325 MG TABLET (FP) PO PRN
[2023-12-12] MEDS ORDERED: LIDOCAINE HCL/PF 1% SDV 5ML VIAL ONE (07:24)
[2023-12-12] MEDS ORDERED: LIDOCAINE HCL/PF 2% SDV 5ML VIAL ONE (07:24)
[2023-12-12] MEDS ORDERED: BSS (NA/CA/MG/K) BALANCED SALT SOLUTION OPHTH SOLN 15 ML BOTTLE ONE (07:25)
[2023-12-12] MEDS ORDERED: BUPIVACAINE HCL/PF 0.75% 10 ML VIAL ONE (07:25)
[2023-12-12] MEDS ORDERED: POVIDONE-IODINE 5% OPHTHALMIC PREP 30 ML SOLUTION ONE (07:25)
[2023-12-12] MEDS ORDERED: CYCLOPENTOLATE HCL 1% OPHTH SOLN 2 ML BOTTLE ONE (07:29)
[2023-12-12] MEDS ORDERED: PHENYLEPHRINE 2.5% OPTHALMIC DROP 2ML BOTTLE ONE (07:29)
[2023-12-12] MEDS ORDERED: TROPICAMIDE 1% OPHTH SOLN 15 ML BOTTLE ONE (07:29)
[2023-12-12] MEDS ORDERED: OFLOXACIN 0.3% OPHTHALMIC SOLUTION 5 ML BOTTLE ONE (07:29)
[2023-12-12] MEDS ORDERED: KETOROLAC TROMETHAMINE 0.5% EYE DROP 1 DROP DROPS ONE (07:29)
[2023-12-12 07:34] VITALS: RESP 18
[2023-12-12] MEDS: TROPICAMIDE 1% OPHTH SOLN 15 ML BOTTLE OP SCH (08:30)
[2023-12-12] MEDS: KETOROLAC TROMETHAMINE 0.5% EYE DROP 1 DROP DROPS OP SCH (08:30)
[2023-12-12] MEDS: CYCLOPENTOLATE HCL 1% OPHTH SOLN 2 ML BOTTLE OP SCH (08:30)
[2023-12-12] MEDS: PHENYLEPHRINE 2.5% OPHTH SOLN 15 ML BOTTLE OP SCH (08:31)
[2023-12-12] MEDS: OFLOXACIN 0.3% OPHTHALMIC SOLUTION 5 ML BOTTLE OP SCH (08:31)
[2023-12-12] MEDS ORDERED: MIDAZOLAM HCL 2 MG/2 ML SINGLE DOSE VIAL ONE (12:10)
[2023-12-12] MEDS ORDERED: PROPOFOL 20 ML ONE (12:10)
[2023-12-12] MEDS: BUPIVACAINE HCL/PF 0.75% 10 ML VIAL RB ONE ×2 (12:20)
[2023-12-12] MEDS: LIDOCAINE HCL/PF 2% SDV 5ML VIAL INF ONE ×2 (12:20)
[2023-12-12] MEDS: POVIDONE-IODINE 5% OPHTHALMIC PREP 30 ML SOLUTION OD ONE ×2 (12:21)
[2023-12-12] MEDS: LIDOCAINE HCL 1% PRESERVATIVE FREE - 30ML VIAL IO ONE ×2 (12:27)
[2023-12-12] MEDS: CHONDROITIN SU A/HYALUR SOD 1 KIT IO ONE ×2 (12:28)
[2023-12-12] MEDS: BSS (NA/CA/MG/K) BALANCED SALT SOLUTION OPHTH SOLN 15 ML BOTTLE IO ONE ×2 (12:29)
[2023-12-12] MEDS: EPINEPHrine/PF 1 MG/1 ML (1:1,000) AMPULE IO ONE ×2 (12:34)
[2023-12-12 15:18] VITALS: BP 117/68; PULSE 78; TEMP 97.7
== END 2023-12-12 15:00 | disposition home or self-care (01) ==
LOC: JASU-SURG 05:20
PROVIDERS: ATTEND Ophthalmology
PROC: 08RJ3JZ Replacement of Right Lens with Synthetic Substitute, Percutaneous Approach (ICD-10-PCS; principal; 2023-12-12 11:00)
DX: H26.9 Unspecified cataract (principal)
CPT/HCPCS: V2632

== ENCOUNTER 2023-12-26 04:23 | Day surgery (SDC) | payer OTHER ==
[2023-12-25 08:36] VITALS: BMI 34.4
[~2023-12-26 04:23] MED LIST changes: +CYCLOPENTOLATE HCL 1% OPHTH SOLN 2 ML BOTTLE OP SCH; +KETOROLAC TROMETHAMINE 0.5% EYE DROP 1 DROP DROPS OP SCH; +OFLOXACIN 0.3% OPHTHALMIC SOLUTION 5 ML BOTTLE OP SCH; +PHENYLEPHRINE 2.5% OPHTH SOLN 15 ML BOTTLE OP SCH; +TROPICAMIDE 1% OPHTH SOLN 15 ML BOTTLE OP SCH
[2023-12-26] MEDS ORDERED: LIDOCAINE HCL/PF 1% SDV 5ML VIAL ONE (07:36)
[2023-12-26] MEDS ORDERED: LIDOCAINE HCL/PF 2% SDV 5ML VIAL ONE (07:36)
[2023-12-26] MEDS ORDERED: BUPIVACAINE HCL/PF 0.75% 10 ML VIAL ONE (07:36)
[2023-12-26] MEDS ORDERED: POVIDONE-IODINE 5% OPHTHALMIC PREP 30 ML SOLUTION ONE (07:36)
[2023-12-26] MEDS: TROPICAMIDE 1% OPHTH SOLN 15 ML BOTTLE OS ONE ×3 (08:40→09:12)
[2023-12-26] MEDS: KETOROLAC TROMETHAMINE 0.5% EYE DROP 1 DROP DROPS OS ONE ×3 (08:40→09:14)
[2023-12-26] MEDS ORDERED: PHENYLEPHRINE 2.5% OPTHALMIC DROP 2ML BOTTLE ONE (08:40)
[2023-12-26] MEDS: OFLOXACIN 0.3% OPHTHALMIC SOLUTION 5 ML BOTTLE OS ONE ×3 (08:40→09:13)
[2023-12-26] MEDS: PHENYLEPHRINE 2.5% OPHTH SOLN 15 ML BOTTLE OS ONE ×3 (08:40→09:13)
[2023-12-26] MEDS ORDERED: KETOROLAC TROMETHAMINE 0.5% EYE DROP 1 DROP DROPS ONE (08:41)
[2023-12-26] MEDS ORDERED: OFLOXACIN 0.3% OPHTHALMIC SOLUTION 5 ML BOTTLE ONE (08:41)
[2023-12-26] MEDS ORDERED: TROPICAMIDE 1% OPHTH SOLN 15 ML BOTTLE ONE (08:41)
[2023-12-26] MEDS ORDERED: MIDAZOLAM HCL 2 MG/2 ML SINGLE DOSE VIAL ONE (10:38)
[2023-12-26] MEDS ORDERED: PROPOFOL 20 ML ONE (10:38)
[2023-12-26] MEDS: LIDOCAINE HCL/PF 2% SDV 5ML VIAL INF ONE (10:46)
[2023-12-26] MEDS: BUPIVACAINE HCL/PF 0.75% 10 ML VIAL RB ONE (10:46)
[2023-12-26] MEDS: POVIDONE-IODINE 5% OPHTHALMIC PREP 30 ML SOLUTION OS ONE (10:49)
[2023-12-26] MEDS: BSS (NA/CA/MG/K) BALANCED SALT SOLUTION OPHTH SOLN 15 ML BOTTLE IO ONE (10:56)
[2023-12-26] MEDS: LIDOCAINE HCL 1% PRESERVATIVE FREE - 30ML VIAL IO ONE (10:56)
[2023-12-26] MEDS: CHONDROITIN SU A/HYALUR SOD 1 KIT IO ONE ×2 (10:58)
[2023-12-26] MEDS: EPINEPHrine/PF 1 MG/1 ML (1:1,000) AMPULE IO ONE ×2 (11:02)
[2023-12-26 11:46] VITALS: RESP 16
[2023-12-26 12:23] VITALS: BP 101/56; PULSE 98; TEMP 97.1
== END 2023-12-26 12:20 | disposition home or self-care (01) ==
LOC: JASU-SURG 04:23
PROVIDERS: ATTEND Ophthalmology
PROC: 08RK3JZ Replacement of Left Lens with Synthetic Substitute, Percutaneous Approach (ICD-10-PCS; principal; 2023-12-26 10:00)
DX: H26.9 Unspecified cataract (principal)
CPT/HCPCS: 82962; V2632